=== PATIENT | male | born 1940 | race Caucasian/White ===

== ENCOUNTER 2017-12-27 11:32 | Inpatient (IN) | payer MEDICARE, OTHER, SELFPAY ==
[2017-12-27] VITALS (17 sets, daily range): BP systolic 132–182; BP diastolic 75–102; PULSE 44–59; RESP 14–19; TEMP 36.4–37; O2SAT 95–100; BMI 26.2; BMI 26.5
--- NOTE | 2017-12-27 11:34 | NURSING ---
1129 STROKE ALERT CALLED
--- NOTE | 2017-12-27 11:44 | CT_ITS ---
STUDY: CT BRAIN WITHOUT CONTRAST REASON FOR EXAM: Male, 77 years old. CVA. RADIATION DOSAGE (If Supplied By Facility): CTDIvol = ( 44.99 ) mGy, DLP = ( 779.29 ) mGycm TECHNIQUE: Transaxial CT imaging of the brain was performed without administration of intravenous contrast material. Individualized dose optimization techniques were used for this CT. COMPARISON: None. FINDINGS: Normal soft tissue structures. Normal calvarium. There is mild cerebral atrophy with widening of the extra-axial spaces and ventricular dilatation. Normal white matter tracts of the cerebral hemispheres. Normal basal ganglia and thalami. Normal brainstem. Normal cerebellum. There is no intracranial hemorrhage. There are no findings of an acute ischemic infarction. Atherosclerotic calcification of the cavernous portions of the internal carotid arteries bilaterally. Normal visualized paranasal sinuses. CT/Brain/Head without Contrast IMPRESSION: Chronic involutional changes of the brain. N.B. : The above information has been verbally conveyed by Pepe Lopez MD to Adam Hutchison, Referring Physician, on 12/27/2017 12:00:06 (ET). Electronically Signed: Pepe Lopez MD at 12:01 EST Tel [phone], Service support , N.B. : The above information has been verbally conveyed by Pepe Lopez MD to Adam Hutchison, Referring Physician, on 12/27/2017 12:00:06 (ET).
--- NOTE | 2017-12-27 11:45 | EKG12_ITS ---
Test Reason : STROKE Blood Pressure : / mmHG Vent. Rate : 046 BPM Atrial Rate : 046 BPM P-R Int : 218 ms QRS Dur : 104 ms QT Int : 482 ms P-R-T Axes : 064 -23 046 degrees QTc Int : 421 ms Sinus bradycardia with 1st degree A-V block Otherwise normal ECG Confirmed by HIRAL PRESTON, ISABELLA ([id number]), editorial manager MARCELA HICKMAN ([id number]) on 12/30/2017 2:47:50 PM Referred By: Confirmed By:ISABELLA BLACKMAN MD
--- NOTE | 2017-12-27 11:46 | CT_ITS ---
STUDY: CTA OF THE BRAIN REASON FOR EXAM: Male, 77 years old. Right-sided weakness. Diaphoresis. RADIATION DOSAGE (If Supplied By Facility): CTDIvol = ( 32.69 ) mGy, DLP = ( 808.51 ) mGycm TECHNIQUE: CT angiography was performed with a multi-detector CT scanner. Data acquisition was obtained from the skull base through the vertex following intravenous administration of 100 ml of Isovue 370. MIP images were reconstructed from the axial data set. Post-processing of the angiographic images was performed, with multiplanar reformation and 3D reconstruction. Individualized dose optimization techniques were used for this CT. COMPARISON: None. FINDINGS: Normal bilateral petrous carotid arteries. There is calcified plaque formation of the right cavernous carotid artery, without a cross-sectional luminal stenosis. There is calcified plaque formation of the left cavernous carotid artery, without a cross-sectional luminal stenosis. Normal right A1 segments of the anterior cerebral artery. Normal left A1 segments of the anterior cerebral artery. Normal intact anterior communicating artery (ACOM). Normal bilateral A2 segments of the anterior cerebral arteries. Normal right M1 and M2 segments of the middle cerebral arteries, with a normal M1 bifurcation. Normal left M1 and M2 segments of the middle cerebral arteries, with a normal M1 bifurcation. Normal right posterior communicating artery (PCOM). Normal left posterior communicating artery (PCOM). Normal bilateral vertebral arteries. Normal basilar artery with a normal basilar bifurcation. The visualized bilateral superior cerebellar (SCA) arteries are normal. Normal bilateral P1, P2 and visualized P3 segments of the posterior cerebral arteries. There is no demonstrated aneurysm of the [place]. There is no demonstrated abnormality of the visualized brain. CT/CTA Head W/WO Contrast IMPRESSION: Normal [place] without a demonstrated aneurysm or hemodynamically significant stenosis. Electronically Signed: Pepe Lopez MD at 12:33 EST Tel [phone], Service support ,
--- NOTE | 2017-12-27 11:46 | CT_ITS ---
STUDY: CTA NECK WITH CONTRAST REASON FOR EXAM: Male, 77 years old. Right-sided weakness. RADIATION DOSAGE (If Supplied By Facility): CTDIvol = ( 32.69 ) mGy, DLP = ( 808.51 ) mGycm TECHNIQUE: CT angiography with multi-detector data acquisition was performed from the aortic arch to the skull base following intravenous administration of 100 ml of Isovue 370 contrast. MIP images were reconstructed from the axial data set. Post-processing of the angiographic images was performed, with multiplanar reformation and 3D reconstruction. Individualized dose optimization techniques were used for this CT. COMPARISON: None. FINDINGS: AORTIC ARCH: Normal visualized aortic arch. Normal origins of the brachiocephalic, left common carotid, and left subclavian arteries. RIGHT CAROTID ARTERIES: Normal right common carotid artery (CCA). Normal right common carotid bulb. There is mild atherosclerotic plaque formation of the origin of the right internal carotid artery with less than 50% cross sectional diameter stenosis. Normal visualized cervical portion of the right internal carotid artery. Normal origin of the right external carotid artery (ECA). LEFT CAROTID ARTERIES: Normal left common carotid artery (CCA). Normal left common carotid bulb. Normal origin of the left internal carotid (ICA) artery without a hemodynamically significant stenosis. Normal visualized cervical portion of the left internal carotid artery. Normal origin of the left external carotid artery (ECA). VERTEBRAL ARTERIES: Normal bilateral vertebral arteries. CT/CTA Neck W/WO Contrast IMPRESSION: Minimal degree of atherosclerotic plaque at the origin of the right internal carotid artery. Electronically Signed: Pepe Lopez MD at 12:37 EST Tel [phone], Service support ,
--- NOTE | 2017-12-27 11:48 | ED.VISSUMM ---
- ER Visit Summary Date of Service: 12/27/17 Chief Complaint: [] The patient presents complaining of slurry speech right facial droop and paralysis of the right leg began suddenly around 1115 1120 History of Present Illness: The patient is a 77 M [] of valve surgery or some type of a ring was placed in his cardiac valve years ago, unspecified other heart disease he is on amiodarone, he apparently was well until 11 to 11:15 AM today when he suddenly began explains trouble with his speech right facial droop and could not move or elevate his right leg paramedics were called he was brought in. 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 he is receiving injections and that I but he is able to count fingers to visual acuity testing he has full range of motion of extraocular muscles no nystagmus his speech is heavy he struggles to find the words he has an obvious dysarthria, his lungs are clear the heart tones are bradycardic to about 50, his abdomen is soft nontender his upper lower extremities are generally unremarkable, he is able to hold both upper extremities up in the air for the normal count, he cannot hold the right leg up it falls immediately down to the bed, his NIH score is about 11 due to all of the above We immediately call the stroke team prior to arrival, stroke protocol executed neurology in the room he is taken a CAT scan with neurology, his EKG shows a bradycardic rhythm rate of about 50 sinus Test Results: [] Emergency Department Course and Treatment: [] The patient's screening labs are unremarkable he was taken to CT by Dr. Meadows CTA was added to his studies, per Dr. Meadows the studies are unremarkable, Dr. Meadows re-evaluate the patient did a repeat NIH that was practically 0 at this time the patient does not appear to be a candidate for TPA Dr. Meadows is arranging for his admission to the ICU Treatment Plan: [] Disposition: [] admit stable Impression: [] Stroke, right leg weakness slurry speech right facial droop symptoms improving This note was generated with [employer] software. It may contain incorrect words, spelling, and punctuation that were not noted in review of the chart prior to signing ED Disposition - Plan for ED Patient: Chief Complaint: Neuro S/Sx Referrals: Cheo Gamble MD [Primary Care Provider] -
--- NOTE | 2017-12-27 11:50 | RAD_ITS ---
STUDY: X-RAY CHEST REASON FOR EXAM: Male, 77 years old. Shortness of breath/dyspnea. TECHNIQUE: Single AP portable view of the chest. COMPARISON: None. FINDINGS: EKG electrode is seen. Mild elevation of the left hemidiaphragm with increased linear markings at the left lung base suggestive of left basilar atelectasis. There is no demonstrated pleural abnormality. Sternal cerclage wires are present from a prior sternotomy. Prior mitral and aortic valve replacement. Borderline cardiomegaly. Normal mediastinum and gavin. Normal visualized pulmonary arteries. There is atherosclerotic tortuosity of the aortic arch and descending thoracic aorta. Normal visualized thoracic spine. Normal visualized ribs, clavicles, and shoulders. There is no demonstrated abnormality of the visualized soft tissue structures of the upper abdomen. RAD/Chest 1 View IMPRESSION: Mild elevation of left hemidiaphragm with mild left basilar increased markings suggestive of atelectasis. Electronically Signed: Pepe Lopez MD at 12:28 EST Tel [phone], Service support ,
--- NOTE | 2017-12-27 11:53 | NURSING ---
NO LW OR POA
[2017-12-27 11:55] LABS: Absolute Lymphocyte Count 1.53 X10^3/ul (0.83-4.51); Absolute Neutrophil Count 3.1 X10^3/uL (2.0-7.7); Basophil# 0.02 X10^3/uL; Basophil% 0.4 % (0-1); Eosinophil# 0.12 X10^3/uL; Eosinophils% 2.2 % (0-5); Hematocrit 42.3 % (40-54); Hemoglobin 14.8 g/dl (13.0-16.5); Lymphocyte # 1.53 X10^3/ul (4.0); Lymphocyte % 28.5 % (19-41); Mean Corpuscular Hgb 32.1 pg (27.0-32.0); Mean Corpuscular Volume 91.8 fL (80-94); Mean Platelet Vol. 9.8 fl (6.2-12.0); Monocyte# 0.61 X10^3/uL; Monocyte% 11.4 % (0-10); Neutrophil # 3.07 X10^3/uL (2.7-7.7); Neutrophil % 57.3 % (47-70); POSITIVE COUNT NO; POSITIVE DIFFERENTIAL NO; POSITIVE MORPHOLOGY NO; Platelet Count 176 K/mm3 (150-450); RBC Distribution Width CV 13.3 % (11.6-14.6); RBC Distribution Width SD 44.3 fl (35.1-43.9); Red Blood Count 4.61 M/mm3 (4.6-6.2); White Blood Count 5.4 K/mm3 (4.4-11.0)
[2017-12-27 11:58] LABS: Partial Thromboplast Time 29.3 Seconds (24.1-36.2); Prothrombin Time (Protime)PT. 13.2 SECONDS (11.7-14.9)
--- NOTE | 2017-12-27 12:06 | ED.RN ---
1145. Dr. Meadows at bedside and has scored pt as zero. NO WORKFORCE INVESTMENT ACT CAREER MANAGER needed. Abdiel has requested ICU.
[2017-12-27 12:11] LABS: Anion Gap 6 (5-15); BUN 27 mg/dL (7-18); BUN/Creat Ratio 23.1 RATIO (10-20); Calcium,Total 8.6 mg/dL (8.5-10.1); Chloride 104 mmol/L (98-107); Creatinine, Serum 1.17 mg/dL (0.70-1.30); EST Glomerular Filtration Rate 64 mL/min (>60); Est Glom Filt Rate - Afr Amer 77 mL/min (>60); Estimated Creatinine Clearance 56.19 ml/min; Glucose 122 mg/dL (74-106); Sodium Level 142 mmol/L (136-145)
--- NOTE | 2017-12-27 12:39 | CON.PCM_ITS ---
Reason for Consult Date of Consultation: 12/27/17 Reason for Consultation: Stroke team History of Present Illness: The patient is a 77 year old handed white male who has a history of valve replacement and arrhythmia on amiodarone but not on any anticoagulation. There is no history of bleeding according to the patient and his next of kin daughter who is present. He apparently was acting abnormally this morning with some slurred speech and he indicates that he may have had some right-sided abnormal sensation as well. His ghmvief-ji-rss came to see him when he found that his language was abnormal on the phone and called the squad. Stroke team was called by the squad 12 minutes prior to his arrival in the emergency department because when they initially arrived he was normal however they noted slurred speech and right-sided weakness with an onset of 12 minutes prior to arrival. Upon evaluation in the emergency room the patient had improved but his speech had not normalized. CAT scan and CTA was immediately obtained both of which are normal, upon reevaluation in the emergency room he was improved and his NIH stroke scale score was 0. He and his daughter were able to tell me that he had what sounds like some venous congestion in his right retina however they were not able to tell me the exact diagnosis or his wet trimmer name. As far as they know there is no contraindication to anticoagulation, no history of bleeding, no history of tumors or recent surgery. Is no complaints now, no pain and is able to follow simple commands. Past Medical History Past Medical History (Chronic Problems): Chronic Problems Hypertension (Chronic) Hypothyroid (Chronic) Murmur (Chronic) BPH (benign prostatic hyperplasia) (Chronic) Allergies lisinopril Adverse Reaction (Verified 10/17/16 01:45) Nausea Home Medications: Ambulatory Orders Medication Instructions Recorded Amiodarone HCl [Cordarone] 100 mg PO DAILY 09/07/16 Amlodipine Besylate 2.5 mg PO DAILY 09/07/16 Finasteride 5 mg PO QHS 09/07/16 Levothyroxine [Synthroid] 50 mcg PO DAILY 09/07/16 Metoprolol(XL)Succ [Toprol Xl 25 mg PO DAILY 09/07/16 (Beta Sherrill)] Sertraline HCl 25 mg PO DAILY 09/07/16 Simvastatin 20 mg PO QHS 09/07/16 Aspirin E.C. [Ecotrin] 162 mg PO DAILY@0800 10/05/16 Nitroglycerin 0.4 mg SL PRN PRN 10/05/16 Aspirin/Acetaminophen/Caffeine 1 tab PO Q6H PRN PRN 10/12/16 [Excedrin Migraine Caplet] Pedi Mv No.79/Ferrous Fumarate 1 tab PO DAILY 10/12/16 [Flintstones with Iron Tab Chew] Oxybutynin [Ditropan] 5 mg PO BID 12/27/17 TraMADol [Ultram (G)] 50 mg PO Q4H PRN PRN 12/27/17 Smoking Status: Never smoker Tobacco Use: Non-smoker - *Family History Maternal History Items: No pertinent history Review of Systems Constitutional: Denies: Chills, Fever, Weight Change HEENT: Denies: Head Aches, Sinus Congestion, Sinus Drainage Cardiovascular: Denies: Chest Pain, Palpitations Respiratory: Denies: Cough, Shortness of breath at rest, Sputum production Gastrointestinal: Denies: Abdominal Pain, Nausea, Vomiting Genitourinary: Denies: Dysuria Musculoskeletal: Denies: Joint Pain, Joint Tenderness Skin: Denies: Rash, Wounds Neurological: Denies: Numbness, Tingling, Focal weakness Psychiatric: Denies: Anxiety, Depression, Homicidal Ideations, Suicidal Ideations Hematologic/ Lymphatic: Denies: Easy Bruising, Easy Bleeding - Physical Exam General: Alert, Oriented x3, Cooperative HEENT: Atraumatic, PERRLA, EOMI, Normocephalic Neck: Supple, No JVD, Negative Carotid Bruits Lungs: Clear to auscultation, Normal air movement Cardiovascular: Regular rate, No murmurs Abdomen: Bowel Sounds Present, Soft, Non Tender Extremities: No edema, Capillary Refill Less than 3 Seconds Skin: No rashes, No breakdown Musculoskeletal: No Tenderness to Palpation of Joints or Extremities Neurological: Cranial nerves II-XII grossly intact Psych/Mental Status: Normal Affect, Appropriate Vital Signs Pulse Resp BP Pulse Ox 49 L 18 171/84 H 99 12/27/17 11:53 12/27/17 11:53 12/27/17 11:53 12/27/17 11:53 Oxygen Delivery Method Room Air Weight: 87.7 kg Body Mass Index (BMI) 26.2 Laboratory Tests Past 24 Hrs 12/27/17 12/27/17 12/27/17 11:35 11:35 11:35 WBC 5.4 RBC 4.61 Hgb 14.8 Hct 42.3 MCV 91.8 MCH 32.1 H MCHC 35.0 RDW 13.3 RDW Differential 44.3 H Plt Count 176 MPV 9.8 Immature Gran % (Auto) 0.200 Neut % (Auto) 57.3 Lymph % (Auto) 28.5 [place] % (Auto) 11.4 H Eos % (Auto) 2.2 Baso % (Auto) 0.4 Absolute Neuts (auto) 3.1 Absolute Lymphs (auto) 1.53 Total Counted Not Reportable PT 13.2 INR 1.0 APTT 29.3 Sodium 142 Potassium 4.0 Chloride 104 Carbon Dioxide 32.0 Anion Gap 6 BUN 27 H Creatinine 1.17 Estim Creat Clear Calc 56.19 Est GFR (MDRD) Af Amer 77 Est GFR (MDRD) Non-Af 64 BUN/Creatinine Ratio 23.1 H Glucose 122 H Calcium 8.6 Troponin I < 0.02 CT and CTA reviewed concurrently with the performance of the test in the CT scanner, both of which are normal with no vessel abnormalities or acute stroke or bleeding. Assessment/Plan impression: TIA symptoms, I suspect this is cardioembolic given the stuttering occurrence of the symptoms. The patient is now normal. TPA is contraindicated now that his NIH stroke scale score 0. This was discussed with the patient and family who agree. I would recommend that he be admitted to the ICU for close monitoring, full dose anticoagulation should be initiated, MRI, echocardiogram and telemetry monitoring should be performed.
--- NOTE | 2017-12-27 13:02 | CHAPLAIN ---
Type of Pastoral Visit ___ Initial Visit ___ Follow-up Visit ___ On-call Visit ___ General Patient Visit ___ Spiritual Assessment ___ Family Conference ___ Bereavement _x__ Rapid Response ___ Code Blue ___ Other (describe below) Pastoral Care Referral From ___ Patient ___ Family ___ Nurse ___ Physician ___ Guest Services Attendant ___ Machine Operator Farmworker _x__ Other (describe below) Sacrament/Intervention _x__ Active listening ___ Anointing ___ Voodoo ___ Bereavement ___ Communion ___ Claudette exploration ___ ___ Life review _x__ Prayer ___ Reconciliation ___ Sacrament of Sick _x__ Supportive presence ___ Wedding ___ Other (describe below) Pastoral Comments sat with daughter of patient as medical team did evaluation; daughter accepted a prayer for support; gave presence and time until patient appeared to have good results
--- NOTE | 2017-12-27 13:24 | NURSING ---
dr heidy wood
--- NOTE | 2017-12-27 13:29 | NURSING ---
DR COURTNEY IN ER
--- NOTE | 2017-12-27 14:39 | MRI_ITS ---
MR Brain W/O Contrast INDICATION: rt facial droop and rt leg weakness earlier today-resolving now.Pt has mitral valve replacement COMPARISON: None TECHNIQUE: Multiplanar multisequence MRI examination of the brain without contrast. Radiation dose optimization technique applied. FINDINGS: There is no evidence of restricted diffusion to suggest acute infarction. Ventricular system is normal in size. Cortical sulci and extra-axial CSF spaces are mildly prominent, compatible with patient's age. Minimal confluent periventricular chronic ischemic microvascular white matter changes are noted. There is no evidence of parenchymal hemorrhage, mass effect, midline shift, or abnormal extra-axial collection. Paranasal sinuses are clear and flow-voids of the [place] vascularity appear within normal limits. MRI/Brain without Contrast IMPRESSION: Age-related cerebral volume loss and mild chronic ischemic microvascular white matter changes. No acute findings. at 1736 Reported and signed by: Mary Bell MD Electronically Signed: Mary Bell MD at 16:34 EST Tel , Service support ,
--- NOTE | 2017-12-27 14:39 | ECHOD_ITS ---
Reason For Study: TIA/CVA Procedure This was a 2D Doppler, Color Flow transthoracic echocardiogram. Exam performed portable in patient room. Left Ventricle Mild concentric left ventricular hypertrophy. The estimated ejection fraction is 65 %. Septal motion consistent with IVCD. No regional wall motion abnormalities noted. Right Ventricle Normal size and thickness. Normal systolic function. Atria The left atrium is moderately enlarged. Normal right atrium. Normal atrial septum. Mitral Valve Mild diffuse mitral valve thickening. There is no vegetation seen on the mitral valve. Peak transmitral valve gradient 5 mmHg. Mean transmitral valve gradient 2 mmHg. An annuloplasty ring is noted in the mitral position. Tricuspid Valve Normal tricuspid valve. Trivial tricuspid valve insufficiency. Right ventricular systolic pressure estimated to be 26 mmHg. Aortic Valve Trisinus/trileaflet aortic valve. Mild diffuse aortic valve thickening. Pulmonic Valve Normal pulmonic valve. Great Vessels Normal aortic root. Moderate atherosclerosis of the aortic arch. Normal inferior vena cava. Inferior vena cava collapse with sniff. Pericardium/Pleural No pericardial effusion. MMode/2D Measurements & Calculations LVIDd: 3.8 cm IVSd: 1.3 cm Ao root diam: 3.1 cm LVIDs: 2.2 cm LVPWd: 1.2 cm LA dimension: 5.0 cm RVDd: 3.2 cm FS: 43.7 % LAV(MOD-bp): 74.3 ml LA A4 area: 24.9 cm2 RA A4 area: 13.0 cm2 LAV(MOD-bp) Indexed: 36.1 ml/m2 LAV(MOD-sp2): 53.4 ml LAV(MOD-sp4): 82.3 ml Doppler Measurements & Calculations MV E max jorje: 95.1 cm/sec Lat Peak E' Jorje: 6.7 cm/sec Med Peak E' Jorje: 4.4 cm/sec MV A max jorje: 92.1 cm/sec E/E' lat: 14.2 E/E' med: 21.7 MV E/A: 1.0 MV V2 max: 108.3 cm/sec MV P1/2t max jorje: 89.2 cm/sec Ao V2 max: 109.6 cm/sec MV max P.7 mmHg MV P1/2t: 151.0 msec Ao max P.8 mmHg MV V2 mean: 57.0 cm/sec MV dec slope: 173.1 cm/sec2 MV mean P.6 mmHg MVA(P1/2t): 1.5 cm2 MV V2 VTI: 46.8 cm LV V1 max: 80.0 cm/sec PA V2 max: 103.8 cm/sec TR max jorje: 227.6 cm/sec LV V1 max P.6 mmHg TR max P.7 mmHg Interpretation Summary Mild concentric left ventricular hypertrophy. The estimated ejection fraction is 65 %. The left atrium is moderately enlarged. Mild diffuse mitral valve thickening. Right ventricular systolic pressure estimated to be 26 mmHg. Moderate atherosclerosis of the aortic arch. There is no comparison study available. No cardiac source of emboli noted. Ordering Physician: Robin Gomes Performed By: Sari Oquendo RDCS
[2017-12-27 15:25] LABS: Partial Thromboplast Time 29.7 Seconds (24.1-36.2)
--- NOTE | 2017-12-27 15:37 | NURSING ---
Addendum entered by Jessie Lundberg 12/27/17 15:38: DYSPHAGIA SCREEN WAS NOT COMPLETED. FOLLOWED ST RECOMMENDATIONS Original Note: ST CAME TO EVALUATE PATIENT, SO DYSPHAGIA SCREEN WAS COMPLETED.
--- NOTE | 2017-12-27 15:46 | NURSING ---
PATIENT DOESN'T WANT RN TO START HEPARIN DRIP UNTIL THE DOCTOR HAS SPOKEN TO HIS EYE DOCTOR TO MAKE SURE OKAY. PAGED DR COURTNEY DAUGHTER STATES HE HAS AN INJECTION CALLED AVASTIN, AND HAS A RETINA VEIN OCCULSION.
[2017-12-27] MEDS: Acetaminophen 325 MG Tablet 650 MG PO (16:04)
--- NOTE | 2017-12-27 16:52 | NURSING ---
Called Dr. Miriam Myers's office regarding patient's concern over heparin drip and eye condition. Dr. Myers to call us back.
[2017-12-27] MEDS: HEPARIN/D5w 25,000 UNITS 25,000 UNITS/250 ML IV.SOLN. 12 UNITS IV (17:06)
[2017-12-27] MEDS: Heparin Injection 5,000 UNITS/ML Syringe 6000 UNITS IV (17:06)
--- NOTE | 2017-12-27 18:07 | NURSING ---
Dr. Joiner returned call. Updated him on patient condition and concern regarding use of heparin with retina vein occlusion. Dr. Joiner agrees with use of heparin. Will notify patient.
--- NOTE | 2017-12-27 20:46 | NURSING ---
multiple attempts made to page admitting MD to clarify NIH order & frequency with no response.
--- NOTE | 2017-12-27 20:58 | PCM.HP.STD ---
Problem List (1) Right sided weakness Status: Acute (2) Slurred speech Status: Acute History of Present Illness Date of Admission: 12/27/17 Chief Complaint: Right-sided weakness, slurred speech The patient is a 77 year old M who was seen in the emergency room at [facility] with a chief complaint of right sided upper and lower extremity weakness which occurred suddenly approximately 11 AM today. Patient also had trouble with his speech-he stated that his speech was slurred and family members also noted a right facial droop. Patient was brought in by paramedics. On first evaluation by the emergency room physician, his NIH score was 11, stroke team was called and neurology was contacted. Patient was taken to CAT scan and neurology examined the patient. Patient's CAT scan of the brain was unremarkable as was his CT of his head and neck. EKG showed a normal sinus rhythm, after patient returned from CAT scan, his repeat NIH stroke score was 0 according to neurology notes. Neurology recommended that the patient be fully anticoagulated with heparin, patient was already on aspirin at home and neurology recommended that the aspirin be stopped. Patient will be admitted to PCU for TIA and possible stroke. Past Medical History Past Medical History (Chronic Problems): Chronic Problems Hypertension (Chronic) Hypothyroid (Chronic) Murmur (Chronic) BPH (benign prostatic hyperplasia) (Chronic) Allergies lisinopril Adverse Reaction (Verified 10/17/16 01:45) Nausea Home Medications: Ambulatory Orders Medication Instructions Recorded Amiodarone HCl [Cordarone] 100 mg PO DAILY 09/07/16 Finasteride 5 mg PO QHS 09/07/16 Levothyroxine [Synthroid] 50 mcg PO DAILY 09/07/16 Metoprolol(XL)Succ [Toprol Xl 25 mg PO DAILY 09/07/16 (Beta Sherrill)] Sertraline HCl 25 mg PO DAILY 09/07/16 Simvastatin 20 mg PO BID 09/07/16 Aspirin E.C. [Ecotrin] 162 mg PO DAILY@0800 10/05/16 Nitroglycerin 0.4 mg SL PRN PRN 10/05/16 Aspirin/Acetaminophen/Caffeine 1 tab PO Q6H PRN PRN 10/12/16 [Excedrin Migraine Caplet] Pedi Mv No.79/Ferrous Fumarate 1 tab PO BID 10/12/16 [Flintstones with Iron Tab Chew] Cholecalciferol (Vitamin D3) 2,000 unit PO DAILY 12/27/17 [Vitamin D3] Krill Oil 500 mg PO DAILY 12/27/17 Losartan Potassium [Losartan 100 mg PO DAILY 12/27/17 Potassium] Lutein 20 mg PO DAILY 12/27/17 Oxybutynin [Ditropan] 5 mg PO BID 12/27/17 Tamsulosin HCl [Flomax] 0.4 mg PO DAILY 12/27/17 TraMADol [Ultram (G)] 50 mg PO Q4H PRN PRN 12/27/17 Ubidecarenone [Co Q-10] 10 mg PO BID 12/27/17 Surgical History: - - Mitral valve repair, left carpal tunnel surgery Psychiatric History: No pertinent psych hx Lives: Alone Smoking Status: Never smoker Tobacco Use: Non-smoker Alcohol: None Drugs: None - *Family History Maternal History Items: No pertinent history Paternal History Items: No pertinent history Review of Systems Constitutional: Denies: Anorexia, Chills, Fever, Night Sweats, Malaise, Weakness, Weight Change, Fatigue Eyes: Denies: Blurred vision, Cataracts, Conjunctivae Inflammation, Double vision, Drainage, Eyelid Inflammation, Redness HEENT: Denies: Difficulty Hearing, Difficulty Swallowing, Dysphasia, Ear Pain, Eye Pain, Hard of Hearing, Head Aches, Hearing Changes, Nasal bleeding, Nasal Congestion, Post Nasal Drip Cardiovascular: Denies: Chest Pain, Claudication, Chest Pressure, Chest Tightness, Edema, Heaviness, Orthopnea, Palpitations, Paroxysmal Noc. Dyspnea, Syncope Respiratory: Denies: Cough, Hemoptysis, Pleuritic Pain, Shortness of Breath, Shortness of breath at rest, Shortness of breath upon exertion, Sputum production Gastrointestinal: Denies: Abdominal Pain, Constipation, Diarrhea, Hematemesis, Hematochezia, Nausea, Melena, Vomiting Genitourinary: Denies: Dysuria, Frequency, Hematuria, Hesitancy, Incontinence, Nocturia, Urgency Musculoskeletal: Denies: Back Pain, Foot Pain, Hand Pain, Joint Pain, Joint stiffness, Joint swelling, Joint Tenderness, Leg Pain Skin: Denies: Dryness, Pruritis, Rash Neurological: Reports: Balance problems, Blurred vision - Patient has 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 Denies: Double vision, Confusion, Difficulty swallowing, Numbness, Tingling Psychiatric: Denies: Anxiety, Depression, Homicidal Ideations, Suicidal Ideations Endocrine: Denies: Change in Body Habitus, Heat/ Cold Intolerance, Polydipsia, Polyuria Hematologic/ Lymphatic: Denies: Adenopathy, Anemia, Easy Bruising, Easy Bleeding, Petechiae, Purpura VTE Information - Inpt Only VTE Present on Admission: No VTE Mechan Device Prophylaxis: None VTE Pharm Prophylaxis ordered?: No Reason prophylaxis not ordered:: Medical Contraindication - Patient will be fully anticoagulated with IV heparin Patient Problems: Active and Suspected Problems Right sided weakness (Acute) Slurred speech (Acute) - Physical Exam General: Alert, Oriented x3, Cooperative, No apparent distress, Well developed, Well nourished HEENT: Atraumatic, PERRLA, EOMI, Normocephalic Oral: Moist Mucosa Neck: Supple, No JVD, Negative Carotid Bruits, No Nuchal Rigidity, Trachea Midline, Thyroid Normal Size and Texture Lungs: Clear to auscultation, Normal air movement, No rhonchi, No wheeze, No rales Cardiovascular: Regular rate, Regular Rhythm, Normal S1, Normal S2, No murmurs, No Ectopic Activity, PMI Normal, No rub noted, No Gallop Abdomen: Bowel Sounds Present, Soft, Non Tender, Non-Distended, No hernias noted Extremities: No clubbing, No cyanosis, No edema, Capillary Refill Less than 3 Seconds Skin: No rashes, No breakdown Musculoskeletal: No Tenderness to Palpation of Joints or Extremities Neurological: Cranial nerves II-XII grossly intact, Neuro grossly intact, Muscle tone normal, Sensory exam intact to light touch and pain Psych/Mental Status: Normal Affect, Appropriate, Alert and oriented to time, place, person, mood and affect Vital Signs Temp Pulse Resp BP Pulse Ox 98.6 F 52 L 18 140/97 H 98 12/27/17 20:00 12/27/17 20:00 12/27/17 20:00 12/27/17 20:00 12/27/17 20:00 Oxygen Delivery Method Room Air Weight: 83.915 kg Body Mass Index (BMI) 26.5 Intake and Output for Last 24 Hours 12/25/17 12/26/17 12/27/17 23:59 23:59 23:59 Intake Total 360 / 360 Output Total 700 / 1150 Balance -340 / -790 Laboratory Tests Past 24 Hrs 12/27/17 15:08 APTT 29.7 Assessment/Plan Active and Suspected Problems Right sided weakness (Acute) Slurred speech (Acute) #1 TIA versus acute stroke-patient will be admitted to PCU for stepdown status per request of neurology, frequent NIH and vital signs will be obtained, patient will be fully anticoagulated with IV heparin, echocardiogram will be obtained, patient will have an MRI of the brain performed, no aspirin will be used due to the fact the patient will be fully anticoagulated with heparin. Patient will remain on statin #2 Hypertension-patient will remain on his present medication #3 hypothyroidism-patient is to remain on Synthroid #4 hyperlipidemia #5 probable history of cardiac arrhythmias-patient denied history of atrial fibrillation but he is on amiodarone and he states he has been on this for years but he cannot give me a reason why he is taking this medication #6 right eye retinal vein occlusion-patient is being treated as an outpatient for this #7 BPH Code Visit Inpatient E&M: 29832 Init Hosp L3
[2017-12-27] MEDS: Finasteride 5 MG Tablet PO (21:09)
[2017-12-27] MEDS: Atorvastatin Calcium 10 MG Tablet PO (21:09)
[2017-12-27] MEDS: Oxybutynin 5 MG Tablet PO (21:09)
[2017-12-27 23:59] LABS: Partial Thromboplast Time > 250.0 Seconds (24.1-36.2)
[2017-12-28] VITALS (26 sets, daily range): BP systolic 133–164; BP diastolic 78–104; PULSE 43–56; RESP 11–18; TEMP 36.3–36.9; O2SAT 95–100; BMI 26.5
[2017-12-28 01:05] LABS: Partial Thromboplast Time 149.9 Seconds (24.1-36.2)
--- NOTE | 2017-12-28 01:35 | NURSING ---
daughter, Shanel Chavez [phone], would like to be called with any changes or any patient needs. She does live about an hour and fifteen minutes away.
[2017-12-28] MEDS: Acetaminophen 325 MG Tablet 650 MG PO ×2 (03:11→21:57)
--- NOTE | 2017-12-28 03:12 | NURSING ---
PT CALLED THIS RN INTO HIS ROOM AT THIS TIME, STATES THAT HE HAD ANOTHER EPISODE. HE PULLED HIS BOTTLE OF POP OFF OF HIS BEDSIDE TABLE AND WAS UNABLE TO PUT IT BACK ONTO THE TABLE. HE SAID IT WAS ALSO HARD FOR HIM TO SWALLOW AT THAT TIME. HE STATES HE ALSO TRIED TO RAISE HIS RIGHT LEG IN WHICH HE WAS UNABLE. HOWEVER, ALL SYMPTOMS RESOLVED BY THE TIME HE ALERTED STAFF. PT C/O H/A. TYLENOL GIVEN.
[2017-12-28 03:59] LABS: Absolute Lymphocyte Count 2.02 X10^3/ul (0.83-4.51); Absolute Neutrophil Count 4.4 X10^3/uL (2.0-7.7); Basophil# 0.02 X10^3/uL; Basophil% 0.3 % (0-1); Eosinophils% 1.4 % (0-5); Hematocrit 41.1 % (40-54); Hemoglobin 14.4 g/dl (13.0-16.5); Lymphocyte # 2.02 X10^3/ul (4.0); Lymphocyte % 27.9 % (19-41); Mean Corpuscular Hgb 31.9 pg (27.0-32.0); Mean Corpuscular Volume 90.9 fL (80-94); Monocyte# 0.66 X10^3/uL; Monocyte% 9.1 % (0-10); Neutrophil # 4.43 X10^3/uL (2.7-7.7); Neutrophil % 61.2 % (47-70); Platelet Count 176 K/mm3 (150-450); RBC Distribution Width CV 13.4 % (11.6-14.6); RBC Distribution Width SD 44.4 fl (35.1-43.9); Red Blood Count 4.52 M/mm3 (4.6-6.2); White Blood Count 7.2 K/mm3 (4.4-11.0)
[2017-12-28 04:02] LABS: POSITIVE COUNT NO; POSITIVE DIFFERENTIAL NO; POSITIVE MORPHOLOGY NO
[2017-12-28 04:16] LABS: Cholesterol 133 mg/dL (200); High Density Lipoprotein 34 mg/dL; Triglycerides 179 mg/dL; Very Low Density Lipoprotein 36 mg/dL (5-40)
--- NOTE | 2017-12-28 04:31 | NURSING ---
RN in to do rounds on patient at this time. Pt started by talking clear and speech became very garbled and slurred. Unable to move right side. Within 20 seconds, symptoms resolved. Speech improved and NIH resulted 0. No changes in VS. Will continue to monitor
[2017-12-28] MEDS: Levothyroxine 50 MCG Tablet PO (06:08)
[2017-12-28 08:59] LABS: Partial Thromboplast Time 66.6 Seconds (24.1-36.2)
--- NOTE | 2017-12-28 09:42 | NURSING ---
echo in progress
[2017-12-28] MEDS: 0.9% NaCl Peripheral Flush Adult/Peds IV ×2 (10:30→21:59)
[2017-12-28] MEDS: Amiodarone 200 MG Tablet 100 MG PO (10:32)
[2017-12-28] MEDS: Oxybutynin 5 MG Tablet PO ×2 (10:33→21:53)
[2017-12-28] MEDS: Sertraline 50 MG Tablet 25 MG PO (10:33)
--- NOTE | 2017-12-28 10:42 | PN.NEURO_ITS ---
Patient Problems: Active and Suspected Problems Right sided weakness (Acute) Slurred speech (Acute) Subjective: No new complaints although he has had recurrent brief spells, he has had a total of 4 or 5 since they began yesterday and he has not had these before. His only medication change was losartan. He says his rate usually is in the 60s at home but it has been in the 40s here. He has had a headache associated with these spells but no other symptoms. Objective: I again witnessed 1 of his events, thing about 5 minutes, consisting of dysarthria, right facial droop and right arm weakness. This slowly resolved over about 5 minutes. He was able to converse throughout, he had no a aphasia. - Physical Exam Vital Signs Temp Pulse Resp BP Pulse Ox 36.6 C 46 L 12 152/91 H 99 12/28/17 08:00 12/28/17 10:30 12/28/17 10:00 12/28/17 10:30 12/28/17 10:00 Oxygen Delivery Method Room Air Weight: 83.915 kg Body Mass Index (BMI) 26.5 Intake and Output for Last 24 Hours 12/26/17 12/27/17 12/28/17 23:59 23:59 23:59 Intake Total 561.3 / 561.3 266.2 / 266.2 Output Total 700 / 1150 200 / 200 Balance -138.7 / -588.7 66.2 / 66.2 Laboratory Tests Past 24 Hrs 12/27/17 12/27/17 12/28/17 15:08 23:12 00:35 WBC RBC Hgb Hct MCV MCH MCHC RDW RDW Differential Plt Count MPV Immature Gran % (Auto) Neut % (Auto) Lymph % (Auto) Billings % (Auto) Eos % (Auto) Baso % (Auto) Absolute Neuts (auto) Absolute Lymphs (auto) Total Counted APTT 29.7 > 250.0 H* 149.9 H* Triglycerides Cholesterol LDL Cholesterol VLDL Cholesterol HDL Cholesterol 12/28/17 12/28/17 12/28/17 03:48 03:48 03:48 WBC 7.2 RBC 4.52 L Hgb 14.4 Hct 41.1 MCV 90.9 MCH 31.9 MCHC 35.0 RDW 13.4 RDW Differential 44.4 H Plt Count 176 MPV 10.0 Immature Gran % (Auto) 0.100 Neut % (Auto) 61.2 Lymph % (Auto) 27.9 Billings % (Auto) 9.1 Eos % (Auto) 1.4 Baso % (Auto) 0.3 Absolute Neuts (auto) 4.4 Absolute Lymphs (auto) 2.02 Total Counted Not Reportable APTT 100.0 H* Triglycerides 179 Cholesterol 133 LDL Cholesterol 63 VLDL Cholesterol 36 HDL Cholesterol 34 L 12/28/17 08:10 WBC RBC Hgb Hct MCV MCH MCHC RDW RDW Differential Plt Count MPV Immature Gran % (Auto) Neut % (Auto) Lymph % (Auto) Billings % (Auto) Eos % (Auto) Baso % (Auto) Absolute Neuts (auto) Absolute Lymphs (auto) Total Counted APTT 66.6 H Triglycerides Cholesterol LDL Cholesterol VLDL Cholesterol HDL Cholesterol MRI reviewed, no acute. Echo results are pending. Assessment/Plan Active and Suspected Problems Right sided weakness (Acute) Slurred speech (Acute) Impression: Focal right-sided symptoms, workup is negative including MRI, CTA, echocardiogram is pending. His heart rate is somewhat low but does not appear to vary in conjunction with his symptoms. I will ask cardiology to see him. These could be complex partial seizures and I will obtain an EEG. There does not appear to be a cardioembolic phenomenon at this point based on negative MRI and his recurrent spells. I will therefore discontinue his IV heparin. I have asked for a wet read of his echocardiogram as well.
--- NOTE | 2017-12-28 11:02 | NURSING ---
THIS RN ASSUMING CARE AT THIS TIME. EEG IN ROOM.
[2017-12-28 11:13] LABS: Bacteria 0 SEEN /hpf (None Seen); Mucous, Urine 0 SEEN /hpf (<or=2+)
[2017-12-28 11:23] LABS: Color, Urine Yellow (Yellow); Glucose, Dipstick Normal (Normal); Ketone-Dipstick Negative (Negative); Leukocyte Esterase-Dipstick 100 /ul (Negative); Nitrite-Dipstick Negative (Negative); Occult Blood-Urine 10 /ul (Negative); Protein-Dipstick Negative (Negative); Specific Gravity, Urine 1.015 (1.002-1.030); Urine Bilirubin Dipstick Negative (Negative); Urine Clarity Sl. Cloudy (Clear); Urine Urobilinogen Normal (Normal)
[2017-12-28 11:37] LABS: Red Blood Cells-Urine 0-5 SEEN /hpf (0-5); Squamous Epithelial Cells - UA 0-5 SEEN /hpf (0-5); White Blood Cells 10-25 SEEN /hpf (0-5)
--- NOTE | 2017-12-28 11:45 | CASEMGMT ---
This RN CM to room to complete CM assessment and pt is getting hooked up for an EEG at this time. This RN CM will attempt later. SStaten RN CM
--- NOTE | 2017-12-28 14:35 | CASEMGMT ---
This RN CM to room to complete CM assessment but automotive technician instructor is at bedside at this time. Will attempt again later. SStmitul RN CM
--- NOTE | 2017-12-28 15:06 | CHAPLAIN ---
Type of Pastoral Visit ___ Initial Visit _x__ Follow-up Visit ___ On-call Visit ___ General Patient Visit ___ Spiritual Assessment ___ Family Conference ___ Bereavement ___ Rapid Response ___ Code Blue ___ Other (describe below) Pastoral Care Referral From _x__ Patient ___ Family ___ Nurse ___ Physician ___ Collection Systems Modeler ___ Swatch Folder ___ Other (describe below) Sacrament/Intervention _x__ Active listening ___ Anointing ___ Yazdanism ___ Bereavement ___ Communion ___ Claudette exploration ___ _x__ Life review _x__ Prayer ___ Reconciliation ___ Sacrament of Sick ___ Supportive presence ___ Wedding ___ Other (describe below) Pastoral Comments long talk about 'finding out what is wrong', 'dealing with 's at this hospital two years ago', '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
--- NOTE | 2017-12-28 15:20 | CON.PCM_ITS ---
Problem List (1) Hypertension Status: Chronic Qualifiers: Hypertension type: unspecified secondary hypertension Qualified Code(s): I15.9 - Secondary hypertension, unspecified; I15 - Secondary hypertension (2) Murmur Status: Chronic Reason for Consult Date of Consultation: 12/28/17 Reason for Consultation: Bradycardia, hypertension, History of Present Illness: The patient is a 77 year old M, patient of Dr. Kohli, with a history of hypertension, status post mitral valve repair surgery approximately 2 years ago , no concomitant bypass surgery per the patient, who is in normal state of health up until around 11 AM yesterday when he developed right-sided facial droop, slurred speech, left-sided weakness, and was brought to [facility] ER. A stroke team was called, and patient underwent aggressive cerebral evaluation including a CT scan, which was negative for acute bleed, head and neck CTA which showed no significant vertebral disease, minimal plaquing in his carotids. Also underwent MRI which was essentially negative except for chronic involutional changes. Consultation was for bradycardia, and upon my arrival to the room the patient had developed acute weakness while standing up to try to go to the bathroom, and the patient customer care manager and his 2 daughters are trying to assist him to get back into bed as his legs were so weak. In addition I witnessed he had recurrent right sided facial droop, slow mentation, slurred speech, and left upper and lower extremity weakness. As we talk for a few minutes the patient's speech began to normalize and his right facial droop began to resolve. I notify Dr. Meadows immediately during this event, and he is currently being evaluated for possible seizure-like activity. During this event, the patient was fairly hypertensive with a blood pressure of 160/100, and his heart rate was in the mid 40s. Telemetry evaluation showed no significant bradycardia to explain his symptoms. According to the patient, the symptoms began after patient had been placed on losartan and it had been titrated upwards recently. The patient underwent a 2D echo with Doppler which showed normal LV function, normal functioning mitral valve repair, no vegetations noted. Past Medical History Allergies/Adverse Reactions: Allergies lisinopril Adverse Reaction (Verified 10/17/16 01:45) Nausea Home Medications: Ambulatory Orders Medication Instructions Recorded Amiodarone HCl [Cordarone] 100 mg PO DAILY 09/07/16 Finasteride 5 mg PO QHS 09/07/16 Levothyroxine [Synthroid] 50 mcg PO DAILY 09/07/16 Metoprolol(XL)Succ [Toprol Xl 25 mg PO DAILY 09/07/16 (Beta Sherrill)] Sertraline HCl 25 mg PO DAILY 09/07/16 Simvastatin 20 mg PO BID 09/07/16 Aspirin E.C. [Ecotrin] 162 mg PO DAILY@0800 10/05/16 Nitroglycerin 0.4 mg SL PRN PRN 10/05/16 Aspirin/Acetaminophen/Caffeine 1 tab PO Q6H PRN PRN 10/12/16 [Excedrin Migraine Caplet] Pedi Mv No.79/Ferrous Fumarate 1 tab PO BID 10/12/16 [Flintstones with Iron Tab Chew] Cholecalciferol (Vitamin D3) 2,000 unit PO DAILY 12/27/17 [Vitamin D3] Krill Oil 500 mg PO DAILY 12/27/17 Losartan Potassium [Losartan 100 mg PO DAILY 12/27/17 Potassium] Lutein 20 mg PO DAILY 12/27/17 Oxybutynin [Ditropan] 5 mg PO BID 12/27/17 Tamsulosin HCl [Flomax] 0.4 mg PO DAILY 12/27/17 TraMADol [Ultram (G)] 50 mg PO Q4H PRN PRN 12/27/17 Ubidecarenone [Co Q-10] 10 mg PO BID 12/27/17 Past Medical History (Chronic Problems): Chronic Problems Hypertension (Chronic) Hypothyroid (Chronic) Murmur (Chronic) BPH (benign prostatic hyperplasia) (Chronic) Surgical History: - - Mitral valve repair, left carpal tunnel surgery Psychiatric History: No pertinent psych hx - *Family History Maternal History Items: No pertinent history Paternal History Items: No pertinent history Lives: Alone Smoking Status: Never smoker Tobacco Use: Non-smoker Alcohol: None Drugs: None Review of Systems - Review of Systems General: Denies: Fever, Night Sweats, Fatigue Cardiovascular: Denies: Chest Discomfort, Shortness of Breath, Orthopnea, PND, Peripheral Edema, Palpitations, Lightheadedness, Dizziness, Near Syncope, Syncope Respiratory: Denies: Cough, Sputum Production, Hemoptysis Gastrointestinal: Denies: Hematemesis, Hematochezia, Melena Genitourinary: Denies: Dysuria, Hematuria Skin: Denies: Rash Subjectve: Patient answers questions appropriately, slurred speech markedly improved, no acute distress. Objective: Vital Signs Temp Pulse Resp BP Pulse Ox 97.8 F 48 L 17 156/83 H 100 12/28/17 08:00 12/28/17 14:00 12/28/17 14:00 12/28/17 14:00 12/28/17 14:00 Oxygen Delivery Method Room Air Weight: 185 lb 0.014 oz Body Mass Index (BMI) 26.5 Intake and Output for Last 24 Hours 12/26/17 12/27/17 12/28/17 23:59 23:59 23:59 Intake Total 561.3 / 561.3 266.2 / 266.2 Output Total 700 / 1150 200 / 200 Balance -138.7 / -588.7 66.2 / 66.2 General: Awake, Alert, Oriented x 3 HEENT: PERRL, EOMI, Sclera Non Icteric Neck: Supple, Good ROM, No Lymph Node Enlargement Lungs: Clear to auscultation Cardiovascular: Regular Rhythm, Normal S1, Normal S2, No Murmurs, No Rubs, No Gallops Vascular: No Carotid Bruits, Normal Femoral Pulses, Normal Radial Pulses, Normal Dorsalis Pedal Pulse, Normal Posterior Tibial Pulses Abdomen: Bowel Sounds Present, Soft, Non Tender, No HSM, No Organomegaly Extremities: No Cyanosis, No Clubbing, No edema Neurological: No Focal Motor or Sensory Deficit 12/27/17 15:08: APTT 29.7 12/27/17 23:12: APTT > 250.0 H* 12/28/17 00:35: APTT 149.9 H* 12/28/17 03:48: Triglycerides 179, Cholesterol 133, LDL Cholesterol 63, VLDL Cholesterol 36, HDL Cholesterol 34 L 12/28/17 03:48: WBC 7.2, RBC 4.52 L, Hgb 14.4, Hct 41.1, MCV 90.9, MCH 31.9, MCHC 35.0, RDW 13.4, RDW Differential 44.4 H, Plt Count 176, MPV 10.0, Immature Gran % (Auto) 0.100, Neut % (Auto) 61.2, Lymph % (Auto) 27.9, Terrell % (Auto) 9.1 , Eos % (Auto) 1.4, Baso % (Auto) 0.3, Absolute Neuts (auto) 4.4, Total Counted Not Reportable 12/28/17 03:48: APTT 100.0 H* 12/28/17 08:10: APTT 66.6 H 12/28/17 11:04: Urine Color Yellow, Urine Clarity Sl. Cloudy, Urine pH 6.0, Ur Specific Rochelle 1.015, Urine Protein Negative, Urine Glucose (UA) Normal, Urine Ketones Negative, Urine Occult Blood 10 H, Urine Nitrite Negative, Urine Bilirubin Negative, Urine Urobilinogen Normal, Ur Leukocyte Esterase 100 H, Urine RBC 0-5 SEEN, Urine WBC 10-25 SEEN Rhythm: EKG: Sinus bradycardia with a rate of 46, first-degree AV block. ECHO: Normal LV function with an EF of 65%, no significant mitral regurgitation , normal functioning annuloplasty ring with peak and mean gradient of 6/2 mmHg which is normal for mitral valve repair. Normal RVSP. Stress Test: Cardiac Cath: PCI: CT Surgery: Holter monitor: EPS: PPM: CXR: Chest CT Scan: Assessment/Plan 1. Sinus bradycardia: The patient presents with sinus bradycardia and significant hypertension in the face of acute right-sided facial droop, slurred speech, slow mentation, and left upper and lower extremity weakness. Patient has been seen by Dr. Meadows, and he apparently has had several episodes similar to this since his admission. It appears the patient has significant hypertension during these episodes, and they may be related to seizure-like activity. At this point I do not believe the patient requires temporary pacing or permanent pacing at this time. I would however recommend discontinuation of his Toprol given his bradycardia. Will use the beta blocking component of amiodarone for heart rate control. In addition I would discontinue his losartan as there appears to be some relationship between the initiation of losartan and the patient's symptoms although the relationship is somewhat vague at this time. Given his hypertension I would recommend Imdur 30 mill grams p.o. daily for blood pressure control. Although his diastolic numbers quite high, I would not recommend diuretic therapy given his difficulty getting to and from the bathroom. In addition the patient may require cessation of his amiodarone if his heart rate does not improve with lack of beta-sherrill. I am uncertain as to why the patient is on amiodarone but my suspicion is that he had atrial fibrillation as a result of his mitral valve repair surgery. This may be contributing to his hypothyroidism as well. In place of his Toprol we will start Imdur 30 mg p.o. daily. I have notified Dr. Greer of the patient's events and we await the results of his recent EEG. 2. Mitral valve repair: The patient's echocardiogram shows intact annuloplasty ring, and no indication for SHASHI at this time. Patient's symptoms do not appear to be embolic and he has had no fevers, chills, or outward signs of endocarditis. 3. Thank you very much for the opportunity to participate in the cardiac care of your patient. Consultation time took place between 130 and 2:15 PM. All questions answered to the patient's family and Dr. Bee been notified of the patient's events. Code Visit Inpatient E&M: 41712 Init Hosp L3
--- NOTE | 2017-12-28 16:19 | PCM.PN.HOSP ---
Patient Problems: Active and Suspected Problems Right sided weakness (Acute) Slurred speech (Acute) Subjective: still with intermittent slurred speech. occasionally with right arm weakness. Denies diplopia, backwards falls. Vitals/I&O's: Vital Signs Temp Pulse Resp BP Pulse Ox 36.6 C 49 L 18 153/91 H 98 12/28/17 08:00 12/28/17 16:00 12/28/17 16:00 12/28/17 16:00 12/28/17 16:00 Oxygen Delivery Method Room Air Weight: 83.915 kg Body Mass Index (BMI) 26.5 Intake and Output for Last 24 Hours 12/26/17 12/27/17 12/28/17 23:59 23:59 23:59 Intake Total 561.3 / 561.3 626.2 / 626.2 Output Total 700 / 1150 200 / 200 Balance -138.7 / -588.7 426.2 / 426.2 General: Alert, Cooperative, No apparent distress, - - speech became more slurred and softer the longer he spoke. HEENT: Atraumatic, PERRLA, EOMI, Normocephalic Oral: Moist Mucosa, No Gingival or Mucosal Lesions/ Ulcerations Neck: No Nodes, Thyroid Normal Size and Texture Lungs: Clear to auscultation, Normal air movement, No rhonchi, No wheeze Cardiovascular: Regular rate, Regular Rhythm, Normal S1, Normal S2, No murmurs Extremities: No edema, No Calf Tenderness Skin: No rashes, No breakdown Neurological: Cranial nerves II-XII grossly intact, Motor Exam 5/5 strength throughout, Coordination normal Psych/Mental Status: Normal Affect, Appropriate Laboratory Results 12/27/17 23:12: APTT > 250.0 H* 12/28/17 00:35: APTT 149.9 H* 12/28/17 03:48: Triglycerides 179, Cholesterol 133, LDL Cholesterol 63, VLDL Cholesterol 36, HDL Cholesterol 34 L 12/28/17 03:48: WBC 7.2, RBC 4.52 L, Hgb 14.4, Hct 41.1, MCV 90.9, MCH 31.9, MCHC 35.0, RDW 13.4, RDW Differential 44.4 H, Plt Count 176, MPV 10.0, Immature Gran % (Auto) 0.100, Neut % (Auto) 61.2, Lymph % (Auto) 27.9, [place] % (Auto) 9.1, Eos % (Auto) 1.4, Baso % (Auto) 0.3, Absolute Neuts (auto) 4.4, Absolute Lymphs (auto) 2.02, Total Counted Not Reportable 12/28/17 03:48: APTT 100.0 H* 12/28/17 08:10: APTT 66.6 H 12/28/17 11:04: Urine Color Yellow, Urine Clarity Sl. Cloudy, Urine pH 6.0, Ur Specific [place] 1.015, Urine Protein Negative, Urine Glucose (UA) Normal, Urine Ketones Negative, Urine Occult Blood 10 H, Urine Nitrite Negative, Urine Bilirubin Negative, Urine Urobilinogen Normal, Ur Leukocyte Esterase 100 H, Urine RBC 0-5 SEEN, Urine WBC 10-25 SEEN, Ur Squamous Epith Cells 0-5 SEEN, Urine Bacteria 0 SEEN, Urine Mucus 0 SEEN Current Medications Acetaminophen (Tylenol) 650 mg PO Q4H PRN PRN PRN Reason: Headache/Temp>99F Last Admin: 12/28/17 03:11 Dose: 650 mg Acetaminophen (Tylenol) 650 mg RECTAL Q4H PRN PRN PRN Reason: Headache/Temp>99F Acetaminophen (Tylenol Liquid) 650 mg NG Q4H PRN PRN PRN Reason: Headache/Temp>99F Amiodarone HCl (Cordarone) 100 mg PO DAILY [facility] Last Admin: 12/28/17 10:32 Dose: 100 mg Artificial Tears (Tears Naturale, Artificial Tears) 1 drop EACH EYE Q1H PRN PRN PRN Reason: DRY EYES Atorvastatin Calcium (Lipitor) 10 mg PO QHS [facility] Last Admin: 12/27/17 21:09 Dose: 10 mg Finasteride (Proscar) 5 mg PO QHS [facility] Last Admin: 12/27/17 21:09 Dose: 5 mg Heparin Sodium (Porcine) () 0 units IV UD PRN PRN Reason: Protocol Isosorbide Mononitrate (Imdur) 30 mg PO DAILY [facility] Levothyroxine Sodium (Synthroid) 50 mcg PO DAILY@0600 [facility] Last Admin: 12/28/17 06:08 Dose: 50 mcg Nitroglycerin (Nitrostat) 0.4 mg SUBLINGUAL PRN PRN PRN Reason: chest pain Oxybutynin Chloride (Ditropan) 5 mg PO BID [facility] Last Admin: 12/28/17 10:33 Dose: 5 mg Sertraline HCl (Zoloft) 25 mg PO DAILY [facility] Last Admin: 12/28/17 10:33 Dose: 25 mg Sodium Chloride () 5 - 30 ml IV UD PRN PRN Reason: SALINE FLUSH Last Admin: 12/28/17 10:30 Dose: 10 ml Tramadol HCl (Ultram (G)) 50 mg PO Q4H PRN PRN PRN Reason: PAIN Assessment/Plan Active and Suspected Problems Right sided weakness (Acute) Slurred speech (Acute) 1. possible movement disorder daughters state that another physician told them that he was concerned about parkinon's MRI negative for CVA EEG pending for partial szr. If EEG negative, then I have recommended follow-up with a movement disorder specialist: [facility] [employer] [phone], Parkinson's and Movement Disorder [phone] await for PT reassessment. Pt and family would decline SNF if recommended, would prefer C 2. Bradycardia: on amiodarone 100/d Toprol XL held appreciate cardiology input 3. DVT proph: SQ heparin >35 minutes of which greater than 50% time was counseling the patient and his daughters about the work up, movement disorders. Code Visit Inpatient E&M: 28322 Subs Hosp L3
--- NOTE | 2017-12-28 16:30 | PN_ITS ---
Patient Problems: Active and Suspected Problems Right sided weakness (Acute) Slurred speech (Acute) Subjective: still with intermittent slurred speech. occasionally with right arm weakness. Denies diplopia, backwards falls. Vitals/I&O's: Vital Signs Temp Pulse Resp BP Pulse Ox 36.6 C 49 L 18 153/91 H 98 12/28/17 08:00 12/28/17 16:00 12/28/17 16:00 12/28/17 16:00 12/28/17 16:00 Oxygen Delivery Method Room Air Weight: 83.915 kg Body Mass Index (BMI) 26.5 Intake and Output for Last 24 Hours 12/26/17 12/27/17 12/28/17 23:59 23:59 23:59 Intake Total 561.3 / 561.3 626.2 / 626.2 Output Total 700 / 1150 200 / 200 Balance -138.7 / -588.7 426.2 / 426.2 General: Alert, Cooperative, No apparent distress, - - speech became more slurred and softer the longer he spoke. HEENT: Atraumatic, PERRLA, EOMI, Normocephalic Oral: Moist Mucosa, No Gingival or Mucosal Lesions/ Ulcerations Neck: No Nodes, Thyroid Normal Size and Texture Lungs: Clear to auscultation, Normal air movement, No rhonchi, No wheeze Cardiovascular: Regular rate, Regular Rhythm, Normal S1, Normal S2, No murmurs Extremities: No edema, No Calf Tenderness Skin: No rashes, No breakdown Neurological: Cranial nerves II-XII grossly intact, Motor Exam 5/5 strength throughout, Coordination normal Psych/Mental Status: Normal Affect, Appropriate Laboratory Results 12/27/17 23:12: APTT > 250.0 H* 12/28/17 00:35: APTT 149.9 H* 12/28/17 03:48: Triglycerides 179, Cholesterol 133, LDL Cholesterol 63, VLDL Cholesterol 36, HDL Cholesterol 34 L 12/28/17 03:48: WBC 7.2, RBC 4.52 L, Hgb 14.4, Hct 41.1, MCV 90.9, MCH 31.9, MCHC 35.0, RDW 13.4, RDW Differential 44.4 H, Plt Count 176, MPV 10.0, Immature Gran % (Auto) 0.100, Neut % (Auto) 61.2, Lymph % (Auto) 27.9, [place] % (Auto) 9.1 , Eos % (Auto) 1.4, Baso % (Auto) 0.3, Absolute Neuts (auto) 4.4, Absolute Lymphs (auto) 2.02, Total Counted Not Reportable 12/28/17 03:48: APTT 100.0 H* 12/28/17 08:10: APTT 66.6 H 12/28/17 11:04: Urine Color Yellow, Urine Clarity Sl. Cloudy, Urine pH 6.0, Ur Specific [place] 1.015, Urine Protein Negative, Urine Glucose (UA) Normal, Urine Ketones Negative, Urine Occult Blood 10 H, Urine Nitrite Negative, Urine Bilirubin Negative, Urine Urobilinogen Normal, Ur Leukocyte Esterase 100 H, Urine RBC 0-5 SEEN, Urine WBC 10-25 SEEN, Ur Squamous Epith Cells 0-5 SEEN, Urine Bacteria 0 SEEN, Urine Mucus 0 SEEN Current Medications Acetaminophen (Tylenol) 650 mg PO Q4H PRN PRN PRN Reason: Headache/Temp>99F Last Admin: 12/28/17 03:11 Dose: 650 mg Acetaminophen (Tylenol) 650 mg RECTAL Q4H PRN PRN PRN Reason: Headache/Temp>99F Acetaminophen (Tylenol Liquid) 650 mg NG Q4H PRN PRN PRN Reason: Headache/Temp>99F Amiodarone HCl (Cordarone) 100 mg PO DAILY [facility] Last Admin: 12/28/17 10:32 Dose: 100 mg Artificial Tears (Tears Naturale, Artificial Tears) 1 drop EACH EYE Q1H PRN PRN PRN Reason: DRY EYES Atorvastatin Calcium (Lipitor) 10 mg PO QHS [facility] Last Admin: 12/27/17 21:09 Dose: 10 mg Finasteride (Proscar) 5 mg PO QHS [facility] Last Admin: 12/27/17 21:09 Dose: 5 mg Heparin Sodium (Porcine) () 0 units IV UD PRN PRN Reason: Protocol Isosorbide Mononitrate (Imdur) 30 mg PO DAILY [facility] Levothyroxine Sodium (Synthroid) 50 mcg PO DAILY@0600 [facility] Last Admin: 12/28/17 06:08 Dose: 50 mcg Nitroglycerin (Nitrostat) 0.4 mg SUBLINGUAL PRN PRN PRN Reason: chest pain Oxybutynin Chloride (Ditropan) 5 mg PO BID [facility] Last Admin: 12/28/17 10:33 Dose: 5 mg Sertraline HCl (Zoloft) 25 mg PO DAILY [facility] Last Admin: 12/28/17 10:33 Dose: 25 mg Sodium Chloride () 5 - 30 ml IV UD PRN PRN Reason: SALINE FLUSH Last Admin: 12/28/17 10:30 Dose: 10 ml Tramadol HCl (Ultram (G)) 50 mg PO Q4H PRN PRN PRN Reason: PAIN Assessment/Plan Active and Suspected Problems Right sided weakness (Acute) Slurred speech (Acute) 1. possible movement disorder * daughters state that another physician told them that he was concerned about parkinon's * MRI negative for CVA * EEG pending for partial szr. * If EEG negative, then I have recommended follow-up with a movement disorder specialist: [facility] Neuromuscular [employer] [phone], Parkinson's and Movement Disorder [phone] * await for PT reassessment. Pt and family would decline SNF if recommended, would prefer [facility] 2. Bradycardia: * on amiodarone 100/d * Toprol XL held * appreciate cardiology input 3. DVT proph: SQ heparin >35 minutes of which greater than 50% time was counseling the patient and his daughters about the work up, movement disorders. Code Visit Inpatient E&M: 80594 [facility]
--- NOTE | 2017-12-28 16:46 | EEG ---
- Electroencephalogram DOS 12/28/17 this is an 18 channel EEG performed on this 77-year-old male with recurrent episodes of right-sided weakness which are stereotyped. 18 channel EEG is performed utilizing EKG reference leads, photic stimulation and hyperventilation using the International 10-20 electrode placement protocol. Background activity is 8-10 Hz in the posterior leads which attenuates with eye opening. Hyperventilation is performed for 3 minutes with good effort with no lateralizing or epileptiform changes and the post hyperventilatory phase was unremarkable. She remained awake throughout the recording. Photic stimulation does generate a normal symmetric driving response in the posterior leads. EKG is bradycardic with occasional PVCs noted. Impression: Normal awake electroencephalogram
[2017-12-28] MEDS: Divalproex (ER) 500 MG Tablet 1000 MG PO (17:54)
[2017-12-28] MEDS: Finasteride 5 MG Tablet PO (21:53)
[2017-12-28] MEDS: Atorvastatin Calcium 10 MG Tablet PO (21:53)
[2017-12-29] VITALS (18 sets, daily range): BP systolic 95–166; BP diastolic 65–97; PULSE 42–67; RESP 14–18; TEMP 36.3–36.8; O2SAT 94–98; BMI 26.5
[2017-12-29] MEDS: Levothyroxine 50 MCG Tablet PO (06:15)
--- NOTE | 2017-12-29 09:39 | PCM.PN.CARD ---
Subjectve: Patient doing well this morning, lucid and speaking fluently. Patient reports that he had another episode of slurred speech, left-sided weakness this morning. On telemetry the patient had normal sinus rhythm with rare ventricular couplets, and a series of wide-complex junctional rhythm around 04 50 this morning. No chest pain or angina. EEG while awake yesterday was negative. Objective: Vital Signs Temp Pulse Resp BP Pulse Ox 97.4 F L 52 L 18 146/95 H 97 12/29/17 08:00 12/29/17 08:00 12/29/17 08:00 12/29/17 08:00 12/29/17 08:00 Oxygen Delivery Method Room Air Weight: 185 lb 0.014 oz Body Mass Index (BMI) 26.5 Intake and Output for Last 24 Hours 12/27/17 12/28/17 12/29/17 23:59 23:59 23:59 Intake Total 561.3 / 561.3 1276.2 / 1276.2 100 / 100 Output Total 700 / 1150 200 / 200 Balance -138.7 / -588.7 1076.2 / 1076.2 100 / 100 General: Awake, Alert, Oriented x 3 HEENT: PERRL, EOMI, Sclera Non Icteric Neck: Supple, Good ROM, No Lymph Node Enlargement Lungs: Clear to auscultation Cardiovascular: Regular Rhythm, Normal S1, Normal S2, No Murmurs, No Rubs, No Gallops Vascular: No Carotid Bruits, Normal Femoral Pulses, Normal Radial Pulses, Normal Dorsalis Pedal Pulse, Normal Posterior Tibial Pulses Abdomen: Bowel Sounds Present, Soft, Non Tender, No HSM, No Organomegaly Extremities: No Cyanosis, No Clubbing, No edema Neurological: No Focal Motor or Sensory Deficit 12/28/17 11:04: Urine Color Yellow, Urine Clarity Sl. Cloudy, Urine pH 6.0, Ur Specific [place] 1.015, Urine Protein Negative, Urine Glucose (UA) Normal, Urine Ketones Negative, Urine Occult Blood 10 H, Urine Nitrite Negative, Urine Bilirubin Negative, Urine Urobilinogen Normal, Ur Leukocyte Esterase 100 H, Urine RBC 0-5 SEEN, Urine WBC 10-25 SEEN Rhythm: EKG: ECHO: Stress Test: Cardiac Cath: PCI: CT Surgery: Holter monitor: EPS: PPM: CXR: Chest CT Scan: Assessment/Plan 1. Sinus bradycardia: The patient presents with sinus bradycardia and significant hypertension in the face of acute right-sided facial droop, slurred speech, slow mentation, and left upper and lower extremity weakness. Patient has been seen by Dr. Meadows, and he apparently has had several episodes similar to this since his admission. It appears the patient has significant hypertension during these episodes, and they may be related to seizure-like activity. Patient recovered from yesterday's event but then had another event this morning around 7 AM per the patient. Telemetry at 04 50 this morning showed wide-complex junctional rhythm which self terminated. Otherwise his telemetry is normal sinus rhythm with rare PVCs. At this point I do not believe the patient requires temporary pacing or permanent pacing at this time. I would however recommend discontinuation of his Toprol given his bradycardia. Will use the beta blocking component of amiodarone for heart rate control. In addition I would discontinue his losartan as there appears to be some relationship between the initiation of losartan and the patient's symptoms although the relationship is somewhat vague at this time. Given his hypertension I would recommend Imdur 30 mill grams p.o. daily for blood pressure control. Although his diastolic numbers quite high, I would not recommend diuretic therapy given his difficulty getting to and from the bathroom. In addition the patient may require cessation of his amiodarone if his heart rate does not improve with lack of beta-sahara. I am uncertain as to why the patient is on amiodarone but my suspicion is that he had atrial fibrillation as a result of his mitral valve repair surgery. This may be contributing to his hypothyroidism as well. In place of his Toprol we will start Imdur 30 mg p.o. daily. We will need to get the records from Dr. Webb's office explaining the purpose for his medications particularly amiodarone. Would recommend holding his amiodarone at this time to determine if his symptoms improve. Patient's EEG is negative while he is awake. 2. Mitral valve repair: The patient's echocardiogram shows intact annuloplasty ring, and no indication for SHASHI at this time. Patient's symptoms do not appear to be embolic and he has had no fevers, chills, or outward signs of endocarditis. 3. Thank you very much for the opportunity to participate in the cardiac care of your patient. Code Visit Inpatient E&M: 00137 Subs Hosp L2
[2017-12-29] MEDS: Oxybutynin 5 MG Tablet PO ×2 (10:29→21:06)
[2017-12-29] MEDS: Sertraline 50 MG Tablet 25 MG PO (10:29)
[2017-12-29] MEDS: Divalproex (ER) 500 MG Tablet 1000 MG PO (10:29)
[2017-12-29] MEDS: Isosorbide Mononitrate 30 MG Tablet PO (10:29)
--- NOTE | 2017-12-29 11:55 | CASEMGMT ---
Addendum entered by Solange Feng 12/29/17 14:11: This RN CM back to room to complete CM assessment and pt/daughter are both sleeping without distress at this time and do not awaken to hard knock at door. Will attempt later. Lynette LANGLEY CM Original Note: This RN CM to room to complete CM assessment at this time. Pt A/O x4 at this time and consents to assessment at this time. After the first couple questions, pt has sudden onset right sided facial droop and right sided weakness. Pt is able to move right arm and leg slightly but cannot lift them. Cindy RN is at bedside at this time and she states that pt has been having similar episodes and they usually alleviate in less than a minute. Cindy RN is attempting to hang depakote drip at this time. Pt c/o nausea at this time and this RN CM gets a basin for pt at this time. Several minutes later and pt symptoms are still not resolving at this time. Pt's color is pale. This RN CM to nurses station to find Dr. Cid at this time and he is currently in another pt's room. This RN CM back to room and pt is unresponsive. Meaghan Chaney called at this time and this RN CM came out of room to let all other staff in at this time. Jeffy SW aware of Meaghan chaney and advised her that there is no family at bedside at this time, voices understanding. Will attempt to finish assessment at another time. Lynette LANGLEY CM
[2017-12-29 12:16] LABS: Bedside Glucose 122 mg/dL (70-110)
--- NOTE | 2017-12-29 12:20 | NURSING ---
went into room to give patient iv medication case management was in room. patient states he felt another episode come on. rt arm was getting numb started with rt side facial droop, patient bp lowered hr lowered patient felt nauseated spring encaser went out to get md for nurse then patient went unresponsive called for assistance . moved back to bed ivf started patient started to respond . now is talking still has rt sided facial droop
--- NOTE | 2017-12-29 12:34 | NURSING ---
daughter present patient is now talking normal facial droop resolving weakness resolving
--- NOTE | 2017-12-29 13:28 | CASEMGMT ---
SW briefly spoke with patient's daughter offering support as a rapid response was called on patient. She said she is concerned about if patient goes home and has one of these episodes. SW told her SW is following and if he would need to go to the [facility] we can assist. Felipa DICKEY MSW
--- NOTE | 2017-12-29 14:10 | PCM.PN.HOSP ---
Patient Problems: Active and Suspected Problems Right sided weakness (Acute) Slurred speech (Acute) Subjective: TIM RODRIGUEZ was called earlier today as patient went unresponsive. Patient had further episodes where he had the inability to move his right side but had an event which occurred where the patient was unresponsive for a couple minutes. Patient was transferred to his bed. Patient blood pressure did drop into the 60s systolic. After the event the patient came to right away and was able to move all extremities spontaneously. Patient was cleaning some abdominal pain and the need to have a bowel movement prior to this occurring. Vitals/I&O's: Vital Signs Temp Pulse Resp BP Pulse Ox 36.3 C L 48 L 16 107/78 96 12/29/17 12:29 12/29/17 12:29 12/29/17 12:29 12/29/17 12:29 12/29/17 12:29 Oxygen Delivery Method Room Air Weight: 83.915 kg Body Mass Index (BMI) 26.5 Intake and Output for Last 24 Hours 12/27/17 12/28/17 12/29/17 23:59 23:59 23:59 Intake Total 561.3 / 561.3 1276.2 / 1276.2 100 / 100 Output Total 700 / 1150 200 / 200 350 / 350 Balance -138.7 / -588.7 1076.2 / 1076.2 -250 / -250 General: Alert, Cooperative, No apparent distress, - - Came to immediately after his events and blood pressure was better. HEENT: Atraumatic, Normocephalic, - - no Scleral icterus Oral: Moist Mucosa, No Gingival or Mucosal Lesions/ Ulcerations Neck: No Nodes, Thyroid Normal Size and Texture Lungs: Clear to auscultation, Normal air movement, No rhonchi, No wheeze Cardiovascular: Regular rate, Regular Rhythm, Normal S1, Normal S2, No murmurs Abdomen: Bowel Sounds Present, Soft, Non Tender, Non-Distended, No Hepato-splenomegaly, Passing Flatus Extremities: No edema, No Calf Tenderness Skin: No rashes, No breakdown Musculoskeletal: No Tenderness to Palpation of Joints or Extremities, No Muscle Wasting Neurological: Motor Exam 5/5 strength throughout, Muscle tone normal, Coordination normal Psych/Mental Status: Normal Affect, Appropriate Laboratory Results 12/29/17 12:11: POC Glucose 122 H Current Medications Acetaminophen (Tylenol) 650 mg PO Q4H PRN PRN PRN Reason: Headache/Temp>99F Last Admin: 12/28/17 21:57 Dose: 650 mg Acetaminophen (Tylenol) 650 mg RECTAL Q4H PRN PRN PRN Reason: Headache/Temp>99F Acetaminophen (Tylenol Liquid) 650 mg NG Q4H PRN PRN PRN Reason: Headache/Temp>99F Artificial Tears (Tears Naturale, Artificial Tears) 1 drop EACH EYE Q1H PRN PRN PRN Reason: DRY EYES Last Admin: 12/28/17 21:58 Dose: 1 drop Atorvastatin Calcium (Lipitor) 10 mg PO QHS [facility] Last Admin: 12/28/17 21:53 Dose: 10 mg Divalproex Sodium (Depakote Er) 1,000 mg PO DAILY [facility] Last Admin: 12/29/17 10:29 Dose: 1,000 mg Finasteride (Proscar) 5 mg PO QHS [facility] Last Admin: 12/28/17 21:53 Dose: 5 mg Heparin Sodium (Porcine) () 0 units IV UD PRN PRN Reason: Protocol Isosorbide Mononitrate (Imdur) 30 mg PO DAILY [facility] Last Admin: 12/29/17 10:29 Dose: 30 mg Levothyroxine Sodium (Synthroid) 50 mcg PO DAILY@0600 [facility] Last Admin: 12/29/17 06:15 Dose: 50 mcg Nitroglycerin (Nitrostat) 0.4 mg SUBLINGUAL PRN PRN PRN Reason: chest pain Oxybutynin Chloride (Ditropan) 5 mg PO BID [facility] Last Admin: 12/29/17 10:29 Dose: 5 mg Sertraline HCl (Zoloft) 25 mg PO DAILY [facility] Last Admin: 12/29/17 10:29 Dose: 25 mg Sodium Chloride () 5 - 30 ml IV UD PRN PRN Reason: SALINE FLUSH Last Admin: 12/28/17 21:59 Dose: 10 ml Assessment/Plan Active and Suspected Problems Right sided weakness (Acute) Slurred speech (Acute) 1. Syncope Feel that this was a vasovagal as patient was experiencing a bowel movement prior to this event EEG was negative so I do not feel that this was a seizure. Patient also having very broad fluctuations in his blood pressure which certainly is a contributing factor to his syncopal episodes. Will check orthostatic vital signs check cortisol level in AM. Goes with Dr. 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 But given the fact that the patient came to right away and I am concerned that this may be more of a vasovagal process. 2. possible movement disorder Parkison's v MSA v PSP. Doubt MG. daughters state that another physician told them that he was concerned about parkinon's MRI negative for CVA I have recommended follow-up with a movement disorder specialist: [facility] Neuromuscular [place] [phone], Parkinson's and Movement Disorder [phone] await for PT reassessment. Pt and family would decline SNF if recommended, would prefer [facility] 3. 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 4. Bradycardia: amio stopped Toprol XL stopped EF 65% 5. DVT proph: SQ heparin Code Visit Inpatient E&M: 24699 Subs Hosp L3
--- NOTE | 2017-12-29 14:12 | NURSING ---
Dr. Meadows called back and was notified of patients episode at 1200 and how long it lasted. Dr. Meadows wanted patient to be transferred to ICU to be monitored and left cardiology know of episode at noon. Dr Cid was notified and stated that he is the atending and he feels like patient does not need to be transferred. Dr. Payton was notified.
--- NOTE | 2017-12-29 14:38 | PN_ITS ---
Patient Problems: Active and Suspected Problems Right sided weakness (Acute) Slurred speech (Acute) Subjective: TIM RODRIGUEZ was called earlier today as patient went unresponsive. Patient had further episodes where he had the inability to move his right side but had an event which occurred where the patient was unresponsive for a couple minutes. Patient was transferred to his bed. Patient blood pressure did drop into the 60s systolic. After the event the patient came to right away and was able to move all extremities spontaneously. Patient was cleaning some abdominal pain and the need to have a bowel movement prior to this occurring. Vitals/I&O's: Vital Signs Temp Pulse Resp BP Pulse Ox 36.3 C L 48 L 16 107/78 96 12/29/17 12:29 12/29/17 12:29 12/29/17 12:29 12/29/17 12:29 12/29/17 12:29 Oxygen Delivery Method Room Air Weight: 83.915 kg Body Mass Index (BMI) 26.5 Intake and Output for Last 24 Hours 12/27/17 12/28/17 12/29/17 23:59 23:59 23:59 Intake Total 561.3 / 561.3 1276.2 / 1276.2 100 / 100 Output Total 700 / 1150 200 / 200 350 / 350 Balance -138.7 / -588.7 1076.2 / 1076.2 -250 / -250 General: Alert, Cooperative, No apparent distress, - - Came to immediately after his events and blood pressure was better. HEENT: Atraumatic, Normocephalic, - - no Scleral icterus Oral: Moist Mucosa, No Gingival or Mucosal Lesions/ Ulcerations Neck: No Nodes, Thyroid Normal Size and Texture Lungs: Clear to auscultation, Normal air movement, No rhonchi, No wheeze Cardiovascular: Regular rate, Regular Rhythm, Normal S1, Normal S2, No murmurs Abdomen: Bowel Sounds Present, Soft, Non Tender, Non-Distended, No Hepato- splenomegaly, Passing Flatus Extremities: No edema, No Calf Tenderness Skin: No rashes, No breakdown Musculoskeletal: No Tenderness to Palpation of Joints or Extremities, No Muscle Wasting Neurological: Motor Exam 5/5 strength throughout, Muscle tone normal, Coordination normal Psych/Mental Status: Normal Affect, Appropriate Laboratory Results 12/29/17 12:11: POC Glucose 122 H Current Medications Acetaminophen (Tylenol) 650 mg PO Q4H PRN PRN PRN Reason: Headache/Temp>99F Last Admin: 12/28/17 21:57 Dose: 650 mg Acetaminophen (Tylenol) 650 mg RECTAL Q4H PRN PRN PRN Reason: Headache/Temp>99F Acetaminophen (Tylenol Liquid) 650 mg NG Q4H PRN PRN PRN Reason: Headache/Temp>99F Artificial Tears (Tears Naturale, Artificial Tears) 1 drop EACH EYE Q1H PRN PRN PRN Reason: DRY EYES Last Admin: 12/28/17 21:58 Dose: 1 drop Atorvastatin Calcium (Lipitor) 10 mg PO QHS [facility] Last Admin: 12/28/17 21:53 Dose: 10 mg Divalproex Sodium (Depakote Er) 1,000 mg PO DAILY [facility] Last Admin: 12/29/17 10:29 Dose: 1,000 mg Finasteride (Proscar) 5 mg PO QHS [facility] Last Admin: 12/28/17 21:53 Dose: 5 mg Heparin Sodium (Porcine) () 0 units IV UD PRN PRN Reason: Protocol Isosorbide Mononitrate (Imdur) 30 mg PO DAILY [facility] Last Admin: 12/29/17 10:29 Dose: 30 mg Levothyroxine Sodium (Synthroid) 50 mcg PO DAILY@0600 [facility] Last Admin: 12/29/17 06:15 Dose: 50 mcg Nitroglycerin (Nitrostat) 0.4 mg SUBLINGUAL PRN PRN PRN Reason: chest pain Oxybutynin Chloride (Ditropan) 5 mg PO BID [facility] Last Admin: 12/29/17 10:29 Dose: 5 mg Sertraline HCl (Zoloft) 25 mg PO DAILY [facility] Last Admin: 12/29/17 10:29 Dose: 25 mg Sodium Chloride () 5 - 30 ml IV UD PRN PRN Reason: SALINE FLUSH Last Admin: 12/28/17 21:59 Dose: 10 ml Assessment/Plan Active and Suspected Problems Right sided weakness (Acute) Slurred speech (Acute) 1. Syncope * Feel that this was a vasovagal as patient was experiencing a bowel movement prior to this event * EEG was negative so I do not feel that this was a seizure. * Patient also having very broad fluctuations in his blood pressure which certainly is a contributing factor to his syncopal episodes. * Will check orthostatic vital signs * check cortisol level in AM. 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 But given the fact that the patient came to right away and I am concerned that this may be more of a vasovagal process. 2. possible movement disorder * Parkison's v MSA v PSP. Doubt MG. * daughters state that another physician told them that he was concerned about parkinon's * MRI negative for CVA * I have recommended follow-up with a movement disorder specialist: [facility] Neu[employer] [phone], Parkinson's and Movement Disorder [phone] * await for PT reassessment. Pt and family would decline SNF if recommended, would prefer [facility] 3. 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 4. Bradycardia: * amio stopped * Toprol XL stopped * EF 65% 5. DVT proph: SQ heparin Code Visit Inpatient E&M: 76130 Subs Hosp L3
--- NOTE | 2017-12-29 14:53 | CHAPLAIN ---
Type of Pastoral Visit ___ Initial Visit ___ Follow-up Visit ___ On-call Visit ___ General Patient Visit ___ Spiritual Assessment ___ Family Conference ___ Bereavement ___ Rapid Response _x__ Code Blue ___ Other (describe below) Pastoral Care Referral From ___ Patient ___ Family ___ Nurse ___ Physician ___ Inseam Trimmer ___ Yard Caller ___ Other (describe below) Sacrament/Intervention ___ Active listening ___ Anointing ___ Nondenominational ___ Bereavement ___ Communion ___ Claudette exploration ___ ___ Life review ___ Prayer ___ Reconciliation ___ Sacrament of Sick ___ Supportive presence ___ Wedding ___ Other (describe below) Pastoral Comments patient was responsive; many people from medical team in room assisting patient
--- NOTE | 2017-12-29 15:11 | CASEMGMT ---
See RN CM Assessment link. Intro role of CM to patient. States he is independent prior to admission. Family is in room and is supportive. No DME being used prior to admission. -PT evaluation reviewed. Pt ambulated 40' CG w/o assistive device. recommendation is for further skilled therapy. Recommend re-evaluate prior to dc for need as pt was independent prior to admission. Family is supportive and able to assist with needs and transportation. Maria T MENDEZN RN ACM
[2017-12-29] MEDS: Acetaminophen 325 MG Tablet 650 MG PO (15:22)
[2017-12-29] MEDS: 0.9% Normal Saline 1,000 ML 150 ML IV (15:30)
--- NOTE | 2017-12-29 15:38 | MRI_ITS ---
STUDY: MRI CERVICAL SPINE WITHOUT CONTRAST REASON FOR EXAM: Male, 77 years old. Right arm numbness TECHNIQUE: Standardized fat and water weighted pulse sequences were obtained in the sagittal and axial planes. COMPARISON: None FINDINGS: Normal foramen magnum and brainstem-cervical cord junction. Normal craniovertebral junction. Normal anterior atlantoaxial articulation. Normal odontoid process. Normal cervical lordosis. Normal vertebral bodies and posterior osseous elements. C2-3: Normal endplates. Normal disc height, signal and morphology. Normal central canal and intervertebral neural foramina. C3-4: Grade 1 retrolisthesis. Narrowed disc space and endplate spurring. Mild osteophytic ridging narrowing the central canal and mildly impinging upon the ventral surface of the cord. There is severe bilateral neuroforaminal stenosis secondary to bony hypertrophy. C4-5: Grade 1 retrolisthesis Normal endplates. Normal disc height, signal and mild bulging disc osteophyte complex narrowing the central canal mildly impinging upon the ventral surface of the cord.. Severe bilateral neuroforaminal stenosis secondary to bony hypertrophy. C5-6: Minor endplate spurring.. Normal disc height, signal and morphology. Normal central canal. Severe bilateral neuroforaminal stenosis secondary to bony hypertrophy C6-7: Normal endplates. Normal disc height, signal and morphology. Normal central canal. Mild bilateral neural foraminal encroachment secondary to bony hypertrophy. C7-T1: Normal endplates. Normal disc height, signal and morphology. Normal central canal and intervertebral neural foramina. Normal cervical cord. Large lipomatous mass within the subcutaneous fat in the posterior neck to the right of midline at the level of C5-6 MRI/Spine Cervical (Routine) IMPRESSION: No evidence for acute fracture or subluxation Moderate spondylosis and multilevel spinal stenosis secondary primarily to bony hypertrophy Findings as above Electronically Signed: Musa Rogers MD at 23:10 EST , Service support ,
[2017-12-29] MEDS: Cosyntropin 0.25 MG Vial IV (15:51)
[2017-12-29 17:46] LABS: Erythrocyte Sedimentation Rate < 1 mm/hr (0-20)
[2017-12-29] MEDS: Atorvastatin Calcium 10 MG Tablet PO (21:05)
[2017-12-29] MEDS: Finasteride 5 MG Tablet PO (21:05)
[2017-12-30] VITALS (12 sets, daily range): BP systolic 105–155; BP diastolic 62–85; PULSE 44–80; RESP 16–20; TEMP 36.4–36.6; O2SAT 95–97; BMI 26.5
[2017-12-30] MEDS: Acetaminophen 325 MG Tablet 650 MG PO (03:33)
[2017-12-30 05:40] LABS: Absolute Lymphocyte Count 1.29 X10^3/ul (0.83-4.51); Absolute Neutrophil Count 5.2 X10^3/uL (2.0-7.7); Basophil# 0.01 X10^3/uL; Basophil% 0.1 % (0-1); Eosinophils% 1.4 % (0-5); Hematocrit 37.4 % (40-54); Lymphocyte # 1.29 X10^3/ul (4.0); Lymphocyte % 17.8 % (19-41); Mean Corp Hgb Conc 34.8 g/gl (32-36); Mean Corpuscular Volume 92.1 fL (80-94); Mean Platelet Vol. 9.9 fl (6.2-12.0); Monocyte# 0.61 X10^3/uL; Monocyte% 8.4 % (0-10); Neutrophil # 5.21 X10^3/uL (2.7-7.7); Neutrophil % 72.2 % (47-70); Platelet Count 169 K/mm3 (150-450); RBC Distribution Width CV 13.3 % (11.6-14.6); RBC Distribution Width SD 43.9 fl (35.1-43.9); Red Blood Count 4.06 M/mm3 (4.6-6.2); White Blood Count 7.2 K/mm3 (4.4-11.0)
[2017-12-30 05:47] LABS: POSITIVE COUNT NO; POSITIVE DIFFERENTIAL NO; POSITIVE MORPHOLOGY NO
[2017-12-30 05:53] LABS: Anion Gap 8 (5-15); BUN 19 mg/dL (7-18); BUN/Creat Ratio 17.1 RATIO (10-20); Calcium,Total 8.4 mg/dL (8.5-10.1); Chloride 107 mmol/L (98-107); Creatinine, Serum 1.11 mg/dL (0.70-1.30); EST Glomerular Filtration Rate 68 mL/min (>60); Est Glom Filt Rate - Afr Amer 82 mL/min (>60); Estimated Creatinine Clearance 55.72 ml/min; Glucose 100 mg/dL (74-106); Potassium 3.8 mmol/L (3.5-5.1); Sodium Level 144 mmol/L (136-145)
[2017-12-30] MEDS: Levothyroxine 50 MCG Tablet PO (06:19)
--- NOTE | 2017-12-30 06:24 | NURSING ---
Pt. experiencing one of his spells at this time. States his head started hurting more in the frontal area pain 3-4 out of 10. Experiencing no muscle control in R arm and R leg, R facial droop, but states he still has sensation in those limbs. Speech very slurred at this time but content appropriate. VS 97.5, HR 57, BP 109/63, 94% RA. Pt. states this BP is too low for him. At 0632 symptoms subsided. Head not hurting as bad, muscle control returned to R arm and R leg, no longer slurring words. Facial droop resolved.Will monitor.
[2017-12-30] MEDS: Oxybutynin 5 MG Tablet PO ×2 (08:39→22:14)
[2017-12-30] MEDS: Divalproex (ER) 500 MG Tablet 1000 MG PO (08:39)
[2017-12-30] MEDS: Sertraline 50 MG Tablet 25 MG PO (08:39)
--- NOTE | 2017-12-30 09:23 | PCM.PN.NEU ---
Patient Problems: Active and Suspected Problems Right sided weakness (Acute) Slurred speech (Acute) Subjective: reports one brief spell this am, 3 spells yesterday + one vasovagal event. headache improved - Physical Exam General: Alert, Oriented x3, Cooperative HEENT: Atraumatic, PERRLA, EOMI, Normocephalic Neck: Supple, No JVD, Negative Carotid Bruits Lungs: Clear to auscultation, Normal air movement Cardiovascular: Regular rate, No murmurs Abdomen: Bowel Sounds Present, Soft, Non Tender Extremities: No edema, Capillary Refill Less than 3 Seconds Skin: No rashes, No breakdown Musculoskeletal: No Tenderness to Palpation of Joints or Extremities Neurological: Cranial nerves II-XII grossly intact Psych/Mental Status: Normal Affect, Appropriate Vital Signs Temp Pulse Resp BP Pulse Ox 36.4 C L 67 18 111/62 97 12/30/17 08:25 12/30/17 08:25 12/30/17 08:25 12/30/17 08:25 12/30/17 08:25 Oxygen Delivery Method Room Air Weight: 83.915 kg Body Mass Index (BMI) 26.5 Intake and Output for Last 24 Hours 12/28/17 12/29/17 12/30/17 23:59 23:59 23:59 Intake Total 1276.2 / 1276.2 1779 / 1779 50 / 50 Output Total 200 / 200 350 / 350 0 / 0 Balance 1076.2 / 1076.2 1429 / 1429 50 / 50 Laboratory Tests Past 24 Hrs 12/29/17 12/29/17 12/29/17 13:02 16:23 16:23 WBC RBC Hgb Hct MCV MCH MCHC RDW RDW Differential Plt Count MPV Immature Gran % (Auto) Neut % (Auto) Lymph % (Auto) White % (Auto) Eos % (Auto) Baso % (Auto) Absolute Neuts (auto) Absolute Lymphs (auto) Total Counted ESR < 1 Sodium Potassium Chloride Carbon Dioxide Anion Gap BUN Creatinine Estim Creat Clear Calc Est GFR (MDRD) Af Amer Est GFR (MDRD) Non-Af BUN/Creatinine Ratio Glucose Calcium Cortisol Pending Pending 12/29/17 12/30/17 12/30/17 16:53 05:18 05:18 WBC 7.2 RBC 4.06 L Hgb 13.0 Hct 37.4 L MCV 92.1 MCH 32.0 MCHC 34.8 RDW 13.3 RDW Differential 43.9 Plt Count 169 MPV 9.9 Immature Gran % (Auto) 0.100 Neut % (Auto) 72.2 H Lymph % (Auto) 17.8 L White % (Auto) 8.4 Eos % (Auto) 1.4 Baso % (Auto) 0.1 Absolute Neuts (auto) 5.2 Absolute Lymphs (auto) 1.29 Total Counted Not Reportable ESR Sodium 144 Potassium 3.8 Chloride 107 Carbon Dioxide 29.0 Anion Gap 8 BUN 19 H Creatinine 1.11 Estim Creat Clear Calc 55.72 Est GFR (MDRD) Af Amer 82 Est GFR (MDRD) Non-Af 68 BUN/Creatinine Ratio 17.1 Glucose 100 Calcium 8.4 L Cortisol Pending POC Glucose 12/29/17 12:11 POC Glucose 122 H Current Medications Acetaminophen 650 mg 12/27/17 14:39 12/30/17 03:33 Tylenol PO 650 mg Q4H PRN PRN Administration Headache/Temp>99F Acetaminophen 650 mg 12/27/17 14:39 Tylenol RECTAL Q4H PRN PRN Headache/Temp>99F Acetaminophen 650 mg 12/27/17 14:39 Tylenol Liquid NG Q4H PRN PRN Headache/Temp>99F Artificial Tears 1 drop 12/28/17 05:50 12/29/17 21:05 Tears Naturale, Artificial Tears EACH EYE 1 drop Q1H PRN PRN Administration DRY EYES Atorvastatin Calcium 10 mg 12/27/17 22:00 12/29/17 21:05 Lipitor PO 10 mg QHS [facility] Administration Divalproex Sodium 1,000 mg 12/28/17 16:50 12/30/17 08:39 Depakote Er PO 1,000 mg DAILY [facility] Administration Finasteride 5 mg 12/27/17 22:00 12/29/17 21:05 Proscar PO 5 mg QHS [facility] Administration Heparin Sodium (Porcine) 0 units 12/27/17 14:55 IV UD PRN Protocol Levothyroxine Sodium 50 mcg 12/28/17 06:00 12/30/17 06:19 Synthroid PO 50 mcg DAILY@0600 [facility] Administration Nitroglycerin 0.4 mg 12/27/17 14:39 Nitrostat SUBLINGUAL PRN PRN chest pain Oxybutynin Chloride 5 mg 12/27/17 22:00 12/30/17 08:39 Ditropan PO 5 mg BID [facility] Administration Sertraline HCl 25 mg 12/28/17 10:00 12/30/17 08:39 Zoloft PO 25 mg DAILY [facility] Administration Sodium Chloride 5 - 30 ml 12/27/17 16:49 12/28/17 21:59 IV 10 ml UD PRN Administration SALINE FLUSH Assessment/Plan Active and Suspected Problems Right sided weakness (Acute) Slurred speech (Acute) Impression: Focal right-sided symptoms, workup is negative including MRI, CTA, echocardiogram and eeg. spell yesterday appears to be nonfocal vasovagal event. had a total of 3 spells yesterday, and a brief 5 minute episode this am. events appear to be focal motor seizures, improved on depakote, will add calvinra x1
--- NOTE | 2017-12-30 11:52 | PCM.PN.HOSP ---
Patient Problems: Active and Suspected Problems Right sided weakness (Acute) Slurred speech (Acute) Subjective: Pt had another event with right sided weakness. Rec'd keppra IV x1. Dizzy upon standing up. Vitals/I&O's: Vital Signs Temp Pulse Resp BP Pulse Ox 36.5 C L 48 L 16 118/70 97 12/30/17 11:46 12/30/17 11:46 12/30/17 11:46 12/30/17 11:46 12/30/17 11:46 Oxygen Delivery Method Room Air Weight: 83.915 kg Body Mass Index (BMI) 26.5 Orthostatic Vital Signs Start: 12/30/17 10:47 Freq: q24h Status: Active Protocol: Activity Type Activity Date Activity User E-Sign Co-Sign Detail Recorded Client Recorded Date Recorded By Document 12/30/17 10:47 AEL [id number] 12/30/17 10:54 AEL 12/30/17 10:47 Orthostatic Vitals Standing -Blood Pressure (90/60-120/80) 105/73 -Extremity Use Right Arm -Pulse Rate (60-100) 70 Sitting -Blood Pressure (90/60-120/80) 120/76 -Extremity Use Right Arm -Pulse Rate (60-100) 68 Lying -Blood Pressure (90/60-120/80) 126/69 H -Extremity Use Right Arm -Pulse Rate (60-100) 48 L Intake and Output for Last 24 Hours 12/28/17 12/29/17 12/30/17 23:59 23:59 23:59 Intake Total 1276.2 / 1276.2 1779 / 1779 290 / 290 Output Total 200 / 200 350 / 350 0 / 0 Balance 1076.2 / 1076.2 1429 / 1429 290 / 290 General: Alert, Cooperative, No apparent distress, - - much more alert today. HEENT: Atraumatic, PERRLA, EOMI, Normocephalic Neck: No Nodes, Thyroid Normal Size and Texture Lungs: Clear to auscultation, Normal air movement, No rhonchi, No wheeze Cardiovascular: Regular rate, Regular Rhythm, Normal S1, Normal S2, No murmurs Abdomen: Bowel Sounds Present, Soft, Non Tender, Non-Distended, No Hepato-splenomegaly, Passing Flatus Extremities: No clubbing, No cyanosis, No edema, No Calf Tenderness Skin: No rashes, No breakdown Musculoskeletal: No Tenderness to Palpation of Joints or Extremities, No Muscle Wasting Neurological: Neuro grossly intact, Muscle tone normal, Coordination normal Psych/Mental Status: Normal Affect, Appropriate Microbiology Past 72 Hours 12/28/17 11:04 Urine, Clean Catch Urine Culture - Final Mixed Gram Pos & Gram Neg Org Laboratory Results 12/29/17 12:11: POC Glucose 122 H 12/29/17 13:02: Cortisol 13.60 12/29/17 16:23: ESR < 1 12/29/17 16:23: Cortisol 17.30 12/29/17 16:53: Cortisol 23.80 H 12/30/17 05:18: WBC 7.2, RBC 4.06 L, Hgb 13.0, Hct 37.4 L, MCV 92.1, MCH 32.0, MCHC 34.8, RDW 13.3, RDW Differential 43.9, Plt Count 169, MPV 9.9, Immature Gran % (Auto) 0.100, Neut % (Auto) 72.2 H, Lymph % (Auto) 17.8 L, [place] % (Auto) 8.4, Eos % (Auto) 1.4, Baso % (Auto) 0.1, Absolute Neuts (auto) 5.2, Absolute Lymphs (auto) 1.29, Total Counted Not Reportable 12/30/17 05:18: Sodium 144, Potassium 3.8, Chloride 107, Carbon Dioxide 29.0, Anion Gap 8, BUN 19 H, Creatinine 1.11, Estim Creat Clear Calc 55.72, Est GFR (MDRD) Af Amer 82, Est GFR (MDRD) Non-Af 68, BUN/Creatinine Ratio 17.1, Glucose 100, Calcium 8.4 L Current Medications Acetaminophen (Tylenol) 650 mg PO Q4H PRN PRN PRN Reason: Headache/Temp>99F Last Admin: 12/30/17 03:33 Dose: 650 mg Acetaminophen (Tylenol) 650 mg RECTAL Q4H PRN PRN PRN Reason: Headache/Temp>99F Acetaminophen (Tylenol Liquid) 650 mg NG Q4H PRN PRN PRN Reason: Headache/Temp>99F Artificial Tears (Tears Naturale, Artificial Tears) 1 drop EACH EYE Q1H PRN PRN PRN Reason: DRY EYES Last Admin: 12/29/17 21:05 Dose: 1 drop Atorvastatin Calcium (Lipitor) 10 mg PO QHS [facility] Last Admin: 12/29/17 21:05 Dose: 10 mg Divalproex Sodium (Depakote Er) 1,000 mg PO DAILY [facility] Last Admin: 12/30/17 08:39 Dose: 1,000 mg Finasteride (Proscar) 5 mg PO QHS [facility] Last Admin: 12/29/17 21:05 Dose: 5 mg Heparin Sodium (Porcine) () 0 units IV UD PRN PRN Reason: Protocol Levothyroxine Sodium (Synthroid) 50 mcg PO DAILY@0600 [facility] Last Admin: 12/30/17 06:19 Dose: 50 mcg Nitroglycerin (Nitrostat) 0.4 mg SUBLINGUAL PRN PRN PRN Reason: chest pain Oxybutynin Chloride (Ditropan) 5 mg PO BID [facility] Last Admin: 12/30/17 08:39 Dose: 5 mg Sertraline HCl (Zoloft) 25 mg PO DAILY [facility] Last Admin: 12/30/17 08:39 Dose: 25 mg Sodium Chloride () 5 - 30 ml IV UD PRN PRN Reason: SALINE FLUSH Last Admin: 12/28/17 21:59 Dose: 10 ml Assessment/Plan Active and Suspected Problems Right sided weakness (Acute) Slurred speech (Acute) 1. Syncope Feel that this was a vasovagal as patient was experiencing a bowel movement prior to this event EEG was negative so I do not feel that this was a seizure. Patient also having very broad fluctuations in his blood pressure which certainly is a contributing factor to his syncopal episodes. Goes with Dr. 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 But given the fact that the patient came to right away and I am concerned that this may be more of a vasovagal process. 2. possible movement disorder Parkison's v MSA v PSP. Doubt MG. daughters state that another physician told them that he was concerned about parkinon's MRI negative for CVA I have recommended follow-up with a movement disorder specialist: [facility] Neuromuscular [employer] [phone], Parkinson's and Movement Disorder [phone] await for PT reassessment. Pt and family would decline SNF if recommended, would prefer [facility] 3. 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 received Keppra x1 on 12/30 continue to monitor to see if recurrent events and if any additional medication changes needed. 4. Bradycardia: amio stopped Toprol XL stopped EF 65% 5. DVT proph: SQ heparin 6. Spinal stenosis: noted cord contact on MRI unclear if causing paresthesias in upper extremities short pred taper follow up with spine surgery/neurosurgery as outpt 7. orthostatic hypotension: follow up ACTH stim test recheck in AM. Code Visit Inpatient E&M: 96248 Subs Hosp L3
--- NOTE | 2017-12-30 11:57 | PN_ITS ---
Patient Problems: Active and Suspected Problems Right sided weakness (Acute) Slurred speech (Acute) Subjective: Pt had another event with right sided weakness. Rec'd keppra IV x1. Dizzy upon standing up. Vitals/I&O's: Vital Signs Temp Pulse Resp BP Pulse Ox 36.5 C L 48 L 16 118/70 97 12/30/17 11:46 12/30/17 11:46 12/30/17 11:46 12/30/17 11:46 12/30/17 11:46 Oxygen Delivery Method Room Air Weight: 83.915 kg Body Mass Index (BMI) 26.5 Orthostatic Vital Signs Start: 12/30/17 10:47 Freq: q24h Status: Active Protocol: Activity Type Activity Date Activity User E-Sign Co-Sign Detail Recorded Client Recorded Date Recorded By Document 12/30/17 10:47 AEL [id number] 12/30/17 10:54 AEL 12/30/17 10:47 Orthostatic Vitals Standing -Blood Pressure (90/60-120/80) 105/73 -Extremity Use Right Arm -Pulse Rate (60-100) 70 Sitting -Blood Pressure (90/60-120/80) 120/76 -Extremity Use Right Arm -Pulse Rate (60-100) 68 Lying -Blood Pressure (90/60-120/80) 126/69 H -Extremity Use Right Arm -Pulse Rate (60-100) 48 L Intake and Output for Last 24 Hours 12/28/17 12/29/17 12/30/17 23:59 23:59 23:59 Intake Total 1276.2 / 1276.2 1779 / 1779 290 / 290 Output Total 200 / 200 350 / 350 0 / 0 Balance 1076.2 / 1076.2 1429 / 1429 290 / 290 General: Alert, Cooperative, No apparent distress, - - much more alert today. HEENT: Atraumatic, PERRLA, EOMI, Normocephalic Neck: No Nodes, Thyroid Normal Size and Texture Lungs: Clear to auscultation, Normal air movement, No rhonchi, No wheeze Cardiovascular: Regular rate, Regular Rhythm, Normal S1, Normal S2, No murmurs Abdomen: Bowel Sounds Present, Soft, Non Tender, Non-Distended, No Hepato- splenomegaly, Passing Flatus Extremities: No clubbing, No cyanosis, No edema, No Calf Tenderness Skin: No rashes, No breakdown Musculoskeletal: No Tenderness to Palpation of Joints or Extremities, No Muscle Wasting Neurological: Neuro grossly intact, Muscle tone normal, Coordination normal Psych/Mental Status: Normal Affect, Appropriate Microbiology Past 72 Hours 12/28/17 11:04 Urine, Clean Catch Urine Culture - Final Mixed Gram Pos & Gram Neg Org Laboratory Results 12/29/17 12:11: POC Glucose 122 H 12/29/17 13:02: Cortisol 13.60 12/29/17 16:23: ESR < 1 12/29/17 16:23: Cortisol 17.30 12/29/17 16:53: Cortisol 23.80 H 12/30/17 05:18: WBC 7.2, RBC 4.06 L, Hgb 13.0, Hct 37.4 L, MCV 92.1, MCH 32.0, MCHC 34.8, RDW 13.3, RDW Differential 43.9, Plt Count 169, MPV 9.9, Immature Gran % (Auto) 0.100, Neut % (Auto) 72.2 H, Lymph % (Auto) 17.8 L, [place] % (Auto) 8.4, Eos % (Auto) 1.4, Baso % (Auto) 0.1, Absolute Neuts (auto) 5.2, Absolute Lymphs (auto) 1.29, Total Counted Not Reportable 12/30/17 05:18: Sodium 144, Potassium 3.8, Chloride 107, Carbon Dioxide 29.0, Anion Gap 8, BUN 19 H, Creatinine 1.11, Estim Creat Clear Calc 55.72, Est GFR ( MDRD) Af Amer 82, Est GFR (MDRD) Non-Af 68, BUN/Creatinine Ratio 17.1, Glucose 100, Calcium 8.4 L Current Medications Acetaminophen (Tylenol) 650 mg PO Q4H PRN PRN PRN Reason: Headache/Temp>99F Last Admin: 12/30/17 03:33 Dose: 650 mg Acetaminophen (Tylenol) 650 mg RECTAL Q4H PRN PRN PRN Reason: Headache/Temp>99F Acetaminophen (Tylenol Liquid) 650 mg NG Q4H PRN PRN PRN Reason: Headache/Temp>99F Artificial Tears (Tears Naturale, Artificial Tears) 1 drop EACH EYE Q1H PRN PRN PRN Reason: DRY EYES Last Admin: 12/29/17 21:05 Dose: 1 drop Atorvastatin Calcium (Lipitor) 10 mg PO QHS [facility] Last Admin: 12/29/17 21:05 Dose: 10 mg Divalproex Sodium (Depakote Er) 1,000 mg PO DAILY [facility] Last Admin: 12/30/17 08:39 Dose: 1,000 mg Finasteride (Proscar) 5 mg PO QHS [facility] Last Admin: 12/29/17 21:05 Dose: 5 mg Heparin Sodium (Porcine) () 0 units IV UD PRN PRN Reason: Protocol Levothyroxine Sodium (Synthroid) 50 mcg PO DAILY@0600 [facility] Last Admin: 12/30/17 06:19 Dose: 50 mcg Nitroglycerin (Nitrostat) 0.4 mg SUBLINGUAL PRN PRN PRN Reason: chest pain Oxybutynin Chloride (Ditropan) 5 mg PO BID [facility] Last Admin: 12/30/17 08:39 Dose: 5 mg Sertraline HCl (Zoloft) 25 mg PO DAILY [facility] Last Admin: 12/30/17 08:39 Dose: 25 mg Sodium Chloride () 5 - 30 ml IV UD PRN PRN Reason: SALINE FLUSH Last Admin: 12/28/17 21:59 Dose: 10 ml Assessment/Plan Active and Suspected Problems Right sided weakness (Acute) Slurred speech (Acute) 1. Syncope * Feel that this was a vasovagal as patient was experiencing a bowel movement prior to this event * EEG was negative so I do not feel that this was a seizure. * Patient also having very broad fluctuations in his blood pressure which certainly is a contributing factor to his syncopal episodes. 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 But given the fact that the patient came to right away and I am concerned that this may be more of a vasovagal process. 2. possible movement disorder * Parkison's v MSA v PSP. Doubt MG. * daughters state that another physician told them that he was concerned about parkinon's * MRI negative for CVA * I have recommended follow-up with a movement disorder specialist: [facility] [phone], Parkinson's and Movement Disorder [phone] * await for PT reassessment. Pt and family would decline SNF if recommended, would prefer [facility] 3. 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 * received Keppra x1 on 12/30 * continue to monitor to see if recurrent events and if any additional medication changes needed. 4. Bradycardia: * amio stopped * Toprol XL stopped * EF 65% 5. DVT proph: SQ heparin 6. Spinal stenosis: * noted cord contact on MRI * unclear if causing paresthesias in upper extremities * short pred taper * follow up with spine surgery/neurosurgery as outpt 7. orthostatic hypotension: * follow up ACTH stim test * recheck in AM. Code Visit Inpatient E&M: 01995 Subs Hosp L3
--- NOTE | 2017-12-30 12:25 | PCM.PN.CARD ---
Subjectve: Patient had another event yesterday which was quite pronounced, found unresponsive, CODE BLUE called, did not regain consciousness for several minutes. Patient was found to be hypotensive during this time. This morning he is completely lucid, has had no further events overnight, and appears to have a prodrome of difficulty speaking, numbness in his perioral area, followed by weakness in his right side. His amiodarone, Toprol, and losartan were all held yesterday in light of his hypotension. In addition he complained of a headache and is being evaluated for possible temporal arteritis. Telemetry has been basically normal sinus rhythm/sinus bradycardia, rare PVCs and ventricular couplets. Objective: Vital Signs Temp Pulse Resp BP Pulse Ox 97.7 F L 48 L 16 118/70 97 12/30/17 11:46 12/30/17 11:46 12/30/17 11:46 12/30/17 11:46 12/30/17 11:46 Oxygen Delivery Method Room Air Weight: 185 lb 0.014 oz Body Mass Index (BMI) 26.5 Orthostatic Vital Signs Start: 12/30/17 10:47 Freq: q24h Status: Active Protocol: Activity Type Activity Date Activity User E-Sign Co-Sign Detail Recorded Client Recorded Date Recorded By Document 12/30/17 10:47 AEL [id number] 12/30/17 10:54 AEL 12/30/17 10:47 Orthostatic Vitals Standing -Blood Pressure (90/60-120/80) 105/73 -Extremity Use Right Arm -Pulse Rate (60-100) 70 Sitting -Blood Pressure (90/60-120/80) 120/76 -Extremity Use Right Arm -Pulse Rate (60-100) 68 Lying -Blood Pressure (90/60-120/80) 126/69 H -Extremity Use Right Arm -Pulse Rate (60-100) 48 L Intake and Output for Last 24 Hours 12/28/17 12/29/17 12/30/17 23:59 23:59 23:59 Intake Total 1276.2 / 1276.2 1779 / 1779 290 / 290 Output Total 200 / 200 350 / 350 0 / 0 Balance 1076.2 / 1076.2 1429 / 1429 290 / 290 General: Awake, Alert, Oriented x 3 HEENT: PERRL, EOMI, Sclera Non Icteric Neck: Supple, Good ROM, No Lymph Node Enlargement Lungs: Clear to auscultation Cardiovascular: Regular Rhythm, Normal S1, Normal S2, No Murmurs, No Rubs, No Gallops Vascular: No Carotid Bruits, Normal Femoral Pulses, Normal Radial Pulses, Normal Dorsalis Pedal Pulse, Normal Posterior Tibial Pulses Abdomen: Bowel Sounds Present, Soft, Non Tender, No HSM, No Organomegaly Extremities: No Cyanosis, No Clubbing, No edema Neurological: No Focal Motor or Sensory Deficit 12/30/17 05:18: WBC 7.2, RBC 4.06 L, Hgb 13.0, Hct 37.4 L, MCV 92.1, MCH 32.0, MCHC 34.8, RDW 13.3, RDW Differential 43.9, Plt Count 169, MPV 9.9, Immature Gran % (Auto) 0.100, Neut % (Auto) 72.2 H, Lymph % (Auto) 17.8 L, [place] % (Auto) 8.4, Eos % (Auto) 1.4, Baso % (Auto) 0.1, Absolute Neuts (auto) 5.2, Total Counted Not Reportable 12/30/17 05:18: Sodium 144, Potassium 3.8, Chloride 107, Carbon Dioxide 29.0, Anion Gap 8, BUN 19 H, Creatinine 1.11, Est GFR (MDRD) Af Amer 82, Est GFR (MDRD) Non-Af 68, BUN/Creatinine Ratio 17.1, Glucose 100, Calcium 8.4 L Rhythm: EKG: ECHO: Stress Test: Cardiac Cath: PCI: CT Surgery: Holter monitor: EPS: PPM: CXR: Chest CT Scan: Assessment/Plan 1. Sinus bradycardia: The patient presents with sinus bradycardia and significant hypertension in the face of acute right-sided facial droop, slurred speech, slow mentation, and left upper and lower extremity weakness. Patient has been seen by Dr. Meadows, and he apparently has had several episodes similar to this since his admission. Initially the patient appear to have significant hypertension during these episodes but yesterday's event the patient was found to have severe hypotension with systolic pressures in the 60s. Patient's telemetry during this entire time with sinus bradycardia. At this point I do not believe the patient requires temporary pacing or permanent pacing at this time. I would however recommend discontinuation of his Toprol given his bradycardia. In addition I discontinued his amiodarone on the outside chance this may be contributing to his periodic strokelike events. This will require several weeks to reach out of his system however. In addition I would discontinue his losartan as there appears to be some relationship between the initiation of losartan and the patient's symptoms although the relationship is somewhat vague at this time. Given his hypertension I would recommend Imdur 30 mill grams p.o. daily for blood pressure control. Although his diastolic numbers quite high, I would not recommend diuretic therapy given his difficulty getting to and from the bathroom. Patient remains orthostatic by today's evaluation. In place of his Toprol we will start Imdur 30 mg p.o. daily. We will need to get the records from Dr. Webb's office explaining the purpose for his medications particularly amiodarone. Would recommend holding his amiodarone at this time to determine if his symptoms improve. Patient's EEG is negative while he is awake. Patient may require continuous EEG monitoring to determine if he has seizure-like activity. Based upon his description of these events it appears he may have a focal seizure-like activity which may be contributing to his symptoms. 2. Mitral valve repair: The patient's echocardiogram shows intact annuloplasty ring, and no indication for SHASHI at this time. Patient's symptoms do not appear to be embolic and he has had no fevers, chills, or outward signs of endocarditis. 3. Thank you very much for the opportunity to participate in the cardiac care of your patient. We will see peripherally. Please call with any questions. Code Visit Inpatient E&M: 24473 Subs Hosp L2
--- NOTE | 2017-12-30 12:51 | CHAPLAIN ---
Type of Pastoral Visit ___ Initial Visit _x__ Follow-up Visit ___ On-call Visit ___ General Patient Visit ___ Spiritual Assessment ___ Family Conference ___ Bereavement ___ Rapid Response ___ Code Blue ___ Other (describe below) Pastoral Care Referral From _x__ Patient ___ Family ___ Nurse ___ Physician ___ Microfilming Document Preparer ___ Lobster Catcher ___ Other (describe below) Sacrament/Intervention _x__ Active listening ___ Anointing ___ Roman Catholic ___ Bereavement ___ Communion ___ Claudette exploration ___ ___ Life review ___ Prayer ___ Reconciliation ___ Sacrament of Sick ___ Supportive presence ___ Wedding ___ Other (describe below) Pastoral Comments
[2017-12-30] MEDS: Finasteride 5 MG Tablet PO (22:14)
[2017-12-30] MEDS: Atorvastatin Calcium 10 MG Tablet PO (22:14)
[2017-12-31 02:11] VITALS: BMI 26.5
[2017-12-31 03:00] VITALS: PULSE 61
[2017-12-31 04:00] VITALS: BP 148/76; PULSE 65; RESP 16; TEMP 36.8; O2SAT 97
[2017-12-31] MEDS: Levothyroxine 50 MCG Tablet PO (05:56)
[2017-12-31 05:57] VITALS: BP 135/91; BP 144/96; BP 145/89; PULSE 59; PULSE 66; PULSE 88
[2017-12-31 08:00] VITALS: PULSE 52
--- NOTE | 2017-12-31 09:25 | PCM.PN.HOSP ---
Patient Problems: Active and Suspected Problems Right sided weakness (Acute) Slurred speech (Acute) Subjective: Did feel dizzy upon standing this morning but was better than had been previously. No other events of right-sided weakness since yesterday. Vitals/I&O's: Vital Signs Temp Pulse Resp BP Pulse Ox 36.8 C 59 L 16 145/89 H 97 12/31/17 04:00 12/31/17 05:57 12/31/17 04:00 12/31/17 05:57 12/31/17 04:00 Oxygen Delivery Method Room Air Weight: 83.915 kg Body Mass Index (BMI) 26.5 Orthostatic Vital Signs Start: 12/30/17 10:47 Freq: q24h Status: Active Protocol: Activity Type Activity Date Activity User E-Sign Co-Sign Detail Recorded Client Recorded Date Recorded By Document 12/31/17 05:57 BMW [id number] 12/31/17 06:03 BMW 12/31/17 05:57 Orthostatic Vitals Standing -Blood Pressure (90/60-120/80) 144/96 H -Extremity Use Left Arm -Pulse Rate (60-100) 88 Sitting -Blood Pressure (90/60-120/80) 135/91 H -Extremity Use Left Arm -Pulse Rate (60-100) 66 Lying -Blood Pressure (90/60-120/80) 145/89 H -Extremity Use Left Arm -Pulse Rate (60-100) 59 L Intake and Output for Last 24 Hours 12/29/17 12/30/17 12/31/17 23:59 23:59 23:59 Intake Total 1779 / 1779 512 / 512 420 / 420 Output Total 350 / 350 0 / 0 Balance 1429 / 1429 512 / 512 420 / 420 General: Alert, Cooperative, No apparent distress HEENT: Atraumatic, Normocephalic Neurological: - - Extremities spontaneously. Voice does become softer the longer he speaks. Psych/Mental Status: Normal Affect, Appropriate Microbiology Past 72 Hours 12/28/17 11:04 Urine, Clean Catch Urine Culture - Final Mixed Gram Pos & Gram Neg Org Laboratory Results 12/29/17 13:02: Cortisol 13.60 12/29/17 16:23: Cortisol 17.30 12/29/17 16:53: Cortisol 23.80 H Current Medications Acetaminophen (Tylenol) 650 mg PO Q4H PRN PRN PRN Reason: Headache/Temp>99F Last Admin: 12/30/17 03:33 Dose: 650 mg Acetaminophen (Tylenol) 650 mg RECTAL Q4H PRN PRN PRN Reason: Headache/Temp>99F Acetaminophen (Tylenol Liquid) 650 mg NG Q4H PRN PRN PRN Reason: Headache/Temp>99F Artificial Tears (Tears Naturale, Artificial Tears) 1 drop EACH EYE Q1H PRN PRN PRN Reason: DRY EYES Last Admin: 12/29/17 21:05 Dose: 1 drop Atorvastatin Calcium (Lipitor) 10 mg PO QHS [facility] Last Admin: 12/30/17 22:14 Dose: 10 mg Divalproex Sodium (Depakote Er) 1,000 mg PO DAILY [facility] Last Admin: 12/30/17 08:39 Dose: 1,000 mg Finasteride (Proscar) 5 mg PO QHS [facility] Last Admin: 12/30/17 22:14 Dose: 5 mg Heparin Sodium (Porcine) () 0 units IV UD PRN PRN Reason: Protocol Levetiracetam (Keppra) 500 mg PO BID [facility] Levothyroxine Sodium (Synthroid) 50 mcg PO DAILY@0600 [facility] Last Admin: 12/31/17 05:56 Dose: 50 mcg Nitroglycerin (Nitrostat) 0.4 mg SUBLINGUAL PRN PRN PRN Reason: chest pain Oxybutynin Chloride (Ditropan) 5 mg PO BID [facility] Last Admin: 12/30/17 22:14 Dose: 5 mg Prednisone (Prednisone) 40 mg PO DAILY@0800 [facility] Last Admin: 12/31/17 08:57 Dose: 40 mg Sertraline HCl (Zoloft) 25 mg PO DAILY [facility] Last Admin: 12/30/17 08:39 Dose: 25 mg Sodium Chloride () 5 - 30 ml IV UD PRN PRN Reason: SALINE FLUSH Last Admin: 12/28/17 21:59 Dose: 10 ml Assessment/Plan Active and Suspected Problems Right sided weakness (Acute) Slurred speech (Acute) 1. Syncope Feel that this was a vasovagal as patient was experiencing a bowel movement prior to this event EEG was negative so I do not feel that this was a seizure. Patient also having very broad fluctuations in his blood pressure which certainly is a contributing factor to his syncopal episodes. Goes with Dr. 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 But given the fact that the patient came to right away and I am concerned that this may be more of a vasovagal process. 2. possible movement disorder Parkison's v MSA v PSP. Doubt MG. daughters state that another physician told them that he was concerned about parkinon's MRI negative for CVA I have recommended follow-up with a movement disorder specialist: [facility] [employer] [phone], Parkinson's and Movement Disorder [phone] await for PT reassessment. Pt and family would decline SNF if recommended, would prefer [facility] 3. Seizure Patient had several episodes during the course of this hospitalization. 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 received Keppra x1 on 12/30 continue to monitor to see if recurrent events and if any additional medication changes needed. Dr. Meadows recommending 1000 mg of Depakote ER daily and Keppra 500 mg twice daily. He will follow-up with neurology. 4. Bradycardia: amio stopped Toprol XL stopped EF 65% Remaining stable off of medications. 5. Spinal stenosis: noted cord contact on MRI unclear if causing paresthesias in upper extremities short pred taper follow up with spine surgery/neurosurgery as outpt 6. orthostatic hypotension: Ongoing but symptoms improved ACTH stim test was negative for adrenal insufficiency 7. Migraines Sporadic for the patient Discussed with the patient at length that these are likely migraines. Patient very concerned about venous outflow causing these headaches. I told him that people who get migraines can have a throbbing sensation but we know given his very normal ESR, that he does not have giant cell arteritis. And he has no signs or symptoms of superior vena cava syndrome. I recommended he continue with the intermittent use of Excedrin Migraine which seems to help his headaches when he does develop those.
--- NOTE | 2017-12-31 09:30 | PN_ITS ---
Patient Problems: Active and Suspected Problems Right sided weakness (Acute) Slurred speech (Acute) Subjective: Did feel dizzy upon standing this morning but was better than had been previously. No other events of right-sided weakness since yesterday. Vitals/I&O's: Vital Signs Temp Pulse Resp BP Pulse Ox 36.8 C 59 L 16 145/89 H 97 12/31/17 04:00 12/31/17 05:57 12/31/17 04:00 12/31/17 05:57 12/31/17 04:00 Oxygen Delivery Method Room Air Weight: 83.915 kg Body Mass Index (BMI) 26.5 Orthostatic Vital Signs Start: 12/30/17 10:47 Freq: q24h Status: Active Protocol: Activity Type Activity Date Activity User E-Sign Co-Sign Detail Recorded Client Recorded Date Recorded By Document 12/31/17 05:57 BMW [id number] 12/31/17 06:03 BMW 12/31/17 05:57 Orthostatic Vitals Standing -Blood Pressure (90/60-120/80) 144/96 H -Extremity Use Left Arm -Pulse Rate (60-100) 88 Sitting -Blood Pressure (90/60-120/80) 135/91 H -Extremity Use Left Arm -Pulse Rate (60-100) 66 Lying -Blood Pressure (90/60-120/80) 145/89 H -Extremity Use Left Arm -Pulse Rate (60-100) 59 L Intake and Output for Last 24 Hours 12/29/17 12/30/17 12/31/17 23:59 23:59 23:59 Intake Total 1779 / 1779 512 / 512 420 / 420 Output Total 350 / 350 0 / 0 Balance 1429 / 1429 512 / 512 420 / 420 General: Alert, Cooperative, No apparent distress HEENT: Atraumatic, Normocephalic Neurological: - - Extremities spontaneously. Voice does become softer the longer he speaks. Psych/Mental Status: Normal Affect, Appropriate Microbiology Past 72 Hours 12/28/17 11:04 Urine, Clean Catch Urine Culture - Final Mixed Gram Pos & Gram Neg Org Laboratory Results 12/29/17 13:02: Cortisol 13.60 12/29/17 16:23: Cortisol 17.30 12/29/17 16:53: Cortisol 23.80 H Current Medications Acetaminophen (Tylenol) 650 mg PO Q4H PRN PRN PRN Reason: Headache/Temp>99F Last Admin: 12/30/17 03:33 Dose: 650 mg Acetaminophen (Tylenol) 650 mg RECTAL Q4H PRN PRN PRN Reason: Headache/Temp>99F Acetaminophen (Tylenol Liquid) 650 mg NG Q4H PRN PRN PRN Reason: Headache/Temp>99F Artificial Tears (Tears Naturale, Artificial Tears) 1 drop EACH EYE Q1H PRN PRN PRN Reason: DRY EYES Last Admin: 12/29/17 21:05 Dose: 1 drop Atorvastatin Calcium (Lipitor) 10 mg PO QHS [facility] Last Admin: 12/30/17 22:14 Dose: 10 mg Divalproex Sodium (Depakote Er) 1,000 mg PO DAILY [facility] Last Admin: 12/30/17 08:39 Dose: 1,000 mg Finasteride (Proscar) 5 mg PO QHS [facility] Last Admin: 12/30/17 22:14 Dose: 5 mg Heparin Sodium (Porcine) () 0 units IV UD PRN PRN Reason: Protocol Levetiracetam (Keppra) 500 mg PO BID [facility] Levothyroxine Sodium (Synthroid) 50 mcg PO DAILY@0600 [facility] Last Admin: 12/31/17 05:56 Dose: 50 mcg Nitroglycerin (Nitrostat) 0.4 mg SUBLINGUAL PRN PRN PRN Reason: chest pain Oxybutynin Chloride (Ditropan) 5 mg PO BID [facility] Last Admin: 12/30/17 22:14 Dose: 5 mg Prednisone (Prednisone) 40 mg PO DAILY@0800 [facility] Last Admin: 12/31/17 08:57 Dose: 40 mg Sertraline HCl (Zoloft) 25 mg PO DAILY [facility] Last Admin: 12/30/17 08:39 Dose: 25 mg Sodium Chloride () 5 - 30 ml IV UD PRN PRN Reason: SALINE FLUSH Last Admin: 12/28/17 21:59 Dose: 10 ml Assessment/Plan Active and Suspected Problems Right sided weakness (Acute) Slurred speech (Acute) 1. Syncope * Feel that this was a vasovagal as patient was experiencing a bowel movement prior to this event * EEG was negative so I do not feel that this was a seizure. * Patient also having very broad fluctuations in his blood pressure which certainly is a contributing factor to his syncopal episodes. 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 But given the fact that the patient came to right away and I am concerned that this may be more of a vasovagal process. 2. possible movement disorder * Parkison's v MSA v PSP. Doubt MG. * daughters state that another physician told them that he was concerned about parkinon's * MRI negative for CVA * I have recommended follow-up with a movement disorder specialist: [facility] [employer] [phone], Parkinson's and Movement Disorder [phone] * await for PT reassessment. Pt and family would decline SNF if recommended, would prefer [facility] 3. Seizure * Patient had several episodes during the course of this hospitalization. 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 * received Keppra x1 on 12/30 * continue to monitor to see if recurrent events and if any additional medication changes needed. * Dr. Meadows recommending 1000 mg of Depakote ER daily and Keppra 500 mg twice daily. * He will follow-up with neurology. 4. Bradycardia: * amio stopped * Toprol XL stopped * EF 65% * Remaining stable off of medications. 5. Spinal stenosis: * noted cord contact on MRI * unclear if causing paresthesias in upper extremities * short pred taper * follow up with spine surgery/neurosurgery as outpt 6. orthostatic hypotension: * Ongoing but symptoms improved * ACTH stim test was negative for adrenal insufficiency 7. Migraines * Sporadic for the patient * Discussed with the patient at length that these are likely migraines. Patient very concerned about venous outflow causing these headaches. I told him that people who get migraines can have a throbbing sensation but we know given his very normal ESR, that he does not have giant cell arteritis. And he has no signs or symptoms of superior vena cava syndrome. I recommended he continue with the intermittent use of Excedrin Migraine which seems to help his headaches when he does develop those.
--- NOTE | 2017-12-31 09:33 | PCM.DC ---
- Discharge Diagnoses Current Active Problems: Current Active and Chronic Problems Right sided weakness (Acute) Slurred speech (Acute) You will use the following diet at home:: No restrictions Your food should be the consistency of: Regular Your liquids should be the consistency of: Regular/Thin Discharge Activity: Return to Normal Activity, - - get up slowly from laying or sitting. Call your doctor if you observe: - - syncope, recurrent seizures. Allergies/Adverse Reactions: Allergies lisinopril Adverse Reaction (Verified 10/17/16 01:45) Nausea Medications to take at Discharge Finasteride 5 mg PO QHS 09/07/16 Levothyroxine [Synthroid] 50 mcg PO DAILY 09/07/16 Sertraline HCl 25 mg PO DAILY 09/07/16 Simvastatin 20 mg PO BID 09/07/16 Aspirin E.C. [Ecotrin] 162 mg PO DAILY@0800 10/05/16 Nitroglycerin 0.4 mg SL PRN PRN 10/05/16 Aspirin/Acetaminophen/Caffeine [Excedrin Migraine Caplet] 1 tab PO Q6H PRN PRN 10/12/16 Pedi Mv No.79/Ferrous Fumarate [Flintstones with Iron Tab Chew] 1 tab PO BID 10/12/16 Cholecalciferol (Vitamin D3) [Vitamin D3] 2,000 unit PO DAILY 12/27/17 Krill Oil 500 mg PO DAILY 12/27/17 Lutein 20 mg PO DAILY 12/27/17 Oxybutynin [Ditropan] 5 mg PO BID 12/27/17 Ubidecarenone [Co Q-10] 10 mg PO BID 12/27/17 Divalproex (ER) [Depakote ER] 1,000 mg PO DAILY #30 tab 12/31/17 Levetiracetam [Keppra] 500 mg PO BID #60 tab 12/31/17 The following prescriptions were given: Divalproex (ER) [Depakote ER] 1,000 mg PO DAILY #30 tab Levetiracetam [Keppra] 500 mg PO BID #60 tab Primary Care Physician: Cheo Gamble MD [Primary Care Provider] - Within 2 Weeks Please Follow Up With: Mike Don MD When: 1-2 weeks Please Follow Up With: John Meadows MD - seizure follow up When: 1-2 months Please Follow Up With: Movement Disorder Specialist - [facility] [phone], Parkinson's and Movement Disorder [phone] When: 1-2 months Proposed Discharge Date: 12/31/17
--- NOTE | 2017-12-31 09:35 | PCM.DC.SUM ---
Discharge Date and Diagnosis - Problem List Patient Problems: Active and Suspected Problems Syncope (Acute) Seizure (Acute) Bradycardia (Acute) Spinal stenosis (Acute) Orthostatic hypotension (Acute) Migraine (Acute) Date of Admission: 12/27/17 Date of Discharge: 12/31/17 - Primary Discharge Diagnosis Active and Suspected Problems Right sided weakness (Acute) Slurred speech (Acute) - Secondary Discharge Diagnosis Chronic Problems Hypertension (Chronic) Hypothyroid (Chronic) Murmur (Chronic) BPH (benign prostatic hyperplasia) (Chronic) Hospital Course and Treatment Imaging Results: Clinical Impression(s) from Imaging Studies Brain CT 12/27/17 11:44 IMPRESSION: Chronic involutional changes of the brain. N.B. : The above information has been verbally conveyed by Pepe Lopez MD to Adam Hutchison, Referring Physician, on 12/27/2017 12:00:06 (ET). Electronically Signed: Pepe Lopez MD at 12:01 EST Tel [phone], Service support , N.B. : The above information has been verbally conveyed by Pepe Lopez MD to Adam Hutchison, Referring Physician, on 12/27/2017 12:00:06 (ET). Head CTA 12/27/17 11:46 IMPRESSION: Normal [place] without a demonstrated aneurysm or hemodynamically significant stenosis. Electronically Signed: Pepe Lopez MD at 12:33 EST Tel [phone], Service support , Neck CTA 12/27/17 11:46 IMPRESSION: Minimal degree of atherosclerotic plaque at the origin of the right internal carotid artery. Electronically Signed: Pepe Lopez MD at 12:37 EST Tel [phone], Service support , Chest X-Ray 12/27/17 11:50 IMPRESSION: Mild elevation of left hemidiaphragm with mild left basilar increased markings suggestive of atelectasis. Electronically Signed: Pepe Lopez MD at 12:28 EST Tel [phone], Service support , Brain MRI 12/27/17 14:39 IMPRESSION: Age-related cerebral volume loss and mild chronic ischemic microvascular white matter changes. No acute findings. at 1736 Reported and signed by: Mary Bell MD Electronically Signed: Mary Bell MD at 16:34 EST Tel , Service support , Cervical Spine MRI 12/29/17 15:38 IMPRESSION: No evidence for acute fracture or subluxation Moderate spondylosis and multilevel spinal stenosis secondary primarily to bony hypertrophy Findings as above Electronically Signed: Musa Rogers MD at 23:10 EST , Service support , John Payton Operations: None Procedures: 2-D Echocardiogram - EF 60%. Mild diffuse mitral valve thickening Summary of Care Provided: The patient is a 77 year old M presents with right-sided weakness and slurred speech. Patient underwent a workup that essentially ruled out any stroke but the patient did have an EEG that was negative but patient did have recurrent episodes. 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 Patient had a recurrent episode and then received 1 dose of IV Keppra. Patient has not any further episodes since the morning of the . So patient will be discharged with Depakote ER 1000 mg daily plus Keppra 500 mg twice daily. Patient follow-up with Dr. Meadows for this and further evaluation. Comp getting this patient did have bradycardia and was on amiodarone and Lexxel those were discontinued and heart rate has improved but still is in the 50s. Patient was seen in consultation by Dr. Payton. Patient will follow Dr. Webb as outpatient. Patient also had a syncopal episode was felt to be more vasovagal and patient had no further events with that. Patient also does have some orthostatic hypotension which has improved with gain back some of his medications. I explained to the patient and his family that patient does certainly have hypertension at times but concern is when his blood pressure gets really low that we really cannot treat his hypertension at this time because blood pressure is more stabilized. 1. Syncope Feel that this was a vasovagal as patient was experiencing a bowel movement prior to this event EEG was negative so I do not feel that this was a seizure. Patient also having very broad fluctuations in his blood pressure which certainly is a contributing factor to his syncopal episodes. Goes with Dr. 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 But given the fact that the patient came to right away and I am concerned that this may be more of a vasovagal process. 2. possible movement disorder Parkison's v MSA v PSP. Doubt MG. daughters state that another physician told them that he was concerned about parkinon's MRI negative for CVA I have recommended follow-up with a movement disorder specialist: [facility] [phone], Parkinson's and Movement Disorder [phone] await for PT reassessment. Pt and family would decline SNF if recommended, would prefer [facility] 3. Seizure Patient had several episodes during the course of this hospitalization. 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 received Keppra x1 on 12/30 continue to monitor to see if recurrent events and if any additional medication changes needed. Dr. Meadows recommending 1000 mg of Depakote ER daily and Keppra 500 mg twice daily. He will follow-up with neurology. 4. Bradycardia: amio stopped Toprol XL stopped EF 65% Remaining stable off of medications. 5. Spinal stenosis: noted cord contact on MRI unclear if causing paresthesias in upper extremities short pred taper follow up with spine surgery/neurosurgery as outpt 6. orthostatic hypotension: Ongoing but symptoms improved ACTH stim test was negative for adrenal insufficiency 7. Migraines Sporadic for the patient Discussed with the patient at length that these are likely migraines. Patient very concerned about venous outflow causing these headaches. I told him that people who get migraines can have a throbbing sensation but we know given his very normal ESR, that he does not have giant cell arteritis. And he has no signs or symptoms of superior vena cava syndrome. I recommended he continue with the intermittent use of Excedrin Migraine which seems to help his headaches when he does develop those.[] Discharge Diet: No Restrictions Discharge Activity: Return to Normal Activity, - - get up slowly from laying or sitting. Call your doctor if you observe: - - syncope, recurrent seizures. Home Medications: Medications to take at Discharge Finasteride 5 mg PO QHS 09/07/16 Levothyroxine [Synthroid] 50 mcg PO DAILY 09/07/16 Sertraline HCl 25 mg PO DAILY 09/07/16 Simvastatin 20 mg PO BID 09/07/16 Aspirin E.C. [Ecotrin] 162 mg PO DAILY@0800 10/05/16 Nitroglycerin 0.4 mg SL PRN PRN 10/05/16 Aspirin/Acetaminophen/Caffeine [Excedrin Migraine Caplet] 1 tab PO Q6H PRN PRN 10/12/16 Pedi Mv No.79/Ferrous Fumarate [Flintstones with Iron Tab Chew] 1 tab PO BID 10/12/16 Cholecalciferol (Vitamin D3) [Vitamin D3] 2,000 unit PO DAILY 12/27/17 Krill Oil 500 mg PO DAILY 12/27/17 Lutein 20 mg PO DAILY 12/27/17 Oxybutynin [Ditropan] 5 mg PO BID 12/27/17 Ubidecarenone [Co Q-10] 10 mg PO BID 12/27/17 Divalproex (ER) [Depakote ER] 1,000 mg PO DAILY #30 tab 12/31/17 Levetiracetam [Keppra] 500 mg PO BID #60 tab 12/31/17 Following Prescrptions Were Given to Patient: Divalproex (ER) [Depakote ER] 1,000 mg PO DAILY #30 tab Levetiracetam [Keppra] 500 mg PO BID #60 tab Primary Care Physician: Cheo Gamble MD [Primary Care Provider] - Within 2 Weeks Please Follow Up With: Mike Don MD When: 1-2 weeks Please Follow Up With: John Meadows MD - seizure follow up When: 1-2 months Please Follow Up With: Movement Disorder Specialist - [facility] [phone], Parkinson's and Movement Disorder [phone] When: 1-2 months Disposition: Home with Home Health Minutes spent on discharge:: 45 Patient Condition:: Fair Meaningful Use Info Meaningful Use Diagnoses (Choose all that apply): None applicable Code Visit Inpatient E&M: 13149 Disch Hosp
--- NOTE | 2017-12-31 09:41 | DS.PCM_ITS ---
Discharge Date and Diagnosis - Problem List Patient Problems: Active and Suspected Problems Syncope (Acute) Seizure (Acute) Bradycardia (Acute) Spinal stenosis (Acute) Orthostatic hypotension (Acute) Migraine (Acute) Date of Admission: 12/27/17 Date of Discharge: 12/31/17 - Primary Discharge Diagnosis Active and Suspected Problems Right sided weakness (Acute) Slurred speech (Acute) - Secondary Discharge Diagnosis Chronic Problems Hypertension (Chronic) Hypothyroid (Chronic) Murmur (Chronic) BPH (benign prostatic hyperplasia) (Chronic) Hospital Course and Treatment Imaging Results: Clinical Impression(s) from Imaging Studies Brain CT 12/27/17 11:44 IMPRESSION: Chronic involutional changes of the brain. N.B. : The above information has been verbally conveyed by Pepe Lopez MD to Adam Hutchison, Referring Physician, on 12/27/2017 12:00:06 (ET). Electronically Signed: Pepe Lopez MD at 12:01 EST Tel [phone], Service support , N.B. : The above information has been verbally conveyed by Pepe Lopez MD to Adam Hutchison, Referring Physician, on 12/27/2017 12:00:06 (ET). Head CTA 12/27/17 11:46 IMPRESSION: Normal [place] without a demonstrated aneurysm or hemodynamically significant stenosis. Electronically Signed: Pepe Lopez MD at 12:33 EST Tel [phone], Service support , Neck CTA 12/27/17 11:46 IMPRESSION: Minimal degree of atherosclerotic plaque at the origin of the right internal carotid artery. Electronically Signed: Pepe Lopez MD at 12:37 EST Tel [phone], Service support , Chest X-Ray 12/27/17 11:50 IMPRESSION: Mild elevation of left hemidiaphragm with mild left basilar increased markings suggestive of atelectasis. Electronically Signed: Pepe Lopez MD at 12:28 EST Tel [phone], Service support , Brain MRI 12/27/17 14:39 IMPRESSION: Age-related cerebral volume loss and mild chronic ischemic microvascular white matter changes. No acute findings. at 1736 Reported and signed by: Mary Bell MD Electronically Signed: Mary Bell MD at 16:34 EST Tel , Service support , Cervical Spine MRI 12/29/17 15:38 IMPRESSION: No evidence for acute fracture or subluxation Moderate spondylosis and multilevel spinal stenosis secondary primarily to bony hypertrophy Findings as above Electronically Signed: Musa Rogers MD at 23:10 EST , Service support , John Payton Operations: None Procedures: 2-D Echocardiogram - EF 60%. Mild diffuse mitral valve thickening Summary of Care Provided: The patient is a 77 year old M presents with right-sided weakness and slurred speech. Patient underwent a workup that essentially ruled out any stroke but the patient did have an EEG that was negative but patient did have recurrent episodes. 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 Patient had a recurrent episode and then received 1 dose of IV Keppra. Patient has not any further episodes since the morning of the . So patient will be discharged with Depakote ER 1000 mg daily plus Keppra 500 mg twice daily. Patient follow-up with Dr. Meadows for this and further evaluation. Comp getting this patient did have bradycardia and was on amiodarone and Lexxel those were discontinued and heart rate has improved but still is in the 50s. Patient was seen in consultation by Dr. Payton. Patient will follow Dr. Webb as outpatient. Patient also had a syncopal episode was felt to be more vasovagal and patient had no further events with that. Patient also does have some orthostatic hypotension which has improved with gain back some of his medications. I explained to the patient and his family that patient does certainly have hypertension at times but concern is when his blood pressure gets really low that we really cannot treat his hypertension at this time because blood pressure is more stabilized. 1. Syncope * Feel that this was a vasovagal as patient was experiencing a bowel movement prior to this event * EEG was negative so I do not feel that this was a seizure. * Patient also having very broad fluctuations in his blood pressure which certainly is a contributing factor to his syncopal episodes. 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 But given the fact that the patient came to right away and I am concerned that this may be more of a vasovagal process. 2. possible movement disorder * Parkison's v MSA v PSP. Doubt MG. * daughters state that another physician told them that he was concerned about parkinon's * MRI negative for CVA * I have recommended follow-up with a movement disorder specialist: [facility] [phone], Parkinson's and Movement Disorder [phone] * await for PT reassessment. Pt and family would decline SNF if recommended, would prefer [facility] 3. Seizure * Patient had several episodes during the course of this hospitalization. 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 * received Keppra x1 on 12/30 * continue to monitor to see if recurrent events and if any additional medication changes needed. * Dr. Meadows recommending 1000 mg of Depakote ER daily and Keppra 500 mg twice daily. * He will follow-up with neurology. 4. Bradycardia: * amio stopped * Toprol XL stopped * EF 65% * Remaining stable off of medications. 5. Spinal stenosis: * noted cord contact on MRI * unclear if causing paresthesias in upper extremities * short pred taper * follow up with spine surgery/neurosurgery as outpt 6. orthostatic hypotension: * Ongoing but symptoms improved * ACTH stim test was negative for adrenal insufficiency 7. Migraines * Sporadic for the patient * Discussed with the patient at length that these are likely migraines. Patient very concerned about venous outflow causing these headaches. I told him that people who get migraines can have a throbbing sensation but we know given his very normal ESR, that he does not have giant cell arteritis. And he has no signs or symptoms of superior vena cava syndrome. I recommended he continue with the intermittent use of Excedrin Migraine which seems to help his headaches when he does develop those.[] Discharge Diet: No Restrictions Discharge Activity: Return to Normal Activity, - - get up slowly from laying or sitting. Call your doctor if you observe: - - syncope, recurrent seizures. Home Medications: Medications to take at Discharge Finasteride 5 mg PO QHS 09/07/16 Levothyroxine [Synthroid] 50 mcg PO DAILY 09/07/16 Sertraline HCl 25 mg PO DAILY 09/07/16 Simvastatin 20 mg PO BID 09/07/16 Aspirin E.C. [Ecotrin] 162 mg PO DAILY@0800 10/05/16 Nitroglycerin 0.4 mg SL PRN PRN 10/05/16 Aspirin/Acetaminophen/Caffeine [Excedrin Migraine Caplet] 1 tab PO Q6H PRN PRN 10/12/16 Pedi Mv No.79/Ferrous Fumarate [Flintstones with Iron Tab Chew] 1 tab PO BID Cholecalciferol (Vitamin D3) [Vitamin D3] 2,000 unit PO DAILY 12/27/17 Krill Oil 500 mg PO DAILY 12/27/17 Lutein 20 mg PO DAILY 12/27/17 Oxybutynin [Ditropan] 5 mg PO BID 12/27/17 Ubidecarenone [Co Q-10] 10 mg PO BID 12/27/17 Divalproex (ER) [Depakote ER] 1,000 mg PO DAILY #30 tab 12/31/17 Levetiracetam [Keppra] 500 mg PO BID #60 tab 12/31/17 Following Prescrptions Were Given to Patient: Divalproex (ER) [Depakote ER] 1,000 mg PO DAILY #30 tab Levetiracetam [Keppra] 500 mg PO BID #60 tab Primary Care Physician: Cheo Gamble MD [Primary Care Provider] - Within 2 Weeks Please Follow Up With: Mike Don MD When: 1-2 weeks Please Follow Up With: John Meadows MD - seizure follow up When: 1-2 months Please Follow Up With: Movement Disorder Specialist - [facility] [phone], Parkinson's and Movement Disorder [phone] When: 1-2 months Disposition: Home with Home Health Minutes spent on discharge:: 45 Patient Condition:: Fair Meaningful Use Info Meaningful Use Diagnoses (Choose all that apply): None applicable Code Visit Inpatient E&M: 89757 Disch Hosp
[2017-12-31 10:00] VITALS: BP 157/83; PULSE 70; RESP 18; TEMP 37; O2SAT 98
[2017-12-31] MEDS: Oxybutynin 5 MG Tablet PO (10:37)
[2017-12-31] MEDS: Divalproex (ER) 500 MG Tablet 1000 MG PO (10:37)
[2017-12-31] MEDS: Sertraline 50 MG Tablet 25 MG PO (10:41)
[2017-12-31] MEDS: levETIRAcetam 500 MG Tablet PO (10:41)
[2017-12-31 13:19] VITALS: BP 145/98; PULSE 69; O2SAT 98
[2017-12-31 13:28] VITALS: BMI 26.5
== END 2017-12-31 13:40 | disposition home health service (06) | DRG 57 ==
LOC: ED 13:57 → PCU 14:20
PROVIDERS: Psychiatry & Neurology Neurology; Admitting Provider Internal Medicine; Emergency Provider Emergency Medicine; Family Provider Internal Medicine; PCP Internal Medicine
DX: G25.9 Extrapyramidal and movement disorder, unspecified (principal); R00.1 Bradycardia, unspecified; G40.89 Other seizures; E03.9 Hypothyroidism, unspecified; H34.8112 Central retinal vein occlusion, right eye, stable; M48.00 Spinal stenosis, site unspecified; G43.909 Migraine, unspecified, not intractable, without status migrainosus; I95.1 Orthostatic hypotension; N40.0 Benign prostatic hyperplasia without lower urinary tract symptoms; R01.1 Cardiac murmur, unspecified; Z79.82 Long term (current) use of aspirin
CPT/HCPCS: 36415; 70450; 70496; 70498; 70551; 71045; 72141; 80048; 80061; 81001; 82533; 82962; 84484; 85025; 85610; 85652; 85730; 87086; 87088; 93005; 93306; 97110; 97116; 97162; 97166; 97530; 99285; J7030; Q9967; A4216; J0834

== ENCOUNTER 2018-01-04 13:58 | Emergency (ER) | payer MEDICARE, OTHER, SELFPAY ==
[2018-01-04 13:59] VITALS: BP 135/97; PULSE 71; RESP 16; TEMP 36.4; O2SAT 98; BMI 27.1
--- NOTE | 2018-01-04 14:34 | EKG12_ITS ---
Test Reason : WEAKNESS Blood Pressure : / mmHG Vent. Rate : 060 BPM Atrial Rate : 060 BPM P-R Int : 184 ms QRS Dur : 104 ms QT Int : 432 ms P-R-T Axes : 057 -32 059 degrees QTc Int : 432 ms Normal sinus rhythm Left axis deviation Nonspecific T wave abnormality Abnormal ECG Confirmed by DWIGHT ACOSTA [id number]), makeup editor MARCELA HICKMAN ([id number]) on 01/09/2018 2:04:19 PM Referred By: KEM Confirmed By:DWIGHT ACOSTA
--- NOTE | 2018-01-04 14:34 | CT_ITS ---
STUDY: CT BRAIN WITHOUT CONTRAST REASON FOR EXAM: Male, 77 years old. Slurred speech. History of recent CVA and seizures. RADIATION DOSAGE (If Supplied By Facility): CTDIvol = ( 44.99 ) mGy, DLP = ( 796.11 ) mGycm TECHNIQUE: Transaxial CT imaging of the brain was performed without administration of intravenous contrast material. Individualized dose optimization techniques were used for this CT. COMPARISON: Comparison is made with prior study of December 27, 2017. FINDINGS: Normal soft tissue structures. Normal calvarium. There is mild cerebral atrophy with widening of the extra-axial spaces and ventricular dilatation. Normal white matter tracts of the cerebral hemispheres. Normal basal ganglia and thalami. Normal brainstem. Normal cerebellum. There is no intracranial hemorrhage. There are no findings of an acute ischemic infarction. Atherosclerotic calcification of the cavernous portions of the internal carotid arteries bilaterally. Normal visualized paranasal sinuses. CT/Brain/Head without Contrast IMPRESSION: Chronic involutional changes of the brain. Electronically Signed: Pepe Lopez MD at 15:35 EDT Tel [phone], Service support ,
[2018-01-04 14:58] VITALS: BP 152/100; PULSE 63; RESP 14; O2SAT 97
[2018-01-04 15:20] LABS: Absolute Lymphocyte Count 0.82 X10^3/ul (0.83-4.51); Absolute Neutrophil Count 7.9 X10^3/uL (2.0-7.7); Basophil# 0.01 X10^3/uL; Basophil% 0.1 % (0-1); Eosinophil# 0.02 X10^3/uL; Eosinophils% 0.2 % (0-5); Hematocrit 47.9 % (40-54); Hemoglobin 15.8 g/dl (13.0-16.5); Lymphocyte # 0.82 X10^3/ul (4.0); Lymphocyte % 8.7 % (19-41); Mean Corpuscular Hgb 31.5 pg (27.0-32.0); Mean Corpuscular Volume 95.4 fL (80-94); Mean Platelet Vol. 10.3 fl (6.2-12.0); Monocyte# 0.56 X10^3/uL; Neutrophil # 7.89 X10^3/uL (2.7-7.7); POSITIVE COUNT NO; POSITIVE DIFFERENTIAL NO; POSITIVE MORPHOLOGY NO; Platelet Count 176 K/mm3 (150-450); Red Blood Count 5.02 M/mm3 (4.6-6.2); White Blood Count 9.4 K/mm3 (4.4-11.0)
[2018-01-04 15:34] LABS: Anion Gap 6 (5-15); BUN 37 mg/dL (7-18); BUN/Creat Ratio 31.1 RATIO (10-20); Calcium,Total 9.2 mg/dL (8.5-10.1); Chloride 105 mmol/L (98-107); Creatinine, Serum 1.19 mg/dL (0.70-1.30); EST Glomerular Filtration Rate 63 mL/min (>60); Est Glom Filt Rate - Afr Amer 76 mL/min (>60); Estimated Creatinine Clearance 51.97 ml/min; Glucose 95 mg/dL (74-106); Potassium 3.6 mmol/L (3.5-5.1); Sodium Level 146 mmol/L (136-145)
--- NOTE | 2018-01-04 15:39 | ED.VISSUMM ---
- ER Visit Summary Date of Service: 01/04/18 Chief Complaint: Tired, weak, slurred speech History of Present Illness: The patient is a [address] Gamble, Dr. Webb, and Dr. Meadows. He was admitted to the hospital from December 27 - December 31 with intermittent episodes of the same complaints that he has today. He states that he was discharged on Depakote and Keppra. He had another episode this morning and they called the doctor's office. They were told to come the emergency department to make sure there is nothing serious going on. Review of systems: General: No fever, chills, cold sweats. Cardiovascular: No chest pain, palpitations. Respiratory: No cough, shortness of breath, dyspnea on exertion. Gastrointestinal: No abdominal pain, nausea, vomiting, diarrhea, melena, or hematochezia. Genitourinary: No dysuria, hematuria. Skin: No rash. Neuro: No headache, numbness. Physical Examination: Vitals: Stable. Afebrile. General: Well-nourished and well-developed. Head: Normocephalic atraumatic. Neck: Supple, no lymphadenopathy. No JVD. Nontender. Cardiovascular: Regular rate and rhythm. No murmurs. Respiratory: No respiratory distress. Clear to auscultation bilaterally. Abdominal: Soft, nontender, nondistended, normal bowel sounds. No guarding, rebound, or peritoneal signs. Back: Nontender. Extremities: Nontender, no edema. Skin: Normal color, no rash. Neurologic: Alert and oriented ?3. Cranial nerves II through XII are intact. Normal strength and sensation. Psych: Normal affect. Test Results: CT brain shows chronic changes. EKG is sinus at [address] changes. Is not significantly changed from earlier this month. CBC is marked for 7 neutrophils 84 and the facets of 9. Chem-7 is more for sodium 146, CO2 35, BUN of 37. LFTs marked for an ALT of 15, AST is 7, and total protein 6.1. Ammonia level is normal. Depakote level is 112. Emergency Department Course and Treatment: Patient is resting comfortably and is had not had any more symptoms while here. Patient had an extensive evaluation while an inpatient. He had an MRI, CTA, echocardiogram, and EEG that were unremarkable. He was placed on antiepileptics due to the possibility of a complex partial seizure. Treatment Plan: She was discussed with Dr. Schofield. He asked that we decrease his Depakote from 1000 to 500 mg nightly. He would also like his Keppra increased from 500 to 750 mg twice daily. Get a repeat Depakote level in 1 week. Return to the emergency department for any worsening symptoms. Disposition: To home in improved and stable condition. Impression: 1. Seizure, recurrent. 2. Depakote toxicity. This note was generated with [employer] software. It may contain incorrect words, spelling, and punctuation that were not noted in review of the chart prior to signing ED Disposition - Plan for ED Patient: Chief Complaint: Weakness Instructions: ED Seizure Recurrent Prescriptions: Divalproex Sodium [Depakote ER] 500 mg PO QHS #30 tablet Levetiracetam [Keppra] 750 mg PO BID #60 tablet Referrals: John Meadows MD [STAFF PHYSICIAN] - Keep Mer appointment Additional Instructions: Have your depakote level checked again in 1 week.
[2018-01-04 15:45] LABS: Valproic Acid (Depakene) Level 112 ug/mL (50-100)
[2018-01-04 16:05] VITALS: BP 145/92; PULSE 75; RESP 14; O2SAT 98
[2018-01-04 16:36] LABS: AST(SGOT) 7 U/L (15-37); Alanine Aminotransfer ALT/SGPT 15 U/L (16-61); Albumin, Serum 3.4 g/dL (3.2-5.0); Alkaline Phosphatase 69 U/L (45-117); Bilirubin, Direct 0.15 mg/dL (0.00-0.30); Globulin 2.7 g/dL (2.2-4.2); Protein, Total 6.1 g/dL (6.4-8.2)
[2018-01-04 17:00] VITALS: BP 141/78; PULSE 80; RESP 14; O2SAT 99
== END 2018-01-04 17:01 | disposition home or self-care (01) ==
PROVIDERS: Emergency Provider Emergency Medicine; Family Provider Internal Medicine; PCP Internal Medicine
DX: G40.909 Epilepsy, unspecified, not intractable, without status epilepticus (principal); R53.83 Other fatigue; R53.1 Weakness; R47.81 Slurred speech; T42.6X5A Adverse effect of other antiepileptic and sedative-hypnotic drugs, initial encounter; Y92.9 Unspecified place or not applicable; I10 Essential (primary) hypertension; E78.00 Pure hypercholesterolemia, unspecified; E03.9 Hypothyroidism, unspecified; N40.0 Benign prostatic hyperplasia without lower urinary tract symptoms; I48.91 Unspecified atrial fibrillation; F32.9 Major depressive disorder, single episode, unspecified; Z82.49 Family history of ischemic heart disease and other diseases of the circulatory system; Z79.82 Long term (current) use of aspirin; Z79.899 Other long term (current) drug therapy
CPT/HCPCS: 70450; 80048; 80076; 80164; 82140; 85025; 93005; 99284; A4216

== ENCOUNTER → 2018-01-11 14:39 | Outpatient (CLI) | payer MEDICARE, OTHER, SELFPAY ==
[2018-01-11 16:29] LABS: Valproic Acid (Depakene) Level 48 ug/mL (50-100)
== END ==
PROVIDERS: Family Provider Internal Medicine; PCP Internal Medicine; Visit Provider Emergency Medicine
DX: R56.9 Unspecified convulsions (principal)
CPT/HCPCS: 36415; 80164

== ENCOUNTER → 2018-05-12 14:07 | Outpatient (CLI) | payer MEDICARE, OTHER, SELFPAY ==
[2018-05-12 15:33] LABS: ALB/GLOB Ratio 1.3 RATIO (0.9-2.4); AST(SGOT) 14 U/L (15-37); Alanine Aminotransfer ALT/SGPT 14 U/L (16-61); Albumin, Serum 3.7 g/dL (3.2-5.0); Alkaline Phosphatase 62 U/L (45-117); Anion Gap 3 (5-15); BUN 30 mg/dL (7-18); BUN/Creat Ratio 27.5 RATIO (10-20); Calcium,Total 8.9 mg/dL (8.5-10.1); Chloride 107 mmol/L (98-107); Creatinine, Serum 1.09 mg/dL (0.70-1.30); EST Glomerular Filtration Rate 69 mL/min (>60); Est Glom Filt Rate - Afr Amer 84 mL/min (>60); Globulin 2.9 g/dL (2.2-4.2); Glucose 87 mg/dL (74-106); Phosphorus 2.7 mg/dL (2.5-4.9); Potassium 4.2 mmol/L (3.5-5.1); Protein, Total 6.6 g/dL (6.4-8.2); Sodium Level 143 mmol/L (136-145)
[2018-05-19 09:54] LABS: KEPPRA (LEVETIRACETAM) 27.3 ug/mL (10.0-40.0)
== END ==
PROVIDERS: Family Provider Internal Medicine; PCP Internal Medicine; Visit Provider Nurse Practitioner Acute Care
DX: R56.9 Unspecified convulsions (principal)
CPT/HCPCS: 36415; 80053; 80177; 83735; 84100

== ENCOUNTER 2019-03-08 03:50 | Emergency (ER) | payer MEDICARE, OTHER, SELFPAY ==
[2019-03-08 03:52] VITALS: BP 182/116; PULSE 73; RESP 16; TEMP 36.4; O2SAT 100; BMI 25.8
--- NOTE | 2019-03-08 04:09 | ED.DCSUM_ITS ---
- ER Visit Summary Date of Service: 03/08/19 Chief Complaint: Constipation History of Present Illness: The patient is a 78 M reports rectal pressure and the urge to the bowel movement that he is been unable. His last bowel movement was for 5 days ago. Patient states he normally takes MiraLAX and align to help with his bowel movements. Tonight he also took mag citrate and stool softeners. Physical Examination: Blood pressure is 182/116, otherwise vitals normal. Patient sitting upright in bed no acute distress. Heart is regular rate and rhythm. Lung sounds are clear. Abdomen is soft and nontender. Rectal examination reveals stool impaction at the rectum. This was cleared as b est as possible. Test Results: [] Emergency Department Course and Treatment: Patient received a soapsuds enema. He had large results. On repeat evaluation he feels significantly improved. He will continue his normal bowel regimen. Treatment Plan: [] Disposition: Discharge Impression: Constipation This note was generated with [employer] dictation software. It may contain incorrect words, spelling, and punctuation that were not noted in review of the chart prior to signing ED Disposition - Plan for ED Patient: Disposition: Home or Assisted Living Instructions: ED Impaction Fecal Treated Referrals: Cheo Gamble MD [Primary Care Provider] - As Needed
--- NOTE | 2019-03-08 04:58 | ED.RN ---
disimpaction by Dr. Hill prior to approx 1200 ml of soap suds enema. pt with large results.
== END 2019-03-08 05:02 | disposition home or self-care (01) ==
PROVIDERS: Emergency Provider Emergency Medicine; Family Provider Internal Medicine; PCP Internal Medicine
DX: K59.00 Constipation, unspecified (principal); I10 Essential (primary) hypertension; N40.0 Benign prostatic hyperplasia without lower urinary tract symptoms; G40.909 Epilepsy, unspecified, not intractable, without status epilepticus; Z79.82 Long term (current) use of aspirin; Z79.899 Other long term (current) drug therapy
CPT/HCPCS: 99284; A4216

== ENCOUNTER → 2019-07-23 10:58 | Outpatient (CLI) | payer MEDICARE, OTHER, SELFPAY ==
[2019-06-21 15:25] VITALS: BMI 25.7
== END ==
PROVIDERS: Family Provider Internal Medicine; PCP Internal Medicine; Referring Provider Internal Medicine Cardiovascular Disease; Visit Provider Internal Medicine Cardiovascular Disease
DX: R00.2 Palpitations (principal)
CPT/HCPCS: 93225; 93226

== ENCOUNTER 2021-02-05 12:30 | Emergency (ER) | payer MEDICARE, OTHER, SELFPAY ==
[2019-12-20 15:05] VITALS: BMI 26.5
[2021-02-05 12:31] VITALS: BP 160/97; PULSE 64; RESP 16; TEMP 36.6; O2SAT 98; BMI 25.1
--- NOTE | 2021-02-05 12:36 | RAD_ITS ---
STUDY: X-RAY - ABDOMEN/PELVIS REASON FOR EXAM: Male, 80 years old. Constipation TECHNIQUE: Single AP view of the abdomen / pelvis. COMPARISON: Comparison is made with prior study dated 10/17/2019. FINDINGS: Normal visualized lung bases. There is an unremarkable bowel gas pattern. Faint calcifications are seen in the lower pole calyx of the left kidney suggestive of left renal calculi. There are calcified phleboliths in the pelvis. There are diffuse degenerative changes of the visualized lumbar spine. RAD/Abdomen Single View IMPRESSION: Findings suggestive of a small renal calculi in the inferior pole of the left kidney. Electronically Signed: Pepe Lopez MD at 13:49 EDT , Service support ,
--- NOTE | 2021-02-05 12:36 | RAD_ITS ---
STUDY: X-RAY CHEST REASON FOR EXAM: Male, 80 years old. Weakness TECHNIQUE: Single AP portable view of the chest. COMPARISON: Comparison is made with prior study from 12/27/2017. FINDINGS: EKG electrodes are seen. The lungs are clear and expanded. There is no demonstrated pleural abnormality. Sternal cerclage wires are present from a prior sternotomy. Prior mitral valve replacement and clipping of the left atrial appendage. Normal mediastinum and gavin. Normal visualized pulmonary arteries. Normal visualized aortic arch and descending thoracic aorta. Normal visualized thoracic spine. Normal visualized ribs, clavicles, and shoulders. There is no demonstrated abnormality of the visualized soft tissue structures of the upper abdomen. RAD/Chest 1 View (Portable) IMPRESSION: The lungs are clear. Prior mitral valve replacement and clipping of the left atrial appendage. Electronically Signed: Pepe Lopez MD at 13:50 EDT , Service support ,
--- NOTE | 2021-02-05 12:36 | EKG12_ITS ---
Test Reason : Blood Pressure : / mmHG Vent. Rate : 060 BPM Atrial Rate : 060 BPM P-R Int : 192 ms QRS Dur : 116 ms QT Int : 426 ms P-R-T Axes : 062 -32 061 degrees QTc Int : 426 ms Normal sinus rhythm Left axis deviation Low voltage QRS Abnormal ECG Confirmed by TRACI PRESTON, YESENIA ([id number]), editor dictionary TIMOTEO GARCIA ([id number]) on 02/10/2021 9:08:51 AM Referred By: RUPESH Confirmed By:ANGELES AVILES MD
[2021-02-05 12:45] LABS: Absolute Lymphocyte Count 0.99 X10^3/uL (0.83-4.51); Absolute Neutrophil Count 4.1 X10^3/uL (2.0-7.7); Basophil# 0.02 X10^3/uL; Basophil% 0.3 % (0-1); Eosinophil# 0.07 X10^3/uL; Eosinophils% 1.2 % (0-5); Hematocrit 44.9 % (40-54); Hemoglobin 15.1 g/dL (13.0-16.5); Lymphocyte # 0.99 X10^3/ul (0.83-4.51); Lymphocyte % 17.1 % (19-41); Mean Corp Hgb Conc 33.6 g/dL (32-36); Mean Corpuscular Hgb 31.9 pg (27.0-32.0); Mean Corpuscular Volume 94.9 fL (80-94); Monocyte# 0.58 X10^3/uL; NRBC Flagged by Analyzer 0 % (0-5); Neutrophil # 4.13 X10^3/uL (2.7-7.7); Neutrophil % 71.2 % (47-70); Platelet Count 195 K/mm3 (150-450); RBC Distribution Width CV 12.5 % (11.6-14.6); RBC Distribution Width SD 44.4 fl (35.1-43.9); Red Blood Count 4.73 M/mm3 (4.6-6.2); White Blood Count 5.8 K/mm3 (4.4-11.0)
--- NOTE | 2021-02-05 12:45 | ED.VIS.GEN ---
History of Present Illness Chief Complaint: Weakness Narrative: Patient is an 80-year-old male who presents with generalized weakness. For about the past 3 days he complains of increased generalized weakness. He also reports decreased oral intake. He states he just does not have an appetite. He felt like he had a blockage on further history is complaining of constipation. He took multiple laxatives and did have a bowel movement this morning. No abdominal pain. No nausea or vomiting. No urinary frequency urgency or dysuria. No fevers. No chest pain difficulty breathing or cough. Past Medical History - Allergies and Home Meds Allergies/Adverse Reactions: Allergies lisinopril Adverse Reaction (Verified 02/05/21 12:35) Nausea Primary Care Physician: Cheo Gamble MD [Primary Care Provider] - Past Medical History: - - Diabetes, hypertension, hyperlipidemia, Parkinson's Surgical History: - - Mitral valve repair, left carpal tunnel surgery Smoking Status: Never smoker - Family History Maternal Family History: Family History (Last Reviewed 06/21/19 @ 15:38 by Kate Branham) Father CAD (coronary artery disease) Family History: Reports: No pertinent history Paternal Family History: Family History (Last Reviewed 06/21/19 @ 15:38 by Kate Branham) Father CAD (coronary artery disease) Family History: Reports: No pertinent history Review of Systems All systems negative except as indicated General: Denies: Fever Eyes: Denies: Visual changes - bilaterally ENT: Denies: Bilateral ear pain Cardiovascular: Denies: Chest pain Respiratory: Denies: Dyspnea, Cough Gastrointestinal: Reports: Constipation. Denies: Abdominal pain, Nausea, Vomiting, Diarrhea Musculoskeletal: Denies: Extremity Pain Skin: Denies: Rash Neurological: Reports: Weakness. Denies: Headache Hematologic: Denies: Easy bruising Allergy: Denies: Uticaria Physical Exam Vital Signs/Narrative: Vital Signs Temp Pulse Resp BP Pulse Ox 02/05/21 12:31 97.8 F 64 16 160/97 H 98 Inital Vital Signs reviewed: Yes General: Well nourished Head: Normocephalic Eyes: EOMI ENT: Moist mucous membranes Neck: Supple Cardiovascular: Regular rate, Regular rhythm Respiratory: No distress, CTA bilaterally Abdomen: Soft, Nontender Skin: Normal color Neurological: Alert, Oriented x3, - - No focal or lateralizing neurological deficits normal strength normal sensation he does have some tremor Psychological: Normal affect Diagnostic/Tx/Re-eval Impressions Chest X-Ray 02/05/21 12:36 IMPRESSION: The lungs are clear. Prior mitral valve replacement and clipping of the left atrial appendage. Electronically Signed: Pepe Lopez MD at 13:50 EDT , Service support , KUB X-Ray 02/05/21 12:36 IMPRESSION: Findings suggestive of a small renal calculi in the inferior pole of the left kidney. Electronically Signed: Pepe Lopez MD at 13:49 EDT , Service support , 02/05/21 12:36 CXR [Chest 1 View (Portable)] [RAD] Stat KUB [Abdomen Single View] [RAD] Stat Laboratory Results 02/05/21 02/05/21 02/05/21 12:37 12:37 13:40 WBC 5.8 RBC 4.73 Hgb 15.1 Hct 44.9 MCV 94.9 H MCH 31.9 MCHC 33.6 RDW Std Deviation 44.4 H RDW Coeff of Trey 12.5 Plt Count 195 MPV 10.0 Immature Gran % (Auto) 0.200 Neut % (Auto) 71.2 H Lymph % (Auto) 17.1 L [place] % (Auto) 10.0 Eos % (Auto) 1.2 Baso % (Auto) 0.3 Absolute Neuts (auto) 4.1 Absolute Lymphs (auto) 0.99 Nucleated RBC % 0 Sodium 139 Potassium 3.9 Chloride 104 Carbon Dioxide 33.0 H Anion Gap 2 L BUN 35 H Creatinine 1.14 Estim Creat Clear Calc 51.58 Est GFR (MDRD) Af Amer 79 Est GFR (MDRD) Non-Af 65 BUN/Creatinine Ratio 30.7 H Glucose 106 Calcium 9.6 Urine Color Straw Urine Clarity Sl. Cloudy Urine pH 8.0 Ur Specific [place] 1.015 Urine Protein Negative Urine Glucose (UA) Normal Urine Ketones Negative Urine Occult Blood 25 H Urine Nitrite Negative Urine Bilirubin Negative Urine Urobilinogen Normal Ur Leukocyte Esterase 500 H Urine RBC 0 SEEN Urine WBC 10-25 SEEN Ur Squamous Epith Cells 0 SEEN Urine Bacteria 0 SEEN Urine Mucus 0 SEEN - Medical Decision Making EKG shows normal sinus rhythm at a rate of 60 with left axis deviation. CBC and BMP are unremarkable. Urinalysis does show pyuria. Chest x-ray and abdominal x-rays showed no acute findings as above. Patient does feel better on reevaluation. We will treat with oral Keflex for UTI and a culture was sent. Patient discharged. ED Disposition - Plan for ED Patient: Disposition: Home or Assisted Living Diagnosis: UTI (urinary tract infection), Constipation Instructions: ED Constipation (Adult), ED Bladder Infection, Male (Adult) Prescriptions: Cephalexin [Keflex] 500 mg PO Q12 #14 capsule Prescription Printed Referrals: Cheo Gamble MD [Primary Care Provider] -
[2021-02-05 12:58] LABS: Anion Gap 2 (5-15); BUN 35 mg/dL (7-18); BUN/Creat Ratio 30.7 RATIO (10-20); Calcium,Total 9.6 mg/dL (8.5-10.1); Chloride 104 mmol/L (98-107); Creatinine, Serum 1.14 mg/dL (0.70-1.30); EST Glomerular Filtration Rate 65 mL/min (>60); Est Glom Filt Rate - Afr Amer 79 mL/min (>60); Estimated Creatinine Clearance 51.58 ml/min; Glucose 106 mg/dL (74-106); Potassium 3.9 mmol/L (3.5-5.1); Sodium Level 139 mmol/L (136-145)
[2021-02-05 13:46] LABS: Bacteria 0 SEEN /hpf (None Seen); Mucous, Urine 0 SEEN /hpf (<or=2+); Red Blood Cells-Urine 0 SEEN /hpf (0-5); Squamous Epithelial Cells - UA 0 SEEN /hpf (0-5)
[2021-02-05 13:51] LABS: Color, Urine Straw (Yellow); Glucose, Dipstick Normal (Normal); Ketone-Dipstick Negative (Negative); Leukocyte Esterase-Dipstick 500 /ul (Negative); Nitrite-Dipstick Negative (Negative); Occult Blood-Urine 25 /ul (Negative); Protein-Dipstick Negative (Negative); Specific Gravity, Urine 1.015 (1.002-1.030); Urine Bilirubin Dipstick Negative (Negative); Urine Clarity Sl. Cloudy (Clear); Urine Urobilinogen Normal (Normal)
[2021-02-05] MEDS: 0.9% Normal Saline 1,000 ML 999 ML IV (13:55)
[2021-02-05 14:01] LABS: White Blood Cells 10-25 SEEN /hpf (0-5)
[2021-02-05 14:37] VITALS: BP 149/71; PULSE 71; RESP 16; O2SAT 98
== END 2021-02-05 14:39 | disposition home or self-care (01) ==
PROVIDERS: Emergency Provider Emergency Medicine; PCP Internal Medicine
DX: N39.0 Urinary tract infection, site not specified (principal); K59.00 Constipation, unspecified; I10 Essential (primary) hypertension; E11.9 Type 2 diabetes mellitus without complications; E78.5 Hyperlipidemia, unspecified; G20 Parkinson's disease; Z79.82 Long term (current) use of aspirin; Z79.899 Other long term (current) drug therapy
CPT/HCPCS: 71045; 74018; 80048; 81001; 85025; 87086; 87088; 93005; 99285

== ENCOUNTER 2021-03-24 16:27 | Inpatient (IN) | payer MEDICARE, OTHER, SELFPAY ==
[2021-03-24 16:28] VITALS: BP 147/96; PULSE 69; RESP 16; TEMP 36.4; O2SAT 99; BMI 24.1
--- NOTE | 2021-03-24 16:44 | EKG12_ITS ---
Test Reason : WEAKNESS Blood Pressure : / mmHG Vent. Rate : 062 BPM Atrial Rate : 061 BPM P-R Int : 000 ms QRS Dur : 118 ms QT Int : 454 ms P-R-T Axes : 000 -37 076 degrees QTc Int : 460 ms Sinus Vs Ectopic Atrial Rhythm Left axis deviation Abnormal ECG Confirmed by ZAHRA PRESTON, DESEAN ([id number]), loan expeditor TIMOTEO GARCIA ([id number]) on 03/26/2021 12:37:49 PM Referred By: DELANO Confirmed By:DESEAN SWEENEY MD
--- NOTE | 2021-03-24 16:45 | EX.ED.DYSGE1 ---
HPI History of Present Illness Chief Complaint: Weakness Informant: patient Onset/Context/Timing Onset: Yesterday Context: Gradual Onset Timing: Continuous and Waxes and wanes Quality: Weak, exhausted, fatigue Location: Generalized Worsened by: Nothing Relieved by: Nothing Narrative Narrative: Patient presents with generalized weakness that began yesterday. Patient states it has been waxing and waning. Patient states that he feels weak and exhausted. Patient states nothing makes it better nothing makes it worse. Patient admits to some shortness of breath. Patient states that he feels like he is not getting enough oxygen. Patient states he has had upper respiratory congestion for the past year. Patient denies any headaches. Patient has a history of Parkinson's disease. [facility] Medical History Atherosclerotic heart disease of [place] coronary artery without angina pectoris BPH (benign prostatic hyperplasia) Bradycardia Essential hypertension History of left heart catheterization (LHC) (~10/01/16) History of mitral valve disorder Hypothyroidism Kidney stone Lung nodule Migraine Orthostatic hypotension Parkinsons disease Right sided weakness Seizure Slurred speech Spinal stenosis Syncope Home Medications finasteride 5 mg PO QHS 09/07/16 [History Last Taken 12/26/17] sertraline 25 mg PO DAILY 09/07/16 [History Last Taken 12/26/17] aspirin 162 mg PO DAILY@0800 10/05/16 [History Last Taken 12/26/17] cholecalciferol (vitamin D3) 2,000 unit PO DAILY 12/27/17 [History Last Taken 12/26/17] coenzyme Q10 10 mg PO BID 12/27/17 [History Last Taken 12/26/17] carbidopa 25 mg-levodopa 100 mg tablet 1 tab PO TID 06/20/19 [History Last Taken Unknown] lansoprazole 30 mg capsule,delayed release 30 mg PO DAILY 06/20/19 [History Last Taken Unknown] losartan 25 mg tablet 25 mg PO DAILY 06/20/19 [History Last Taken Unknown] simvastatin 20 mg tablet 20 mg PO QHS tab 06/20/19 [History Last Taken Unknown] Bifidobacterium infantis 4 mg capsule 4 mg PO DAILY 06/21/19 [History Last Taken Unknown] amlodipine 2.5 mg tablet 2.5 mg PO DAILY 06/21/19 [History Last Taken Unknown] levothyroxine 50 mcg tablet 50 mcg PO DAILY tab 06/21/19 [History Last Taken Unknown] mecobalamin (vitamin B12) 5,000 mcg disintegrating tablet 5,000 mcg PO DAILY tab 06/21/19 [History Last Taken Unknown] omega-3 fatty acids 1,000 mg capsule 1,000 mg PO DAILY 06/21/19 [History Last Taken Unknown] amoxicillin 500 mg tablet 500 mg PO .COMPLEX #12 tab 11/10/20 [Rx Last Taken Unknown] cephalexin 500 mg PO Q12 #14 capsule 02/05/21 [Rx Last Taken Unknown] metoprolol succinate 25 mg tablet,extended release 24 hr 25 mg PO DAILY #30 tab 02/09/21 [Rx Last Taken Unknown] Allergy/AdvReac Type Severity Reaction Status Date / Time lisinopril AdvReac Nausea Verified 03/24/21 16:30 Family History Father CAD (coronary artery disease) Surgical History History of hernia repair History of mitral valve repair (~11/18/16) Social History Smoking Status: Never smoker alcohol intake: never substance use type: does not use caffeine: No ROS ROS ED Constitutional Constitutional ED: Denies chills or fever(s) Eyes Eyes: Denies blurry vision or change in vision ENT ENT ED: Reports rhinorrhea; Denies sore throat Cardiovascular Cardiovascular: Denies chest pain or palpitations Respiratory/Chest Respiratory/Chest: Reports dyspnea; Denies cough Gastrointestinal Gastrointestinal: Denies nausea or vomiting Genitourinary Genitourinary ED: Denies dysuria or hematuria Musculoskeletal Musculoskeletal: Reports neck pain; Denies back pain Integumentary Reports rash; Denies abscess Neurologic Neurologic: Reports weakness; Denies headache(s) Allergic/Immunologic Allergic/Immunologic ED: Denies mouth swelling or urticaria EXAM Physical Exam Const Vital Signs: 03/24/21 16:28 03/24/21 16:31 Temperature 97.5 F L Temperature Source Oral Pulse Rate 69 Respiratory Rate 16 Respiratory Effort Normal Non-Labored Respiratory Pattern Normal Blood Pressure 147/96 H Blood Pressure Mean 113 Pulse Ox 99 Oxygen Delivery Method Room Air Positive well nourished and well developed General Appearance ED: well developed HEENT Reports moist mucous membranes normocephalic and atraumatic Neck supple and no JVD Resp normal respiratory effort and clear to auscultation bilaterally Cardio regular rate, regular rhythm and no murmurs Rate: regular rate Rhythm: regular rhythm GI normal to inspection, nondistended, normoactive bowel sounds and non-distended Auscultation: normoactive bowel sounds Palpation: soft and tender suprapubic (Mild suprapubic tenderness); Negative for guarding or rebound tenderness present Extremity normal to inspection General Extremety ED: Negative for edema or tenderness General Extremity: Negative for edema Neuro oriented x3, CN's II-XII intact bilaterally and no sensory deficits noted Sensorium / Orientation: alert Motor Exam: strength 5/5 throughout Psych mental status grossly normal Skin Skin Narrative: There is a patchy erythematous macular rash over the upper chest and bilateral upper extremities. There are no vesicles or pustules noted. There are no petechia noted. There is no involvement of mucous membranes. Rashes: no rashes and rashes noted MDM MDM MDM Narrative Medical decision making narrative: EKG was obtained. On my interpretation, it showed a normal sinus rhythm with a rate of 62. IN interval, QRS interval, and QTc intervals were all normal. There is left axis deviation at -37. There are no acute ST or T wave changes. CBC and comprehensive metabolic profile were obtained and were essentially within normal limits. Troponin was normal. Lactate was normal. Urinalysis shows leukocyte esterase of 500 with 10-25 white blood cells but 0 bacteria. Urine culture was ordered. Portable 1 view chest x-ray was obtained. On my interpretation, lung elliott are clear. There is normal cardiac silhouette. Bony thorax is normal. There is no acute process noted. Radiologist also interpreted the x-ray and agrees. Patient was given IV fluids. Patient was given a dose of Rocephin. Case was discussed with the hospitalist. She will admit the patient for observation. Patient understood and was agreeable with the plan. All questions were answered. Lab Data Attestation: I reviewed the patient's lab results. Labs: Laboratory Results - last 24 hr 03/24/21 03/24/21 03/24/21 16:35 16:35 16:57 WBC 5.8 RBC 4.68 Hgb 14.7 Hct 44.0 MCV 94.0 MCH 31.4 MCHC 33.4 RDW Std Deviation 43.9 RDW Coeff of Trey 12.9 Plt Count 208 MPV 10.3 Immature Gran % (Auto) 0.200 Neut % (Auto) 72.6 H Lymph % (Auto) 17.5 L [place] % (Auto) 8.2 Eos % (Auto) 1.2 Baso % (Auto) 0.3 Absolute Neuts (auto) 4.2 Absolute Lymphs (auto) 1.01 Nucleated RBC % 0 Sodium 141 Potassium 4.6 Chloride 105 Carbon Dioxide 31.0 Anion Gap 5 BUN 28 H Creatinine 1.20 Estim Creat Clear Calc 49.00 Est GFR (MDRD) Af Amer 75 Est GFR (MDRD) Non-Af 62 BUN/Creatinine Ratio 23.3 H Glucose 102 Lactic Acid 1.1 Calcium 9.6 Total Bilirubin 0.60 AST 34 ALT 8 L Alkaline Phosphatase 69 Troponin I < 0.015 Total Protein 6.8 Albumin 4.1 Globulin 2.7 Albumin/Globulin Ratio 1.5 Urine Color Urine Clarity Urine pH Ur Specific [place] Urine Protein Urine Glucose (UA) Urine Ketones Urine Occult Blood Urine Nitrite Urine Bilirubin Urine Urobilinogen Ur Leukocyte Esterase Urine RBC Urine WBC Ur Squamous Epith Cells Calcium Oxalate Crystal Amorphous Sediment Urine Bacteria Urine Mucus 03/24/21 17:25 WBC RBC Hgb Hct MCV MCH MCHC RDW Std Deviation RDW Coeff of Trey Plt Count MPV Immature Gran % (Auto) Neut % (Auto) Lymph % (Auto) [place] % (Auto) Eos % (Auto) Baso % (Auto) Absolute Neuts (auto) Absolute Lymphs (auto) Nucleated RBC % Sodium Potassium Chloride Carbon Dioxide Anion Gap BUN Creatinine Estim Creat Clear Calc Est GFR (MDRD) Af Amer Est GFR (MDRD) Non-Af BUN/Creatinine Ratio Glucose Lactic Acid Calcium Total Bilirubin AST ALT Alkaline Phosphatase Troponin I Total Protein Albumin Globulin Albumin/Globulin Ratio Urine Color Yellow Urine Clarity Sl. Cloudy Urine pH 6.0 Ur Specific [place] 1.025 Urine Protein 15 H Urine Glucose (UA) Normal Urine Ketones 5 H Urine Occult Blood 25 H Urine Nitrite Negative Urine Bilirubin Negative Urine Urobilinogen Normal Ur Leukocyte Esterase 500 H Urine RBC 0-5 SEEN Urine WBC 10-25 SEEN Ur Squamous Epith Cells 0-5 SEEN Calcium Oxalate Crystal RARE Amorphous Sediment 1+ URATE Urine Bacteria 0 SEEN Urine Mucus 0 SEEN Radiography Chest X-Ray - ED: 1 View, Read by ED Physician, Read by Radiologist and No Acute Disease Diagnostic Testing: Radiology Impression Chest X-Ray 03/24/21 17:00 IMPRESSION: No acute cardiopulmonary pathology. Status post median sternotomy and CABG Electronically Signed: Musa Rogers MD at 17:22 EDT , Service support , EKG Initial EKG: Attestation: I personally reviewed and interpreted this EKG as follows: Interpretation: Sinus Rhythm (62) and No Acute Injury Pattern Comments: Left axis deviation Prior EKG tracings: available for review Prior: Unchanged (02/05/2021) Treatment and Re-Evaluation Vital Sign Attestation:: Vital signs are reviewed prior to admission. They are stable. Discharge Plan Triage Chief Complaint: Weakness ED Provider: Clinton Harris Dx/Rx/DC Orders Clinical Impression: Urinary tract infection, General weakness Prescriptions: No Action omega-3 fatty acids [Fish Oil Concentrate] 1,000 mg capsule 1,000 mg PO DAILY RF: 0 mecobalamin (vitamin B12) 5,000 mcg disintegrating tablet 5,000 mcg tablet,disintegrating 5,000 mcg PO DAILY RF: 0 Align 4 mg capsule 4 mg PO DAILY RF: 0 amlodipine 2.5 mg tablet 2.5 mg PO DAILY RF: 0 carbidopa-levodopa [Sinemet] 25-100 mg tablet 1 tab PO TID RF: 0 losartan 25 mg tablet 25 mg PO DAILY RF: 0 lansoprazole [Prevacid] 30 mg capsule,delayed release(DR/EC) 30 mg PO DAILY RF: 0 sertraline 25 MG tablet 25 mg PO DAILY RF: 0 finasteride 5 MG tablet 5 mg PO QHS RF: 0 simvastatin 20 mg tablet 20 mg PO QHS RF: 0 levothyroxine 50 mcg tablet 50 mcg PO DAILY RF: 0 aspirin 81 MG tablet 162 mg PO DAILY@0800 RF: 0 coenzyme Q10 10 MG capsule 10 mg PO BID RF: 0 cholecalciferol (vitamin D3) 2,000 UNIT capsule 2,000 unit PO DAILY RF: 0 cephalexin 500 MG capsule 500 mg PO Q12 Qty: 14 RF: 0 amoxicillin 500 mg tablet 500 mg PO .COMPLEX Qty: 12 RF: 3 metoprolol succinate 25 mg tablet extended release 24 hr 25 mg PO DAILY Qty: 30 RF: 12 Primary Care Provider: Cheo Gamble Referrals: Cheo Gamble MD [Primary Care Provider] - Disposition Disposition: Acute Care Hospital [facility]
--- NOTE | 2021-03-24 17:00 | RAD_ITS ---
STUDY: X-RAY CHEST REASON FOR EXAM: Male, 80 years old. Shortness of breath TECHNIQUE: AP portable COMPARISON: 02/05/2021 FINDINGS: The lungs are clear and expanded. There is no demonstrated pleural abnormality. Postop change status post median sternotomy and CABG. Normal size heart. Normal mediastinum and gavin. Normal visualized pulmonary arteries. Normal visualized aortic arch and descending thoracic aorta. Dorsal spine demonstrates degenerative change Normal visualized ribs, clavicles, and shoulders. There is no demonstrated abnormality of the visualized soft tissue structures of the upper abdomen. No significant change since prior study RAD/Chest 1 View (Portable) IMPRESSION: No acute cardiopulmonary pathology. Status post median sternotomy and CABG Electronically Signed: Musa Rogers MD at 17:22 EDT , Service support ,
[2021-03-24 17:11] LABS: Absolute Lymphocyte Count 1.01 X10^3/uL (0.83-4.51); Absolute Neutrophil Count 4.2 X10^3/uL (2.0-7.7); Basophil# 0.02 X10^3/uL; Basophil% 0.3 % (0-1); Eosinophil# 0.07 X10^3/uL; Eosinophils% 1.2 % (0-5); Hemoglobin 14.7 g/dL (13.0-16.5); Lymphocyte # 1.01 X10^3/ul (0.83-4.51); Lymphocyte % 17.5 % (19-41); Mean Corp Hgb Conc 33.4 g/dL (32-36); Mean Corpuscular Hgb 31.4 pg (27.0-32.0); Mean Platelet Vol. 10.3 fl (6.2-12.0); Monocyte# 0.47 X10^3/uL; Monocyte% 8.2 % (0-10); NRBC Flagged by Analyzer 0 % (0-5); Neutrophil # 4.18 X10^3/uL (2.7-7.7); Neutrophil % 72.6 % (47-70); Platelet Count 208 K/mm3 (150-450); RBC Distribution Width CV 12.9 % (11.6-14.6); RBC Distribution Width SD 43.9 fl (35.1-43.9); Red Blood Count 4.68 M/mm3 (4.6-6.2); White Blood Count 5.8 K/mm3 (4.4-11.0)
[2021-03-24 17:28] LABS: ALB/GLOB Ratio 1.5 RATIO (0.9-2.4); AST(SGOT) 34 U/L (15-37); Alanine Aminotransfer ALT/SGPT 8 U/L (16-61); Albumin, Serum 4.1 g/dL (3.2-5.0); Alkaline Phosphatase 69 U/L (45-117); Anion Gap 5 (5-15); BUN 28 mg/dL (7-18); BUN/Creat Ratio 23.3 RATIO (10-20); Calcium,Total 9.6 mg/dL (8.5-10.1); Chloride 105 mmol/L (98-107); EST Glomerular Filtration Rate 62 mL/min (>60); Est Glom Filt Rate - Afr Amer 75 mL/min (>60); Globulin 2.7 g/dL (2.2-4.2); Glucose 102 mg/dL (74-106); Potassium 4.6 mmol/L (3.5-5.1); Protein, Total 6.8 g/dL (6.4-8.2); Sodium Level 141 mmol/L (136-145)
[2021-03-24 17:34] LABS: Bacteria 0 SEEN /hpf (None Seen); Mucous, Urine 0 SEEN /hpf (<or=2+)
[2021-03-24 17:37] LABS: Lactic Acid 1.1 mmol/L (0.4-1.9)
[2021-03-24 17:40] LABS: Color, Urine Yellow (Yellow); Glucose, Dipstick Normal (Normal); Ketone-Dipstick 5 mg/dl (Negative); Leukocyte Esterase-Dipstick 500 /ul (Negative); Nitrite-Dipstick Negative (Negative); Occult Blood-Urine 25 /ul (Negative); Protein-Dipstick 15 mg/dl (Negative); Specific Gravity, Urine 1.025 (1.002-1.030); Urine Bilirubin Dipstick Negative (Negative); Urine Clarity Sl. Cloudy (Clear); Urine Urobilinogen Normal (Normal)
[2021-03-24 17:54] LABS: Amorphous Sediment 1+ URATE; Calcium Oxalate Crystals Ur RARE /hpf (<or=2+); Red Blood Cells-Urine 0-5 SEEN /hpf (0-5); Squamous Epithelial Cells - UA 0-5 SEEN /hpf (0-5); White Blood Cells 10-25 SEEN /hpf (0-5)
--- NOTE | 2021-03-24 18:43 | PCM.HP.STD ---
HPI - General General Date of Admission: 03/24/21 Date of Service: 03/24/21 Chief Complaint: Fatigue, malaise. HPI Narrative The patient is an 80 y/o M w/ PMHx: Valvular heart disease s/p MVR, CAD, HTN, HLD, Hypothyroidism, Anxiety and Depression, BPH, GERD, Parkinson's disease who presents to the [facility] ED on 03/24/21 with history of increased fatigue and malaise over the last 24 hours with no specific recent fever, chills, nausea, emesis, abdominal pain, diarrhea or dysuria but given significant debility and fatigue with already underlying significant fall risk, living alone patient presented to the ED for evaluation. He does report that he has not been vaccinated for Covid but is significantly interested in obtaining the [email or web address] vaccine. Discussed with his daughter and strongly encouraged her to set this up following his discharge. Given generalized debility and weakness patient is amenable if necessary to TCU versus skilled if felt appropriate for therapies following evaluation. Work-up in the ED included T 97.5, heart rate 69, BP 147/96, respiratory rate 16, 99% on room air, CBC with WBC 5.8, hemoglobin 14.7, platelet 208 without marked shift, CMP with BUN/creatinine 28/1.20, lactic acid 1.1, unremarkable hepatic profile, troponin less than 0.015, urinalysis with specific gravity 1.025, urine protein 15, urine ketone 5, urine occult blood 25, negative nitrite, 500 leukocyte esterase, urine WBCs 10-25, no urine bacteria, chest x-ray with no acute cardiopulmonary findings with evidence status post median sternotomy, rapid Covid antigen pending. In the ED patient was administered normal saline as well as Rocephin therapy. [facility] Medical History (Updated 03/24/21 @ 18:[address] Nelda Bird MD) Atherosclerotic heart disease of jamul coronary artery without angina pectoris BPH (benign prostatic hyperplasia) Bradycardia Essential hypertension History of left heart catheterization (LHC) (~10/01/16) History of mitral valve disorder Hypothyroidism Kidney stone Lung nodule Migraine Orthostatic hypotension Parkinsons disease Right sided weakness Seizure Slurred speech Spinal stenosis Syncope Home Medications finasteride 5 mg PO QHS 09/07/16 [History Last Taken 12/26/17] sertraline 25 mg PO DAILY 09/07/16 [History Last Taken 12/26/17] aspirin 162 mg PO DAILY@0800 10/05/16 [History Last Taken 12/26/17] cholecalciferol (vitamin D3) 2,000 unit PO DAILY 12/27/17 [History Last Taken 12/26/17] coenzyme Q10 10 mg PO BID 12/27/17 [History Last Taken 12/26/17] carbidopa 25 mg-levodopa 100 mg tablet 1 tab PO TID 06/20/19 [History Last Taken Unknown] lansoprazole 30 mg capsule,delayed release 30 mg PO DAILY 06/20/19 [History Last Taken Unknown] losartan 25 mg tablet 25 mg PO DAILY 06/20/19 [History Last Taken Unknown] simvastatin 20 mg tablet 20 mg PO QHS tab 06/20/19 [History Last Taken Unknown] Bifidobacterium infantis 4 mg capsule 4 mg PO DAILY 06/21/19 [History Last Taken Unknown] amlodipine 2.5 mg tablet 2.5 mg PO DAILY 06/21/19 [History Last Taken Unknown] levothyroxine 50 mcg tablet 50 mcg PO DAILY tab 06/21/19 [History Last Taken Unknown] mecobalamin (vitamin B12) 5,000 mcg disintegrating tablet 5,000 mcg PO DAILY tab 06/21/19 [History Last Taken Unknown] omega-3 fatty acids 1,000 mg capsule 1,000 mg PO DAILY 06/21/19 [History Last Taken Unknown] amoxicillin 500 mg tablet 500 mg PO .COMPLEX #12 tab 11/10/20 [Rx Last Taken Unknown] cephalexin 500 mg PO Q12 #14 capsule 02/05/21 [Rx Last Taken Unknown] metoprolol succinate 25 mg tablet,extended release 24 hr 25 mg PO DAILY #30 tab 02/09/21 [Rx Last Taken Unknown] Allergy/AdvReac Type Severity Reaction Status Date / Time lisinopril AdvReac Nausea Verified 03/24/21 16:30 Family History Father CAD (coronary artery disease) other (Denies any marked Maternal family history including HD, DM, CA.) Surgical History (Updated 03/24/21 @ 18:[address] Nelda Bird MD) History of hernia repair History of mandibular surgery History of mitral valve repair (~11/18/16) Social History (Updated 03/24/21 @ 18:[address] Nelda Bird MD) household members: none Smoking Status: Never smoker alcohol intake: never substance use type: does not use caffeine: No ROS ROS Narrative Admission Review of Systems: CONSTITUTIONAL: No weight loss, fever, chills, + weakness or fatigue. HEENT: Eyes: No visual loss, blurred vision, double vision or yellow sclerae. Ears, Nose, Throat: No hearing loss, sneezing, congestion, runny nose or sore throat. SKIN: No rash or itching, lesions, wounds. CARDIOVASCULAR: No chest pain, chest pressure or chest discomfort, palpitations, edema, orthopnea, syncopal events. RESPIRATORY: No shortness of breath, cough or sputum, wheezing, hemoptysis. GASTROINTESTINAL: No anorexia, nausea, vomiting or diarrhea, abdominal pain, melena, BRBPR. GENITOURINARY: No dysuria, frequency, urgency or retention. NEUROLOGICAL: + Chronic tremor, debility, falls, syncope associated w/ his parkinson's disease. No headache, dizziness, paralysis, ataxia, numbness or tingling in the extremities, focal weakness, change in bowel or bladder control, seizure. MUSCULOSKELETAL:+ muscle, back pain, joint pain or stiffness. HEMATOLOGIC: No anemia, bleeding or bruising. LYMPHATICS: No enlarged nodes. No history of splenectomy. PSYCHIATRIC:+ history of depression or anxiety. ENDOCRINOLOGIC: No reports of sweating, cold or heat intolerance. No polyuria or polydipsia. ALLERGIES: No history of asthma, hives, eczema or rhinitis. Vital Signs Vital Signs Vital Signs: 03/24/21 16:28 03/24/21 16:31 Temperature 97.5 F L Temperature Source Oral Pulse Rate 69 Respiratory Rate 16 Respiratory Effort Normal Non-Labored Respiratory Pattern Normal Blood Pressure 147/96 H Blood Pressure Mean 113 Pulse Ox 99 Oxygen Delivery Method Room Air Weight Weight: 168 lb 6.931 oz Body Mass Index (BMI) 24.1 Physical Exam Narrative Physical Examination: General: awake, alert, oriented x 3 and cooperative, seated upright in the ED bed in no apparent distress, fatigued appearing, very evident primarily right hand pill-rolling tremor. Skin: normal color, normal turgor, no icterus, no cyanosis except occasional very staged ecchymoses to extremities. HEENT: AT/NC, EOMI, PERRLA, mildly dry MM, no carotid bruits or JVD noted. Lungs: CTA bilaterally, moderate effort, mild decrease BL bases, no rales, ronchi or wheezing. Heart: Regular rate and rhythm; no gallop, rub audible. Abdomen: soft, NTTP, ND, normal BS, no HSM. Extremities: no cyanosis, clubbing, or edema. Neurological: patient awake, alert, oriented as noted, cognitive function appears baseline intact; pupils equally reactive to light and accommodation, cranial nerves II-XII grossly normal, moving all 4 extremities, no focal deficits, strength moderately to severely global decrease secondary to acute presentation/complaints and underlying comorbidities. Psychiatric: affect appears fatigued, moderately flat, no acute evidence of depressive or anxiety feelings but noted underlying history. Lab / Micro Data Result Diagrams: 03/24/21 16:35 03/24/21 16:35 Labs: Laboratory Results - last 24 hr 03/24/21 03/24/21 03/24/21 16:35 16:35 16:57 WBC 5.8 RBC 4.68 Hgb 14.7 Hct 44.0 MCV 94.0 MCH 31.4 MCHC 33.4 RDW Std Deviation 43.9 RDW Coeff of Trey 12.9 Plt Count 208 MPV 10.3 Immature Gran % (Auto) 0.200 Neut % (Auto) 72.6 H Lymph % (Auto) 17.5 L [place] % (Auto) 8.2 Eos % (Auto) 1.2 Baso % (Auto) 0.3 Absolute Neuts (auto) 4.2 Absolute Lymphs (auto) 1.01 Nucleated RBC % 0 Sodium 141 Potassium 4.6 Chloride 105 Carbon Dioxide 31.0 Anion Gap 5 BUN 28 H Creatinine 1.20 Estim Creat Clear Calc 49.00 Est GFR (MDRD) Af Amer 75 Est GFR (MDRD) Non-Af 62 BUN/Creatinine Ratio 23.3 H Glucose 102 Lactic Acid 1.1 Calcium 9.6 Total Bilirubin 0.60 AST 34 ALT 8 L Alkaline Phosphatase 69 Troponin I < 0.015 Total Protein 6.8 Albumin 4.1 Globulin 2.7 Albumin/Globulin Ratio 1.5 Urine Color Urine Clarity Urine pH Ur Specific Willard Urine Protein Urine Glucose (UA) Urine Ketones Urine Occult Blood Urine Nitrite Urine Bilirubin Urine Urobilinogen Ur Leukocyte Esterase Urine RBC Urine WBC Ur Squamous Epith Cells Calcium Oxalate Crystal Amorphous Sediment Urine Bacteria Urine Mucus 03/24/21 17:25 WBC RBC Hgb Hct MCV MCH MCHC RDW Std Deviation RDW Coeff of Trey Plt Count MPV Immature Gran % (Auto) Neut % (Auto) Lymph % (Auto) [place] % (Auto) Eos % (Auto) Baso % (Auto) Absolute Neuts (auto) Absolute Lymphs (auto) Nucleated RBC % Sodium Potassium Chloride Carbon Dioxide Anion Gap BUN Creatinine Estim Creat Clear Calc Est GFR (MDRD) Af Amer Est GFR (MDRD) Non-Af BUN/Creatinine Ratio Glucose Lactic Acid Calcium Total Bilirubin AST ALT Alkaline Phosphatase Troponin I Total Protein Albumin Globulin Albumin/Globulin Ratio Urine Color Yellow Urine Clarity Sl. Cloudy Urine pH 6.0 Ur Specific Willard 1.025 Urine Protein 15 H Urine Glucose (UA) Normal Urine Ketones 5 H Urine Occult Blood 25 H Urine Nitrite Negative Urine Bilirubin Negative Urine Urobilinogen Normal Ur Leukocyte Esterase 500 H Urine RBC 0-5 SEEN Urine WBC 10-25 SEEN Ur Squamous Epith Cells 0-5 SEEN Calcium Oxalate Crystal RARE Amorphous Sediment 1+ URATE Urine Bacteria 0 SEEN Urine Mucus 0 SEEN Micro: Microbiology 03/24/21 17:57 SARS-CoV-2 Antigen (Rapid) - Final Nasal Secretion Radiology Impression Chest X-Ray 03/24/21 17:00 IMPRESSION: No acute cardiopulmonary pathology. Status post median sternotomy and CABG Electronically Signed: Musa Rogers MD at 17:22 EDT , Service support , Assessment & Plan Assessment/Plan (1) FTT (failure to thrive) in adult: (2) Urinary tract infection: QUALIFIERS: Urinary tract infection type: acute cystitis Hematuria presence: without hematuria Qualified Code(s): N30.00 - Acute cystitis without hematuria PLAN: The patient is an 80 y/o M w/ PMHx: Valvular heart disease s/p MVR, CAD, HTN, HLD, Hypothyroidism, Anxiety and Depression, BPH, GERD, Parkinson's disease who presents to the [facility] ED on 03/24/21 with history of increased fatigue and malaise over the last 24 hours with no specific recent fever, chills, nausea, emesis, abdominal pain, diarrhea or dysuria but given significant debility and fatigue with already underlying significant fall risk, living alone patient presented to the ED for evaluation. 1. Adult FTT with Possible Acute Urinary Tract Infection: Will admit to [facility] upon ED evaluation mildly remarkable, pending UCx, monitor I/Os, continue IV Rocephin w/ transition as able pending sensitivities and speciation or de-escalation if negative given no urine bacteria noted. PT/OT/CM consultations for discharge planning. 2. CAD, non-obstructive w/ mild non-ischemic cardiomyopathy: Noted 10/01/2016 cardiac catheterization with left main coronary artery normal, LAD 40 to 50% stenosis reported in the proximal portion, LCxdemonstrating trivial diffuse disease, RCA was large and dominant and considered angiographically normal. We will continue patient home aspirin, statin, metoprolol, losartan regimen. 3. Valvular Heart Disease: Hx of mitral valve prolapse status post a [facility] open heart surgery on 11/18/16 with mitral valve repair with a triangular P2 resection and closure of P2-3 cleft with a #35 [place] band annuloplasty and a left atrial appendage exclusion with a #45 Atricure clip. 10/2017 ECHO w/ left ventricle was thought to be normal with an LVEF of 59% with mild Royce diminished RV systolic function, mild left atrial enlargement, a mitral valve annuloplasty ring in place, with trivial MR, mild TR, mild aortic valve thickening and calcification. 4. Parkinson's disease with associated postural hypotension and syncope felt secondary to associated vasovagal effects: Patient still living alone, notable pill-rolling tremor upon evaluation, do suspect high fall risk baseline even with this disease but given postural hypotension and syncope secondary to vasovagal effect significantly elevated, PT, OT, case management consultations for discharge planning possibly to TCU versus skilled if needed, maintain on fall precautions, BP parameters. 5. Chronic Bradycardia: Known history, continued on BB low dose regimen with hold parameters to be cautious. 6. Hypertension: Continue home regimen including amlodipine, losartan, metoprolol with hold parameters, PRN hydralazine. 7. Hyperlipidemia: We will continue patient on statin therapy. 8. Hypothyroidism: Continue home synthroid regimen. 9. Anxiety and depression: We will continue patient home sertraline low-dose regimen. 10. GERD: We will continue patient home PPI. 11. BPH: We will continue patient home finasteride regimen, will monitor for any urinary retention. 12. DVT prophylaxis: SCDs, Lovenox. 13. CODE status: Patient HCPOA is patient's daughter who is present and living will is currently in place. Discussed CODE status at length including difference between FULL code, DNR-CCA and DNR-CC status. Following discussions about the differences in these status, requested Full Code status. Advanced Care Planning Face to Face Time: 16 minutes. Visit Charges OBSV E&M: 02216 Initial observation care L3 Procedures Hospitalists Procedures: 27004 Advncd Care Plan 30 Min
[2021-03-24] MEDS: Ceftriaxone 1 GM/50 ML BAG IV (18:56)
[2021-03-24 18:59] VITALS: BP 166/78; PULSE 81; RESP 16; TEMP 36.6; O2SAT 97
[2021-03-24 19:19] VITALS: BMI 24.1
[2021-03-24 19:28] VITALS: BP 157/82; PULSE 52; RESP 16; TEMP 36.5; O2SAT 99
[2021-03-24] MEDS: 0.9% Normal Saline 1,000 ML 100 ML IV (19:42)
[2021-03-24] MEDS: Finasteride 5 MG Tablet PO (21:44)
[2021-03-24] MEDS: Carbidopa/Levodopa 25/100 Tablet PO (21:45)
[2021-03-24] MEDS: Atorvastatin Calcium 10 MG Tablet PO (21:45)
[2021-03-25] VITALS (7 sets, daily range): BP systolic 138–179; BP diastolic 77–95; PULSE 46–64; RESP 16; TEMP 36.4–37.1; O2SAT 95–100
[2021-03-25] MEDS: 0.9% Normal Saline 1,000 ML 100 ML IV ×2 (05:49→16:22)
[2021-03-25] MEDS: Levothyroxine 50 MCG Tablet PO (05:49)
[2021-03-25] MEDS: Carbidopa/Levodopa 25/100 Tablet PO ×3 (06:58→16:23)
[2021-03-25 07:25] LABS: Absolute Neutrophil Count 4.3 X10^3/uL (2.0-7.7); Basophil# 0.02 X10^3/uL; Basophil% 0.3 % (0-1); Eosinophil# 0.15 X10^3/uL; Eosinophils% 2.2 % (0-5); Hematocrit 43.8 % (40-54); Hemoglobin 14.7 g/dL (13.0-16.5); Mean Corp Hgb Conc 33.6 g/dL (32-36); Mean Corpuscular Hgb 31.4 pg (27.0-32.0); Mean Corpuscular Volume 93.6 fL (80-94); Mean Platelet Vol. 10.1 fl (6.2-12.0); Monocyte# 0.68 X10^3/uL; Monocyte% 9.8 % (0-10); NRBC Flagged by Analyzer 0 % (0-5); Neutrophil # 4.25 X10^3/uL (2.7-7.7); Neutrophil % 61.6 % (47-70); Platelet Count 204 K/mm3 (150-450); RBC Distribution Width CV 12.6 % (11.6-14.6); RBC Distribution Width SD 43.7 fl (35.1-43.9); Red Blood Count 4.68 M/mm3 (4.6-6.2); White Blood Count 6.9 K/mm3 (4.4-11.0)
--- NOTE | 2021-03-25 07:54 | PN.HOSP_ITS ---
Subjective Subjective Patient is an 80-year-old gentleman with multiple comorbidities admitted with progressive generalized weakness. Patient was found to have acute cystitis on admission admitted to regular nursing floor for further management Objective Data Objective Data Vital Signs: Vital Signs Temp Pulse Resp BP Pulse Ox 97.5 F L 46 L 16 150/77 H 98 03/25/21 07:30 03/25/21 07:30 03/25/21 07:30 03/25/21 07:30 03/25/21 07:30 Oxygen Delivery Method Room Air Weight: 76.385 kg Body Mass Index (BMI) 24.1 Intake & Output: Intake and Output for Last 24 Hours 03/23/21 03/24/21 03/25/21 23:59 23:59 23:59 Intake Total 550 / 550 1000 / 1000 Balance 550 / 550 1000 / 1000 Lab / Micro Data Result Diagrams: 03/25/21 06:05 03/25/21 06:05 Micro: Microbiology 03/24/21 17:57 Nasal Secretion SARS-CoV-2 Antigen (Rapid) - Final Radiography Diagnostic Testing: Radiology Impression Chest X-Ray 03/24/21 17:00 IMPRESSION: No acute cardiopulmonary pathology. Status post median sternotomy and CABG Electronically Signed: Musa Rogers MD at 17:22 EDT , Service support , Physical Exam Narrative GENERAL: cooperative HEENT: Atraumatic; EYES; Anicteric, Normal Conjunctiva NECK; supple, normal thyroid, RESPIRATORY: Diminished to auscultation CARDIOVASCULAR: Regular S1 S2, GI: soft, normoactive bowel sounds, : No Renal angle tenderness; EXTREMITIES: No edema, no clubbing, MUSCULOSKELETAL: no muscle waisting NEURO: Awake; no lateralizing signs. SKIN: No Rash PSYCH; Flat affect Assessment & Plan Assessment/Plan (1) FTT (failure to thrive) in adult: (2) Urinary tract infection: QUALIFIERS: Hematuria presence: without hematuria Urinary tract infection type: acute cystitis Qualified Code(s): N30.00 - Acute cystitis wit hout hematuria PLAN: Patient is an 80-year-old gentleman with multiple comorbidities admitted with progressive generalized weakness. Patient was found to have acute cystitis on admission admitted to regular nursing floor for further management 1. Acute cystitis ?Patient started on Rocephin urine culture sent 2. Physical deconditioning - Requested for PT OT eval and marriage and family social worker to assist with discharge planning 3. Valvular heart disease ?With history of mitral valve repair 4. Parkinson's disease ?Did continue with home meds 5. Bradycardia ?Patient is on metoprolol this was held 6. Hypertension - Blood pressure controlled, home medications except for metoprolol continued with dose adjustment as needed 7. Hypothyroidism - Patient is on levothyroxine home dose continued 8. BPH ?Patient is on finasteride 9. GERD ?On PPI 10. DVT prophylaxis ?Lovenox Visit Charges Inpatient E&M: 76867 Subs Hosp L2
[2021-03-25 08:08] LABS: ALB/GLOB Ratio 1.7 RATIO (0.9-2.4); AST(SGOT) 14 U/L (15-37); Alanine Aminotransfer ALT/SGPT 12 U/L (16-61); Alkaline Phosphatase 68 U/L (45-117); Anion Gap 4 (5-15); BUN 19 mg/dL (7-18); BUN/Creat Ratio 19.3 RATIO (10-20); Chloride 107 mmol/L (98-107); Creatinine, Serum 0.99 mg/dL (0.70-1.30); EST Glomerular Filtration Rate 77 mL/min (>60); Est Glom Filt Rate - Afr Amer 93 mL/min (>60); Globulin 2.4 g/dL (2.2-4.2); Glucose 85 mg/dL (74-106); Potassium 3.7 mmol/L (3.5-5.1); Protein, Total 6.4 g/dL (6.4-8.2); Sodium Level 142 mmol/L (136-145)
[2021-03-25] MEDS: Ceftriaxone 1 GM/50 mL Premix Q24 IV (10:15)
[2021-03-25] MEDS: Aspirin E.C. 81 MG Tablet 162 MG PO (10:15)
[2021-03-25] MEDS: Losartan Potassium 25 MG Tablet PO (10:16)
[2021-03-25] MEDS: Metoprolol(XL)Succ 25 MG Tablet PO (10:16)
[2021-03-25] MEDS: Pantoprazole Sodium 40 MG Tablet PO (10:17)
[2021-03-25] MEDS: amLODIPine 2.5 MG Tablet PO (10:17)
[2021-03-25] MEDS: Enoxaparin 40 MG/0.4 ML Syringe SC (10:18)
[2021-03-25] MEDS: Sertraline 50 MG Tablet 25 MG PO (10:18)
--- NOTE | 2021-03-25 13:10 | CASEMGMT ---
RN CM Face to Face with patient for initial transition planning/care coordination assessment. RN CM introduced self and role at [facility]. Patient sitting in chair, alert and oriented, daughter at bedside. Patient willing to participate in assessment and is able to answer all questions appropriately. Care providers, pharmacy, and demographics verified. Patient wishes to discharge home and would like HHC at discharge. Patient was provided a list of HHC and DME providers including quality and resource use data and consistent with the patient?s preferred geographic region, medical needs, and insurance network. Patient to review and provide preferences. Patient states he has no further needs or concerns at this time. CM to follow for discharge planning needs that may arise. PCP: Tye Specialists: Marcelino cardioloigist; Debbie Kingston, neurologist Preferred Pharmacy: [facility] Insurance: [facility] Prescription Benefit: yes Living Will/HPOA: none, would like to complete, [place] Abebe aware. LNOK: daughters Living Arrangements: Patient lives alone in a single story home with 2 steps and railing to enter the home. Patient states he is independent at home with self care. Has someone clean his home. Transportation: daughters DME/HHC: Patient states he has shower chair, walk in tub, grab bars at home. Per therapy patient would benefit from walker. After reviewing list patient would like [employer] for DME. Disposition Plan: Patient to discharge home with HHC, family support, and follow-up plans in place. Solange EAST, RN, CM
--- NOTE | 2021-03-25 13:57 | CASEMGMT ---
Addendum entered by Solange Abebe 03/25/21 15:44: SW in to speak with pt. SW provided pt with HCPOA documents. Pt states his daughter will be in tomorrow between 11:00am-12:00pm and would like to wait to complete documents until she is at [facility]. SW to follow up with pt tomorrow as time allows. Original Note: Social Work Note SW provided pt and pt's daughter Lorie with [facility] information. Pt had stated that he would like to complete HCPOA. SW to assist pt with HCPOA as time allows. Solange Abebe SPECIAL EVENTS DIRECTOR, BUSINESS DIRECTOR
[2021-03-25] MEDS: Finasteride 5 MG Tablet PO (22:15)
[2021-03-25] MEDS: levETIRAcetam 500 MG Tablet PO (22:15)
[2021-03-25] MEDS: Atorvastatin Calcium 10 MG Tablet PO (22:15)
[2021-03-25] MEDS: hydrALAZINE 20 MG/ML Vial 10 MG IV (22:34)
[2021-03-26] VITALS (9 sets, daily range): BP systolic 136–187; BP diastolic 82–102; PULSE 55–74; RESP 16–18; TEMP 36.2–36.4; O2SAT 95–100
[2021-03-26] MEDS: Labetalol (Prefilled) 20 MG/4 ML 10 MG IV (00:59)
[2021-03-26] MEDS: 0.9% Normal Saline 1,000 ML 100 ML IV (02:34)
[2021-03-26 05:37] LABS: Absolute Lymphocyte Count 1.45 X10^3/uL (0.83-4.51); Absolute Neutrophil Count 3.7 X10^3/uL (2.0-7.7); Basophil# 0.02 X10^3/uL; Basophil% 0.3 % (0-1); Eosinophil# 0.19 X10^3/uL; Eosinophils% 3.2 % (0-5); Hematocrit 41.3 % (40-54); Lymphocyte # 1.45 X10^3/ul (0.83-4.51); Mean Corp Hgb Conc 33.9 g/dL (32-36); Mean Corpuscular Hgb 31.7 pg (27.0-32.0); Mean Corpuscular Volume 93.4 fL (80-94); Monocyte% 11.6 % (0-10); NRBC Flagged by Analyzer 0 % (0-5); Neutrophil # 3.66 X10^3/uL (2.7-7.7); Neutrophil % 60.7 % (47-70); Platelet Count 177 K/mm3 (150-450); RBC Distribution Width CV 12.4 % (11.6-14.6); RBC Distribution Width SD 43.2 fl (35.1-43.9); Red Blood Count 4.42 M/mm3 (4.6-6.2)
[2021-03-26] MEDS: Carbidopa/Levodopa 25/100 Tablet PO (05:38)
[2021-03-26] MEDS: Levothyroxine 50 MCG Tablet PO (05:38)
[2021-03-26 05:51] LABS: Anion Gap 5 (5-15); BUN 14 mg/dL (7-18); BUN/Creat Ratio 15.7 RATIO (10-20); Calcium,Total 8.8 mg/dL (8.5-10.1); Chloride 109 mmol/L (98-107); Creatinine, Serum 0.89 mg/dL (0.70-1.30); EST Glomerular Filtration Rate 86 mL/min (>60); Est Glom Filt Rate - Afr Amer 105 mL/min (>60); Estimated Creatinine Clearance 66.07 ml/min; Glucose 96 mg/dL (74-106); Magnesium 1.8 mg/dL (1.6-2.6); Potassium 3.2 mmol/L (3.5-5.1); Sodium Level 143 mmol/L (136-145)
--- NOTE | 2021-03-26 07:27 | PN.HOSP_ITS ---
Subjective Subjective Patient seen stable for discharge Objective Data Objective Data Vital Signs: Vital Signs Temp Pulse Resp BP Pulse Ox 97.1 F L 71 16 136/82 H 100 03/26/21 02:29 03/26/21 02:29 03/26/21 02:29 03/26/21 02:29 03/26/21 02:29 Oxygen Delivery Method Room Air Weight: 76.385 kg Body Mass Index (BMI) 24.1 Intake & Output: Intake and Output for Last 24 Hours 03/24/21 03/25/21 03/26/21 23:59 23:59 23:59 Intake Total 550 / 550 2650.00 / 2650.00 1000 / 1000 Output Total 225 / 425 700 / 700 Balance 550 / 550 2425.00 / 2225.00 300 / 300 Lab / Micro Data Result Diagrams: 03/26/21 05:28 03/26/21 05:28 Labs: Laboratory Results - last 24 hr 03/25/21 03/26/21 03/26/21 06:05 05:28 05:28 WBC 6.0 RBC 4.42 L Hgb 14.0 Hct 41.3 MCV 93.4 MCH 31.7 MCHC 33.9 RDW Std Deviation 43.2 RDW Coeff of Trey 12.4 Plt Count 177 MPV 10.0 Immature Gran % (Auto) 0.200 Neut % (Auto) 60.7 Lymph % (Auto) 24.0 [place] % (Auto) 11.6 H Eos % (Auto) 3.2 Baso % (Auto) 0.3 Absolute Neuts (auto) 3.7 Absolute Lymphs (auto) 1.45 Nucleated RBC % 0 Sodium 142 143 Potassium 3.7 3.2 L Chloride 107 109 H Carbon Dioxide 31.0 29.0 Anion Gap 4 L 5 BUN 19 H 14 Creatinine 0.99 0.89 Estim Creat Clear Calc 59.40 66.07 Est GFR (MDRD) Af Amer 93 105 Est GFR (MDRD) Non-Af 77 86 BUN/Creatinine Ratio 19.3 15.7 Glucose 85 96 Calcium 9.0 8.8 Magnesium 1.8 Total Bilirubin 0.60 AST 14 L ALT 12 L Alkaline Phosphatase 68 Total Protein 6.4 Albumin 4.0 Globulin 2.4 Albumin/Globulin Ratio 1.7 Micro: Microbiology 03/24/21 17:57 Nasal Secretion SARS-CoV-2 Antigen (Rapid) - Final Physical Exam Narrative GENERAL: cooperative HEENT: Atraumatic; EYES; Anicteric, Normal Conjunctiva NECK; supple, normal thyroid, RESPIRATORY: Diminished to auscultation CARDIOVASCULAR: Regular S1 S2, GI: soft, normoactive bowel sounds, : No Renal angle tenderness; EXTREMITIES: No edema, no clubbing, MUSCULOSKELETAL: no muscle waisting NEURO: Awake; no lateralizing signs. SKIN: No Rash PSYCH; Flat affect Assessment & Plan Assessment/Plan (1) FTT (failure to thrive) in adult: (2) Urinary tract infection: QUALIFIERS: Hematuria presence: without hematuria Urinary tract infection type: acute cystitis Qualified Code(s): N30.00 - Acute cystitis without hematuria PLAN: Patient is an 80-year-old gentleman with multiple comorbidities admitted with progressive generalized weakness. Patient was found to have acute cystitis on admission admitted to regular nursing floor for further management 1. Acute cystitis ?Patient started on Rocephin urine culture sent 2. Physical deconditioning - Requested for PT OT eval and web content & social media manager to assist with discharge planning 3. Valvular heart disease ?With history of mitral valve repair 4. Parkinson's disease ?Did continue with home meds 5. Bradycardia ?Patient is on metoprolol this was held 6. Hypertension - Blood pressure controlled, home medications except for metoprolol continued with dose adjustment as needed 7. Hypothyroidism - Patient is on levothyroxine home dose continued 8. BPH ?Patient is on finasteride 9. GERD ?On PPI 10. DVT prophylaxis ?Lovenox
[2021-03-26] MEDS: Acetaminophen 325 MG Tablet 650 MG PO (07:59)
[2021-03-26] MEDS: Aspirin E.C. 81 MG Tablet 162 MG PO (08:00)
--- NOTE | 2021-03-26 08:56 | DS.PCM_ITS ---
Providers Date of Admission: 03/25/21 Primary Care Physician: Dr. Cheo Gamble MD Reason For Visit: WEAKNESS SECONDARY TO SUSPECTED UTI Diagnosis Discharge Diagnosis (1) FTT (failure to thrive) in adult: Status: Acute Code(s): R62.7 - Adult failure to thrive (2) Urinary tract infection: Status: Acute Code(s): N39.0 - Urinary tract infection, site not specified Qualifiers: Urinary tract infection type: acute cystitis Hematuria presence: without hematuria Qualified Code(s): N30.00 - Acute cystitis without hematuria Medications at Discharge Home Medications finasteride 5 mg PO QHS 09/07/16 sertraline 25 mg PO DAILY 09/07/16 aspirin 81 mg PO BID 10/05/16 cholecalciferol (vitamin D3) 2,000 unit PO DAILY 12/27/17 coenzyme Q10 20 mg PO DAILY 12/27/17 carbidopa 25 mg-levodopa 100 mg tablet 1 tab PO TID 06/20/19 lansoprazole 30 mg capsule,delayed release 30 mg PO DAILY 06/20/19 losartan 25 mg tablet 25 mg PO DAILY 06/20/19 simvastatin 20 mg tablet 20 mg PO QHS tab 06/20/19 Bifidobacterium infantis 4 mg capsule 4 mg PO DAILY 06/21/19 amlodipine 2.5 mg tablet 2.5 mg PO DAILY 06/21/19 levothyroxine 50 mcg tablet 50 mcg PO DAILY tab 06/21/19 metoprolol succinate 25 mg tablet,extended release 24 hr 25 mg PO DAILY #30 tab 02/09/21 mecobalamin (vitamin B12) 5,000 mcg PO DAILY 03/24/21 levetiracetam 500 mg PO BID 03/25/21 Hospital Course Summary of Care Provided Minutes Spent on Discharge: 35 Hospital Course: Patient is an 80-year-old gentleman with multiple comorbidities admitted with progressive generalized weakness. Patient was found to have acute cystitis on admission admitted to regular nursing floor for further management 1. Acute cystitis ?Patient started on Rocephin urine culture sent -Urine cultures came back negative patient was discharged home with home health 2. Physical deconditioning - Requested for PT OT eval and director of social media marketing to assist with discharge planning 3. Valvular heart disease ?With history of mitral valve repair 4. Parkinson's disease ?Did continue with home meds 5. Bradycardia ?Patient is on metoprolol this was held 6. Hypertension - Blood pressure controlled, home medications except for metoprolol continued with dose adjustment as needed 7. Hypothyroidism - Patient is on levothyroxine home dose continued 8. BPH ?Patient is on finasteride 9. GERD ?On PPI 10. DVT prophylaxis ?Lovenox Physical Exam Narrative GENERAL: cooperative HEENT: Atraumatic; EYES; Anicteric, Normal Conjunctiva NECK; supple, normal thyroid, RESPIRATORY: Diminished to auscultation CARDIOVASCULAR: Regular S1 S2, GI: soft, normoactive bowel sounds, : No Renal angle tenderness; EXTREMITIES: No edema, no clubbing, MUSCULOSKELETAL: no muscle waisting NEURO: Awake; no lateralizing signs. SKIN: No Rash PSYCH; Flat affect ABG / Lab / Microbiology Data Result Diagrams: 03/26/21 05:28 03/26/21 05:28 Laboratory: Laboratory Results - last 24 hr 03/26/21 03/26/21 05:28 05:28 WBC 6.0 RBC 4.42 L Hgb 14.0 Hct 41.3 MCV 93.4 MCH 31.7 MCHC 33.9 RDW Std Deviation 43.2 RDW Coeff of Trey 12.4 Plt Count 177 MPV 10.0 Immature Gran % (Auto) 0.200 Neut % (Auto) 60.7 Lymph % (Auto) 24.0 [place] % (Auto) 11.6 H Eos % (Auto) 3.2 Baso % (Auto) 0.3 Absolute Neuts (auto) 3.7 Absolute Lymphs (auto) 1.45 Nucleated RBC % 0 Sodium 143 Potassium 3.2 L Chloride 109 H Carbon Dioxide 29.0 Anion Gap 5 BUN 14 Creatinine 0.89 Estim Creat Clear Calc 66.07 Est GFR (MDRD) Af Amer 105 Est GFR (MDRD) Non-Af 86 BUN/Creatinine Ratio 15.7 Glucose 96 Calcium 8.8 Magnesium 1.8 Microbiology: Microbiology 03/24/21 17:25 Urine Culture - Preliminary Urine, Clean Catch Culture exhibits no growth. Microbiology 03/24/21 17:25 Urine, Clean Catch Urine Culture - Preliminary Culture exhibits no growth. 03/24/21 17:57 Nasal Secretion SARS-CoV-2 Antigen (Rapid) - Final D/C Instructions Discharge Diet: No restrictions Discharge Activity: Return to Normal Activity Call your doctor if you observe: Fever of 101 or Higher, Shortness of breath, Fainting spells and Chest pain Meaningful Use Info Meaningful Use Diagnoses (Choose all that apply): None applicable Discharge Plan Admission Admit Date/Time: 03/25/21 09:15 Primary Reason for Your Visit: Acute cystitis Attending Provider: Vinny Flores Primary Care Provider: Cheo Gamble Discharge Orders/Prescriptions Prescriptions: Continued Align 4 mg capsule 4 mg PO DAILY RF: 0 amlodipine 2.5 mg tablet 2.5 mg PO DAILY RF: 0 carbidopa-levodopa [Sinemet] 25-100 mg tablet 1 tab PO TID RF: 0 losartan 25 mg tablet 25 mg PO DAILY RF: 0 lansoprazole [Prevacid] 30 mg capsule,delayed release(DR/EC) 30 mg PO DAILY RF: 0 sertraline 25 MG tablet 25 mg PO DAILY RF: 0 finasteride 5 MG tablet 5 mg PO QHS RF: 0 simvastatin 20 mg tablet 20 mg PO QHS RF: 0 levothyroxine 50 mcg tablet 50 mcg PO DAILY RF: 0 aspirin 81 MG tablet 81 mg PO BID RF: 0 coenzyme Q10 10 MG capsule 20 mg PO DAILY RF: 0 cholecalciferol (vitamin D3) 2,000 UNIT capsule 2,000 unit PO DAILY RF: 0 mecobalamin (vitamin B12) 5,000 mcg Tablet,Disintegrating 5,000 mcg PO DAILY RF: 0 levetiracetam 500 mg Tablet 500 mg PO BID RF: 0 metoprolol succinate 25 mg tablet extended release 24 hr 25 mg PO DAILY Qty: 30 RF: 12 Referrals / Follow Up: Cheo Gamble MD [Primary Care Provider] - In 1 Week Disposition Disposition (needs filled in before D/C Order can be placed): Home Health Service Visit Charges Inpatient E&M: [id number] Disch Hosp
--- NOTE | 2021-03-26 09:01 | PCM.DC ---
Discharge Instructions Diet Discharge Diet: No restrictions Activity Discharge Activity: Return to Normal Activity Dressing / Incision Call your doctor if you observe: Fever of 101 or Higher, Shortness of breath, Fainting spells and Chest pain Follow Up Care Test Results: Test results from this visit will be discussed in further detail at your follow-up appointment, if applicable. Discharge Plan Admission Admit Date/Time: 03/25/21 09:15 Primary Reason for Your Visit: Acute cystitis Attending Provider: Vinny Flores Primary Care Provider: Cheo Gamble Discharge Orders/Prescriptions Prescriptions: Continued Align 4 mg capsule 4 mg PO DAILY RF: 0 amlodipine 2.5 mg tablet 2.5 mg PO DAILY RF: 0 carbidopa-levodopa [Sinemet] 25-100 mg tablet 1 tab PO TID RF: 0 losartan 25 mg tablet 25 mg PO DAILY RF: 0 lansoprazole [Prevacid] 30 mg capsule,delayed release(DR/EC) 30 mg PO DAILY RF: 0 sertraline 25 MG tablet 25 mg PO DAILY RF: 0 finasteride 5 MG tablet 5 mg PO QHS RF: 0 simvastatin 20 mg tablet 20 mg PO QHS RF: 0 levothyroxine 50 mcg tablet 50 mcg PO DAILY RF: 0 aspirin 81 MG tablet 81 mg PO BID RF: 0 coenzyme Q10 10 MG capsule 20 mg PO DAILY RF: 0 cholecalciferol (vitamin D3) 2,000 UNIT capsule 2,000 unit PO DAILY RF: 0 mecobalamin (vitamin B12) 5,000 mcg Tablet,Disintegrating 5,000 mcg PO DAILY RF: 0 levetiracetam 500 mg Tablet 500 mg PO BID RF: 0 metoprolol succinate 25 mg tablet extended release 24 hr 25 mg PO DAILY Qty: 30 RF: 12 Referrals / Follow Up: Cheo Gamble MD [Primary Care Provider] - In 1 Week Disposition Disposition (needs filled in before D/C Order can be placed): Home Health Service
--- NOTE | 2021-03-26 09:12 | CASEMGMT ---
Addendum entered by Solange Pearson 03/26/21 10:07: KORIN RUBIO received call back from [facility] and they are able to accept the patient. KORIN RUBIO updated the patient regarding HHC setup with [facility] Original Note: KORIN RUBIO in to follow up with patient's preferences for HHC. First choice [facility], second [facility]. KORIN RUBIO sent referral to [facility] and awaiting acceptance. KORIN RUBIO also received script for FWW. Patient prefers [facility] for DME. KORIN RUBIO sent referral to [facility] and arranged for delivery of FWW to patient's room prior to discharge. CM will continue to follow this patient and plan for a safe discharge.
[2021-03-26] MEDS: Ceftriaxone 1 GM/50 mL Premix Q24 IV (09:23)
[2021-03-26] MEDS: Sertraline 50 MG Tablet 25 MG PO (09:24)
[2021-03-26] MEDS: Losartan Potassium 25 MG Tablet PO (09:24)
[2021-03-26] MEDS: Pantoprazole Sodium 40 MG Tablet PO (09:24)
[2021-03-26] MEDS: Enoxaparin 40 MG/0.4 ML Syringe SC (09:24)
[2021-03-26] MEDS: Senna/Docusate Sodium 1 Tablet 2 TABLET PO (09:24)
[2021-03-26] MEDS: Metoprolol(XL)Succ 25 MG Tablet PO (09:24)
[2021-03-26] MEDS: Potassium Chloride Oral Tablet 20 MEQ PO (09:24)
[2021-03-26] MEDS: amLODIPine 2.5 MG Tablet PO (09:24)
--- NOTE | 2021-03-27 14:13 | CASEMGMT ---
Addendum entered by Niesha Woo 03/27/21 14:33: Pt dtr returned call and states she just left pt home and pt stated he was doing pretty good. She states his follow up appt with Dr. Gamble is April 02. The [facility] nurse was out this morning. She denies any questions regarding dc instructions or medications stating they were pretty clear. Original Note: RN CM Discharge Follow Up Phone Call: GALOE:10 Strata:3 Call Date: 03.27.21 Discharge Date: 03.26.21 Time of Call:1413 Duration:<1 min Admitting Dx: weakness secondary to suspected UTI RN CM attempted to complete follow up phone call after recent hospitalization. No answer to phone. Left generic voicemail with call back information.
== END 2021-03-26 11:45 | disposition home health service (06) | DRG 948 ==
LOC: ED 18:24 → MS3 19:13
PROVIDERS: Physician Assistant; Admitting Provider Family Medicine; Emergency Provider Emergency Medicine; PCP Internal Medicine; Visit Provider Internal Medicine
DX: R53.1 Weakness (principal); N30.00 Acute cystitis without hematuria; I42.8 Other cardiomyopathies; R62.7 Adult failure to thrive; I95.1 Orthostatic hypotension; R00.1 Bradycardia, unspecified; E03.9 Hypothyroidism, unspecified; E78.5 Hyperlipidemia, unspecified; F32.9 Major depressive disorder, single episode, unspecified; F41.9 Anxiety disorder, unspecified; G20 Parkinson's disease; I10 Essential (primary) hypertension; I25.10 Atherosclerotic heart disease of native coronary artery without angina pectoris; K21.9 Gastro-esophageal reflux disease without esophagitis; G40.909 Epilepsy, unspecified, not intractable, without status epilepticus; G43.909 Migraine, unspecified, not intractable, without status migrainosus; N40.0 Benign prostatic hyperplasia without lower urinary tract symptoms; M48.00 Spinal stenosis, site unspecified; Z95.2 Presence of prosthetic heart valve; Z87.442 Personal history of urinary calculi; Z79.82 Long term (current) use of aspirin; Z79.899 Other long term (current) drug therapy; Z91.81 History of falling
CPT/HCPCS: 36415; 71045; 80048; 80053; 81001; 83605; 83735; 84484; 85025; 87040; 87086; 87426; 93005; 97110; 97162; 97166; 99285; J7030; J7040; A4216

== ENCOUNTER 2021-04-06 21:04 | Emergency (ER) | payer MEDICARE, OTHER, SELFPAY ==
[2021-04-06 21:05] VITALS: BP 163/84; PULSE 79; RESP 18; TEMP 36.6; O2SAT 98; BMI 24.0
[2021-04-06 21:15] VITALS: BMI 24.0
--- NOTE | 2021-04-06 21:26 | EKG12_ITS ---
Test Reason : WEAKNESS Blood Pressure : / mmHG Vent. Rate : 061 BPM Atrial Rate : 061 BPM P-R Int : 000 ms QRS Dur : 104 ms QT Int : 432 ms P-R-T Axes : 000 -38 065 degrees QTc Int : 434 ms Normal sinus rhythm with occasional Premature ventricular complexes Left axis deviation Abnormal ECG Confirmed by HIRAL PRESTON, ISABELLA ([id number]), book or script editor TIMOTEO GARCIA ([id number]) on 04/09/2021 9:57:33 AM Referred By: ИРИНА Confirmed By:ISABELLA BLACKMAN MD
[2021-04-06 21:42] LABS: Absolute Lymphocyte Count 1.34 X10^3/uL (0.83-4.51); Absolute Neutrophil Count 3.2 X10^3/uL (2.0-7.7); Basophil# 0.02 X10^3/uL; Basophil% 0.4 % (0-1); Eosinophil# 0.13 X10^3/uL; Eosinophils% 2.5 % (0-5); Hematocrit 43.3 % (40-54); Hemoglobin 14.6 g/dL (13.0-16.5); International Normalized Ratio 1.1; Lymphocyte # 1.34 X10^3/ul (0.83-4.51); Lymphocyte % 25.4 % (19-41); Mean Corp Hgb Conc 33.7 g/dL (32-36); Mean Corpuscular Hgb 31.9 pg (27.0-32.0); Mean Corpuscular Volume 94.7 fL (80-94); Mean Platelet Vol. 10.3 fl (6.2-12.0); Monocyte# 0.58 X10^3/uL; NRBC Flagged by Analyzer 0 % (0-5); Neutrophil % 60.5 % (47-70); Partial Thromboplast Time 31.7 Seconds (24.1-36.2); Platelet Count 214 K/mm3 (150-450); Prothrombin Time (Protime)PT. 13.7 SECONDS (11.7-14.9); RBC Distribution Width CV 12.7 % (11.6-14.6); RBC Distribution Width SD 43.9 fl (35.1-43.9); Red Blood Count 4.57 M/mm3 (4.6-6.2); White Blood Count 5.3 K/mm3 (4.4-11.0)
[2021-04-06 21:47] LABS: Anion Gap 7 (5-15); BUN 36 mg/dL (7-18); Calcium,Total 9.8 mg/dL (8.5-10.1); Chloride 103 mmol/L (98-107); Creatinine, Serum 1.16 mg/dL (0.70-1.30); EST Glomerular Filtration Rate 64 mL/min (>60); Est Glom Filt Rate - Afr Amer 77 mL/min (>60); Estimated Creatinine Clearance 50.69 ml/min; Glucose 116 mg/dL (74-106); Potassium 3.8 mmol/L (3.5-5.1); Sodium Level 141 mmol/L (136-145)
--- NOTE | 2021-04-06 22:08 | RAD_ITS ---
EXAM: XR CHEST, 1 VIEW : 1938 CLINICAL INDICATION: Stroke TECHNIQUE: Frontal view of the chest. This report was created using [employer] report generation technology. COMPARISON: 03/24/21 FINDINGS: LUNGS AND PLEURAL SPACES: Unremarkable. No consolidation or edema. No pneumothorax. No effusion. HEART: Unremarkable. Cardiac silhouette not enlarged. MEDIASTINUM: Surgical changes of the mediastinum. BONES/JOINTS: Unremarkable. SOFT TISSUES: Unremarkable. RAD/Chest 1 View (Portable) IMPRESSION: No acute findings in the chest. at 2250 Reported and signed by: Christiano Loving MD Electronically Signed: Christiano Loving MD at 22:49 EDT Tel , Service support ,
--- NOTE | 2021-04-06 22:18 | CT_ITS ---
INDICATION: abdominal pain EXAMINATION: CT Abdomen And Pelvis W/O Contrast Injection TECHNIQUE: Helically acquired images were obtained of the abdomen and pelvis without the use of IV contrast. A radiation dose optimization technique was used for this scan. Oral contrast: None. COMPARISON: None FINDINGS: Evaluation of the solid organs and vascular structures is limited without intravenous contrast. Visualized lung bases: Chronic interstitial fibrotic changes. Liver: Unremarkable Gallbladder: Few small intraluminal stones seen. Spleen: Multiple splenic granulomas. Pancreas: Unremarkable Adrenal Glands: Unremarkable Kidneys: Multiple nonobstructing renal calculi on the left, largest measuring 9 mm and in the inferior pole. No hydronephrosis. Vasculature: Moderate aortoiliac atherosclerotic disease. GI Tract: Large amount retained stool in the colon. Lymphadenopathy: None Peritoneum: No ascites. Bladder: Unremarkable Reproductive organs: The prostate is moderately enlarged. Bones/Soft tissues: There are diffuse degenerative changes of the spine. CT/Abdomen/Pelvis without Cont IMPRESSION: Multiple nonobstructing renal calculi on the left, largest measuring 9 mm and in the inferior pole. No hydronephrosis. Cholelithiasis. Large amount of retained stool in the colon. Moderate prostatomegaly. Correlate with PSA levels. Electronically Signed: Sudeep Tijerina MD at 23:10 EDT Tel , Service support ,
[2021-04-06 22:56] LABS: Bacteria 0 SEEN /hpf (None Seen); Mucous, Urine 0 SEEN /hpf (<or=2+)
[2021-04-06 22:57] LABS: Color, Urine Yellow (Yellow); Glucose, Dipstick Normal (Normal); Ketone-Dipstick 5 mg/dl (Negative); Leukocyte Esterase-Dipstick 500 /ul (Negative); Nitrite-Dipstick Negative (Negative); Occult Blood-Urine Negative /ul (Negative); Protein-Dipstick 15 mg/dl (Negative); Urine Bilirubin Dipstick Negative (Negative); Urine Clarity Sl. Cloudy (Clear); Urine Urobilinogen Normal (Normal); Urine pH 6.5 (5.0 - 8.0)
[2021-04-06 23:03] LABS: Amorphous Sediment 1+ URATE; Hyaline Cast 0-5 SEEN /lpf (0-5); Red Blood Cells-Urine 0-5 SEEN /hpf (0-5); Squamous Epithelial Cells - UA 0-5 SEEN /hpf (0-5); White Blood Cells 25-50 SEEN /hpf (0-5)
[2021-04-06 23:34] VITALS: BP 161/30; PULSE 78; RESP 22; O2SAT 96
[2021-04-06] MEDS: Ceftriaxone 1 GM/50 ML BAG IV (23:36)
--- NOTE | 2021-04-07 00:03 | EX.ED.DYSGE1 ---
HPI History of Present Illness Chief Complaint: Neuro S/Sx Narrative Narrative: Patient presenting secondary to generalized illness and constipation. Patient has a underlying history of Parkinson's disease, hypertension, past history of seizure, recent history of urinary tract infection and failure to thrive. Patient apparently intermittently deals with constipation. His last bowel movement was about 4 5 days ago. He does report that he has some mild abdominal distention and mild abdominal pain. He does not feel that he is impacted currently. Patient's family states that today he really has been acting himself. Is been nauseous and not eating and generally weak. He denies that there is any laterality to this weakness. No numbness. No speech difficulty. No fevers. Patient states that when he eats he almost feels as if food is going down and then just sitting in his stomach or getting stuck. He is not vomiting. Review of systems otherwise negative. [facility] Medical History Atherosclerotic heart disease of [place] coronary artery without angina pectoris BPH (benign prostatic hyperplasia) Bradycardia Essential hypertension History of left heart catheterization (LHC) (~10/01/16) History of mitral valve disorder Hypothyroid Hypothyroidism Kidney stone Lung nodule Migraine Orthostatic hypotension Parkinsons disease Right sided weakness Seizure Slurred speech Spinal stenosis Syncope Home Medications finasteride 5 mg PO QHS 09/07/16 [History Last Taken 03/23/21] sertraline [Zoloft] 25 mg PO DAILY 09/07/16 [History Last Taken 03/24/21] aspirin 81 mg PO BID 10/05/16 [History Last Taken 03/24/21] cholecalciferol (vitamin D3) 2,000 unit PO DAILY 12/27/17 [History Last Taken 03/24/21] coenzyme Q10 20 mg PO DAILY 12/27/17 [History Last Taken 03/24/21] carbidopa 25 mg-levodopa 100 mg tablet 1 tab PO TID 06/20/19 [History Last Taken 03/24/21] lansoprazole 30 mg capsule,delayed release 30 mg PO DAILY 06/20/19 [History Last Taken 03/24/21] losartan 25 mg tablet 25 mg PO DAILY 06/20/19 [History Last Taken 03/24/21] simvastatin 20 mg tablet 20 mg PO QHS tab 06/20/19 [History Last Taken 03/23/21] Bifidobacterium infantis 4 mg capsule 4 mg PO DAILY 06/21/19 [History Last Taken 03/24/21] amlodipine 2.5 mg tablet 2.5 mg PO DAILY 06/21/19 [History Last Taken 03/24/21] levothyroxine 50 mcg tablet 50 mcg PO DAILY tab 06/21/19 [History Last Taken 03/24/21] metoprolol succinate 25 mg tablet,extended release 24 hr 25 mg PO DAILY #30 tab 02/09/21 [Rx Last Taken 03/24/21] mecobalamin (vitamin B12) 5,000 mcg PO DAILY 03/24/21 [History Last Taken 03/24/21] levetiracetam [Keppra] 500 mg PO BID 03/25/21 [History Last Taken Unknown] bisacodyl [Dulcolax (bisacodyl)] 10 mg MO DAILY PRN 04/06/21 [History Last Taken Unknown] polyethylene glycol 3350 [Miralax] 17 g PO DAILY 04/06/21 [History Last Taken Unknown] cephalexin 500 mg PO Q12 #14 capsule 04/07/21 [Rx Last Taken Unknown] Allergy/AdvReac Type Severity Reaction Status Date / Time lisinopril AdvReac Nausea Verified 04/06/21 21:10 Family History Father CAD (coronary artery disease) Surgical History History of hernia repair History of mandibular surgery History of mitral valve repair (~11/18/16) Social History household members: none Smoking Status: Never smoker alcohol intake: never substance use type: does not use caffeine: No ROS ROS ED Constitutional Constitutional ED: Reports other Details: Positive for generalized weakness ; Denies chills or fever(s) ENT ENT ED: Denies rhinorrhea Cardiovascular Cardiovascular: Denies chest pain Respiratory/Chest Respiratory/Chest: Denies cough or dyspnea Gastrointestinal Gastrointestinal: Reports abdominal pain, constipation and nausea; Denies diarrhea or vomiting Genitourinary Genitourinary ED: Denies dysuria or hematuria Musculoskeletal Musculoskeletal: Denies back pain Integumentary Denies rash Neurologic Neurologic: Denies paresthesias or weakness Psychiatric Psychiatric: Denies depression Endocrine Endocrinology: Denies fatigue Allergic/Immunologic Allergic/Immunologic ED: Denies urticaria EXAM Physical Exam Const Vital Signs: 04/06/21 21:05 04/06/21 21:40 04/06/21 23:34 Temperature 97.9 F Temperature Source Oral Pulse Rate 79 78 Respiratory Rate 18 22 H Blood Pressure 163/84 H 161/30 H Blood Pressure Mean 110 73 Pulse Ox 98 96 Oxygen Delivery Method Room Air Room Air Room Air 04/07/21 00:39 Temperature 98.4 F Temperature Source Pulse Rate 80 Respiratory Rate 16 Blood Pressure 158/87 H Blood Pressure Mean Pulse Ox 98 Oxygen Delivery Method Positive well nourished and well developed Constitutional Narrative: Elderly male no acute distress sitting upright in the bed General Appearance ED: well developed and NAD HEENT Reports moist mucous membranes Negative for trauma or tenderness Eyes EOMs intact bilaterally Neck no lymphadenopathy, supple and no JVD Chest Wall inspection of chest normal Resp normal respiratory effort and clear to auscultation bilaterally Cardio regular rate, regular rhythm, no murmurs and peripheral pulses 2+ throughout GI GI Narrative: Abdomen is mildly distended not to phonetic. No evidence of palpable abdominal masses. Patient complains of mild abdominal pain on palpation with no localization. No guarding or rebound. No peritonitis noted. Back/Spine normal to inspection Extremity normal to inspection General Extremety ED: Negative for tenderness Neuro oriented x3 and no sensory deficits noted Neuro Narrative: Underlying tremor consistent with patient's history of Parkinson's Sensorium / Orientation: alert Motor Exam: strength 5/5 throughout Psych mental status grossly normal Skin no rashes or lesions noted MDM MDM MDM Narrative Medical decision making narrative: Patient presented secondary to generalized illness. EKG was found to be unremarkable. CBC shows no leukocytosis no signs of anemia. Chemistry shows normal renal function no significant electrolyte derangement no evidence of acidosis or anion gap. Urinalysis is indicative of a potential urinary tract infection. Patient's urine was cultured, he was given a dose of Rocephin in the emergency department. Chest x-ray by my personal review as well as radiology demonstrates a chronic appearing chest, no acute pathology. CT abdomen and pelvis per radiology demonstrates a large amount of stool. I had a tawnya discussion with the patient's daughter as well as the patient about admission versus discharge. Patient actually has a lots of help at home including home rehab and home health, so we feel at this point that it is appropriate to discharge the patient with antibiotics. Patient does deal with significant constipation, he is supposed to start on a bowel regimen I will send him home with magnesium citrate tonight to boiler room helper in passing of his large amount of stool. Patient will follow-up with primary care. He understands signs and symptoms which to return. Patient was discharged in stable condition. Lab Data Labs: Laboratory Results - last 24 hr 04/06/21 04/06/21 04/06/21 21:10 21:10 21:10 WBC 5.3 RBC 4.57 L Hgb 14.6 Hct 43.3 MCV 94.7 H MCH 31.9 MCHC 33.7 RDW Std Deviation 43.9 RDW Coeff of Trey 12.7 Plt Count 214 MPV 10.3 Immature Gran % (Auto) 0.200 Neut % (Auto) 60.5 Lymph % (Auto) 25.4 [place] % (Auto) 11.0 H Eos % (Auto) 2.5 Baso % (Auto) 0.4 Absolute Neuts (auto) 3.2 Absolute Lymphs (auto) 1.34 Nucleated RBC % 0 PT 13.7 INR 1.1 APTT 31.7 Sodium 141 Potassium 3.8 Chloride 103 Carbon Dioxide 31.0 Anion Gap 7 BUN 36 H Creatinine 1.16 Estim Creat Clear Calc 50.69 Est GFR (MDRD) Af Amer 77 Est GFR (MDRD) Non-Af 64 BUN/Creatinine Ratio 31.0 H Glucose 116 H Calcium 9.8 Urine Color Urine Clarity Urine pH Ur Specific [place] Urine Protein Urine Glucose (UA) Urine Ketones Urine Occult Blood Urine Nitrite Urine Bilirubin Urine Urobilinogen Ur Leukocyte Esterase Urine RBC Urine WBC Ur Squamous Epith Cells Amorphous Sediment Urine Bacteria Hyaline Casts Urine Mucus 04/06/21 22:45 WBC RBC Hgb Hct MCV MCH MCHC RDW Std Deviation RDW Coeff of Trey Plt Count MPV Immature Gran % (Auto) Neut % (Auto) Lymph % (Auto) [place] % (Auto) Eos % (Auto) Baso % (Auto) Absolute Neuts (auto) Absolute Lymphs (auto) Nucleated RBC % PT INR APTT Sodium Potassium Chloride Carbon Dioxide Anion Gap BUN Creatinine Estim Creat Clear Calc Est GFR (MDRD) Af Amer Est GFR (MDRD) Non-Af BUN/Creatinine Ratio Glucose Calcium Urine Color Yellow Urine Clarity Sl. Cloudy Urine pH 6.5 Ur Specific [place] 1.020 Urine Protein 15 H Urine Glucose (UA) Normal Urine Ketones 5 H Urine Occult Blood Negative Urine Nitrite Negative Urine Bilirubin Negative Urine Urobilinogen Normal Ur Leukocyte Esterase 500 H Urine RBC 0-5 SEEN Urine WBC 25-50 SEEN Ur Squamous Epith Cells 0-5 SEEN Amorphous Sediment 1+ URATE Urine Bacteria 0 SEEN Hyaline Casts 0-5 SEEN Urine Mucus 0 SEEN Radiography Chest X-Ray - ED: Read by ED Physician and Chronic Changes Diagnostic Testing: Radiology Impression Chest X-Ray 04/06/21 22:08 IMPRESSION: No acute findings in the chest. at 2250 Reported and signed by: Christiano Loving MD Electronically Signed: Christiano Loving MD at 22:49 EDT Tel , Service support , Abdomen/Pelvis CT 04/06/21 22:18 IMPRESSION: Multiple nonobstructing renal calculi on the left, largest measuring 9 mm and in the inferior pole. No hydronephrosis. Cholelithiasis. Large amount of retained stool in the colon. Moderate prostatomegaly. Correlate with PSA levels. Electronically Signed: Sudeep Tijerina MD at 23:10 EDT Tel , Service support , EKG Initial EKG: Attestation: I personally reviewed and interpreted this EKG as follows: (Underlying artifact secondary to the patient's tremor, but what appears to be a sinus rhythm with a rate of 61, narrow complexes normal ST segments occasional PVCs noted.) Discharge Plan Triage Chief Complaint: Neuro S/Sx ED Provider: Pedro Pablo Sanchez Dx/Rx/DC Orders Clinical Impression: Constipation, Acute UTI Instructions: ED Constipation (Adult), ED Bladder Infection, Male (Adult) Prescriptions: New cephalexin 500 mg capsule 500 mg PO Q12 Qty: 14 RF: 0 No Action Align 4 mg capsule 4 mg PO DAILY RF: 0 amlodipine 2.5 mg tablet 2.5 mg PO DAILY RF: 0 carbidopa-levodopa [Sinemet] 25-100 mg tablet 1 tab PO TID RF: 0 losartan 25 mg tablet 25 mg PO DAILY RF: 0 lansoprazole [Prevacid] 30 mg capsule,delayed release(DR/EC) 30 mg PO DAILY RF: 0 sertraline [Zoloft] 25 MG tablet 25 mg PO DAILY RF: 0 finasteride 5 MG tablet 5 mg PO QHS RF: 0 simvastatin 20 mg tablet 20 mg PO QHS RF: 0 levothyroxine 50 mcg tablet 50 mcg PO DAILY RF: 0 aspirin 81 MG tablet 81 mg PO BID RF: 0 coenzyme Q10 10 MG capsule 20 mg PO DAILY RF: 0 cholecalciferol (vitamin D3) 2,000 UNIT capsule 2,000 unit PO DAILY RF: 0 mecobalamin (vitamin B12) 5,000 mcg Tablet,Disintegrating 5,000 mcg PO DAILY RF: 0 levetiracetam [Keppra] 500 mg Tablet 500 mg PO BID RF: 0 bisacodyl [Dulcolax (bisacodyl)] 10 mg Suppository 10 mg MO DAILY PRN (Reason: Constipation) RF: 0 polyethylene glycol 3350 [Miralax] 17 gram Powder In Packet 17 g PO DAILY RF: 0 metoprolol succinate 25 mg tablet extended release 24 hr 25 mg PO DAILY Qty: 30 RF: 12 Primary Care Provider: Cheo Gamble Referrals: Cheo Gamble MD [Primary Care Provider] - 3-5 Days Disposition Disposition: Home, self care Discharge Date/Time: 04/07/21 00:40
[2021-04-07] MEDS: Magnesium Citrate 300 ML PO (00:37)
[2021-04-07 00:39] VITALS: BP 158/87; PULSE 80; RESP 16; TEMP 36.9; O2SAT 98
[2021-04-07] MEDS: hydrOXYzine PAM 25 MG Capsule PO (01:43)
== END 2021-04-07 00:40 | disposition home or self-care (01) ==
PROVIDERS: Emergency Provider Emergency Medicine; PCP Internal Medicine
DX: K59.00 Constipation, unspecified (principal); N39.0 Urinary tract infection, site not specified; I25.10 Atherosclerotic heart disease of native coronary artery without angina pectoris; E03.9 Hypothyroidism, unspecified; I10 Essential (primary) hypertension; Z79.82 Long term (current) use of aspirin; Z79.899 Other long term (current) drug therapy
CPT/HCPCS: 71045; 74176; 80048; 81001; 85025; 85610; 85730; 87086; 93005; 96365; 99285; J7050; A4216

== ENCOUNTER 2021-04-07 16:36 | Observation (INO) | payer MEDICARE, OTHER, SELFPAY ==
[2021-04-06 21:15] VITALS: BMI 24.0
[2021-04-07 16:39] VITALS: BP 119/100; PULSE 70; RESP 18; TEMP 36.8; O2SAT 97; BMI 25.8
--- NOTE | 2021-04-07 17:33 | EDS_ITS ---
HPI History of Present Illness Chief Complaint: Weakness Narrative Narrative: 80-year-old male with history of Parkinson's disease presenting for the second time in the last 24 hours for evaluation of his generalized weakness. His daughter states that he is unable to get up out of bed. Patient does have home health care and home physical therapy but has been refusing this. He was seen last night and diagnosed with a UTI. Last night he decided he wanted to be at home given that he has home care as well as a daughter who lives 5 minutes and will help him. Today he states he thinks he needs to stay because he is too generally weak. Patient also complains of constipation and abdominal pain. Patient states he has had some bowel movements in his depends diaper but that its hard to pass stool. He was given magnesium citrate last night with minimal success. [facility] Medical History (Updated 04/07/21 @ 22:13 by Helena Matthew) Anxiety Atherosclerotic heart disease of [place] coronary artery without angina pectoris BPH (benign prostatic hyperplasia) Bradycardia Depression Essential hypertension History of left heart catheterization (LHC) (~10/01/16) History of mitral valve disorder Hypothyroid Hypothyroidism Irregular heart beat Kidney stone Lung nodule Migraine Orthostatic hypotension Parkinsons disease Right sided weakness Seizure Slurred speech Spinal stenosis Syncope Wears hearing aid in both ears Home Medications finasteride 5 mg PO QHS 09/07/16 [History Last Taken 04/06/21] sertraline [Zoloft] 50 mg PO DAILY 09/07/16 [History Last Taken 03/24/21] aspirin 81 mg PO BID 10/05/16 [History Last Taken 04/06/21] cholecalciferol (vitamin D3) 2,000 unit PO DAILY 12/27/17 [History Last Taken 03/24/21] coenzyme Q10 20 mg PO DAILY 12/27/17 [History Last Taken 03/24/21] carbidopa 25 mg-levodopa 100 mg tablet 1.5 tab PO TID 06/20/19 [History Last Taken 04/06/21] lansoprazole 30 mg capsule,delayed release 30 mg PO DAILY 06/20/19 [History Last Taken 03/24/21] losartan 25 mg tablet 25 mg PO DAILY 06/20/19 [History Last Taken 03/24/21] simvastatin 20 mg tablet 20 mg PO QHS tab 06/20/19 [History Last Taken 03/23/21] Bifidobacterium infantis 4 mg capsule 4 mg PO DAILY 06/21/19 [History Last Taken 03/24/21] amlodipine 2.5 mg tablet 2.5 mg PO DAILY 06/21/19 [History Last Taken 03/24/21] levothyroxine 50 mcg tablet 50 mcg PO DAILY tab 06/21/19 [History Last Taken 03/24/21] metoprolol succinate 25 mg tablet,extended release 24 hr 25 mg PO DAILY #30 tab 02/09/21 [Rx Last Taken 04/06/21] mecobalamin (vitamin B12) 5,000 mcg PO DAILY 03/24/21 [History Last Taken 03/24/21] levetiracetam [Keppra] 500 mg PO BID 03/25/21 [History Last Taken Unknown] polyethylene glycol 3350 [Miralax] 17 g PO DAILY 04/06/21 [History Last Taken Unknown] bisacodyl [Dulcolax (bisacodyl)] 5 - 10 mg PO QHS PRN 04/07/21 [History Last Taken Unknown] cephalexin 500 mg PO Q12 #14 capsule 04/07/21 [Rx Last Taken Unknown] Allergy/AdvReac Type Severity Reaction Status Date / Time lisinopril AdvReac Nausea Verified 04/06/21 21:10 Family History Father CAD (coronary artery disease) Surgical History History of hernia repair History of mandibular surgery History of mitral valve repair (~11/18/16) Social History household members: none Smoking Status: Never smoker alcohol intake: never substance use type: does not use caffeine: No ROS ROS ED Constitutional Constitutional ED: Reports other Details: Generalized weakness ; Denies chills, fever(s) or sweats Eyes Eyes: Denies blurry vision or change in vision ENT ENT ED: Denies ear pain, rhinorrhea or sore throat Cardiovascular Cardiovascular: Denies chest pain, palpitations or racing heartbeat Respiratory/Chest Respiratory/Chest: Denies cough, dyspnea or sputum Gastrointestinal Gastrointestinal: Reports abdominal pain and constipation; Denies diarrhea or vomiting Genitourinary Genitourinary ED: Denies dysuria, hematuria or urinary frequency Musculoskeletal Musculoskeletal: Denies arthralgias, myalgias or neck pain Integumentary Denies abscess, Abrasions or rash Neurologic Neurologic: Denies headache(s), paresthesias or weakness Psychiatric Psychiatric: Denies anxiety, depression, suicidal ideation or suicidal thoughts Endocrine Endocrinology: Denies polydipsia or polyuria EXAM Physical Exam Const Vital Signs: 04/07/21 16:39 04/07/21 17:16 04/07/21 18:01 Temperature 98.3 F Temperature Source Temporal Pulse Rate 70 73 Respiratory Rate 18 19 H Respiratory Effort Normal Non-Labored Respiratory Pattern Normal Blood Pressure 119/100 H 105/78 Blood Pressure Mean 106 87 Pulse Ox 97 98 Oxygen Delivery Method Room Air Room Air 04/07/21 19:14 Temperature Temperature Source Pulse Rate 77 Respiratory Rate 18 Respiratory Effort Respiratory Pattern Blood Pressure 132/85 H Blood Pressure Mean 100 Pulse Ox 96 Oxygen Delivery Method Room Air Positive well nourished General Appearance ED: NAD HEENT Reports moist mucous membranes Negative for trauma Eyes PERRL and EOMs intact bilaterally Resp normal respiratory effort and clear to auscultation bilaterally Cardio regular rate and regular rhythm GI GI Narrative: Generalized tenderness to palpation increased in the bilateral lower quadrants. Abdomen is nonperitoneal. Back/Spine Negative for no CVA tenderness Extremity normal to inspection General Extremety ED: Negative for edema General Extremity: Negative for edema Neuro oriented x3 Sensorium / Orientation: alert Psych mental status grossly normal Skin no rashes or lesions noted and no wounds MDM MDM MDM Narrative Medical decision making narrative: 80-year-old male presenting with abdominal pain, constipation, generalized weakness. Patient was seen overnight and was treated for UTI. Today his daughter states that he is unable to get up and ambulate on his own. He does have home health care, and home PT, and 2 daughters that can help him however he does live alone. Patient's lab work shows a leukocytosis of 13.9 which is new since last night. Other than slight dehydration the rest of his lab work is normal. Urinalysis shows 100 leukocyte esterase but no nitrites or bacteria. Patient has a urine culture pending from last evening. He is currently on antibiotics for the UTI. Patient had CT of the abdomen pelvis which shows a large fecal impaction. On reevaluation the patient was having bowel movements but they were small hard balls. He was given a soapsuds enema and had a very large bowel movement. He felt improved from an abdominal pain and constipation standpoint but still felt too weak to go home. Patient was discussed with hospitalist he is admitted in stable condition. Impression: 1. Abdominal pain 2. Fecal impaction 3. Constipation 4. Generalized weakness Lab Data Attestation: I reviewed the patient's lab results. Labs: Laboratory Results - last 24 hr 04/07/21 04/07/21 04/07/21 18:06 18:06 19:40 WBC 13.9 H RBC 4.55 L Hgb 14.3 Hct 42.3 MCV 93.0 MCH 31.4 MCHC 33.8 RDW Std Deviation 43.9 RDW Coeff of Trey 12.9 Plt Count 205 MPV 9.8 Immature Gran % (Auto) 0.400 Neut % (Auto) 90.2 H Lymph % (Auto) 3.7 L [place] % (Auto) 5.5 Eos % (Auto) 0.1 Baso % (Auto) 0.1 Absolute Neuts (auto) 12.6 H Absolute Lymphs (auto) 0.52 L Nucleated RBC % 0 Differential Comment SEE COMMENT Platelet Estimate ADEQUATE RBC Morphology N CHROM Anisocytosis RARE Macrocytosis RARE Sodium 139 Potassium 4.0 Chloride 104 Carbon Dioxide 31.0 Anion Gap 4 L BUN 32 H Creatinine 1.05 Estim Creat Clear Calc 56.01 Est GFR (MDRD) Af Amer 87 Est GFR (MDRD) Non-Af 72 BUN/Creatinine Ratio 30.5 H Glucose 114 H Calcium 9.4 Total Bilirubin 0.70 AST 18 ALT 16 Alkaline Phosphatase 61 Total Protein 6.7 Albumin 4.1 Globulin 2.6 Albumin/Globulin Ratio 1.6 Lipase 32 L Urine Color Yellow Urine Clarity Clear Urine pH 6.0 Ur Specific [place] 1.015 Urine Protein Negative Urine Glucose (UA) Normal Urine Ketones 50 H Urine Occult Blood Negative Urine Nitrite Negative Urine Bilirubin Negative Urine Urobilinogen Normal Ur Leukocyte Esterase 100 H Urine RBC 0 SEEN Urine WBC 0-5 SEEN Ur Squamous Epith Cells 0 SEEN Urine Bacteria 0 SEEN Urine Mucus 0 SEEN Radiography Diagnostic Testing: Radiology Impression Abdomen/Pelvis CT 04/07/21 18:45 IMPRESSION: Severe fecal impaction with marked rectal dilatation. This patient is at an increased risk of perforation. Recommend disimpaction. Multiple nonobstructing renal calculi on the left, largest measuring 9 mm and in the inferior pole. No hydronephrosis. Cholelithiasis. Moderate prostatomegaly. Correlate with PSA levels. Electronically Signed: Sudeep Tijerina MD at 19:45 EDT Tel , Service support , ADDENDUM: 04/07/212005 IMPRESSION: Severe fecal impaction with marked rectal dilatation. This patient is at an increased risk of perforation. Recommend disimpaction. Multiple nonobstructing renal calculi on the left, largest measuring 9 mm and in the inferior pole. No hydronephrosis. Cholelithiasis. Moderate prostatomegaly. Correlate with PSA levels. N.B. : The above Results were Read Back by Sudeep Tijerina MD to Dr. Yossi Lan MD, and understanding confirmed on 04/07/2021 20:00:00 (ET). Electronically Signed: Sudeep Tijerina MD at 19:45 EDT Tel , Service support , Discharge Plan Disposition Disposition: Acute Care Hospital [facility] Discharge Date/Time: 04/07/21 21:02
[2021-04-07 18:01] VITALS: BP 105/78; PULSE 73; RESP 19; O2SAT 98
[2021-04-07 18:14] LABS: Absolute Lymphocyte Count 0.52 X10^3/uL (0.83-4.51); Absolute Neutrophil Count 12.6 X10^3/uL (2.0-7.7); Basophil# 0.02 X10^3/uL; Basophil% 0.1 % (0-1); Eosinophil# 0.01 X10^3/uL; Eosinophils% 0.1 % (0-5); Hematocrit 42.3 % (40-54); Hemoglobin 14.3 g/dL (13.0-16.5); Lymphocyte # 0.52 X10^3/ul (0.83-4.51); Lymphocyte % 3.7 % (19-41); Mean Corp Hgb Conc 33.8 g/dL (32-36); Mean Corpuscular Hgb 31.4 pg (27.0-32.0); Mean Platelet Vol. 9.8 fl (6.2-12.0); Monocyte# 0.77 X10^3/uL; Monocyte% 5.5 % (0-10); NRBC Flagged by Analyzer 0 % (0-5); Neutrophil # 12.56 X10^3/uL (2.7-7.7); Neutrophil % 90.2 % (47-70); POSITIVE DIFFERENTIAL YES; Platelet Count 205 K/mm3 (150-450); RBC Distribution Width CV 12.9 % (11.6-14.6); RBC Distribution Width SD 43.9 fl (35.1-43.9); Red Blood Count 4.55 M/mm3 (4.6-6.2); White Blood Count 13.9 K/mm3 (4.4-11.0)
[2021-04-07 18:16] LABS: Differential Indicated SCAN CRITERIA MET
[2021-04-07 18:33] LABS: ALB/GLOB Ratio 1.6 RATIO (0.9-2.4); AST(SGOT) 18 U/L (15-37); Alanine Aminotransfer ALT/SGPT 16 U/L (16-61); Albumin, Serum 4.1 g/dL (3.2-5.0); Alkaline Phosphatase 61 U/L (45-117); Anion Gap 4 (5-15); BUN 32 mg/dL (7-18); BUN/Creat Ratio 30.5 RATIO (10-20); Calcium,Total 9.4 mg/dL (8.5-10.1); Chloride 104 mmol/L (98-107); Creatinine, Serum 1.05 mg/dL (0.70-1.30); EST Glomerular Filtration Rate 72 mL/min (>60); Est Glom Filt Rate - Afr Amer 87 mL/min (>60); Estimated Creatinine Clearance 56.01 ml/min; Globulin 2.6 g/dL (2.2-4.2); Glucose 114 mg/dL (74-106); Lipase 32 U/L (73-393); Protein, Total 6.7 g/dL (6.4-8.2); Sodium Level 139 mmol/L (136-145)
--- NOTE | 2021-04-07 18:45 | CT_ITS ---
We are attempting to reach an attending provider to discuss findings. An addendum with communication details will be sent when the communication is complete. INDICATION: abdominal pain EXAMINATION: CT Abdomen And Pelvis W/ Contrast Injection TECHNIQUE: Helically acquired images were obtained of the abdomen and pelvis after IV contrast. A radiation dose optimization technique was used for this scan. IV Contrast dosage and agent: IV 100mL [id number]-300 Oral contrast: None. COMPARISON: 04/06/2021. FINDINGS: Visualized lung bases: Chronic interstitial fibrotic changes. Liver: Unremarkable Gallbladder: Few small intraluminal stones seen. Spleen: Multiple splenic granulomas. Pancreas: Unremarkable Adrenal Glands: Unremarkable Kidneys: Multiple nonobstructing renal calculi on the left, largest measuring 9 mm and in the inferior pole. No hydronephrosis. Vasculature: Moderate aortoiliac atherosclerotic disease. GI Tract: Large amount retained stool in the colon. Interval worsening of dilatation of the rectum now measuring 8.8 cm in diameter and impacted with stool. Lymphadenopathy: None Peritoneum: No ascites. Bladder: Unremarkable Reproductive organs: The prostate is moderately enlarged. Bones/Soft tissues: There are diffuse degenerative changes of the spine. CT/Abdomen/Pelvis W IV Cont ONLY IMPRESSION: Severe fecal impaction with marked rectal dilatation. This patient is at an increased risk of perforation. Recommend disimpaction. Multiple nonobstructing renal calculi on the left, largest measuring 9 mm and in the inferior pole. No hydronephrosis. Cholelithiasis. Moderate prostatomegaly. Correlate with PSA levels. Electronically Signed: Sudeep Tijerina MD at 19:45 EDT Tel , Service support ,
[2021-04-07 18:54] LABS: Anisocytosis RARE; Macrocytosis RARE; Platelet Estimate ADEQUATE (ADEQ); Red Cell Morphology N CHROM NORMAL (NORM C&C)
[2021-04-07 19:14] VITALS: BP 132/85; PULSE 77; RESP 18; O2SAT 96
[2021-04-07 19:51] LABS: Bacteria 0 SEEN /hpf (None Seen); Mucous, Urine 0 SEEN /hpf (<or=2+); Red Blood Cells-Urine 0 SEEN /hpf (0-5); Squamous Epithelial Cells - UA 0 SEEN /hpf (0-5)
[2021-04-07 19:55] LABS: Color, Urine Yellow (Yellow); Glucose, Dipstick Normal (Normal); Ketone-Dipstick 50 mg/dl (Negative); Leukocyte Esterase-Dipstick 100 /ul (Negative); Nitrite-Dipstick Negative (Negative); Occult Blood-Urine Negative /ul (Negative); Protein-Dipstick Negative (Negative); Specific Gravity, Urine 1.015 (1.002-1.030); Urine Bilirubin Dipstick Negative (Negative); Urine Clarity Clear (Clear); Urine Urobilinogen Normal (Normal)
[2021-04-07 20:04] LABS: White Blood Cells 0-5 SEEN /hpf (0-5)
--- NOTE | 2021-04-07 20:44 | PCM.HP.STD ---
[facility] - General General Date of Admission: 04/07/21 [facility] Narrative Olivia RODRIGUEZ, is a 80 M with a significant history of Parkinson's disease who presents to emergency department with 6-week history of progressively worsening weakness. Patient has been too weak so he has been refusing his home therapy via home health. Patient lives at home by himself. Further patient's report that when he gets up to quickly he gets lightheadedness. On presentation patient complained of constipation and abdominal pain. He was at the emergency department a day before presentation and was diagnosed with UTI and was prescribed antibiotics.. Also he was given magnesium citrate for constipation. He was offered admission at that time but he declined. Of note patient was admitted to the hospital on 03/25/2021 for acute cystitis and deconditioning. He was discharged on 03/26/2021. [facility] Medical History Atherosclerotic heart disease of [place] coronary artery without angina pectoris BPH (benign prostatic hyperplasia) Bradycardia Essential hypertension History of left heart catheterization (LHC) (~10/01/16) History of mitral valve disorder Hypothyroid Hypothyroidism Kidney stone Lung nodule Migraine Orthostatic hypotension Parkinsons disease Right sided weakness Seizure Slurred speech Spinal stenosis Syncope Home Medications finasteride 5 mg PO QHS 09/07/16 [History Last Taken 03/23/21] sertraline [Zoloft] 25 mg PO DAILY 09/07/16 [History Last Taken 03/24/21] aspirin 81 mg PO BID 10/05/16 [History Last Taken 03/24/21] cholecalciferol (vitamin D3) 2,000 unit PO DAILY 12/27/17 [History Last Taken 03/24/21] coenzyme Q10 20 mg PO DAILY 12/27/17 [History Last Taken 03/24/21] carbidopa 25 mg-levodopa 100 mg tablet 1 tab PO TID 06/20/19 [History Last Taken 03/24/21] lansoprazole 30 mg capsule,delayed release 30 mg PO DAILY 06/20/19 [History Last Taken 03/24/21] losartan 25 mg tablet 25 mg PO DAILY 06/20/19 [History Last Taken 03/24/21] simvastatin 20 mg tablet 20 mg PO QHS tab 06/20/19 [History Last Taken 03/23/21] Bifidobacterium infantis 4 mg capsule 4 mg PO DAILY 06/21/19 [History Last Taken 03/24/21] amlodipine 2.5 mg tablet 2.5 mg PO DAILY 06/21/19 [History Last Taken 03/24/21] levothyroxine 50 mcg tablet 50 mcg PO DAILY tab 06/21/19 [History Last Taken 03/24/21] metoprolol succinate 25 mg tablet,extended release 24 hr 25 mg PO DAILY #30 tab 02/09/21 [Rx Last Taken 03/24/21] mecobalamin (vitamin B12) 5,000 mcg PO DAILY 03/24/21 [History Last Taken 03/24/21] levetiracetam [Keppra] 500 mg PO BID 03/25/21 [History Last Taken Unknown] bisacodyl [Dulcolax (bisacodyl)] 10 mg OR DAILY PRN 04/06/21 [History Last Taken Unknown] polyethylene glycol 3350 [Miralax] 17 g PO DAILY 04/06/21 [History Last Taken Unknown] cephalexin 500 mg PO Q12 #14 capsule 04/07/21 [Rx Last Taken Unknown] Allergy/AdvReac Type Severity Reaction Status Date / Time lisinopril AdvReac Nausea Verified 04/06/21 21:10 Family History Father CAD (coronary artery disease) Surgical History History of hernia repair History of mandibular surgery History of mitral valve repair (~11/18/16) Social History household members: none Smoking Status: Never smoker alcohol intake: never substance use type: does not use caffeine: No ROS ROS Narrative 12 point review of system is negative except as stated in HPI. Vital Signs Vital Signs Vital Signs: 04/07/21 16:39 04/07/21 17:16 04/07/21 18:01 Temperature 98.3 F Temperature Source Temporal Pulse Rate 70 73 Respiratory Rate 18 19 H Respiratory Effort Normal Non-Labored Respiratory Pattern Normal Blood Pressure 119/100 H 105/78 Blood Pressure Mean 106 87 Pulse Ox 97 98 Oxygen Delivery Method Room Air Room Air 04/07/21 19:14 Temperature Temperature Source Pulse Rate 77 Respiratory Rate 18 Respiratory Effort Respiratory Pattern Blood Pressure 132/85 H Blood Pressure Mean 100 Pulse Ox 96 Oxygen Delivery Method Room Air Weight Weight: 81.647 kg Body Mass Index (BMI) 25.8 Physical Exam Narrative Alert and oriented x3 Nontraumatic; normocephalic Lung clear to auscultate Heart sounds S1-S2. No murmur, gallop or rubs. Abdomen bowel sounds present soft, nontender nondistended Extremity without edema cyanosis or clubbing. Neurology: Tremors of left hands. Results Lab / Micro Data Result Diagrams: 04/07/21 18:06 04/07/21 18:06 Labs: Laboratory Results - last 24 hr 04/07/21 04/07/21 04/07/21 18:06 18:06 19:40 WBC 13.9 H RBC 4.55 L Hgb 14.3 Hct 42.3 MCV 93.0 MCH 31.4 MCHC 33.8 RDW Std Deviation 43.9 RDW Coeff of [place]rey 12.9 Plt Count 205 MPV 9.8 Immature Gran % (Auto) 0.400 Neut % (Auto) 90.2 H Lymph % (Auto) 3.7 L [place] % (Auto) 5.5 Eos % (Auto) 0.1 Baso % (Auto) 0.1 Absolute Neuts (auto) 12.6 H Absolute Lymphs (auto) 0.52 L Nucleated RBC % 0 Differential Comment SEE COMMENT Platelet Estimate ADEQUATE RBC Morphology N CHROM Anisocytosis RARE Macrocytosis RARE Sodium 139 Potassium 4.0 Chloride 104 Carbon Dioxide 31.0 Anion Gap 4 L BUN 32 H Creatinine 1.05 Estim Creat Clear Calc 56.01 Est GFR (MDRD) Af Amer 87 Est GFR (MDRD) Non-Af 72 BUN/Creatinine Ratio 30.5 H Glucose 114 H Calcium 9.4 Total Bilirubin 0.70 AST 18 ALT 16 Alkaline Phosphatase 61 Total Protein 6.7 Albumin 4.1 Globulin 2.6 Albumin/Globulin Ratio 1.6 Lipase 32 L Urine Color Yellow Urine Clarity Clear Urine pH 6.0 Ur Specific [place] 1.015 Urine Protein Negative Urine Glucose (UA) Normal Urine Ketones 50 H Urine Occult Blood Negative Urine Nitrite Negative Urine Bilirubin Negative Urine Urobilinogen Normal Ur Leukocyte Esterase 100 H Urine RBC 0 SEEN Urine WBC 0-5 SEEN Ur Squamous Epith Cells 0 SEEN Urine Bacteria 0 SEEN Urine Mucus 0 SEEN Radiology Impression Abdomen/Pelvis CT 04/07/21 18:45 IMPRESSION: Severe fecal impaction with marked rectal dilatation. This patient is at an increased risk of perforation. Recommend disimpaction. Multiple nonobstructing renal calculi on the left, largest measuring 9 mm and in the inferior pole. No hydronephrosis. Cholelithiasis. Moderate prostatomegaly. Correlate with PSA levels. Electronically Signed: Sudeep Tijerina MD at 19:45 EDT Tel , Service support , ADDENDUM: 04/07/212005 IMPRESSION: Severe fecal impaction with marked rectal dilatation. This patient is at an increased risk of perforation. Recommend disimpaction. Multiple nonobstructing renal calculi on the left, largest measuring 9 mm and in the inferior pole. No hydronephrosis. Cholelithiasis. Moderate prostatomegaly. Correlate with PSA levels. N.B. : The above Results were Read Back by Sudeep Tijerina MD to Dr. Yossi Lan MD, and understanding confirmed on 04/07/2021 20:00:00 (ET). Electronically Signed: Sudeep Tijerina MD at 19:45 EDT Tel , Service support , Assessment & Plan Assessment/Plan (1) Debility: (2) Constipation: QUALIFIERS: Constipation type: unspecified constipation type Qualified Code(s): K59.00 - Constipation, unspecified (3) Acute UTI: PLAN: Debility Likely secondary to Parkinson's disease. PT and OT to work with patient Case management consult. Constipation Abdomen and pelvis CT with severe fecal impaction with mild rectal dilatation. Actual abdomen and pelvis CT was independently interpreted and I agree radiologist interpretation. Likewise abdomen and pelvis CT day before presentation showed increased fecal matter. Likely secondary to immobility. Was given an enema at the emergency department with productive response. Senokot as as needed ordered. MiraLAX daily ordered. Acute UTI Emergency department labs reviewed showed a leukocytosis with white count of 13.9. Urinalysis reviewed showed leukocyte Estrace of 100. 0-5 urine white blood cells. Negative urine nitrite. Review of urinalysis a day before presentation (04/06/2021 showed urine WBC of 25-50. Trend CBC. Keflex continued. Dehydration Patient with mildly elevated BUN. Creatinine is normal. Will start on gentle IV hydration of 50 mL/h. Will trend BMP. DVT prophylaxis: Subcutaneous Lovenox ordered. Charges/Coding Visit Charges OBSV E&M: [id number] Initial observation care L3
[2021-04-07 20:59] VITALS: BP 124/84; PULSE 70; RESP 13; RESP 16; TEMP 36.5; O2SAT 99
[2021-04-07 21:30] VITALS: BP 141/78; PULSE 68; RESP 18; TEMP 36.5; O2SAT 95
[2021-04-07 21:36] VITALS: PULSE 69
[2021-04-07 21:42] VITALS: BMI 22.9
[2021-04-07] MEDS: 0.9% Saline Lock 10 ML Syringe IV (22:22)
[2021-04-07] MEDS: 0.9% Normal Saline 1,000 ML 50 ML IV (22:22)
[2021-04-07] MEDS: Carbidopa/Levodopa 25/100 Tablet PO (23:13)
[2021-04-07] MEDS: Cephalexin 500 MG Capsule PO (23:13)
[2021-04-07] MEDS: levETIRAcetam 500 MG Tablet PO (23:14)
[2021-04-07] MEDS: Atorvastatin Calcium 10 MG Tablet PO (23:14)
[2021-04-08] VITALS (8 sets, daily range): BP systolic 122–131; BP diastolic 66–78; PULSE 59–79; RESP 18; TEMP 36.4–36.9; O2SAT 94–100; BMI 22.9
[2021-04-08 02:28] LABS: Magnesium 2.5 mg/dL (1.6-2.6)
[2021-04-08] MEDS: Carbidopa/Levodopa 25/100 Tablet PO ×2 (06:08→09:58)
[2021-04-08] MEDS: Levothyroxine 50 MCG Tablet PO (06:08)
[2021-04-08 06:24] LABS: Absolute Lymphocyte Count 1.28 X10^3/uL (0.83-4.51); Absolute Neutrophil Count 6.2 X10^3/uL (2.0-7.7); Basophil# 0.02 X10^3/uL; Basophil% 0.2 % (0-1); Eosinophils% 1.2 % (0-5); Hematocrit 38.5 % (40-54); Hemoglobin 13.1 g/dL (13.0-16.5); Lymphocyte # 1.28 X10^3/ul (0.83-4.51); Mean Corpuscular Hgb 31.6 pg (27.0-32.0); Mean Corpuscular Volume 92.8 fL (80-94); Mean Platelet Vol. 10.1 fl (6.2-12.0); Monocyte# 0.91 X10^3/uL; Monocyte% 10.7 % (0-10); NRBC Flagged by Analyzer 0 % (0-5); Neutrophil # 6.21 X10^3/uL (2.7-7.7); Neutrophil % 72.8 % (47-70); Platelet Count 198 K/mm3 (150-450); RBC Distribution Width CV 12.8 % (11.6-14.6); RBC Distribution Width SD 43.3 fl (35.1-43.9); Red Blood Count 4.15 M/mm3 (4.6-6.2); White Blood Count 8.5 K/mm3 (4.4-11.0)
[2021-04-08 06:45] LABS: Anion Gap 4 (5-15); BUN 25 mg/dL (7-18); BUN/Creat Ratio 29.3 RATIO (10-20); Calcium,Total 8.8 mg/dL (8.5-10.1); Chloride 107 mmol/L (98-107); Creatinine, Serum 0.85 mg/dL (0.70-1.30); EST Glomerular Filtration Rate 91 mL/min (>60); Est Glom Filt Rate - Afr Amer 110 mL/min (>60); Estimated Creatinine Clearance 68.71 ml/min; Glucose 97 mg/dL (74-106); Potassium 3.7 mmol/L (3.5-5.1); Sodium Level 141 mmol/L (136-145)
[2021-04-08] MEDS: Metoprolol(XL)Succ 25 MG Tablet PO (09:05)
[2021-04-08] MEDS: amLODIPine 2.5 MG Tablet PO (09:05)
[2021-04-08] MEDS: Enoxaparin 40 MG/0.4 ML Syringe SC (09:05)
[2021-04-08] MEDS: Aspirin E.C. 81 MG Tablet PO (09:05)
[2021-04-08] MEDS: Cephalexin 500 MG Capsule PO (09:05)
[2021-04-08] MEDS: Losartan Potassium 25 MG Tablet PO (09:05)
[2021-04-08] MEDS: levETIRAcetam 500 MG Tablet PO (09:05)
[2021-04-08] MEDS: Polyethylene Glycol 3350 17 GM PACKET PO (09:05)
[2021-04-08] MEDS: Pantoprazole Sodium 40 MG Tablet PO (09:06)
[2021-04-08] MEDS: Sertraline 50 MG Tablet PO (09:06)
[2021-04-08] MEDS: Cholecalciferol (VIT D3) 25 MCG TABLET (1,000 UNITS) 50 MCG PO (09:06)
[2021-04-08] MEDS: Acetaminophen 325 MG Tablet 650 MG PO (10:56)
--- NOTE | 2021-04-08 11:31 | PCM.PN.HOSP ---
Documented by User: Grey PATEL 04/08/21 11:41 Subjective Subjective Patient is an 80-year-old male comfortably resting in the chair eating breakfast, alert and oriented x3. Patient reports significant weakness, which feels the same from admission. Denies chest pain, shortness of breath, palpitations, fever, chills, N/V/D. Objective Data Objective Data Vital Signs: Vital Signs Temp Pulse Resp BP Pulse Ox 98.4 F 72 18 127/78 H 100 04/08/21 09:05 04/08/21 09:05 04/08/21 09:05 04/08/21 09:05 04/08/21 09:05 Oxygen Delivery Method Room Air Weight: 159 lb 13.362 oz Body Mass Index (BMI) 22.9 Intake & Output: Intake and Output for Last 24 Hours 04/06/21 04/07/21 04/08/21 23:59 23:59 23:59 Intake Total 500 / 500 Output Total 350 / 350 350 / 350 Balance 150 / 150 -350 / -350 Lab / Micro Data Result Diagrams: 04/08/21 05:40 04/08/21 05:40 Labs: Laboratory Results - last 24 hr 04/07/21 04/07/21 04/07/21 18:06 18:06 18:06 WBC 13.9 H RBC 4.55 L Hgb 14.3 Hct 42.3 MCV 93.0 MCH 31.4 MCHC 33.8 RDW Std Deviation 43.9 RDW Coeff of Trey 12.9 Plt Count 205 MPV 9.8 Immature Gran % (Auto) 0.400 Neut % (Auto) 90.2 H Lymph % (Auto) 3.7 L [place] % (Auto) 5.5 Eos % (Auto) 0.1 Baso % (Auto) 0.1 Absolute Neuts (auto) 12.6 H Absolute Lymphs (auto) 0.52 L Nucleated RBC % 0 Differential Comment SEE COMMENT Platelet Estimate ADEQUATE RBC Morphology N CHROM Anisocytosis RARE Macrocytosis RARE Sodium 139 Potassium 4.0 Chloride 104 Carbon Dioxide 31.0 Anion Gap 4 L BUN 32 H Creatinine 1.05 Estim Creat Clear Calc 56.01 Est GFR (MDRD) Af Amer 87 Est GFR (MDRD) Non-Af 72 BUN/Creatinine Ratio 30.5 H Glucose 114 H Calcium 9.4 Magnesium 2.5 Total Bilirubin 0.70 AST 18 ALT 16 Alkaline Phosphatase 61 Total Protein 6.7 Albumin 4.1 Globulin 2.6 Albumin/Globulin Ratio 1.6 Lipase 32 L Urine Color Urine Clarity Urine pH Ur Specific [place] Urine Protein Urine Glucose (UA) Urine Ketones Urine Occult Blood Urine Nitrite Urine Bilirubin Urine Urobilinogen Ur Leukocyte Esterase Urine RBC Urine WBC Ur Squamous Epith Cells Urine Bacteria Urine Mucus 04/07/21 04/08/21 04/08/21 19:40 05:40 05:40 WBC 8.5 RBC 4.15 L Hgb 13.1 Hct 38.5 L MCV 92.8 MCH 31.6 MCHC 34.0 RDW Std Deviation 43.3 RDW Coeff of Trey 12.8 Plt Count 198 MPV 10.1 Immature Gran % (Auto) 0.100 Neut % (Auto) 72.8 H Lymph % (Auto) 15.0 L [place] % (Auto) 10.7 H Eos % (Auto) 1.2 Baso % (Auto) 0.2 Absolute Neuts (auto) 6.2 Absolute Lymphs (auto) 1.28 Nucleated RBC % 0 Differential Comment Platelet Estimate RBC Morphology Anisocytosis Macrocytosis Sodium 141 Potassium 3.7 Chloride 107 Carbon Dioxide 30.0 Anion Gap 4 L BUN 25 H Creatinine 0.85 Estim Creat Clear Calc 68.71 Est GFR (MDRD) Af Amer 110 Est GFR (MDRD) Non-Af 91 BUN/Creatinine Ratio 29.3 H Glucose 97 Calcium 8.8 Magnesium Total Bilirubin AST ALT Alkaline Phosphatase Total Protein Albumin Globulin Albumin/Globulin Ratio Lipase Urine Color Yellow Urine Clarity Clear Urine pH 6.0 Ur Specific [place] 1.015 Urine Protein Negative Urine Glucose (UA) Normal Urine Ketones 50 H Urine Occult Blood Negative Urine Nitrite Negative Urine Bilirubin Negative Urine Urobilinogen Normal Ur Leukocyte Esterase 100 H Urine RBC 0 SEEN Urine WBC 0-5 SEEN Ur Squamous Epith Cells 0 SEEN Urine Bacteria 0 SEEN Urine Mucus 0 SEEN Radiography Diagnostic Testing: Radiology Impression Abdomen/Pelvis CT 04/07/21 18:45 IMPRESSION: Severe fecal impaction with marked rectal dilatation. This patient is at an increased risk of perforation. Recommend disimpaction. Multiple nonobstructing renal calculi on the left, largest measuring 9 mm and in the inferior pole. No hydronephrosis. Cholelithiasis. Moderate prostatomegaly. Correlate with PSA levels. Electronically Signed: Sudeep Tijerina MD at 19:45 EDT Tel , Service support , ADDENDUM: 04/07/212005 IMPRESSION: Severe fecal impaction with marked rectal dilatation. This patient is at an increased risk of perforation. Recommend disimpaction. Multiple nonobstructing renal calculi on the left, largest measuring 9 mm and in the inferior pole. No hydronephrosis. Cholelithiasis. Moderate prostatomegaly. Correlate with PSA levels. N.B. : The above Results were Read Back by Sudeep Tijerina MD to Dr. Yossi Lan MD, and understanding confirmed on 04/07/2021 20:00:00 (ET). Electronically Signed: Sudeep Tijerina MD at 19:45 EDT Tel , Service support , Physical Exam Const alert, oriented x3 and no apparent distress HEENT head/scalp atraumatic and moist oral mucous membranes Head and Scalp: normocephalic Eyes PERRL, EOMs intact bilaterally and conjunctivae normal Neck no lymphadenopathy, supple and no JVD Resp normal respiratory effort, no retractions and no use of accessory muscles Cardio regular rate, regular rhythm, no murmurs and no JVD GI normal to inspection, nondistended, normoactive bowel sounds and soft to palpation Extremity normal to inspection, full ROM and no clubbing, cyanosis or edema Skin no rashes or lesions noted, no wounds and skin turgor normal Neuro CN's II-XII intact bilaterally Psych affect normal Assessment & Plan Assessment/Plan (1) Debility: (2) Constipation: QUALIFIERS: Constipation type: unspecified constipation type Qualified Code(s): K59.00 - Constipation, unspecified (3) Acute UTI: PLAN: See subjective for patient presentation. Discharge planning; patient is open to SNF placement, however would like his daughters, Shanel and Nanda, to be included in his disposition planning. 1) debility Patient reports a 6-week history of progressively worsening weakness at home. Patient lives in a house by himself, however reports that daughter is close. Patient reports eating 1-2 small meals daily at home. Plan; PT/OT/CM consults ordered and pending. 2) acute cystitis WBC is currently 8.5, 13.9 at admission. Vital signs stable and patient is afebrile. Urine culture pending. Blood cultures from prior admission on 03/24/2021 demonstrate no growth. Plan; continue Keflex. 3) constipation CT of the abdomen/pelvis demonstrated severe fecal impaction with mild rectal dilatation. Patient received a enema in the ED. Plan; MiraLAX daily, Senokot as needed. 4) dehydration Continue gentle hydration, trend BMP. DVT prophylaxis -Lovenox Patient seen by Grey Trevizo PA-C, under the supervision of Dr. Flores. Documented by User: Dr. Vinny Flores MD 04/08/21 13:29 Objective Data Lab / Micro Data Result Diagrams: 04/08/21 05:40 04/08/21 05:40 Assessment & Plan Addt'l Comments This patient was seen in conjunction with Grey Trevizo PA-C. I have independently interviewed and examined the patient and reviewed pertinent historical, laboratory, and other data. Please refer to Grey Trevizo PA-C's note for details of this patient's presentation, findings, and recommendations. I have reviewed Grey Trevizo PA-C's note and concur with documented findings. In brief, patient is a [age] -year-oldM/F admitted with XXXXXXX Physical Examination: GENERAL: cooperative HEENT: Atraumatic; EYES; Anicteric, Normal Conjunctiva NECK; supple, normal thyroid, RESPIRATORY: Diminished to auscultation CARDIOVASCULAR: Regular S1 S2, GI: soft, normoactive bowel sounds, : No Renal angle tenderness; EXTREMITIES: No edema, no clubbing, MUSCULOSKELETAL: no muscle waisting NEURO: Awake; no lateralizing signs. SKIN: No Rash PSYCH; Flat affect Assessment: 1. Acute cystitis 2. Physical deconditioning 3. Parkinson's disease 4. 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 Hypothyroidism 7. BPH 8. GERD 9. DVT prophylaxis Recommendations: 1. I have discussed the results of my overview and impressions with the patient 2. Options for management were reviewed Charges/Coding Visit Charges OBSV E&M: 26364 Initial observation care L2
--- NOTE | 2021-04-08 13:57 | CASEMGMT ---
Addendum entered by Solange Feng 04/08/21 14:08: This RN CM still unable to reach Shanel and pt is ok with this RN CM calling daughter, Nanda. Call to Nanda and she is agreeable to pt going home with HHC at discharge and states she will be up later today but to call her if pt is put up for discharge sooner as her sister, Shanel, is out of town, Dilma LANGLEY updated and voices understanding. Pt updated on all, voices understanding. Brooke PATEL updated, voices understanding and states pt will discharge today. Message left with Zayda at [facility] to notify that pt to discharge today and pt is in observation status. Call back to Nanda to notify of pt discharge, voices understanding. Lynette LANGLEY CM Original Note: Therapy is recommending HHC, which pt already has set up. This RN CM to room and pt states he would prefer to go home with HHC rather than go to SNF and states he feels daughters would be agreeable to him going home as well. Pt would like this RN CM to call his daughter, Shanel, to update on therapy notes and get her recommendation. This RN CM attempted to call Shanel without success and did not leave message as there was no identifier on voicemail. RAMIRO to follow. Lynette LANGLEY CM
--- NOTE | 2021-04-08 14:18 | DS.PCM_ITS ---
Documented by User: Grey PATEL 04/08/21 14:23 Providers Date of Admission: 04/07/21 Primary Care Physician: Dr. Cheo Gamble MD Reason For Visit: CHEST PAIN Diagnosis Discharge Diagnosis (1) Debility: Status: Acute Code(s): R53.81 - Other malaise (2) Constipation: Status: Acute Code(s): K59.00 - Constipation, unspecified Qualifiers: Constipation type: unspecified constipation type Qualified Code(s): K59.00 - Constipation, unspecified (3) Acute UTI: Status: Acute Code(s): N39.0 - Urinary tract infection, site not specified Medications at Discharge Home Medications finasteride 5 mg PO QHS 09/07/16 sertraline [Zoloft] 50 mg PO DAILY 09/07/16 aspirin 81 mg PO BID 10/05/16 cholecalciferol (vitamin D3) 2,000 unit PO DAILY 12/27/17 coenzyme Q10 20 mg PO DAILY 12/27/17 carbidopa 25 mg-levodopa 100 mg tablet 1.5 tab PO TID 06/20/19 lansoprazole 30 mg capsule,delayed release 30 mg PO DAILY 06/20/19 losartan 25 mg tablet 25 mg PO DAILY 06/20/19 simvastatin 20 mg tablet 20 mg PO QHS tab 06/20/19 Bifidobacterium infantis 4 mg capsule 4 mg PO DAILY 06/21/19 amlodipine 2.5 mg tablet 2.5 mg PO DAILY 06/21/19 levothyroxine 50 mcg tablet 50 mcg PO DAILY tab 06/21/19 metoprolol succinate 25 mg tablet,extended release 24 hr 25 mg PO DAILY #30 tab 02/09/21 mecobalamin (vitamin B12) 5,000 mcg PO DAILY 03/24/21 levetiracetam [Keppra] 500 mg PO BID 03/25/21 polyethylene glycol 3350 [Miralax] 17 g PO DAILY 04/06/21 bisacodyl [Dulcolax (bisacodyl)] 5 - 10 mg PO QHS PRN 04/07/21 cephalexin 500 mg PO Q12 #14 capsule 04/08/21 Hospital Course Summary of Care Provided Minutes Spent on Discharge: 35 Hospital Course: See subjective. 1) debility PT/OT evaluation recommends outpatient therapy with home health care, which patient already has. Patient and patient's daughter are agreeable to therapy with home health care. Patient reports a 6-week history of progressively worsening weakness at home. Patient lives in a house by himself, however reports that daughter is close. Patient reports eating 1-2 small meals daily at home. Plan; discharge for therapy w/ [facility]. 2) acute cystitis WBC is currently 8.5, 13.9 at admission. Vital signs stable and patient is afebrile. Urine culture pending. Blood cultures from prior admission on 03/24/2021 demonstrate no growth. Plan; continue Keflex as prescribed on intial course. 3) constipation CT of the abdomen/pelvis demonstrated severe fecal impaction with mild rectal dilatation. Patient received a enema in the ED. Plan; continue MiraLAX. 4) dehydration IV fluids received, patient is hemodynamically stable. Patient seen by Grey Trevizo PA-C, under the supervision of Dr. Flores. Physical Exam Narrative Patient is a 80-year-old male comfortably resting in bed, alert and oriented x3. Patient reports weakness, which has been ongoing for the past 6 weeks. Denies chest pain, shortness of breath, palpitations, hemoptysis, sputum production, fever, chills, N/V/D. Const alert, oriented x3 and no apparent distress HEENT normocephalic, head/scalp atraumatic and hearing grossly normal bilaterally Eyes PERRL, EOMs intact bilaterally and conjunctivae normal Neck no lymphadenopathy, supple and no JVD Resp normal respiratory effort, no retractions and no use of accessory muscles Cardio regular rate, regular rhythm, no murmurs and no JVD GI normal to inspection, nondistended, normoactive bowel sounds and soft to palpation Extremity normal to inspection, full ROM and no clubbing, cyanosis or edema Skin no rashes or lesions noted and no wounds Neuro CN's II-XII intact bilaterally Psych affect normal Weight / BMI Weight Weight: 159 lb 13.362 oz Body Mass Index (BMI) 22.9 ABG / Lab / Microbiology Data Result Diagrams: 04/08/21 05:40 04/08/21 05:40 Laboratory: Laboratory Results - last 24 hr 04/07/21 04/07/21 04/07/21 18:06 18:06 18:06 WBC 13.9 H RBC 4.55 L Hgb 14.3 Hct 42.3 MCV 93.0 MCH 31.4 MCHC 33.8 RDW Std Deviation 43.9 RDW Coeff of [place]rey 12.9 Plt Count 205 MPV 9.8 Immature Gran % (Auto) 0.400 Neut % (Auto) 90.2 H Lymph % (Auto) 3.7 L [place] % (Auto) 5.5 Eos % (Auto) 0.1 Baso % (Auto) 0.1 Absolute Neuts (auto) 12.6 H Absolute Lymphs (auto) 0.52 L Nucleated RBC % 0 Differential Comment SEE COMMENT Platelet Estimate ADEQUATE RBC Morphology N CHROM Anisocytosis RARE Macrocytosis RARE Sodium 139 Potassium 4.0 Chloride 104 Carbon Dioxide 31.0 Anion Gap 4 L BUN 32 H Creatinine 1.05 Estim Creat Clear Calc 56.01 Est GFR (MDRD) Af Amer 87 Est GFR (MDRD) Non-Af 72 BUN/Creatinine Ratio 30.5 H Glucose 114 H Calcium 9.4 Magnesium 2.5 Total Bilirubin 0.70 AST 18 ALT 16 Alkaline Phosphatase 61 Total Protein 6.7 Albumin 4.1 Globulin 2.6 Albumin/Globulin Ratio 1.6 Lipase 32 L Urine Color Urine Clarity Urine pH Ur Specific [place] Urine Protein Urine Glucose (UA) Urine Ketones Urine Occult Blood Urine Nitrite Urine Bilirubin Urine Urobilinogen Ur Leukocyte Esterase Urine RBC Urine WBC Ur Squamous Epith Cells Urine Bacteria Urine Mucus 04/07/21 04/08/21 04/08/21 19:40 05:40 05:40 WBC 8.5 RBC 4.15 L Hgb 13.1 Hct 38.5 L MCV 92.8 MCH 31.6 MCHC 34.0 RDW Std Deviation 43.3 RDW Coeff of Trey 12.8 Plt Count 198 MPV 10.1 Immature Gran % (Auto) 0.100 Neut % (Auto) 72.8 H Lymph % (Auto) 15.0 L [place] % (Auto) 10.7 H Eos % (Auto) 1.2 Baso % (Auto) 0.2 Absolute Neuts (auto) 6.2 Absolute Lymphs (auto) 1.28 Nucleated RBC % 0 Differential Comment Platelet Estimate RBC Morphology Anisocytosis Macrocytosis Sodium 141 Potassium 3.7 Chloride 107 Carbon Dioxide 30.0 Anion Gap 4 L BUN 25 H Creatinine 0.85 Estim Creat Clear Calc 68.71 Est GFR (MDRD) Af Amer 110 Est GFR (MDRD) Non-Af 91 BUN/Creatinine Ratio 29.3 H Glucose 97 Calcium 8.8 Magnesium Total Bilirubin AST ALT Alkaline Phosphatase Total Protein Albumin Globulin Albumin/Globulin Ratio Lipase Urine Color Yellow Urine Clarity Clear Urine pH 6.0 Ur Specific [place] 1.015 Urine Protein Negative Urine Glucose (UA) Normal Urine Ketones 50 H Urine Occult Blood Negative Urine Nitrite Negative Urine Bilirubin Negative Urine Urobilinogen Normal Ur Leukocyte Esterase 100 H Urine RBC 0 SEEN Urine WBC 0-5 SEEN Ur Squamous Epith Cells 0 SEEN Urine Bacteria 0 SEEN Urine Mucus 0 SEEN Radiography Diagnostic Testing: Radiology Impression Abdomen/Pelvis CT 04/07/21 18:45 IMPRESSION: Severe fecal impaction with marked rectal dilatation. This patient is at an increased risk of perforation. Recommend disimpaction. Multiple nonobstructing renal calculi on the left, largest measuring 9 mm and in the inferior pole. No hydronephrosis. Cholelithiasis. Moderate prostatomegaly. Correlate with PSA levels. Electronically Signed: Sudeep Tijerina MD at 19:45 EDT Tel , Service support , ADDENDUM: 04/07/212005 IMPRESSION: Severe fecal impaction with marked rectal dilatation. This patient is at an increased risk of perforation. Recommend disimpaction. Multiple nonobstructing renal calculi on the left, largest measuring 9 mm and in the inferior pole. No hydronephrosis. Cholelithiasis. Moderate prostatomegaly. Correlate with PSA levels. N.B. : The above Results were Read Back by Sudeep Tijerina MD to Dr. Yossi Lan MD, and understanding confirmed on 04/07/2021 20:00:00 (ET). Electronically Signed: Sudeep Tijerina MD at 19:45 EDT Tel , Service support , Meaningful Use Info Meaningful Use Diagnoses (Choose all that apply): None applicable Discharge Plan Admission Admit Date/Time: 04/07/21 20:44 Primary Reason for Your Visit: Weakness Attending Provider: Vinny Flores Primary Care Provider: Cheo Gamble Instructions Additional Instructions / Restrictions: Patient Problems: Altered Health Status related to Hospitalization Patient Goals: *Optimal Level of Health *Keep Appointments *Medication Compliance *Remain Safe Discharge Orders/Prescriptions Prescriptions: Continued Align 4 mg capsule 4 mg PO DAILY RF: 0 amlodipine 2.5 mg tablet 2.5 mg PO DAILY RF: 0 carbidopa-levodopa [Sinemet] 25-100 mg tablet 1.5 tab PO TID RF: 0 losartan 25 mg tablet 25 mg PO DAILY RF: 0 lansoprazole [Prevacid] 30 mg capsule,delayed release(DR/EC) 30 mg PO DAILY RF: 0 sertraline [Zoloft] 25 MG tablet 50 mg PO DAILY RF: 0 finasteride 5 MG tablet 5 mg PO QHS RF: 0 simvastatin 20 mg tablet 20 mg PO QHS RF: 0 levothyroxine 50 mcg tablet 50 mcg PO DAILY RF: 0 aspirin 81 MG tablet 81 mg PO BID RF: 0 coenzyme Q10 10 MG capsule 20 mg PO DAILY RF: 0 cholecalciferol (vitamin D3) 2,000 UNIT capsule 2,000 unit PO DAILY RF: 0 mecobalamin (vitamin B12) 5,000 mcg Tablet,Disintegrating 5,000 mcg PO DAILY RF: 0 levetiracetam [Keppra] 500 mg Tablet 500 mg PO BID RF: 0 polyethylene glycol 3350 [Miralax] 17 gram Powder In Packet 17 g PO DAILY RF: 0 bisacodyl [Dulcolax (bisacodyl)] 5 mg Tablet,Delayed Release (Dr/Ec) 5 - 10 mg PO QHS PRN (Reason: Constipation) RF: 0 cephalexin 500 mg capsule 500 mg PO Q12 Qty: 14 RF: 0 metoprolol succinate 25 mg tablet extended release 24 hr 25 mg PO DAILY Qty: 30 RF: 12 Referrals / Follow Up: Cheo Gamble MD [Primary Care Provider] - Within 2 Weeks (Please call to schedule follow up appointment) Disposition Disposition (needs filled in before D/C Order can be placed): Home Health Service Documented by User: Dr. Vinny Flores MD 04/08/21 16:02 Providers Date of Admission: 04/07/21 Reason For Visit: CHEST PAIN Medications at Discharge Home Medications finasteride 5 mg PO QHS 09/07/16 sertraline [Zoloft] 50 mg PO DAILY 09/07/16 aspirin 81 mg PO BID 10/05/16 cholecalciferol (vitamin D3) 2,000 unit PO DAILY 12/27/17 coenzyme Q10 20 mg PO DAILY 12/27/17 carbidopa 25 mg-levodopa 100 mg tablet 1.5 tab PO TID 06/20/19 lansoprazole 30 mg capsule,delayed release 30 mg PO DAILY 06/20/19 losartan 25 mg tablet 25 mg PO DAILY 06/20/19 simvastatin 20 mg tablet 20 mg PO QHS tab 06/20/19 Bifidobacterium infantis 4 mg capsule 4 mg PO DAILY 06/21/19 amlodipine 2.5 mg tablet 2.5 mg PO DAILY 06/21/19 levothyroxine 50 mcg tablet 50 mcg PO DAILY tab 06/21/19 metoprolol succinate 25 mg tablet,extended release 24 hr 25 mg PO DAILY #30 tab 02/09/21 mecobalamin (vitamin B12) 5,000 mcg PO DAILY 03/24/21 levetiracetam [Keppra] 500 mg PO BID 03/25/21 polyethylene glycol 3350 [Miralax] 17 g PO DAILY 04/06/21 bisacodyl [Dulcolax (bisacodyl)] 5 - 10 mg PO QHS PRN 04/07/21 cephalexin 500 mg PO Q12 #14 capsule 04/08/21 Hospital Course Operations None Summary of Care Provided Minutes Spent on Discharge: 35 Hospital Course: This patient was seen in conjunction with Grey Trevizo PA-C. I have independently interviewed and examined the patient and reviewed pertinent historical, laboratory, and other data. Please refer to Grey Trevizo PA-C's note for details of this patient's presentation, findings, and recommendations. I have reviewed Grey Trevizo PA-C's note and concur with documented findings. In brief, patient is a 80 M admitted with general weakness Physical Examination: GENERAL: cooperative HEENT: Atraumatic; EYES; Anicteric, Normal Conjunctiva NECK; supple, normal thyroid, RESPIRATORY: Diminished to auscultation CARDIOVASCULAR: Regular S1 S2, GI: soft, normoactive bowel sounds, : No Renal angle tenderness; EXTREMITIES: No edema, no clubbing, MUSCULOSKELETAL: no muscle waisting NEURO: Awake; no lateralizing signs. SKIN: No Rash PSYCH; Flat affect Assessment: 1. Acute cystitis 2. Physical deconditioning 3. Parkinson's disease 4. 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 Hypothyroidism 7. BPH 8. GERD 9. DVT prophylaxis Recommendations: 1. I have discussed the results of my overview and impressions with the patient 2. Options for management were reviewed ABG / Lab / Microbiology Data Result Diagrams: 04/08/21 05:40 04/08/21 05:40 Discharge Plan Admission Admit Date/Time: 04/07/21 20:44 Primary Reason for Your Visit: Weakness Attending Provider: Vinny Flores Primary Care Provider: Cheo Gamble Instructions Additional Instructions / Restrictions: Patient Problems: Altered Health Status related to Hospitalization Patient Goals: *Optimal Level of Health *Keep Appointments *Medication Compliance *Remain Safe Discharge Orders/Prescriptions Prescriptions: Continued Align 4 mg capsule 4 mg PO DAILY RF: 0 amlodipine 2.5 mg tablet 2.5 mg PO DAILY RF: 0 carbidopa-levodopa [Sinemet] 25-100 mg tablet 1.5 tab PO TID RF: 0 losartan 25 mg tablet 25 mg PO DAILY RF: 0 lansoprazole [Prevacid] 30 mg capsule,delayed release(DR/EC) 30 mg PO DAILY RF: 0 sertraline [Zoloft] 25 MG tablet 50 mg PO DAILY RF: 0 finasteride 5 MG tablet 5 mg PO QHS RF: 0 simvastatin 20 mg tablet 20 mg PO QHS RF: 0 levothyroxine 50 mcg tablet 50 mcg PO DAILY RF: 0 aspirin 81 MG tablet 81 mg PO BID RF: 0 coenzyme Q10 10 MG capsule 20 mg PO DAILY RF: 0 cholecalciferol (vitamin D3) 2,000 UNIT capsule 2,000 unit PO DAILY RF: 0 mecobalamin (vitamin B12) 5,000 mcg Tablet,Disintegrating 5,000 mcg PO DAILY RF: 0 levetiracetam [Keppra] 500 mg Tablet 500 mg PO BID RF: 0 polyethylene glycol 3350 [Miralax] 17 gram Powder In Packet 17 g PO DAILY RF: 0 bisacodyl [Dulcolax (bisacodyl)] 5 mg Tablet,Delayed Release (Dr/Ec) 5 - 10 mg PO QHS PRN (Reason: Constipation) RF: 0 cephalexin 500 mg capsule 500 mg PO Q12 Qty: 14 RF: 0 metoprolol succinate 25 mg tablet extended release 24 hr 25 mg PO DAILY Qty: 30 RF: 12 Referrals / Follow Up: Cheo Gamble MD [Primary Care Provider] - Within 2 Weeks (Please call to schedule follow up appointment) Disposition Disposition (needs filled in before D/C Order can be placed): Home Health Service Charges/Coding Visit Charges OBSV E&M: 23140 Observation care discharge Hospital Course Operations None
--- NOTE | 2021-04-08 15:00 | NT.THERAPY_ITS ---
Medical Nutrition Therapy - History Nutrition Services has been consulted to:: Manage nutrient details of diet order Current diet/nutrition support order:: Regular-general diet. Ensure enlive 120 mL PO 4x/day. - Anthropometric Measurements Height:: 5 ft 10 in Weight:: 72.5 kg Body Mass Index (BMI):: 22.9 - Relevant Labs Relevant Labs:: WBC 13.9 K/mm3 (4.4-11.0) H 04/07/21 18:06 RBC 4.15 M/mm3 (4.6-6.2) L 04/08/21 05:40 Hct 38.5 % (40-54) L 04/08/21 05:40 Neut % (Auto) 72.8 % (47-70) H 04/08/21 05:40 Lymph % (Auto) 15.0 % (19-41) L 04/08/21 05:40 [place] % (Auto) 10.7 % (0-10) H 04/08/21 05:40 Absolute Neuts (auto) 12.6 X10^3/uL (2.0-7.7) H 04/07/21 18:06 Absolute Lymphs (auto) 0.52 X10^3/uL (0.83-4.51) L 04/07/21 18:06 Anion Gap 4 (5-15) L 04/08/21 05:40 BUN 25 mg/dL (7-18) H 04/08/21 05:40 BUN/Creatinine Ratio 29.3 RATIO (10-20) H 04/08/21 05:40 Glucose 114 mg/dL (74-106) H 04/07/21 18:06 Lipase 32 U/L (73-393) L 04/07/21 18:06 - Assessment Food and Nutrient Intake: Seen in conjunction w/ Ana Hernandez, general internist. Pt reports that he feels full quickly after eating. State that he feels hungry but can only eat small amounts because his stomach feels uncomfortable and full. States that he feels nauseous if he eats too much. Pt also states that he feels weak because he isn't getting enough calories. Pt reports that he is going to see a top dyeing machine loader soon for his stomach discomfort. Pt's reports that he start noticing weight loss 4 weeks ago. Physical finding of moderate muscle and fat loss in the clavicle region. Pt's UBW is 180# and CBW is 159.8# representing 20.2#/11% weight loss in 1 month. Significant for malnutrition. - Nutrition Diagnosis: Clinical Problem Acute Disease or Injury Related Malnutrition Clinical Problem - Etiology: acute, severe malnutrition r/t inadequate energy intake d/t GI discomfort Clinical Problem - Signs/Symptoms: as evidenced by unintentional wt loss of 20.2#/11% weight loss in 1 month, moderate muscle wasting/fat loss upon physical exam, estimated PO intake meeting <50% of nutritional needs x 1 month Status: Active Problem - Protein Calorie Malnutrition Evidence of Malnutrition Exists: Yes Severe Protein Calorie Malnutrition:: Acute Illness/Injury - Nutrition Intervention Nutrition Prescription: 1,700-1,800kcal/day (RMR x 1.3). Protein 70-80g/day (1.0g/kg). Fluid 1,800-1,900mL/day (25mL/kg) - Food / Nutrient Delivery Interventions Summary of nutrition intervention:: Provide oral nutrition supplement Nutrition support ordered as / adjusted to:: Continue regular-general diet. Continue ensure enlive 120mL PO 4x/day at [facility]. Add chocolate magic cup BID and lunch and dinner. Add chocolate ensure pudding at breakfast. - MNT Monitoring Active Nutrition Patient: Yes Nutrition Status: Requires Follow Up 3-5 Days
--- NOTE | 2021-04-08 15:20 | PHA.DC.MR ---
Pharmacy Service has performed discharge medication reconciliation for this patient. The patient's discharge medication list was reviewed for discrepancies and discrepancies were resolved. Home Medications finasteride 5 mg PO QHS 09/07/16 sertraline [Zoloft] 50 mg PO DAILY 09/07/16 aspirin 81 mg PO BID 10/05/16 cholecalciferol (vitamin D3) 2,000 unit PO DAILY 12/27/17 coenzyme Q10 20 mg PO DAILY 12/27/17 carbidopa 25 mg-levodopa 100 mg tablet 1.5 tab PO TID 06/20/19 lansoprazole 30 mg capsule,delayed release 30 mg PO DAILY 06/20/19 losartan 25 mg tablet 25 mg PO DAILY 06/20/19 simvastatin 20 mg tablet 20 mg PO QHS tab 06/20/19 Bifidobacterium infantis 4 mg capsule 4 mg PO DAILY 06/21/19 amlodipine 2.5 mg tablet 2.5 mg PO DAILY 06/21/19 levothyroxine 50 mcg tablet 50 mcg PO DAILY tab 06/21/19 metoprolol succinate 25 mg tablet,extended release 24 hr 25 mg PO DAILY #30 tab 02/09/21 mecobalamin (vitamin B12) 5,000 mcg PO DAILY 03/24/21 levetiracetam [Keppra] 500 mg PO BID 03/25/21 polyethylene glycol 3350 [Miralax] 17 g PO DAILY 04/06/21 bisacodyl [Dulcolax (bisacodyl)] 5 - 10 mg PO QHS PRN 04/07/21 cephalexin 500 mg PO Q12 #14 capsule 04/08/21
== END 2021-04-08 14:18 | disposition home health service (06) ==
LOC: ED 20:02 → PCU 21:31
PROVIDERS: Admitting Provider Hospitalist; Emergency Provider Student in an Organized Health Care Education/Training Program; PCP Internal Medicine; Visit Provider Internal Medicine
DX: N30.00 Acute cystitis without hematuria (principal); E86.0 Dehydration; G20 Parkinson's disease; F41.9 Anxiety disorder, unspecified; I25.10 Atherosclerotic heart disease of native coronary artery without angina pectoris; N40.0 Benign prostatic hyperplasia without lower urinary tract symptoms; F32.9 Major depressive disorder, single episode, unspecified; R94.4 Abnormal results of kidney function studies; K21.9 Gastro-esophageal reflux disease without esophagitis; K56.41 Fecal impaction; E03.9 Hypothyroidism, unspecified; I10 Essential (primary) hypertension; R56.9 Unspecified convulsions; Z79.899 Other long term (current) drug therapy; Z79.82 Long term (current) use of aspirin; R07.9 Chest pain, unspecified
CPT/HCPCS: 36415; 71045; 74176; 74177; 80048; 80053; 81001; 83690; 83735; 85025; 85610; 85730; 87086; 93005; 96360; 96365; 96372; 97162; 97165; 97802; 99218; 99285; J7030; J7050; Q9967; A4216; G0378

== ENCOUNTER 2021-04-13 14:52 | Emergency (ER) | payer MEDICARE, OTHER, SELFPAY ==
[2021-04-08 15:03] VITALS: BMI 22.9
[2021-04-13 14:57] VITALS: BP 143/81; PULSE 62; RESP 17; TEMP 36.4; O2SAT 97; BMI 24.3
--- NOTE | 2021-04-13 15:15 | EKG12_ITS ---
Test Reason : SYNCOPE Blood Pressure : / mmHG Vent. Rate : 063 BPM Atrial Rate : 063 BPM P-R Int : 172 ms QRS Dur : 112 ms QT Int : 422 ms P-R-T Axes : 071 -27 054 degrees QTc Int : 431 ms Normal sinus rhythm Low voltage QRS Nonspecific T wave abnormality Abnormal ECG Confirmed by ZAHRA PRESTON, DESEAN ([id number]), slot editor TIMOTEO GARCIA ([id number]) on 04/15/2021 9:20:43 AM Referred By: Confirmed By:DESEAN SWEENEY MD
--- NOTE | 2021-04-13 15:20 | RAD_ITS ---
STUDY: X-RAY CHEST REASON FOR EXAM: Male, 80 years old. syncope TECHNIQUE: 1 view COMPARISON: 04/06/2001 FINDINGS: The heart is not enlarged there is tortuosity of the thoracic aorta. Left atrial closure there are multiple metallic stitches along the sternum from previous surgery. Both lung elliott are clear no pleural effusion or pneumothorax identified. The visualized bony structures are unremarkable. Calcifications of mitral valve is noted. RAD/Chest 1 View (Portable) IMPRESSION: No active intrathoracic disease Electronically Signed: Lnida Gunn, at 15:50 EDT Tel , Service support ,
[2021-04-13] MEDS: 0.9% Normal Saline 1,000 ML 150 ML IV (15:23)
[2021-04-13] MEDS: 0.9% Normal Saline 1,000 ML 1000 ML IV (15:23)
[2021-04-13 15:24] LABS: Absolute Lymphocyte Count 0.88 X10^3/uL (0.83-4.51); Absolute Neutrophil Count 5.2 X10^3/uL (2.0-7.7); Basophil# 0.03 X10^3/uL; Basophil% 0.4 % (0-1); Eosinophil# 0.11 X10^3/uL; Eosinophils% 1.6 % (0-5); Hematocrit 40.4 % (40-54); Hemoglobin 13.7 g/dL (13.0-16.5); Lymphocyte # 0.88 X10^3/ul (0.83-4.51); Lymphocyte % 12.8 % (19-41); Mean Corp Hgb Conc 33.9 g/dL (32-36); Mean Corpuscular Hgb 31.9 pg (27.0-32.0); Mean Platelet Vol. 10.2 fl (6.2-12.0); Monocyte# 0.59 X10^3/uL; Monocyte% 8.6 % (0-10); NRBC Flagged by Analyzer 0 % (0-5); Neutrophil % 75.9 % (47-70); Platelet Count 221 K/mm3 (150-450); RBC Distribution Width CV 12.9 % (11.6-14.6); RBC Distribution Width SD 44.2 fl (35.1-43.9); White Blood Count 6.9 K/mm3 (4.4-11.0)
--- NOTE | 2021-04-13 15:37 | EX.ED.DYSGE1 ---
HPI History of Present Illness Chief Complaint: Syncope Informant: patient and family Narrative Narrative: 80-year-old male presents via EMS following a syncopal episode at the doctor's office. Tells me he went to see gastroenterology because he has had difficulty eating much more than a few bites of food at a time. He states that the doctor was asking him multiple questions and began to get confused. He stated he then started to feel lightheaded he felt clammy and eventually he states he passed out. He states he told him to lay him down. The doctor states that she had difficulty finding a pulse for a second. Family tells me they did a couple chest compressions and he was back awake. He denies any chest pain or palpitations prior to the event. He has had prior syncope in the past as well as orthostatic hypotension. He has had a prior stent to the LAD. [facility] Medical History Anxiety Atherosclerotic heart disease of [place] coronary artery without angina pectoris BPH (benign prostatic hyperplasia) Bradycardia Depression Essential hypertension History of left heart catheterization (LHC) (~10/01/16) History of mitral valve disorder Hypothyroid Hypothyroidism Irregular heart beat Kidney stone Lung nodule Migraine Orthostatic hypotension Parkinsons disease Right sided weakness Seizure Slurred speech Spinal stenosis Syncope Wears hearing aid in both ears Home Medications finasteride 5 mg PO QHS 09/07/16 [History Last Taken 04/06/21] sertraline [Zoloft] 50 mg PO DAILY 09/07/16 [History Last Taken 03/24/21] aspirin 81 mg PO BID 10/05/16 [History Last Taken 04/06/21] cholecalciferol (vitamin D3) 2,000 unit PO DAILY 12/27/17 [History Last Taken 03/24/21] coenzyme Q10 20 mg PO DAILY 12/27/17 [History Last Taken 03/24/21] carbidopa 25 mg-levodopa 100 mg tablet 1.5 tab PO TID 06/20/19 [History Last Taken 04/06/21] lansoprazole 30 mg capsule,delayed release 30 mg PO DAILY 06/20/19 [History Last Taken 03/24/21] losartan 25 mg tablet 25 mg PO DAILY 06/20/19 [History Last Taken 03/24/21] simvastatin 20 mg tablet 20 mg PO QHS tab 06/20/19 [History Last Taken 03/23/21] Bifidobacterium infantis 4 mg capsule 4 mg PO DAILY 06/21/19 [History Last Taken 03/24/21] amlodipine 2.5 mg tablet 2.5 mg PO DAILY 06/21/19 [History Last Taken 03/24/21] levothyroxine 50 mcg tablet 75 mcg PO DAILY tab 06/21/19 [History Last Taken 03/24/21] metoprolol succinate 25 mg tablet,extended release 24 hr 25 mg PO DAILY #30 tab 02/09/21 [Rx Last Taken 04/06/21] mecobalamin (vitamin B12) 5,000 mcg PO DAILY 03/24/21 [History Last Taken 03/24/21] levetiracetam [Keppra] 500 mg PO BID 03/25/21 [History Last Taken Unknown] polyethylene glycol 3350 [Miralax] 17 g PO DAILY 04/06/21 [History Last Taken Unknown] bisacodyl [Dulcolax (bisacodyl)] 5 - 10 mg PO QHS PRN 04/07/21 [History Last Taken Unknown] cephalexin 500 mg PO Q12 #14 capsule 04/08/21 [Rx Last Taken Unknown] Allergy/AdvReac Type Severity Reaction Status Date / Time lisinopril AdvReac Nausea Verified 04/13/21 15:01 Family History Father CAD (coronary artery disease) Surgical History History of hernia repair History of mandibular surgery History of mitral valve repair (~11/18/16) Social History household members: none Smoking Status: Never smoker alcohol intake: never substance use type: does not use caffeine: No ROS ROS ED Constitutional Constitutional ED: Denies chills or weight loss Eyes Eyes: Denies change in vision or diplopia ENT ENT ED: Denies ear pain, rhinorrhea or sore throat Cardiovascular Cardiovascular: Reports other Details: Syncope ; Denies chest pain, orthopnea, palpitations or racing heartbeat Respiratory/Chest Respiratory/Chest: Reports other; Denies cough, dyspnea or orthopnea Gastrointestinal Gastrointestinal: Denies abdominal pain, diarrhea, nausea or vomiting Genitourinary Genitourinary ED: Denies dysuria, hematuria or urinary frequency Musculoskeletal Musculoskeletal: Denies arthralgias or myalgias Integumentary Denies abscess or rash Neurologic Neurologic: Denies headache(s) or weakness Psychiatric Psychiatric: Denies anxiety, depression, suicidal ideation or suicidal thoughts Endocrine Endocrinology: Denies polydipsia, polyphagia or polyuria Allergic/Immunologic Allergic/Immunologic ED: Denies mouth swelling, tongue swelling or urticaria EXAM Physical Exam Const Vital Signs: 04/13/21 14:57 Temperature 97.6 F L Temperature Source Temporal Pulse Rate 62 Respiratory Rate 17 Respiratory Effort Normal Non-Labored Respiratory Pattern Normal Blood Pressure 143/81 H Blood Pressure Mean 101 Pulse Ox 97 Oxygen Delivery Method Room Air Positive well nourished and well developed General Appearance ED: well developed HEENT Reports normocephalic, head/scalp atraumatic and moist mucous membranes Eyes PERRL and EOMs intact bilaterally Neck no lymphadenopathy, supple and no JVD Chest Wall inspection of chest normal Resp normal respiratory effort and clear to auscultation bilaterally Cardio regular rate, regular rhythm and no murmurs GI normal to inspection, nondistended, normoactive bowel sounds and non-tender Palpation: soft Back/Spine no CVA tenderness and normal ROM Extremity normal to inspection General Extremety ED: Negative for edema General Extremity: Negative for edema Neuro oriented x3 and CN's II-XII intact bilaterally Sensorium / Orientation: alert Motor Exam: strength 5/5 throughout Psych mental status grossly normal Mood & Affect: Negative for depressed or tearful Skin no rashes or lesions noted and no wounds MDM MDM MDM Narrative Medical decision making narrative: Patient has had no events on the monitor. Basic blood work is negative. Creatinine 1.1 BUN of 29. Glucose 114 troponin negative. My interpretation of his chest x-ray is no acute process. At this point patient will be discharged home. Instructions to follow-up with primary care or cardiology. At the time of disposition family now informs me that he took a fall this morning in the shower striking his right low flank on the seat the shower. I reexamined him he has some swelling and ecchymosis developing. Painful range of motion. He is however able to get up and to ambulate. We are going to attain a CT of this area to evaluate for rib and kidney injury. If this is negative I believe he can be discharged home with some pain medication. Lab Data Attestation: I reviewed the patient's lab results. Labs: Laboratory Results - last 24 hr 04/13/21 04/13/21 15:15 15:15 WBC 6.9 RBC 4.30 L Hgb 13.7 Hct 40.4 MCV 94.0 MCH 31.9 MCHC 33.9 RDW Std Deviation 44.2 H RDW Coeff of Trey 12.9 Plt Count 221 MPV 10.2 Immature Gran % (Auto) 0.700 Neut % (Auto) 75.9 H Lymph % (Auto) 12.8 L [place] % (Auto) 8.6 Eos % (Auto) 1.6 Baso % (Auto) 0.4 Absolute Neuts (auto) 5.2 Absolute Lymphs (auto) 0.88 Nucleated RBC % 0 Sodium 141 Potassium 3.7 Chloride 102 Carbon Dioxide 34.0 H Anion Gap 5 BUN 29 H Creatinine 1.11 Estim Creat Clear Calc 52.98 Est GFR (MDRD) Af Amer 82 Est GFR (MDRD) Non-Af 67 BUN/Creatinine Ratio 26.1 H Glucose 114 H Calcium 9.4 Total Bilirubin 0.80 AST 11 L ALT < 6 L Alkaline Phosphatase 62 Troponin I < 0.015 Total Protein 6.4 Albumin 3.8 Globulin 2.6 Albumin/Globulin Ratio 1.5 Radiography Diagnostic Testing: Radiology Impression Chest X-Ray 04/13/21 15:20 IMPRESSION: No active intrathoracic disease Electronically Signed: Linda Gunn, at 15:50 EDT Tel , Service support , EKG Initial EKG: Attestation: I personally reviewed and interpreted this EKG as follows: Comments: EKG demonstrates a normal sinus rhythm at a rate of 63. No concerning features of ACS or ectopy noted. Discharge Plan Triage Chief Complaint: Syncope ED Provider: Star Echavarria Dx/Rx/DC Orders Clinical Impression: Syncope Instructions: ED Fainting, Uncertain Cause Prescriptions: No Action Align 4 mg capsule 4 mg PO DAILY RF: 0 amlodipine 2.5 mg tablet 2.5 mg PO DAILY RF: 0 carbidopa-levodopa [Sinemet] 25-100 mg tablet 1.5 tab PO TID RF: 0 losartan 25 mg tablet 25 mg PO DAILY RF: 0 lansoprazole [Prevacid] 30 mg capsule,delayed release(DR/EC) 30 mg PO DAILY RF: 0 sertraline [Zoloft] 25 MG tablet 50 mg PO DAILY RF: 0 finasteride 5 MG tablet 5 mg PO QHS RF: 0 simvastatin 20 mg tablet 20 mg PO QHS RF: 0 levothyroxine 50 mcg tablet 75 mcg PO DAILY RF: 0 aspirin 81 MG tablet 81 mg PO BID RF: 0 coenzyme Q10 10 MG capsule 20 mg PO DAILY RF: 0 cholecalciferol (vitamin D3) 2,000 UNIT capsule 2,000 unit PO DAILY RF: 0 mecobalamin (vitamin B12) 5,000 mcg Tablet,Disintegrating 5,000 mcg PO DAILY RF: 0 levetiracetam [Keppra] 500 mg Tablet 500 mg PO BID RF: 0 polyethylene glycol 3350 [Miralax] 17 gram Powder In Packet 17 g PO DAILY RF: 0 bisacodyl [Dulcolax (bisacodyl)] 5 mg Tablet,Delayed Release (Dr/Ec) 5 - 10 mg PO QHS PRN (Reason: Constipation) RF: 0 cephalexin 500 mg capsule 500 mg PO Q12 Qty: 14 RF: 0 metoprolol succinate 25 mg tablet extended release 24 hr 25 mg PO DAILY Qty: 30 RF: 12 Primary Care Provider: Cheo Gamble Referrals: Cheo Gamble MD [Primary Care Provider] - 3-5 Days Disposition Disposition: Home, self care
[2021-04-13 15:45] LABS: ALB/GLOB Ratio 1.5 RATIO (0.9-2.4); AST(SGOT) 11 U/L (15-37); Alanine Aminotransfer ALT/SGPT < 6 U/L (16-61); Albumin, Serum 3.8 g/dL (3.2-5.0); Alkaline Phosphatase 62 U/L (45-117); Anion Gap 5 (5-15); BUN 29 mg/dL (7-18); BUN/Creat Ratio 26.1 RATIO (10-20); Calcium,Total 9.4 mg/dL (8.5-10.1); Chloride 102 mmol/L (98-107); Creatinine, Serum 1.11 mg/dL (0.70-1.30); EST Glomerular Filtration Rate 67 mL/min (>60); Est Glom Filt Rate - Afr Amer 82 mL/min (>60); Estimated Creatinine Clearance 52.98 ml/min; Globulin 2.6 g/dL (2.2-4.2); Glucose 114 mg/dL (74-106); Potassium 3.7 mmol/L (3.5-5.1); Protein, Total 6.4 g/dL (6.4-8.2); Sodium Level 141 mmol/L (136-145)
[2021-04-13 15:52] VITALS: BP 136/86; PULSE 65; RESP 16; O2SAT 99
--- NOTE | 2021-04-13 16:40 | CT_ITS ---
STUDY: CT ABDOMEN AND PELVIS WITH CONTRAST REASON FOR EXAM: Male, 80 years old. Right flank trauma RADIATION DOSAGE (If Supplied By Facility): CTDIvol = ( 14.21 ) mGy, DLP = ( 647.48 ) mGycm TECHNIQUE: Transaxial images were obtained from the dome of the diaphragm to the symphysis pubis without oral contrast. IV 100mL Isovue-370 was administered. Sagittal and coronal images were reconstructed. Individualized dose optimization techniques were used for this CT. COMPARISON: 04/07/2021. FINDINGS: The visualized lung bases are unremarkable. The visualized portions of the heart are within normal limits. Probable 4 mm right hepatic cyst in the liver. Normal gallbladder and extrahepatic biliary system. Normal spleen. Normal pancreas. Normal bilateral adrenal glands. Normal right kidney. Relatively stable up to 9 mm stones in the left kidney. Normal visualized stomach. Normal small intestine. Fecal retention distended and the rectum. The appendix is visualized and appears normal. Calcified abdominal aorta. Normal inferior vena cava. Normal retroperitoneum. Normal urinary bladder. Mild fatty density at the inguinal canals. The prostate is 4.7 x 6.1 cm. Normal abdominal wall. Normal osseous structures. CT/Abdomen/Pelvis W IV Cont ONLY IMPRESSION: Stable left renal calculi. Probable hepatic cyst. Mild fatty density and inguinal canals. Fecal retention distending the rectum. Electronically Signed: Dong Medina DO at 18:29 EDT Tel [phone], Service support ,
[2021-04-13 16:52] VITALS: BP 146/73; PULSE 56; RESP 18; O2SAT 99
[2021-04-13 17:52] VITALS: BP 139/85; PULSE 69; RESP 18; O2SAT 99
[2021-04-13 18:52] VITALS: PULSE 101; RESP 17; O2SAT 95
== END 2021-04-13 18:56 | disposition home or self-care (01) ==
PROVIDERS: Emergency Provider Emergency Medicine; PCP Internal Medicine
DX: R55 Syncope and collapse (principal); E03.9 Hypothyroidism, unspecified; F32.9 Major depressive disorder, single episode, unspecified; I10 Essential (primary) hypertension; I25.10 Atherosclerotic heart disease of native coronary artery without angina pectoris; Z79.82 Long term (current) use of aspirin; Z79.899 Other long term (current) drug therapy
CPT/HCPCS: 71045; 74177; 80053; 84484; 85025; 93005; 96360; 96361; 99285; J7030; Q9967; A4216

== ENCOUNTER 2021-04-15 18:42 | Observation (INO) | payer MEDICARE, OTHER, SELFPAY ==
[2021-04-15 18:43] VITALS: BP 134/92; PULSE 70; RESP 18; TEMP 36.4; O2SAT 98; BMI 22.1
--- NOTE | 2021-04-15 19:15 | EKG12_ITS ---
Test Reason : WEAKNESS Blood Pressure : / mmHG Vent. Rate : 064 BPM Atrial Rate : 064 BPM P-R Int : 170 ms QRS Dur : 104 ms QT Int : 418 ms P-R-T Axes : 037 -36 057 degrees QTc Int : 431 ms Normal sinus rhythm Left axis deviation Abnormal ECG Confirmed by HIRAL PRESTON, ISABELLA ([id number]), publications editor TIMOTEO GARCIA ([id number]) on 04/17/2021 12:56:41 PM Referred By: MARGUERITE Confirmed By:ISABELLA BLACKMAN MD
--- NOTE | 2021-04-15 19:15 | RAD_ITS ---
STUDY: X-RAY CHEST REASON FOR EXAM: Male, 80 years old. weakness TECHNIQUE: Single AP portable view of the chest. COMPARISON: 04/13/2021. FINDINGS: The lungs are clear and expanded. There is no demonstrated pleural abnormality. Normal size heart. Sternotomy wires are present. Left atrial appendage clip. Normal mediastinum and gavin. Normal visualized pulmonary arteries. Normal visualized aortic arch and descending thoracic aorta. Normal visualized thoracic spine. Normal visualized ribs, clavicles, and shoulders. There is no demonstrated abnormality of the visualized soft tissue structures of the upper abdomen. RAD/Chest 1 View (Portable) IMPRESSION: No acute findings. Electronically Signed: Esther Ronquillo MD at 20:29 EDT Tel , Service support ,
[2021-04-15 19:23] LABS: Absolute Lymphocyte Count 0.91 X10^3/uL (0.83-4.51); Basophil# 0.04 X10^3/uL; Basophil% 0.6 % (0-1); Eosinophil# 0.28 X10^3/uL; Eosinophils% 4.1 % (0-5); Hematocrit 44.1 % (40-54); Hemoglobin 14.6 g/dL (13.0-16.5); Lymphocyte # 0.91 X10^3/ul (0.83-4.51); Lymphocyte % 13.2 % (19-41); Mean Corp Hgb Conc 33.1 g/dL (32-36); Mean Corpuscular Hgb 31.6 pg (27.0-32.0); Mean Corpuscular Volume 95.5 fL (80-94); Mean Platelet Vol. 9.9 fl (6.2-12.0); Monocyte# 0.64 X10^3/uL; Monocyte% 9.3 % (0-10); NRBC Flagged by Analyzer 0 % (0-5); Neutrophil # 4.97 X10^3/uL (2.7-7.7); Neutrophil % 72.4 % (47-70); Platelet Count 239 K/mm3 (150-450); RBC Distribution Width SD 45.3 fl (35.1-43.9); Red Blood Count 4.62 M/mm3 (4.6-6.2); White Blood Count 6.9 K/mm3 (4.4-11.0)
[2021-04-15 19:37] LABS: Anion Gap 3 (5-15); BUN 24 mg/dL (7-18); BUN/Creat Ratio 21.8 RATIO (10-20); Calcium,Total 9.7 mg/dL (8.5-10.1); Chloride 103 mmol/L (98-107); EST Glomerular Filtration Rate 68 mL/min (>60); Est Glom Filt Rate - Afr Amer 82 mL/min (>60); Estimated Creatinine Clearance 51.26 ml/min; Glucose 118 mg/dL (74-106); Potassium 4.2 mmol/L (3.5-5.1); Sodium Level 140 mmol/L (136-145); Troponin-I HS 4.4 pg/mL (3.0-78.5)
--- NOTE | 2021-04-15 19:50 | RAD_ITS ---
STUDY: X-RAY - ABDOMEN/PELVIS REASON FOR EXAM: Male, 80 years old. Pain TECHNIQUE: Supine and erect views of the abdomen. COMPARISON: CT abdomen 04/13/2021. FINDINGS: Lung bases are clear. There is a non-obstructive bowel gas pattern. Moderate stool burden. There is no organomegaly. No abnormal calcifications. Soft tissues and bony structures are unremarkable. RAD/Abd Inc Decub and/or Erect IMPRESSION: Moderate stool burden. Nonobstructive abdomen. Electronically Signed: Esther Ronquillo MD at 20:38 EDT Tel , Service support ,
[2021-04-15 21:08] LABS: Mucous, Urine 0 SEEN /hpf (<or=2+)
--- NOTE | 2021-04-15 21:17 | ED.RN ---
daughter Lorie Hernandez is leaving and wants an update with room number. [phone]
[2021-04-15 21:54] LABS: Color, Urine Yellow (Yellow); Glucose, Dipstick Normal (Normal); Ketone-Dipstick Negative (Negative); Leukocyte Esterase-Dipstick 500 /ul (Negative); Nitrite-Dipstick Negative (Negative); Occult Blood-Urine 150 /ul (Negative); Protein-Dipstick 15 mg/dl (Negative); Specific Gravity, Urine 1.015 (1.002-1.030); Urine Bilirubin Dipstick Negative (Negative); Urine Clarity Cloudy (Clear); Urine Urobilinogen Normal (Normal)
[2021-04-15 22:02] LABS: Amorphous Sediment 1+; Bacteria 4+ /hpf (None Seen); Calcium Oxalate Crystals Ur 1+ /hpf (<or=2+); Hyaline Cast 0-5 SEEN /lpf (0-5); Red Blood Cells-Urine 0-5 SEEN /hpf (0-5); Squamous Epithelial Cells - UA 0-5 SEEN /hpf (0-5); White Blood Cells 25-50 SEEN /hpf (0-5)
[2021-04-15 22:12] VITALS: BP 153/89; PULSE 52; RESP 15; O2SAT 98
--- NOTE | 2021-04-15 22:39 | EDS_ITS ---
HPI History of Present Illness Chief Complaint: Weakness Informant: patient Narrative Narrative: Patient is an 80-year-old male with history of frequent falls, constipation and generalized weakness as well as Parkinson's disease presenting for increased weakness and request for placement. Patient was seen couple days ago for fall. SATs been home he has been very weak still. Family states they do not feel that they can take care of him anymore and want him to be admitted for rehab. Patient also notes he has not had a bowel movement in 7 days. He denies he says abdominal pain. Denies any blood in his stool. States he is still passing gas. I did take 2 Dulcolax prior to coming in today. He denies any nausea or vomiting. Family also notes has not been taking his medications regularly. He does have a home health aide already. [facility] Medical History Anxiety Atherosclerotic heart disease of [place] coronary artery without angina pectoris BPH (benign prostatic hyperplasia) Bradycardia Depression Essential hypertension History of left heart catheterization (LHC) (~10/01/16) History of mitral valve disorder Hypothyroid Hypothyroidism Irregular heart beat Kidney stone Lung nodule Migraine Orthostatic hypotension Parkinsons disease Right sided weakness Seizure Slurred speech Spinal stenosis Syncope Wears hearing aid in both ears Home Medications finasteride 5 mg PO QHS 09/07/16 [History Last Taken 04/06/21] sertraline [Zoloft] 50 mg PO DAILY 09/07/16 [History Last Taken 03/24/21] aspirin 81 mg PO BID 10/05/16 [History Last Taken 04/06/21] cholecalciferol (vitamin D3) 2,000 unit PO DAILY 12/27/17 [History Last Taken 03/24/21] coenzyme Q10 20 mg PO DAILY 12/27/17 [History Last Taken 03/24/21] carbidopa 25 mg-levodopa 100 mg tablet 1.5 tab PO TID 06/20/19 [History Last Taken 04/06/21] lansoprazole 30 mg capsule,delayed release 30 mg PO DAILY 06/20/19 [History Last Taken 03/24/21] losartan 25 mg tablet 25 mg PO DAILY 06/20/19 [History Last Taken 03/24/21] simvastatin 20 mg tablet 20 mg PO QHS tab 06/20/19 [History Last Taken 03/23/21] Bifidobacterium infantis 4 mg capsule 4 mg PO DAILY 06/21/19 [History Last Taken 03/24/21] amlodipine 2.5 mg tablet 2.5 mg PO DAILY 06/21/19 [History Last Taken 03/24/21] levothyroxine 50 mcg tablet 75 mcg PO DAILY tab 06/21/19 [History Last Taken 03/24/21] metoprolol succinate 25 mg tablet,extended release 24 hr 25 mg PO DAILY #30 tab 02/09/21 [Rx Last Taken 04/06/21] mecobalamin (vitamin B12) 5,000 mcg PO DAILY 03/24/21 [History Last Taken 03/24/21] levetiracetam [Keppra] 1,000 mg PO BID 03/25/21 [History Last Taken Unknown] bisacodyl [Dulcolax (bisacodyl)] 5 - 10 mg PO QHS PRN 04/07/21 [History Last T aken Unknown] hydrocodone-acetaminophen 1 tab PO Q6H PRN PRN 3 Days #10 tablet 04/13/21 [Rx Last Taken Unknown] Allergy/AdvReac Type Severity Reaction Status Date / Time lisinopril AdvReac Nausea Verified 04/15/21 18:45 Family History Father CAD (coronary artery disease) Surgical History History of hernia repair History of mandibular surgery History of mitral valve repair (~11/18/16) Social History household members: none Smoking Status: Never smoker alcohol intake: never substance use type: does not use caffeine: No ROS ROS ED Constitutional Constitutional ED: Denies chills, fever(s) or malaise Eyes Eyes: Denies blurry vision or loss of vision ENT ENT ED: Denies rhinorrhea or sore throat Cardiovascular Cardiovascular: Denies chest pain or dizziness Respiratory/Chest Respiratory/Chest: Denies cough or dyspnea Gastrointestinal Gastrointestinal: Reports constipation; Denies abdominal pain, diarrhea, nausea or vomiting Genitourinary Genitourinary ED: Denies dysuria or hematuria Musculoskeletal Musculoskeletal: Denies arthralgias or myalgias Integumentary Denies rash or wounds Neurologic Neurologic: Denies focal weakness or headache(s) Psychiatric Psychiatric: Denies anxiety or behavioral changes EXAM Physical Exam Const Vital Signs: 04/15/21 18:43 04/15/21 20:00 04/15/21 22:12 Temperature 97.5 F L Temperature Source Temporal Pulse Rate 70 52 L Respiratory Rate 18 15 Respiratory Effort Normal Respiratory Pattern Normal Blood Pressure 134/92 H 153/89 H Blood Pressure Mean 106 110 Pulse Ox 98 98 Oxygen Delivery Method Room Air Room Air Positive well nourished, well developed and no apparent distress General Appearance ED: well developed HEENT Reports normocephalic atraumatic Nose: no nasal discharge General Ear: hearing grossly impaired External Ear: external ears normal Eyes PERRL and EOMs intact bilaterally Neck full ROM, supple, no meningeal signs and no JVD Chest Wall inspection of chest normal Resp normal respiratory effort and normal air movement Cardio regular rate and regular rhythm GI normal to inspection, nondistended, normoactive bowel sounds and no masses Extremity normal to inspection and full ROM Neuro oriented x3 and no focal motor deficits Neuro Narrative: Resting tremor. No focal neurologic deficits. Sensorium / Orientation: alert Motor Exam: general weakness Psych mental status grossly normal and thought process normal Skin no rashes or lesions noted and no wounds MDM MDM MDM Narrative Medical decision making narrative: Patient is evaluated for debility. He has had frequent falls but no new falls and family is concerned that he is no longer safe at home. He like placement for long term/rehab. Work-up is largely negative in the ER. He notes he has not a bowel movement and has been noted constipation. He had multiple CTs of his abdomen pelvis this month alone so I did just order abdominal series to patient does not have any bowel gas pattern concerning for obstruction. This was just consistent with constipation. Patient is given a dose of lactulose in the emergency room. Urinalysis is concerning for possible UTI however he is not having any urinary symptoms. Culture sent. Will refrain from treating at this time. Lab Data Attestation: I reviewed the patient's lab results. Labs: Laboratory Results - last 24 hr 04/15/21 04/15/21 04/15/21 19:08 19:08 21:02 WBC 6.9 RBC 4.62 Hgb 14.6 Hct 44.1 MCV 95.5 H MCH 31.6 MCHC 33.1 RDW Std Deviation 45.3 H RDW Coeff of Trey 13.0 Plt Count 239 MPV 9.9 Immature Gran % (Auto) 0.400 Neut % (Auto) 72.4 H Lymph % (Auto) 13.2 L [place] % (Auto) 9.3 Eos % (Auto) 4.1 Baso % (Auto) 0.6 Absolute Neuts (auto) 5.0 Absolute Lymphs (auto) 0.91 Nucleated RBC % 0 Sodium 140 Potassium 4.2 Chloride 103 Carbon Dioxide 34.0 H Anion Gap 3 L BUN 24 H Creatinine 1.10 Estim Creat Clear Calc 51.26 Est GFR (MDRD) Af Amer 82 Est GFR (MDRD) Non-Af 68 BUN/Creatinine Ratio 21.8 H Glucose 118 H Calcium 9.7 Troponin I High Sens 4.4 Urine Color Yellow Urine Clarity Cloudy Urine pH 7.0 Ur Specific [place] 1.015 Urine Protein 15 H Urine Glucose (UA) Normal Urine Ketones Negative Urine Occult Blood 150 H Urine Nitrite Negative Urine Bilirubin Negative Urine Urobilinogen Normal Ur Leukocyte Esterase 500 H Urine RBC 0-5 SEEN Urine WBC 25-50 SEEN Ur Squamous Epith Cells 0-5 SEEN Calcium Oxalate Crystal 1+ Amorphous Sediment 1+ Urine Bacteria 4+ Hyaline Casts 0-5 SEEN Urine Mucus 0 SEEN Radiography Chest X-Ray - ED: 1 View, Read by ED Physician, Read by Radiologist and No Acute Disease Diagnostic Testing: Radiology Impression Chest X-Ray 04/15/21 19:15 IMPRESSION: No acute findings. Electronically Signed: Esther Ronquillo MD at 20:29 EDT Tel , Service support , Abdomen X-Ray 04/15/21 19:50 IMPRESSION: Moderate stool burden. Nonobstructive abdomen. Electronically Signed: Esther Ronquillo MD at 20:38 EDT Tel , Service support , Rhythm Strip Rhythm Strip: Sinus Rhythm Rate: 64 Ectopy: None EKG Initial EKG: Attestation: I personally reviewed and interpreted this EKG as follows: Interpretation: Sinus Rhythm Comments: Normal sinus rhythm rate of 64 Left axis deviation Normal intervals Normal ST segments Discharge Plan Dx/Rx/DC Orders Clinical Impression: Debility, General weakness Disposition Disposition: Acute Care Hospital [facility] Discharge Date/Time: 04/15/21 23:21
--- NOTE | 2021-04-15 23:17 | HP.PCM.HOS_ITS ---
HPI - General General Date of Admission: 04/15/21 Date of Service: 04/15/21 Chief Complaint: falls. weakness HPI Narrative Olivia RODRIGUEZ, is a 80 M who presents with weakness and falls. Patient was seen on the first fall he sustained at that time. Patient just feels weak overall and his daughter is unable to take care of him. Patient was sent to the emergency room and had abdominal x-ray that showed moderate stool burden. CAT scan from the showed fecal retention distending the rectum. The hospitalist service was contacted because the patient and his family do not feel that he can be managed safely at home and requesting evaluation for possible fci facility placement. [facility] Medical History Anxiety Atherosclerotic heart disease of [place] coronary artery without angina pectoris BPH (benign prostatic hyperplasia) Bradycardia Depression Essential hypertension History of left heart catheterization (LHC) (~10/01/16) History of mitral valve disorder Hypothyroid Hypothyroidism Irregular heart beat Kidney stone Lung nodule Migraine Orthostatic hypotension Parkinsons disease Right sided weakness Seizure Slurred speech Spinal stenosis Syncope Wears hearing aid in both ears Home Medications finasteride 5 mg PO QHS 09/07/16 [History Last Taken 04/06/21] sertraline [Zoloft] 50 mg PO DAILY 09/07/16 [History Last Taken 03/24/21] aspirin 81 mg PO BID 10/05/16 [History Last Taken 04/06/21] cholecalciferol (vitamin D3) 2,000 unit PO DAILY 12/27/17 [History Last Taken 03/24/21] coenzyme Q10 20 mg PO DAILY 12/27/17 [History Last Taken 03/24/21] carbidopa 25 mg-levodopa 100 mg tablet 1.5 tab PO TID 06/20/19 [History Last Taken 04/06/21] lansoprazole 30 mg capsule,delayed release 30 mg PO DAILY 06/20/19 [History Last Taken 03/24/21] losartan 25 mg tablet 25 mg PO DAILY 06/20/19 [History Last Taken 03/24/21] simvastatin 20 mg tablet 20 mg PO QHS tab 06/20/19 [History Last Taken 03/23/21] Bifidobacterium infantis 4 mg capsule 4 mg PO DAILY 06/21/19 [History Last Taken 03/24/21] amlodipine 2.5 mg tablet 2.5 mg PO DAILY 06/21/19 [History Last Taken 03/24/21] levothyroxine 50 mcg tablet 75 mcg PO DAILY tab 06/21/19 [History Last Taken 03/24/21] metoprolol succinate 25 mg tablet,extended release 24 hr 25 mg PO DAILY #30 tab 02/09/21 [Rx Last Taken 04/06/21] mecobalamin (vitamin B12) 5,000 mcg PO DAILY 03/24/21 [History Last Taken 03/24/21] levetiracetam [Keppra] 1,000 mg PO BID 03/25/21 [History Last Taken Unknown] bisacodyl [Dulcolax (bisacodyl)] 5 - 10 mg PO QHS PRN 04/07/21 [History Last Taken Unknown] hydrocodone-acetaminophen 1 tab PO Q6H PRN PRN 3 Days #10 tablet 04/13/21 [Rx Last Taken Unknown] Allergy/AdvReac Type Severity Reaction Status Date / Time lisinopril AdvReac Nausea Verified 04/15/21 18:45 Family History Father CAD (coronary artery disease) Surgical History History of hernia repair History of mandibular surgery History of mitral valve repair (~11/18/16) Social History household members: none Smoking Status: Never smoker alcohol intake: never substance use type: does not use caffeine: No ROS ROS Narrative Tremors due to Parkinson. Abdominal pain slight. Constipated patient has not had a bowel movement in 1 week. No fever or chills. All review of systems were negative except as mentioned above in the history of present illness and the other review of systems. Vital Signs Vital Signs Vital Signs: 04/15/21 18:43 04/15/21 20:00 04/15/21 22:12 Temperature 36.4 C L Temperature Source Temporal Pulse Rate 70 52 L Respiratory Rate 18 15 Respiratory Effort Normal Respiratory Pattern Normal Blood Pressure 134/92 H 153/89 H Blood Pressure Mean 106 110 Pulse Ox 98 98 Oxygen Delivery Method Room Air Room Air Weight Weight: 70 kg Body Mass Index (BMI) 22.1 Physical Exam Const alert and oriented x3 Constitutional Narrative: Resting tremor more noticeable on the right General Appearance: cooperative Resp normal respiratory effort and clear to auscultation bilaterally Cardio regular rate, regular rhythm, S1 normal heart sound and S2 normal heart sound GI soft to palpation and non-tender GI Narrative: Slight distention. Extremity normal to inspection Peripheral Pulses: Yes pulses 2+ throughout Neuro Sensorium / Orientation: awake and alert Results Lab / Micro Data Attestation: I reviewed the patient's lab results. Result Diagrams: 04/15/21 19:08 04/15/21 19:08 Labs: Laboratory Results - last 24 hr 04/15/21 04/15/21 04/15/21 19:08 19:08 21:02 WBC 6.9 RBC 4.62 Hgb 14.6 Hct 44.1 MCV 95.5 H MCH 31.6 MCHC 33.1 RDW Std Deviation 45.3 H RDW Coeff of Trey 13.0 Plt Count 239 MPV 9.9 Immature Gran % (Auto) 0.400 Neut % (Auto) 72.4 H Lymph % (Auto) 13.2 L [place] % (Auto) 9.3 Eos % (Auto) 4.1 Baso % (Auto) 0.6 Absolute Neuts (auto) 5.0 Absolute Lymphs (auto) 0.91 Nucleated RBC % 0 Sodium 140 Potassium 4.2 Chloride 103 Carbon Dioxide 34.0 H Anion Gap 3 L BUN 24 H Creatinine 1.10 Estim Creat Clear Calc 51.26 Est GFR (MDRD) Af Amer 82 Est GFR (MDRD) Non-Af 68 BUN/Creatinine Ratio 21.8 H Glucose 118 H Calcium 9.7 Troponin I High Sens 4.4 Urine Color Yellow Urine Clarity Cloudy Urine pH 7.0 Ur Specific [place] 1.015 Urine Protein 15 H Urine Glucose (UA) Normal Urine Ketones Negative Urine Occult Blood 150 H Urine Nitrite Negative Urine Bilirubin Negative Urine Urobilinogen Normal Ur Leukocyte Esterase 500 H Urine RBC 0-5 SEEN Urine WBC 25-50 SEEN Ur Squamous Epith Cells 0-5 SEEN Calcium Oxalate Crystal 1+ Amorphous Sediment 1+ Urine Bacteria 4+ Hyaline Casts 0-5 SEEN Urine Mucus 0 SEEN Radiology Impression Chest X-Ray 04/15/21 19:15 IMPRESSION: No acute findings. Electronically Signed: Esther Ronquillo MD at 20:29 EDT Tel , Service support , Abdomen X-Ray 04/15/21 19:50 IMPRESSION: Moderate stool burden. Nonobstructive abdomen. Electronically Signed: Esther Ronquillo MD at 20:38 EDT Tel , Service support , Assessment & Plan Assessment/Plan (1) FTT (failure to thrive) in adult: (2) Constipation: QUALIFIERS: Constipation type: unspecified constipation type Qualified Code(s): K59.00 - Constipation, unspecified PLAN: 1. Failure to thrive/debility/falls * Overall this is primarily due to the patient's age but more primarily due to his Parkinson's disease * PT OT evaluate and treat then case management to facilitate potential placement to a fci facility. 2. Constipation * Will give magnesium citrate x1. If that does not work then will try an enema which worked for the patient last time. * Likely compounded by the patient's underlying Parkinson's disease. 3. Parkinson's disease * Complicates overall care and recovery * Continue with Sinemet 4. VTE prophylaxis: Low risk given observation status at this time. 5. Advanced care planning: Discussed with the patient. Patient wishes to be DNR Comfort Care arrest but is okay with intubation if necessary. Charges/Coding Visit Charges OBSV E&M: 95868 Initial observation care L2
[2021-04-15 23:19] VITALS: BP 155/74; PULSE 58; RESP 16; TEMP 36.6; O2SAT 99
[2021-04-15] MEDS: Lactulose 20 GM/30 ML UDC PO (23:20)
[2021-04-15 23:34] VITALS: PULSE 68
[2021-04-15 23:39] VITALS: BMI 22.9
[2021-04-15 23:51] VITALS: BP 179/93; PULSE 63; RESP 18; TEMP 36.7; O2SAT 96
[2021-04-16] VITALS (8 sets, daily range): BP systolic 116–130; BP diastolic 77–86; PULSE 56–76; RESP 16; TEMP 36.2–36.6; O2SAT 97–99; BMI 22.9
[2021-04-16] MEDS: Magnesium Citrate 300 ML 150 ML PO (00:42)
[2021-04-16] MEDS: Carbidopa/Levodopa 25/100 Tablet PO ×3 (00:44→14:20)
[2021-04-16] MEDS: Atorvastatin Calcium 10 MG Tablet PO (00:44)
[2021-04-16] MEDS: Finasteride 5 MG Tablet PO (00:44)
[2021-04-16] MEDS: 0.9% Saline Lock 10 ML Syringe IV (02:26)
[2021-04-16] MEDS: Ondansetron 4 MG/2 ML Vial IV (02:26)
[2021-04-16] MEDS: Levothyroxine 75 MCG Tablet PO (06:11)
[2021-04-16] MEDS: Sertraline 50 MG Tablet PO (08:25)
[2021-04-16] MEDS: Aspirin E.C. 81 MG Tablet PO (08:25)
[2021-04-16] MEDS: Pantoprazole Sodium 40 MG Tablet PO (08:26)
[2021-04-16] MEDS: levETIRAcetam 1,000 MG Tablet 1000 MG PO (08:26)
[2021-04-16] MEDS: Metoprolol(XL)Succ 25 MG Tablet PO (09:23)
[2021-04-16] MEDS: Losartan Potassium 25 MG Tablet PO (09:23)
--- NOTE | 2021-04-16 09:39 | CASEMGMT ---
SW met with patient. Introduced self and role at [facility]. SW discussed d/c plan with patient. He said he will need to go to a correction for a little bit while he gets better. SW provided patient with a list of SNF providers including quality and resource use data and consistent with the patient?s preferred geographic region, medical needs, and insurance network. Patient said he is leaving it up to his daughters. He gave SW permission to call both of them. SW called both daughters and they both picked [facility] and [facility]. Nanda preferred [facility] and Shanel preferred [facility]. However, Shanel said Nanda lives closer so if she prefers [facility] that is fine. SW told both of them as well as patient that because he has not had his COVID vaccines he will have to quarantine for 14 days. SW explained that means he will have to stay in his room for 14 days. He will still get therapy, but no visitors at this time unless he is having a difficult time coping. All 3 expressed understanding. SW will work on referrals and keep them updated. Plan: SNF pending accepting facility. Felipa DICKEY
--- NOTE | 2021-04-16 11:15 | PN.HOSP_ITS ---
Documented by User: Grey PATEL 04/16/21 11:23 Subjective Subjective Patient is an 80-year-old male comfortably resting in bed, alert and oriented x3. Patient only reports lower back pain secondary to a fall he suffered in the shower prior to admission. Denies chest pain, shortness of breath, palpitat ions, hemoptysis, sputum production, fever, chills, N/V/D. Objective Data Objective Data Vital Signs: Vital Signs Temp Pulse Resp BP Pulse Ox 97.9 F 70 16 116/80 98 04/16/21 08:25 04/16/21 09:23 04/16/21 08:25 04/16/21 08:25 04/16/21 08:25 Oxygen Delivery Method Room Air Weight: 160 lb 0.889 oz Body Mass Index (BMI) 22.9 Lab / Micro Data Result Diagrams: 04/15/21 19:08 04/15/21 19:08 Labs: Laboratory Results - last 24 hr 04/15/21 04/15/21 04/15/21 19:08 19:08 21:02 WBC 6.9 RBC 4.62 Hgb 14.6 Hct 44.1 MCV 95.5 H MCH 31.6 MCHC 33.1 RDW Std Deviation 45.3 H RDW Coeff of [place]rey 13.0 Plt Count 239 MPV 9.9 Immature Gran % (Auto) 0.400 Neut % (Auto) 72.4 H Lymph % (Auto) 13.2 L [place] % (Auto) 9.3 Eos % (Auto) 4.1 Baso % (Auto) 0.6 Absolute Neuts (auto) 5.0 Absolute Lymphs (auto) 0.91 Nucleated RBC % 0 Sodium 140 Potassium 4.2 Chloride 103 Carbon Dioxide 34.0 H Anion Gap 3 L BUN 24 H Creatinine 1.10 Estim Creat Clear Calc 51.26 Est GFR (MDRD) Af Amer 82 Est GFR (MDRD) Non-Af 68 BUN/Creatinine Ratio 21.8 H Glucose 118 H Calcium 9.7 Troponin I High Sens 4.4 Urine Color Yellow Urine Clarity Cloudy Urine pH 7.0 Ur Specific [place] 1.015 Urine Protein 15 H Urine Glucose (UA) Normal Urine Ketones Negative Urine Occult Blood 150 H Urine Nitrite Negative Urine Bilirubin Negative Urine Urobilinogen Normal Ur Leukocyte Esterase 500 H Urine RBC 0-5 SEEN Urine WBC 25-50 SEEN Ur Squamous Epith Cells 0-5 SEEN Calcium Oxalate Crystal 1+ Amorphous Sediment 1+ Urine Bacteria 4+ Hyaline Casts 0-5 SEEN Urine Mucus 0 SEEN Radiography Diagnostic Testing: Radiology Impression Chest X-Ray 04/15/21 19:15 IMPRESSION: No acute findings. Electronically Signed: Esther Ronquillo MD at 20:29 EDT Tel , Service support , Abdomen X-Ray 04/15/21 19:50 IMPRESSION: Moderate stool burden. Nonobstructive abdomen. Electronically Signed: Esther Ronquillo MD at 20:38 EDT Tel , Service support , Rhythm Strip Rhythm Strip: Sinus Rhythm Rate: 64 Ectopy: None Physical Exam Const alert, oriented x3 and no apparent distress HEENT head/scalp atraumatic and moist oral mucous membranes Head and Scalp: normocephalic Eyes EOMs intact bilaterally and conjunctivae normal Neck no lymphadenopathy, supple and no JVD Resp normal respiratory effort, no retractions, no use of accessory muscles and clear to auscultation bilaterally Cardio regular rate, regular rhythm, no murmurs and no JVD GI normal to inspection, nondistended, normoactive bowel sounds and soft to pal pation Extremity normal to inspection and no clubbing, cyanosis or edema Skin no rashes or lesions noted, no wounds and skin turgor normal Neuro CN's II-XII intact bilaterally Psych affect normal Assessment & Plan Assessment/Plan (1) FTT (failure to thrive) in adult: (2) Constipation: QUALIFIERS: Constipation type: unspecified constipation type Qualified Code(s): K59.00 - Constipation, unspecified (3) Debility: (4) Contusion of flank: (5) Parkinsons disease: PLAN: Day 2; see subjective for patient presentation. 1) debility/fall Patient recently admitted for the same, at which time it was decided that home health care would be appropriate for patient. Patient reports that he suffered a mechanical fall due to slipping on a showerhead. patient and patient's daughters would now like placement at SNF. Plan; PT/OT/CM ordered and following; awaiting acceptance at [facility]. 2) constipation Resolved, patient reports large bowel movement this morning after receiving magnesium citrate. 3) Parkinson's disease Continue Sinemet. DVT prophylaxis -not indicated/low risk Patient seen by Grey Trevizo PA-C, under the supervision of Dr. Ferrera Documented by User: Dr. Jill Ferrera MD 04/16/21 14:33 Objective Data Lab / Micro Data Result Diagrams: 04/15/21 19:08 04/15/21 19:08 Charges/Coding Addendum Addendum: This patient was seen in conjunction with AMANDA Watkins. I have independently interviewed and examined the patient and reviewed pertinent historical, laboratory, and other data. Please refer to AMANDA Watkins's note for his patient's presentation, findings, and recommendations. I have reviewed and his note and concur with his documentation Patient was seen and examined. Complains of pain in the right flank region. This is a area of where he fell down. Bruising noted Physical Exam: Gen: Comfortable, not pale, not jaundiced CVS:HS I +II, regular, no murmurs RESP: Diminished at lung bases, large bruise over the right flank region GI: BS present and normal, soft, nontender, no palpable organs EXT:No edema ASSESSMENT: 1. Acute musculoskeletal pain secondary to fall 2. Debility 3. Constipation 4. Parkinson's disease Plan: We will add lidocaine patch We will add a bowel regimen Continue with PT and OT eval Discharge planning Visit Charges Inpatient E&M: 20340 Subs Hosp L2
--- NOTE | 2021-04-16 12:08 | CASEMGMT ---
PT saw patient. SW faxed referrals to [facility] and [facility]. Await responses. Felipa Abarca [employer] DES[employer] [facility]
--- NOTE | 2021-04-16 13:36 | CASEMGMT ---
SW received a return call from [facility] and pending his negative COVID test and OT eval they may be able to take patient. [facility] will fax this information as soon as it is available. [facility] is still waiting on [facility]. Felipa DICKEY
--- NOTE | 2021-04-16 13:41 | EX.NTREPO ---
Medical Nutrition Therapy - History Nutrition Services has been consulted to:: Manage nutrient details of diet order Current diet/nutrition support order:: Regular-general diet. Regular food consistency. Regular/thin liquid consistency. Ensure enlive 120mL PO 4x/day at [facility]. - Anthropometric Measurements Height:: 5 ft 10 in Weight:: 72.6 kg Body Mass Index (BMI):: 22.9 - Relevant Labs Relevant Labs:: MCV 95.5 fL (80-94) H 04/15/21 19:08 RDW Std Deviation 45.3 fl (35.1-43.9) H 04/15/21 19:08 Neut % (Auto) 72.4 % (47-70) H 04/15/21 19:08 Lymph % (Auto) 13.2 % (19-41) L 04/15/21 19:08 Carbon Dioxide 34.0 mmol/L (21.0-32.0) H 04/15/21 19:08 Anion Gap 3 (5-15) L 04/15/21 19:08 BUN 24 mg/dL (7-18) H 04/15/21 19:08 BUN/Creatinine Ratio 21.8 RATIO (10-20) H 04/15/21 19:08 Glucose 118 mg/dL (74-106) H 04/15/21 19:08 - Assessment Food and Nutrient Intake: Seen in conjuction w/ RJolly Hernandez, internal communications manager. Pt reports that he ate 100% of his breakfast. Pt states that he feels full quickly after eating because the food sits in his stomach. Pt reports that he has been having problems digesting food and experiences constipation. Reports that he has lost weight from having a decreased appetite due to early satiety. Pt reports that he started losing weight ~4.5 months ago. Pt's UBW is 180# and CBW is 160# representing 20#/11% weight loss in ~4.5 months-significant for malnutrition. Moderate muscle and fat wasting of clavicle region upon physical exam. - Nutrition Diagnosis: Clinical Problem Chronic Disease or Condition Related Malnutrition Clinical Problem - Etiology: severe malnutrition r/t inadequate energy intake d/t GI discomfort Clinical Problem - Signs/Symptoms: as evidenced by unintentional wt loss of 20#/11% weight loss in 4.5 months, moderate muscle wasting/fat loss upon physical exam, estimated PO intake meeting </= 75% of nutritional needs x 4.5 months. Status: Active Problem - Protein Calorie Malnutrition Evidence of Malnutrition Exists: Yes Severe Protein Calorie Malnutrition:: Chronic - Nutrition Intervention Nutrition Prescription: 1,700-1,800kcal/day (RMR x 1.3). Protein 70-80g/day (1.0g/kg). Fluid 1,800-1,900mL/day (25mL/kg) - Food / Nutrient Delivery Interventions Summary of nutrition intervention:: Provide oral nutrition supplement Nutrition support ordered as / adjusted to:: Continue regular-general diet. Continue ensure enlive 120mL PO 4x/day at [facility]. Add chocolate magic cup BID to lunch and dinner. - MNT Monitoring Active Nutrition Patient: Yes Nutrition Status: Requires Follow Up 3-5 Days
[2021-04-16] MEDS: Lidocaine 5% Patch 2 PATCH TOPICAL (14:52)
--- NOTE | 2021-04-16 15:23 | TREXTCAR_ITS ---
Documented by User: Grey PATEL 04/16/21 15:30 Diet 04/15/21 23:33 Diet: Regular - General Food consistency:: Regular Liquid Consistency:: Regular/Thin Diet Comments: chocolate magic cup w/ lunch and dinner Problem/Diagnosis (1) FTT (failure to thrive) in adult: Status: Acute (2) Constipation: Status: Acute (3) Debility: Status: Acute (4) Contusion of flank: Status: Acute (5) Parkinsons disease: Status: Acute Allergies/Procedures Done in Hospital Allergies lisinopril Adverse Reaction (Verified 04/15/21 18:45) Nausea Type of Care/Length of Stay Estimated LOS: Convalescent Care Less Than 30 days Type of Care Needed: Skilled Rehab Potential: Good Prognosis: Good Additional Orders/Day of Discharge Day of Discharge: 04/16/21 Dietary and Speech Recommendations Dietitian Recommendations/Changes: Continue regular-general diet. Continue ensure enlive 120mL PO 4x/day at [facility]. Add chocolate magic cup BID to lunch and dinner. Discharge Plan Admission Admit Date/Time: 04/15/21 23:14 Primary Reason for Your Visit: Fall Attending Provider: Jill Ferrera Primary Care Provider: Cheo Gamble Discharge Orders/Prescriptions Prescriptions: New lidocaine [Lidoderm] 5 % adhesive patch,medicated 1 patch topical DAILY Qty: 15 RF: 0 Continued Align 4 mg capsule 4 mg PO DAILY RF: 0 amlodipine 2.5 mg tablet 2.5 mg PO DAILY RF: 0 carbidopa-levodopa [Sinemet] 25-100 mg tablet 1.5 tab PO TID RF: 0 losartan 25 mg tablet 25 mg PO DAILY RF: 0 lansoprazole [Prevacid] 30 mg capsule,delayed release(DR/EC) 30 mg PO DAILY RF: 0 sertraline [Zoloft] 25 MG tablet 50 mg PO DAILY RF: 0 finasteride 5 MG tablet 5 mg PO QHS RF: 0 simvastatin 20 mg tablet 20 mg PO QHS RF: 0 levothyroxine 50 mcg tablet 75 mcg PO DAILY RF: 0 aspirin 81 MG tablet 81 mg PO BID RF: 0 coenzyme Q10 10 MG capsule 20 mg PO DAILY RF: 0 cholecalciferol (vitamin D3) 2,000 UNIT capsule 2,000 unit PO DAILY RF: 0 mecobalamin (vitamin B12) 5,000 mcg Tablet,Disintegrating 5,000 mcg PO DAILY RF: 0 levetiracetam [Keppra] 500 mg Tablet 1,000 mg PO BID RF: 0 bisacodyl [Dulcolax (bisacodyl)] 5 mg Tablet,Delayed Release (Dr/Ec) 5 - 10 mg PO QHS PRN (Reason: Constipation) RF: 0 hydrocodone-acetaminophen 1 TABLET tablet 1 tab PO Q6H PRN PRN (Reason: Pain) 3 Days Qty: 10 RF: 0 metoprolol succinate 25 mg tablet extended release 24 hr 25 mg PO DAILY Qty: 30 RF: 12 Referrals / Follow Up: Cheo Gamble MD [Primary Care Provider] - Within 2 Weeks Disposition Disposition (needs filled in before D/C Order can be placed): [facility] Documented by User: Dr. Jill Ferrera MD 04/16/21 15:48 Diet Regular diet Routine Orders/Code Status Routine Lab Work: CBC (within 3 days) and BMP (within 3 days) Code Status: DNRCC-A Therapies Weight Bearing: Weight bearing as tolerated Physical Therapy: Eval and Treat Occupational Therapy: Eval and Treat Allergies/Procedures Done in Hospital Allergies lisinopril Adverse Reaction (Verified 04/15/21 18:45) Nausea Procedures: None Type of Care/Length of Stay Estimated LOS: Convalescent Care Less Than 30 days Type of Care Needed: Skilled Rehab Potential: Good Prognosis: Good Additional Orders/Day of Discharge Day of Discharge: 04/16/21 Discharge Plan Admission Admit Date/Time: 04/15/21 23:14 Primary Reason for Your Visit: Fall Attending Provider: Jill Ferrera Primary Care Provider: Cheo Gamble Discharge Orders/Prescriptions Prescriptions: New lidocaine [Lidoderm] 5 % adhesive patch,medicated 1 patch topical DAILY Qty: 15 RF: 0 Continued Align 4 mg capsule 4 mg PO DAILY RF: 0 amlodipine 2.5 mg tablet 2.5 mg PO DAILY RF: 0 carbidopa-levodopa [Sinemet] 25-100 mg tablet 1.5 tab PO TID RF: 0 losartan 25 mg tablet 25 mg PO DAILY RF: 0 lansoprazole [Prevacid] 30 mg capsule,delayed release(DR/EC) 30 mg PO DAILY RF: 0 sertraline [Zoloft] 25 MG tablet 50 mg PO DAILY RF: 0 finasteride 5 MG tablet 5 mg PO QHS RF: 0 simvastatin 20 mg tablet 20 mg PO QHS RF: 0 levothyroxine 50 mcg tablet 75 mcg PO DAILY RF: 0 aspirin 81 MG tablet 81 mg PO BID RF: 0 coenzyme Q10 10 MG capsule 20 mg PO DAILY RF: 0 cholecalciferol (vitamin D3) 2,000 UNIT capsule 2,000 unit PO DAILY RF: 0 mecobalamin (vitamin B12) 5,000 mcg Tablet,Disintegrating 5,000 mcg PO DAILY RF: 0 levetiracetam [Keppra] 500 mg Tablet 1,000 mg PO BID RF: 0 bisacodyl [Dulcolax (bisacodyl)] 5 mg Tablet,Delayed Release (Dr/Ec) 5 - 10 mg PO QHS PRN (Reason: Constipation) RF: 0 hydrocodone-acetaminophen 1 TABLET tablet 1 tab PO Q6H PRN PRN (Reason: Pain) 3 Days Qty: 10 RF: 0 metoprolol succinate 25 mg tablet extended release 24 hr 25 mg PO DAILY Qty: 30 RF: 12 Referrals / Follow Up: Cheo Gamble MD [Primary Care Provider] - Within 2 Weeks Disposition Disposition (needs filled in before D/C Order can be placed): [facility]
--- NOTE | 2021-04-16 15:29 | CASEMGMT ---
[facility] faxed negative COVID and OT evaluation to both [facility] and [facility] Both facilities have accepted patient. Patient's local daughter preferred [facility] and his other daughter would go with whatever she wants (per earlier discussion). [facility]. [facility] notified patient SW spoke with his daughters and their preferences were [facility] and [facility]. [facility] let him know he will be going to [facility]. [facility] let him know that he will be going today. [place] told him SW will let his daughters know. [facility] called patient's daughter Nanda and let her know patient will be going to [facility] and he will be going today. She said she will call her sister and let her know. [facility] is aware patient will be coming today. Await orders. Plan: d/c to [facility] under skilled level of care on a PASRR as he is observation status. [facility] will transport. Felipa DICKEY
--- NOTE | 2021-04-16 15:30 | PCM.DC.SUM ---
Documented by User: Grey PATEL 04/16/21 15:35 Providers Date of Admission: 04/15/21 Primary Care Physician: Dr. Cheo Gamble MD Reason For Visit: DEBILITY Diagnosis Discharge Diagnosis (1) FTT (failure to thrive) in adult: Status: Acute Code(s): R62.7 - Adult failure to thrive (2) Constipation: Status: Acute Code(s): K59.00 - Constipation, unspecified Qualifiers: Constipation type: unspecified constipation type Qualified Code(s): K59.00 - Constipation, unspecified (3) Debility: Status: Acute Code(s): R53.81 - Other malaise (4) Contusion of flank: Status: Acute Code(s): S30.1XXA - Contusion of abdominal wall, initial encounter (5) Parkinsons disease: Status: Acute Code(s): G20 - Parkinson's disease Medications at Discharge Home Medications finasteride 5 mg PO QHS 09/07/16 sertraline [Zoloft] 50 mg PO DAILY 09/07/16 aspirin 81 mg PO BID 10/05/16 cholecalciferol (vitamin D3) 2,000 unit PO DAILY 12/27/17 coenzyme Q10 20 mg PO DAILY 12/27/17 carbidopa 25 mg-levodopa 100 mg tablet 1.5 tab PO TID 06/20/19 lansoprazole 30 mg capsule,delayed release 30 mg PO DAILY 06/20/19 losartan 25 mg tablet 25 mg PO DAILY 06/20/19 simvastatin 20 mg tablet 20 mg PO QHS tab 06/20/19 Bifidobacterium infantis 4 mg capsule 4 mg PO DAILY 06/21/19 amlodipine 2.5 mg tablet 2.5 mg PO DAILY 06/21/19 levothyroxine 50 mcg tablet 75 mcg PO DAILY tab 06/21/19 metoprolol succinate 25 mg tablet,extended release 24 hr 25 mg PO DAILY #30 tab 02/09/21 mecobalamin (vitamin B12) 5,000 mcg PO DAILY 03/24/21 levetiracetam [Keppra] 1,000 mg PO BID 03/25/21 bisacodyl [Dulcolax (bisacodyl)] 5 - 10 mg PO QHS PRN 04/07/21 hydrocodone-acetaminophen 1 tab PO Q6H PRN PRN 3 Days #10 tablet 04/13/21 lidocaine [Lidoderm] 1 patch TOPICAL DAILY #15 ea 04/16/21 Hospital Course Summary of Care Provided Minutes Spent on Discharge: 35 Hospital Course: 1) debility/fall Patient recently admitted for the same, at which time it was decided that home health care would be appropriate for patient. Patient reports that he suffered a mechanical fall due to slipping on a showerhead. patient and patient's daughters would now like placement at SNF. Plan; discharge to [facility] for sn[facility] care, Lidoderm patches ordered on discharge. 2) constipation Resolved, patient reports large bowel movement this morning after receiving magnesium citrate. 3) Parkinson's disease Continue Sinemet. Patient seen by Grey Trevizo PA-C, under the supervision of Dr. Ferrera. Physical Exam Narrative Patient is an 80-year-old male comfortably resting in bed, alert and orient x3. Endorses back pain secondary to fall he suffered yesterday. Denies chest pain, shortness of breath, palpitations, fever, chills, N/V/D. Const alert, oriented x3 and no apparent distress HEENT normocephalic, head/scalp atraumatic and hearing grossly normal bilaterally Eyes EOMs intact bilaterally and conjunctivae normal Neck no lymphadenopathy, supple and no JVD Resp normal respiratory effort, no retractions, no use of accessory muscles and clear to auscultation bilaterally Cardio regular rate, regular rhythm, no murmurs and no JVD GI normal to inspection, nondistended, normoactive bowel sounds and soft to palpation Extremity normal to inspection, full ROM and no clubbing, cyanosis or edema Skin Skin Narrative: Bruising noted to the right lower back. Neuro CN's II-XII intact bilaterally Psych affect normal Weight / BMI Weight Weight: 160 lb 0.889 oz Body Mass Index (BMI) 22.9 ABG / Lab / Microbiology Data Result Diagrams: 04/15/21 19:08 04/15/21 19:08 Laboratory: Laboratory Results - last 24 hr 04/15/21 04/15/21 04/15/21 19:08 19:08 21:02 WBC 6.9 RBC 4.62 Hgb 14.6 Hct 44.1 MCV 95.5 H MCH 31.6 MCHC 33.1 RDW Std Deviation 45.3 H RDW Coeff of Trey 13.0 Plt Count 239 MPV 9.9 Immature Gran % (Auto) 0.400 Neut % (Auto) 72.4 H Lymph % (Auto) 13.2 L [place] % (Auto) 9.3 Eos % (Auto) 4.1 Baso % (Auto) 0.6 Absolute Neuts (auto) 5.0 Absolute Lymphs (auto) 0.91 Nucleated RBC % 0 Sodium 140 Potassium 4.2 Chloride 103 Carbon Dioxide 34.0 H Anion Gap 3 L BUN 24 H Creatinine 1.10 Estim Creat Clear Calc 51.26 Est GFR (MDRD) Af Amer 82 Est GFR (MDRD) Non-Af 68 BUN/Creatinine Ratio 21.8 H Glucose 118 H Calcium 9.7 Troponin I High Sens 4.4 Urine Color Yellow Urine Clarity Cloudy Urine pH 7.0 Ur Specific [place] 1.015 Urine Protein 15 H Urine Glucose (UA) Normal Urine Ketones Negative Urine Occult Blood 150 H Urine Nitrite Negative Urine Bilirubin Negative Urine Urobilinogen Normal Ur Leukocyte Esterase 500 H Urine RBC 0-5 SEEN Urine WBC 25-50 SEEN Ur Squamous Epith Cells 0-5 SEEN Calcium Oxalate Crystal 1+ Amorphous Sediment 1+ Urine Bacteria 4+ Hyaline Casts 0-5 SEEN Urine Mucus 0 SEEN Microbiology: Microbiology 04/16/21 13:30 SARS-CoV-2 Antigen (Rapid) - Final Mucosa - Nose Microbiology 04/16/21 13:30 Mucosa - Nose SARS-CoV-2 Antigen (Rapid) - Final Radiography Diagnostic Testing: Radiology Impression Chest X-Ray 04/15/21 19:15 IMPRESSION: No acute findings. Electronically Signed: Esther Ronquillo MD at 20:29 EDT Tel , Service support , Abdomen X-Ray 04/15/21 19:50 IMPRESSION: Moderate stool burden. Nonobstructive abdomen. Electronically Signed: Esther Ronquillo MD at 20:38 EDT Tel , Service support , Meaningful Use Info Meaningful Use Diagnoses (Choose all that apply): None applicable Discharge Plan Admission Admit Date/Time: 04/15/21 23:14 Primary Reason for Your Visit: Fall Attending Provider: Jill Ferrera Primary Care Provider: Cheo Gamble Discharge Orders/Prescriptions Prescriptions: New lidocaine [Lidoderm] 5 % adhesive patch,medicated 1 patch topical DAILY Qty: 15 RF: 0 Continued Align 4 mg capsule 4 mg PO DAILY RF: 0 amlodipine 2.5 mg tablet 2.5 mg PO DAILY RF: 0 carbidopa-levodopa [Sinemet] 25-100 mg tablet 1.5 tab PO TID RF: 0 losartan 25 mg tablet 25 mg PO DAILY RF: 0 lansoprazole [Prevacid] 30 mg capsule,delayed release(DR/EC) 30 mg PO DAILY RF: 0 sertraline [Zoloft] 25 MG tablet 50 mg PO DAILY RF: 0 finasteride 5 MG tablet 5 mg PO QHS RF: 0 simvastatin 20 mg tablet 20 mg PO QHS RF: 0 levothyroxine 50 mcg tablet 75 mcg PO DAILY RF: 0 aspirin 81 MG tablet 81 mg PO BID RF: 0 coenzyme Q10 10 MG capsule 20 mg PO DAILY RF: 0 cholecalciferol (vitamin D3) 2,000 UNIT capsule 2,000 unit PO DAILY RF: 0 mecobalamin (vitamin B12) 5,000 mcg Tablet,Disintegrating 5,000 mcg PO DAILY RF: 0 levetiracetam [Keppra] 500 mg Tablet 1,000 mg PO BID RF: 0 bisacodyl [Dulcolax (bisacodyl)] 5 mg Tablet,Delayed Release (Dr/Ec) 5 - 10 mg PO QHS PRN (Reason: Constipation) RF: 0 hydrocodone-acetaminophen 1 TABLET tablet 1 tab PO Q6H PRN PRN (Reason: Pain) 3 Days Qty: 10 RF: 0 metoprolol succinate 25 mg tablet extended release 24 hr 25 mg PO DAILY Qty: 30 RF: 12 Referrals / Follow Up: Cheo Gamble MD [Primary Care Provider] - Within 2 Weeks Disposition Disposition (needs filled in before D/C Order can be placed[facility] Documented by User: Dr. Jill Ferrera MD 04/16/21 15:52 Providers Date of Admission: 04/15/21 Reason For Visit: DEBILITY Medications at Discharge Home Medications finasteride 5 mg PO QHS 09/07/16 sertraline [Zoloft] 50 mg PO DAILY 09/07/16 aspirin 81 mg PO BID 10/05/16 cholecalciferol (vitamin D3) 2,000 unit PO DAILY 12/27/17 coenzyme Q10 20 mg PO DAILY 12/27/17 carbidopa 25 mg-levodopa 100 mg tablet 1.5 tab PO TID 06/20/19 lansoprazole 30 mg capsule,delayed release 30 mg PO DAILY 06/20/19 losartan 25 mg tablet 25 mg PO DAILY 06/20/19 simvastatin 20 mg tablet 20 mg PO QHS tab 06/20/19 Bifidobacterium infantis 4 mg capsule 4 mg PO DAILY 06/21/19 amlodipine 2.5 mg tablet 2.5 mg PO DAILY 06/21/19 levothyroxine 50 mcg tablet 75 mcg PO DAILY tab 06/21/19 metoprolol succinate 25 mg tablet,extended release 24 hr 25 mg PO DAILY #30 tab 02/09/21 mecobalamin (vitamin B12) 5,000 mcg PO DAILY 03/24/21 levetiracetam [Keppra] 1,000 mg PO BID 03/25/21 bisacodyl [Dulcolax (bisacodyl)] 5 - 10 mg PO QHS PRN 04/07/21 hydrocodone-acetaminophen 1 tab PO Q6H PRN PRN 3 Days #10 tablet 04/13/21 lidocaine [Lidoderm] 1 patch TOPICAL DAILY #15 ea 04/16/21 ABG / Lab / Microbiology Data Result Diagrams: 04/15/21 19:08 04/15/21 19:08 Discharge Plan Admission Admit Date/Time: 04/15/21 23:14 Primary Reason for Your Visit: Fall Attending Provider: Jill Ferrera Primary Care Provider: Cheo Gamble Discharge Orders/Prescriptions Prescriptions: New lidocaine [Lidoderm] 5 % adhesive patch,medicated 1 patch topical DAILY Qty: 15 RF: 0 Continued Align 4 mg capsule 4 mg PO DAILY RF: 0 amlodipine 2.5 mg tablet 2.5 mg PO DAILY RF: 0 carbidopa-levodopa [Sinemet] 25-100 mg tablet 1.5 tab PO TID RF: 0 losartan 25 mg tablet 25 mg PO DAILY RF: 0 lansoprazole [Prevacid] 30 mg capsule,delayed release(DR/EC) 30 mg PO DAILY RF: 0 sertraline [Zoloft] 25 MG tablet 50 mg PO DAILY RF: 0 finasteride 5 MG tablet 5 mg PO QHS RF: 0 simvastatin 20 mg tablet 20 mg PO QHS RF: 0 levothyroxine 50 mcg tablet 75 mcg PO DAILY RF: 0 aspirin 81 MG tablet 81 mg PO BID RF: 0 coenzyme Q10 10 MG capsule 20 mg PO DAILY RF: 0 cholecalciferol (vitamin D3) 2,000 UNIT capsule 2,000 unit PO DAILY RF: 0 mecobalamin (vitamin B12) 5,000 mcg Tablet,Disintegrating 5,000 mcg PO DAILY RF: 0 levetiracetam [Keppra] 500 mg Tablet 1,000 mg PO BID RF: 0 bisacodyl [Dulcolax (bisacodyl)] 5 mg Tablet,Delayed Release (Dr/Ec) 5 - 10 mg PO QHS PRN (Reason: Constipation) RF: 0 hydrocodone-acetaminophen 1 TABLET tablet 1 tab PO Q6H PRN PRN (Reason: Pain) 3 Days Qty: 10 RF: 0 metoprolol succinate 25 mg tablet extended release 24 hr 25 mg PO DAILY Qty: 30 RF: 12 Referrals / Follow Up: Cheo Gamble MD [Primary Care Provider] - Within 2 Weeks Disposition Disposition (needs filled in before D/C Order can be placed): [facility] Charges/Coding Addendum Addendum: This patient was seen in conjunction with AMANDA Watkins. I have independently interviewed and examined the patient and reviewed pertinent historical, laboratory, and other data. Please refer to AMANDA Watkins's note for his patient's presentation, findings, and recommendations. I have reviewed and his note and concur with his documentation 80-year-old male with multiple comorbidities including Parkinson's disease who comes in with generalized weakness and falls. Patient was recently seen in the emergency room for constipation. His family is unable to care for him. Patient was seen with a right flank bruise. X-ray was negative for acute fractures. Patient was managed symptomatic with pain control. He was seen by PT and OT and skilled for discharge to snf facility. Physical Exam: Gen: Comfortable, not pale, not jaundiced CVS:HS I +II, regular, no murmurs RESP: Diminished at lung bases, black?blue bruising in the right flank GI: BS present and normal, soft, nontender, no palpable organs EXT:No edema Visit Charges OBSV E&M: 51754 Observation care discharge
--- NOTE | 2021-04-16 15:46 | PHA.DC.MR ---
Pharmacy Service has performed discharge medication reconciliation for this patient upon transfer to [facility]. Home Medications finasteride 5 mg PO QHS 09/07/16 sertraline [Zoloft] 50 mg PO DAILY 09/07/16 aspirin 81 mg PO BID 10/05/16 cholecalciferol (vitamin D3) 2,000 unit PO DAILY 12/27/17 coenzyme Q10 20 mg PO DAILY 12/27/17 carbidopa 25 mg-levodopa 100 mg tablet 1.5 tab PO TID 06/20/19 lansoprazole 30 mg capsule,delayed release 30 mg PO DAILY 06/20/19 losartan 25 mg tablet 25 mg PO DAILY 06/20/19 simvastatin 20 mg tablet 20 mg PO QHS tab 06/20/19 Bifidobacterium infantis 4 mg capsule 4 mg PO DAILY 06/21/19 amlodipine 2.5 mg tablet 2.5 mg PO DAILY 06/21/19 levothyroxine 50 mcg tablet 75 mcg PO DAILY tab 06/21/19 metoprolol succinate 25 mg tablet,extended release 24 hr 25 mg PO DAILY #30 tab 02/09/21 mecobalamin (vitamin B12) 5,000 mcg PO DAILY 03/24/21 levetiracetam [Keppra] 1,000 mg PO BID 03/25/21 bisacodyl [Dulcolax (bisacodyl)] 5 - 10 mg PO QHS PRN 04/07/21 hydrocodone-acetaminophen 1 tab PO Q6H PRN PRN 3 Days #10 tablet 04/13/21 lidocaine [Lidoderm] 1 patch TOPICAL DAILY #15 ea 04/16/21 The patient's discharge medication list was reviewed for discrepancies and discrepancies were resolved.
--- NOTE | 2021-04-16 16:49 | NURSING ---
report called to KORIN Lamb at [facility] for discharge.
== END 2021-04-16 15:37 | disposition skilled nursing facility (03) ==
LOC: ED 23:02 → PCU 23:17
PROVIDERS: Emergency Provider Emergency Medicine; PCP Internal Medicine; Visit Provider Internal Medicine
DX: R62.7 Adult failure to thrive (principal); Z68.23 Body mass index [BMI] 23.0-23.9, adult; K59.00 Constipation, unspecified; G20 Parkinson's disease; S30.1XXA Contusion of abdominal wall, initial encounter; W19.XXXA Unspecified fall, initial encounter; Y93.9 Activity, unspecified; Y92.9 Unspecified place or not applicable; Y99.9 Unspecified external cause status; F41.9 Anxiety disorder, unspecified; N40.0 Benign prostatic hyperplasia without lower urinary tract symptoms; I25.10 Atherosclerotic heart disease of native coronary artery without angina pectoris; I10 Essential (primary) hypertension; F32.9 Major depressive disorder, single episode, unspecified; E03.9 Hypothyroidism, unspecified; Z79.899 Other long term (current) drug therapy; Z79.82 Long term (current) use of aspirin; G43.909 Migraine, unspecified, not intractable, without status migrainosus; R91.1 Solitary pulmonary nodule; I95.1 Orthostatic hypotension; R56.9 Unspecified convulsions; Z66 Do not resuscitate
CPT/HCPCS: 71045; 74019; 80048; 81001; 84484; 85025; 87086; 87426; 93005; 96374; 97162; 97166; 97802; 99218; 99284; A4216; G0378; J2405

== ENCOUNTER 2022-02-13 19:08 | Emergency (ER) | payer MEDICARE, OTHER, SELFPAY ==
[2022-02-13 19:08] VITALS: BP 150/82; PULSE 58; RESP 16; TEMP 36.8; O2SAT 100; O2SAT 99; BMI 25.8
[2022-02-13 19:19] VITALS: O2SAT 99
--- NOTE | 2022-02-13 19:35 | EKG12_ITS ---
Test Reason : SOB Blood Pressure : / mmHG Vent. Rate : 054 BPM Atrial Rate : 054 BPM P-R Int : 182 ms QRS Dur : 120 ms QT Int : 468 ms P-R-T Axes : 044 -27 055 degrees QTc Int : 443 ms Sinus bradycardia Otherwise normal ECG Confirmed by ZAHRA PRESTON, DESEAN ([id number]), mapping editor TIMOTEO GARCIA ([id number]) on 02/16/2022 9:22:45 AM Referred By: Confirmed By:DESEAN SWEENEY MD
--- NOTE | 2022-02-13 19:37 | ED.VIS.DYS ---
HPI History of Present Illness Chief Complaint: Shortness of Breath Informant: patient and family Onset/Context/Timing Onset: Hours (1) Context: sudden, onset and activity on onset (When woke up from nap) Quality: Positive for - (Just could not get my breath) Current Severity: Gone Maximum Severity: Moderate Worsened by: Nothing Relieved by: Nothing (Nothing in particular. Denies any treatment prior to coming here.) Associated Symptoms Negative for cough Chest Pain: Positive for None Narrative Narrative: Patient states he woke up from a nap short of breath with no other symptoms. He states subsequently, we argued about whether to come to the ER or not and after this and getting in the car and coming here, he states he felt fine and has ever since. He denies any palpitations, lightheadedness or near syncope, chest discomfort, recent illness or cough, or recent leg swelling although he states his legs do swell from time to time, today's a good day. He does not have any history of CHF that he knows of, he did have a mitral valve repair/replacement remotely. He denies any history of COPD or asthma. He states now he feels pretty good. When asked if he has had a history of anxiety attacks before, he states that he has and he has hydroxyzine to take as needed for that. [facility] Medical History Anxiety Atherosclerotic heart disease of [place] coronary artery without angina pectoris BPH (benign prostatic hyperplasia) Bradycardia Depression Essential hypertension History of left heart catheterization (LHC) (~10/01/16) History of mitral valve disorder Hypothyroid Hypothyroidism Irregular heart beat Kidney stone Lung nodule Migraine Orthostatic hypotension Parkinsons disease Right sided weakness Seizure Slurred speech Spinal stenosis Syncope Wears hearing aid in both ears Home Medications finasteride 5 mg PO QHS 09/07/16 [History Last Taken 04/06/21] sertraline [Zoloft] 50 mg PO DAILY 09/07/16 [History Last Taken 03/24/21] aspirin 81 mg PO BID 10/05/16 [History Last Taken 04/06/21] cholecalciferol (vitamin D3) 2,000 unit PO DAILY 12/27/17 [History Last Taken 03/24/21] coenzyme Q10 20 mg PO DAILY 12/27/17 [History Last Taken 03/24/21] carbidopa 25 mg-levodopa 100 mg tablet 1.5 tab PO TID 06/20/19 [History Last Taken 04/06/21] lansoprazole 30 mg capsule,delayed release 30 mg PO DAILY 06/20/19 [History Last Taken 03/24/21] losartan 25 mg tablet 25 mg PO DAILY 06/20/19 [History Last Taken 03/24/21] simvastatin 20 mg tablet 20 mg PO QHS tab 06/20/19 [History Last Taken 03/23/21] Bifidobacterium infantis 4 mg capsule 4 mg PO DAILY 06/21/19 [History Last Taken 03/24/21] amlodipine 2.5 mg tablet 2.5 mg PO DAILY 06/21/19 [History Last Taken 03/24/21] levothyroxine 50 mcg tablet 75 mcg PO DAILY tab 06/21/19 [History Last Taken 03/24/21] metoprolol succinate 25 mg tablet,extended release 24 hr 25 mg PO DAILY #30 tab 02/09/21 [Rx Last Taken 04/06/21] mecobalamin (vitamin B12) 5,000 mcg PO DAILY 03/24/21 [History Last Taken 03/24/21] levetiracetam [Keppra] 1,000 mg PO BID 03/25/21 [History Last Taken Unknown] bisacodyl [Dulcolax (bisacodyl)] 5 - 10 mg PO QHS PRN 04/07/21 [History Last Taken Unknown] lidocaine [Lidoderm] 1 patch TOPICAL DAILY #15 ea 04/16/21 [Rx Last Taken Unknown] Allergy/AdvReac Type Severity Reaction Status Date / Time lisinopril AdvReac Nausea Verified 02/13/22 19:10 Family History Father CAD (coronary artery disease) Surgical History History of hernia repair History of mandibular surgery History of mitral valve repair (~11/18/16) Social History household members: none Smoking Status: Never smoker alcohol intake: never substance use type: does not use caffeine: No ROS ROS ED Constitutional Constitutional ED: Denies chills or fever(s) Eyes Eyes: Denies change in vision or diplopia ENT ENT ED: Denies rhinorrhea or sore throat Cardiovascular Cardiovascular: Denies chest pain or palpitations Respiratory/Chest Respiratory/Chest: Reports as per HPI and dyspnea; Denies cough Gastrointestinal Gastrointestinal: Denies abdominal pain, diarrhea, nausea or vomiting Genitourinary Genitourinary ED: Denies dysuria or hematuria Musculoskeletal Musculoskeletal: Denies back pain or neck pain Integumentary Denies abscess or rash Neurologic Neurologic: Denies headache(s), paresthesias or weakness Psychiatric Psychiatric: Denies anxiety or suicidal thoughts EXAM Physical Exam Const Vital Signs: 02/13/22 19:08 02/13/22 19:19 Temperature 98.2 F Temperature Source Temporal Pulse Rate 58 L Respiratory Rate 16 Respiratory Effort Non-Labored Respiratory Depth Normal Respiratory Pattern Normal Blood Pressure 150/82 H Blood Pressure Mean 104 Pulse Ox 99 Oxygen Delivery Method Room Air Room Air Positive well nourished and well developed General Appearance ED: well developed and NAD HEENT Reports moist mucous membranes normocephalic and atraumatic Eyes PERRL and EOMs intact bilaterally Neck full ROM and supple Resp normal respiratory effort and clear to auscultation bilaterally Cardio regular rate, regular rhythm and no murmurs Cardio Narrative: Borderline bradycardic GI non-tender and non-distended Auscultation: normoactive bowel sounds Palpation: soft Back/Spine no CVA tenderness General Back: other FROM Extremity normal to inspection General Extremety ED: Negative for edema, pulses abnormal or tenderness General Extremity: Negative for edema or pulses abnormal Neuro oriented x3, CN's II-XII intact bilaterally and no sensory deficits noted Sensorium / Orientation: awake and alert Motor Exam: strength 5/5 throughout Skin no rashes or lesions noted and no wounds MDM MDM MDM Narrative Medical decision making narrative: Work-up is normal including troponin, EKG, chest x-ray, BNP. On reevaluation patient states he is still breathing fine and he is comfortable going home. We ambulated him, he did well and did not become hypoxic. He does have a history of anxiety, I suspect this might have been an anxiety attack, family agrees this might have been, I do not think he needs work-up for pulmonary embolus, he is on very low-dose beta-sahara but he is bradycardic and his pulse ox is excellent and I do not think that is what this is since he is no longer dyspneic. Discharged stable condition, follow-up advised and we discussed reasons to return. Lab Data Attestation: I reviewed the patient's lab results. Labs: Laboratory Results - last 24 hr 02/13/22 02/13/22 02/13/22 19:35 19:35 19:35 WBC 6.1 RBC 4.53 L Hgb 14.7 Hct 42.2 MCV 93.2 MCH 32.5 H MCHC 34.8 RDW Std Deviation 44.4 H RDW Coeff of Trey 12.9 Plt Count 227 MPV 10.1 Immature Gran % (Auto) 0.300 Neut % (Auto) 60.9 Lymph % (Auto) 23.9 [place] % (Auto) 12.8 H Eos % (Auto) 1.8 Baso % (Auto) 0.3 Absolute Neuts (auto) 3.7 Absolute Lymphs (auto) 1.46 Nucleated RBC % 0 Sodium 141 Potassium 4.0 Chloride 104 Carbon Dioxide 33.0 H Anion Gap 4 L BUN 46 H Creatinine 1.20 Estim Creat Clear Calc 48.16 Est GFR (MDRD) Af Amer 74 Est GFR (MDRD) Non-Af 61 BUN/Creatinine Ratio 38.3 H Glucose 109 H Calcium 9.6 Troponin I High Sens 4 B-Natriuretic Peptide 81.6 Radiography Chest X-Ray - ED: 1 View, Read by ED Physician, No Acute Disease and Chronic Changes Diagnostic Testing: Clinical Impression(s) from Imaging Studies Chest X-Ray 02/13/22 20:00 IMPRESSION: No evidence of active intrathoracic disease. Electronically Signed: Lita Bedoya MD at 20:45 EDT , EKG Initial EKG: Attestation: I personally reviewed and interpreted this EKG as follows: Interpretation: No Acute Injury Pattern and Sinus Bradycardia (Otherwise normal EKG) Discharge Plan Triage Chief Complaint: Shortness of Breath ED Provider: Jerry Gagnon Dx/Rx/DC Orders Clinical Impression: Acute dyspnea, Anxiety Instructions: ED Dyspnea Prescriptions: No Action Align 4 mg capsule 4 mg PO DAILY RF: 0 amlodipine 2.5 mg tablet 2.5 mg PO DAILY RF: 0 carbidopa-levodopa [Sinemet] 25-100 mg tablet 1.5 tab PO TID RF: 0 losartan 25 mg tablet 25 mg PO DAILY RF: 0 lansoprazole [Prevacid] 30 mg capsule,delayed release(DR/EC) 30 mg PO DAILY RF: 0 sertraline [Zoloft] 25 MG tablet 50 mg PO DAILY RF: 0 finasteride 5 MG tablet 5 mg PO QHS RF: 0 simvastatin 20 mg tablet 20 mg PO QHS RF: 0 levothyroxine 50 mcg tablet 75 mcg PO DAILY RF: 0 aspirin 81 MG tablet 81 mg PO BID RF: 0 coenzyme Q10 10 MG capsule 20 mg PO DAILY RF: 0 cholecalciferol (vitamin D3) 2,000 UNIT capsule 2,000 unit PO DAILY RF: 0 mecobalamin (vitamin B12) 5,000 mcg Tablet,Disintegrating 5,000 mcg PO DAILY RF: 0 levetiracetam [Keppra] 500 mg Tablet 1,000 mg PO BID RF: 0 bisacodyl [Dulcolax (bisacodyl)] 5 mg Tablet,Delayed Release (Dr/Ec) 5 - 10 mg PO QHS PRN (Reason: Constipation) RF: 0 lidocaine [Lidoderm] 5 % adhesive patch,medicated 1 patch topical DAILY Qty: 15 RF: 0 metoprolol succinate 25 mg tablet extended release 24 hr 25 mg PO DAILY Qty: 30 RF: 12 Primary Care Provider: Cheo Gamble Referrals: Ceho Gamble MD [Primary Care Provider] - 3-5 Days if not improving Disposition Disposition: Home, Self Care
[2022-02-13 19:50] LABS: Absolute Lymphocyte Count 1.46 X10^3/uL (0.83-4.51); Absolute Neutrophil Count 3.7 X10^3/uL (2.0-7.7); Basophil# 0.02 X10^3/uL; Basophil% 0.3 % (0-1); Eosinophil# 0.11 X10^3/uL; Eosinophils% 1.8 % (0-5); Hematocrit 42.2 % (40-54); Hemoglobin 14.7 g/dL (13.0-16.5); Lymphocyte # 1.46 X10^3/ul (0.83-4.51); Lymphocyte % 23.9 % (19-41); Mean Corp Hgb Conc 34.8 g/dL (32-36); Mean Corpuscular Hgb 32.5 pg (27.0-32.0); Mean Corpuscular Volume 93.2 fL (80-94); Mean Platelet Vol. 10.1 fl (6.2-12.0); Monocyte# 0.78 X10^3/uL; Monocyte% 12.8 % (0-10); NRBC Flagged by Analyzer 0 % (0-5); Neutrophil # 3.71 X10^3/uL (2.7-7.7); Neutrophil % 60.9 % (47-70); Platelet Count 227 K/mm3 (150-450); RBC Distribution Width CV 12.9 % (11.6-14.6); RBC Distribution Width SD 44.4 fl (35.1-43.9); Red Blood Count 4.53 M/mm3 (4.6-6.2); White Blood Count 6.1 K/mm3 (4.4-11.0)
--- NOTE | 2022-02-13 20:00 | RAD_ITS ---
STUDY: X-RAY CHEST REASON FOR EXAM: Male, 81 years old. sob TECHNIQUE: AP and lateral. 3 images. COMPARISON: 04/15/2021.. FINDINGS: LUNGS: No consolidation. No pneumothorax. MEDIASTINUM: Aorta tortuous and atherosclerotic. CARDIAC SILHOUETTE: Not enlarged. Valve prosthesis, left atrial appendage clip, sternal wires. BONES AND SOFT TISSUES: No acute abnormalities. RAD/Chest PA and Lateral IMPRESSION: No evidence of active intrathoracic disease. Electronically Signed: Lita Bedoya MD at 20:45 EDT ,
[2022-02-13 20:04] LABS: Anion Gap 4 (5-15); BUN 46 mg/dL (7-18); BUN/Creat Ratio 38.3 RATIO (10-20); Calcium,Total 9.6 mg/dL (8.5-10.1); Chloride 104 mmol/L (98-107); EST Glomerular Filtration Rate 61 mL/min (>60); Est Glom Filt Rate - Afr Amer 74 mL/min (>60); Estimated Creatinine Clearance 48.16 ml/min; Glucose 109 mg/dL (74-106); Sodium Level 141 mmol/L (136-145); Troponin-I HS 4 pg/mL (3.0-78.0)
[2022-02-13 20:11] LABS: BNP,B-Type NATRIURETIC PEPTIDE 81.6 pg/mL (0-100)
[2022-02-13 21:21] VITALS: O2SAT 95
[2022-02-13 22:11] VITALS: BP 150/82; PULSE 58; RESP 16; O2SAT 97
== END 2022-02-13 22:14 | disposition home or self-care (01) ==
PROVIDERS: Emergency Provider Emergency Medicine; PCP Internal Medicine; Visit Provider Emergency Medicine
DX: R06.02 Shortness of breath (principal); G20 Parkinson's disease; F41.9 Anxiety disorder, unspecified; I25.10 Atherosclerotic heart disease of native coronary artery without angina pectoris; I10 Essential (primary) hypertension; E03.9 Hypothyroidism, unspecified; F32.A Depression, unspecified; Z79.82 Long term (current) use of aspirin; Z79.899 Other long term (current) drug therapy
CPT/HCPCS: 71046; 80048; 83880; 84484; 85025; 93005; 99284; A4216

== ENCOUNTER 2022-05-01 18:07 | Emergency (ER) | payer MEDICARE, OTHER, SELFPAY ==
[2022-05-01 18:08] VITALS: BP 164/105; PULSE 77; RESP 16; TEMP 36.6; O2SAT 99; BMI 22.9
--- NOTE | 2022-05-01 18:31 | CT_ITS ---
STUDY: CT ABDOMEN AND PELVIS WITH CONTRAST REASON FOR EXAM: Male, 81 years old. abd pain RADIATION DOSAGE (If Supplied By Facility): CTDIvol = ( 17.28 ) mGy, DLP = ( 834.57 ) mGycm TECHNIQUE: Transaxial images were obtained from the dome of the diaphragm to the symphysis pubis without oral contrast. IV 100mL Isovue-[id number] was administered. Sagittal and coronal images were reconstructed. Individualized dose optimization techniques were used for this CT. COMPARISON: 04/13/2020 and FINDINGS: The visualized lung bases are unremarkable. Sternal wires and operative changes of the mitral valve. Stable simple right hepatic cysts. No required imaging follow-up needed given high likelihood of benign nature. Normal gallbladder and extrahepatic biliary system. Normal spleen. Normal pancreas. Normal bilateral adrenal glands. No hydronephrosis. Left renal calculi stable. Normal visualized stomach. Normal small intestine. There are multiple colonic diverticula consistent with diverticulosis. There is non-visualization of the appendix. There is diffuse atherosclerotic calcification of the abdominal aorta, without a demonstrated aneurysm. Normal inferior vena cava. Normal retroperitoneum. Normal urinary bladder. There is a right-sided inguinal hernia containing adipose tissue. There are diffuse degenerative changes of the visualized lumbar spine. CT/Abdomen/Pelvis W IV Cont ONLY IMPRESSION: 1. No acute inflammatory process or bowel obstruction. 2. Stable left renal calculi. No hydronephrosis or ureteral calculi. Electronically Signed: Kevin Manrique MD ([place]) at 20:17 EDT ,
--- NOTE | 2022-05-01 18:32 | EKG12_ITS ---
Test Reason : Blood Pressure : / mmHG Vent. Rate : 065 BPM Atrial Rate : 065 BPM P-R Int : 176 ms QRS Dur : 116 ms QT Int : 424 ms P-R-T Axes : 060 -32 037 degrees QTc Int : 440 ms Normal sinus rhythm Left axis deviation Abnormal ECG Confirmed by HIRAL PRESTON, ISABELLA ([id number]), marketing editor TIMOTEO GARCIA ([id number]) on 05/04/2022 9:01:34 AM Referred By: Confirmed By:ISABELLA BLACKMAN MD
--- NOTE | 2022-05-01 18:34 | EDS_ITS ---
HPI History of Present Illness Chief Complaint: General Illness Detail of Chief Complaint: Subjective shortness of breath. Unable to get enough air. Abdominal pain. Informant: patient Onset/Context/Timing Onset: Today and Weeks Context: Gradual Onset Timing: Intermittent Current Severity: Mild Maximum Severity: Mild Narrative Narrative: 81-year-old male history of anxiety, BPH and Parkinson's disease. He has had a Vitro bowel replaced. He is on aspirin but no other blood thinners. States he does not feel like he is getting enough air. But his home pulse ox has been reading 9899%. He denies any fever or chills. He denies any cough. He denies any hemoptysis. He denies any chest pain. Also states that for weeks he has had intermittent periumbilical and epigastric abdominal discomfort. Denies any back pain. No history of DVT or PE. No prior abdominal surgeries. He denies any dysuria or melena. He is not on home oxygen. Prior similar symptoms: Yes Recent Illness/Hospitalization: No PFSH PFSH Medical History Anxiety Atherosclerotic heart disease of [place] coronary artery without angina pectoris BPH (benign prostatic hyperplasia) Bradycardia Depression Essential hypertension History of left heart catheterization (LHC) (~10/01/16) History of mitral valve disorder Hypothyroid Hypothyroidism Irregular heart beat Kidney stone Lung nodule Migraine Orthostatic hypotension Parkinsons disease Right sided weakness Seizure Slurred speech Spinal stenosis Syncope Wears hearing aid in both ears Home Medications finasteride 5 mg tablet 5 mg PO QHS prostate 09/07/16 [History Last Taken 04/06/21] sertraline 25 mg tablet (Zoloft) 50 mg PO DAILY DEPRESSION 09/07/16 [History Last Taken 03/24/21] aspirin 81 mg tablet,delayed release 81 mg PO BID HEART [facility] 10/05/16 [History Last Taken 04/06/21] cholecalciferol (vitamin D3) 50 mcg (2,000 unit) capsule 2,000 unit PO DAILY SUPPLEMENT 12/27/17 [History Last Taken 03/24/21] coenzyme Q10 10 mg capsule 200 mg PO DAILY SUPPLEMENT 12/27/17 [History Last Taken 03/24/21] carbidopa 25 mg-levodopa 100 mg tablet (Sinemet) 1.5 tab PO TID 06/20/19 [History Last Taken 04/06/21] simvastatin 20 mg tablet 20 mg PO QHS cholesterol lowering 06/20/19 [History Last Taken 03/23/21] amlodipine 2.5 mg tablet 5 mg PO DAILY 06/21/19 [History Last Taken 03/24/21] levothyroxine 50 mcg tablet 75 mcg PO DAILY thyroid 06/21/19 [History Last Taken 03/24/21] mecobalamin (vitamin B12) 5,000 mcg disintegrating tablet 1,000 mcg PO DAILY supplement 03/24/21 [History Last Taken 03/24/21] levetiracetam 500 mg tablet (Keppra) 1,000 mg PO BID heart/seizure med 03/25/21 [History Last Taken Unknown] bisacodyl 5 mg tablet,delayed release (Dulcolax (bisacodyl)) 5 - 10 mg PO QHS PRN Constipation 04/07/21 [History Last Taken Unknown] ciprofloxacin HCl 500 mg tablet (Cipro) 500 mg PO BID 10 days #20 tabs 05/01/22 [Rx Last Taken Unknown] lubiprostone 24 mcg capsule (Amitiza) 24 mcg PO BID 05/01/22 [History Last Taken Unknown] melatonin 3 mg tablet 3 mg PO QHS 05/01/22 [History Last Taken Unknown] metoprolol succinate 25 mg tablet,extended release 24 hr 25 mg PO DAILY 05/01/22 [History Last Taken Unknown] omeprazole 40 mg capsule,delayed release 40 mg PO DAILY 05/01/22 [History Last Taken Unknown] Allergy/AdvReac Type Severity Reaction Status Date / Time lisinopril AdvReac Nausea Verified 05/01/22 18:12 Family History Father CAD (coronary artery disease) Surgical History History of hernia repair History of mandibular surgery History of mitral valve repair (~11/18/16) Social History household members: none Smoking Status: Never smoker alcohol intake: never substance use type: does not use caffeine: No ROS ROS ED ROS Narrative Subjective shortness of breath. Abdominal pain. Review of Systems ROS Unobtainable: Denies due to encephalopathy Constitutional Constitutional ED: Denies chills ENT ENT ED: Denies ear pain Cardiovascular Cardiovascular: Denies chest pain Respiratory/Chest Respiratory/Chest: Reports dyspnea; Denies cough Gastrointestinal Gastrointestinal: Reports abdominal pain and constipation; Denies diarrhea, melena, nausea or vomiting Genitourinary Genitourinary ED: Denies dysuria Musculoskeletal Musculoskeletal: Denies arthralgias Integumentary Denies abscess Neurologic Neurologic: Denies headache(s) Psychiatric Psychiatric: Denies anxiety Endocrine Endocrinology: Denies cold intolerance Hematologic/Lymphatic Hematologic/Lymphatic: Reports none Allergic/Immunologic Allergic/Immunologic ED: Denies mouth swelling or tongue swelling EXAM Physical Exam Narrative Exam Narrative: 81-year-old male. Vital signs are stable afebrile. His pulse ox is 99% on room air no signs hypoxia. He is in no distress. Daughter is at bedside. H EENT exam unremarkable. Moist extremities. Neck nontender no JVD. No lymphadenopathy. Lungs clear to auscultation bilaterally. Heart regular rate and rhythm rate about 75 no murmur. Chest wall nontender. Abdomen soft nondistended normal bowel sounds no peritoneal signs. States he has discomfort in epigastrium periumbilical region. Is fine not reproducible. There is no pulsatile mass. There is no right upper or right lower quadrant tenderness. He is moving all 4 extremities. There is discoloration of the skin on his left lower extremity. Neurologically he is awake and alert with no focal motor deficits. He has Parkinson's tremors of his extremities. Const Vital Signs: 05/01/22 18:08 Temperature 97.8 F Temperature Source Temporal Pulse Rate 77 Respiratory Rate 16 Blood Pressure 164/105 H Blood Pressure Mean 124 Pulse Ox 99 Oxygen Delivery Method Room Air Positive well nourished and well developed; Negative for obese, cachectic, contractures or unkempt General Appearance ED: well developed; Negative for unkempt, cachectic or contractures Nutritional Appearance: Negative for cachectic or obese HEENT Reports moist mucous membranes; Denies dry mucous membranes Negative for trauma Mouth ED: No dry mucous membranes Mouth: No dry mucous membranes Eyes PERRL and EOMs intact bilaterally General Eye ED: Negative for pale conjunctiva or scleral icterus Neck no lymphadenopathy, supple and no JVD Chest Wall inspection of chest normal and palpation of chest normal Resp normal respiratory effort and clear to auscultation bilaterally Effort and Inspection: Negative for retractions Auscultation: Negative for rales, rhonchi, wheezes or diminished lung sounds Cardio regular rate, regular rhythm, S1 normal heart sound, S2 normal heart sound and no murmurs Rate: Negative for bradycardia Rhythm: Negative for abnormal rhythm GI normal to inspection, nondistended, normoactive bowel sounds, non-tender, non- distended and hepatosplenomegaly Inspection: Negative for abdominal distention Auscultation: normoactive bowel sounds; Negative for hyperactive bowel sounds Palpation: soft; Negative for tender, guarding, splenomegaly, mass or rebound tenderness present Back/Spine no CVA tenderness General Back: Negative for CVA tenderness Cervical Spine: Negative for cervical spine tenderness Thoracic Spine / Upper Back: Negative for thoracic spinal tenderness Extremity normal to inspection General Extremety ED: Negative for edema or tenderness General Extremity: Negative for edema Neuro Sensorium / Orientation: alert; Negative for lethargic or stuporous Motor Exam: strength 5/5 throughout Psych mental status grossly normal Appearance: Negative for unkempt Skin no rashes or lesions noted and no wounds Rashes: No rashes noted Trauma: Negative for abrasion Wounds: Negative for wounds noted MDM MDM MDM Narrative Medical decision making narrative: 81-year-old male Parkinson's disease complains of subjective shortness of breath his pulse ox is 99 on room air he is in no respiratory distress his lungs are clear. Undergo a cardiac work-up for that. Also complaining of abdominal pain that is really not significantly impressive or reproducible on abdominal exam. Repeat exam at 9 PM patient doing well. I went over all the test results of both he and his daughter at bedside. Urine culture be sent. To be started on Cipro. He can follow-up with his primary care physician Dr. Cheo Gamble. They are also going to seek a local neurologist for his Parkinson's disease. Lab Data Attestation: I reviewed the patient's lab results. Lab results narrative: CBC unremarkable. White count of 7. H&H of 15 and 44. Platelets 216. Chemistries show a gap of 4 BUN of 45 creatinine 1.1. Liver enzymes are unremarkable. Lipase is normal at 49. Urinalysis shows 10-25 white cells 2+ bacteria but no nitrites. Labs: Laboratory Results - last 24 hr 05/01/22 05/01/22 05/01/22 18:40 18:40 19:17 WBC 7.1 RBC 4.71 Hgb 15.1 Hct 44.4 MCV 94.3 H MCH 32.1 H MCHC 34.0 RDW Std Deviation 43.8 RDW Coeff of Trey 12.7 Plt Count 216 MPV 9.7 Immature Gran % (Auto) 0.400 Neut % (Auto) 73.2 H Lymph % (Auto) 16.7 L [place] % (Auto) 8.1 Eos % (Auto) 1.3 Baso % (Auto) 0.3 Absolute Neuts (auto) 5.2 Absolute Lymphs (auto) 1.19 Nucleated RBC % 0 Sodium 142 Potassium 3.9 Chloride 106 Carbon Dioxide 32.0 Anion Gap 4 L BUN 45 H Creatinine 1.11 Estim Creat Clear Calc 51.76 Est GFR (MDRD) Af Amer 81 Est GFR (MDRD) Non-Af 67 BUN/Creatinine Ratio 40.5 H Glucose 98 Calcium 9.9 Total Bilirubin 0.50 AST 21 ALT 9 L Alkaline Phosphatase 76 Troponin I High Sens 7 Total Protein 6.9 Albumin 4.1 Globulin 2.8 Albumin/Globulin Ratio 1.5 Lipase 49 L Urine Color Yellow Urine Clarity Clear Urine pH 7.0 Ur Specific [place] 1.015 Urine Protein Negative Urine Glucose (UA) Normal Urine Ketones Negative Urine Occult Blood 50 H Urine Nitrite Negative Urine Bilirubin Negative Urine Urobilinogen Normal Ur Leukocyte Esterase 500 H Urine RBC Not Reportable Urine WBC 10-25 SEEN Ur Squamous Epith Cells 0 SEEN Urine Bacteria 2+ Urine Mucus 0 SEEN Radiography Chest X-Ray - ED: 1 View, Read by ED Physician, Heart, Lungs, Mediastinum, Bony Structures, No Acute Disease and Chronic Changes Diagnostic Testing: Clinical Impression(s) from Imaging Studies Abdomen/Pelvis CT 05/01/22 18:31 IMPRESSION: 1. No acute inflammatory process or bowel obstruction. 2. Stable left renal calculi. No hydronephrosis or ureteral calculi. Electronically Signed: Kevin Manrique MD ([place]) at 20:17 EDT Reading Location ID and State: [facility] / [place] , Service support , Chest X-Ray 05/01/22 19:54 IMPRESSION: Nonacute portable x-ray examination of the chest. Electronically Signed: Kevin Manrique MD ([place]) at 20:12 EDT , Chest x-ray, portable, single view interpreted myself and radiology shows no acute abnormality. Normal cardiac silhouette. Normal mediastinum. Rhythm Strip Rhythm Strip: Sinus Rhythm Rate: 65 Ectopy: None EKG Initial EKG: Attestation: I personally reviewed and interpreted this EKG as follows: Interpretation: Sinus Rhythm and No Acute Injury Pattern Comments: Normal sinus rhythm rate of 65 no acute signs of ID or ischemia. Discharge Plan Triage Chief Complaint: General Illness ED Provider: Stephon Love Dx/Rx/DC Orders Clinical Impression: Acute dyspnea, Acute UTI, Abdominal pain Instructions: ED Dyspnea, ED Bladder Infection, Male (Adult) Prescriptions: New ciprofloxacin HCl [Cipro] 500 mg tablet 500 mg PO BID 10 Days Qty: 20 0RF No Action amlodipine 2.5 mg tablet 5 mg PO DAILY carbidopa-levodopa [Sinemet] 25-100 mg tablet 1.5 tab PO TID sertraline [Zoloft] 25 MG tablet 50 mg PO DAILY Label Comments: mood finasteride 5 MG tablet 5 mg PO QHS Label Comments: prostate, BPH simvastatin 20 mg tablet 20 mg PO QHS Label Comments: cholesterol levothyroxine 50 mcg tablet 75 mcg PO DAILY Label Comments: thyroid aspirin 81 MG tablet 81 mg PO BID Label Comments: heart health coenzyme Q10 10 MG capsule 200 mg PO DAILY cholecalciferol (vitamin D3) 2,000 UNIT capsule 2,000 unit PO DAILY mecobalamin (vitamin B12) 5,000 mcg Tablet,Disintegrating 1,000 mcg PO DAILY levetiracetam [Keppra] 500 mg Tablet 1,000 mg PO BID bisacodyl [Dulcolax (bisacodyl)] 5 mg Tablet,Delayed Release (Dr/Ec) 5 - 10 mg PO QHS PRN (Reason: Constipation) melatonin 3 mg Tablet 3 mg PO QHS omeprazole 40 mg Capsule,Delayed Release(Dr/Ec) 40 mg PO DAILY lubiprostone [Amitiza] 24 mcg Capsule 24 mcg PO BID metoprolol succinate 25 mg tablet extended release 24 hr 25 mg PO DAILY Primary Care Provider: Cheo Gamble Referrals: Cheo Gamble MD [Primary Care Provider] - Activity Restrictions/Additional Instructions: Urinary tract infection. Started on antibiotic Cipro 1 pill twice a day for 10 days. A urine culture was sent. Your doctor can get those results. Follow-up with your doctor for a locally neurologist through the [facility]. Your chest x-ray EKG and other labs are unremarkable. Disposition Disposition: Home, Self Care
[2022-05-01 18:49] LABS: Absolute Lymphocyte Count 1.19 X10^3/uL (0.83-4.51); Absolute Neutrophil Count 5.2 X10^3/uL (2.0-7.7); Basophil# 0.02 X10^3/uL; Basophil% 0.3 % (0-1); Eosinophil# 0.09 X10^3/uL; Eosinophils% 1.3 % (0-5); Hematocrit 44.4 % (40-54); Hemoglobin 15.1 g/dL (13.0-16.5); Lymphocyte # 1.19 X10^3/ul (0.83-4.51); Lymphocyte % 16.7 % (19-41); Mean Corpuscular Hgb 32.1 pg (27.0-32.0); Mean Corpuscular Volume 94.3 fL (80-94); Mean Platelet Vol. 9.7 fl (6.2-12.0); Monocyte# 0.58 X10^3/uL; Monocyte% 8.1 % (0-10); NRBC Flagged by Analyzer 0 % (0-5); Neutrophil # 5.23 X10^3/uL (2.7-7.7); Neutrophil % 73.2 % (47-70); Platelet Count 216 K/mm3 (150-450); RBC Distribution Width CV 12.7 % (11.6-14.6); RBC Distribution Width SD 43.8 fl (35.1-43.9); Red Blood Count 4.71 M/mm3 (4.6-6.2); White Blood Count 7.1 K/mm3 (4.4-11.0)
[2022-05-01 19:10] LABS: ALB/GLOB Ratio 1.5 RATIO (0.9-2.4); AST(SGOT) 21 U/L (15-37); Alanine Aminotransfer ALT/SGPT 9 U/L (16-61); Albumin, Serum 4.1 g/dL (3.2-5.0); Alkaline Phosphatase 76 U/L (45-117); Anion Gap 4 (5-15); BUN 45 mg/dL (7-18); BUN/Creat Ratio 40.5 RATIO (10-20); Calcium,Total 9.9 mg/dL (8.5-10.1); Chloride 106 mmol/L (98-107); Creatinine, Serum 1.11 mg/dL (0.70-1.30); EST Glomerular Filtration Rate 67 mL/min (>60); Est Glom Filt Rate - Afr Amer 81 mL/min (>60); Estimated Creatinine Clearance 51.76 ml/min; Globulin 2.8 g/dL (2.2-4.2); Glucose 98 mg/dL (74-106); Lipase 49 U/L (73-393); Potassium 3.9 mmol/L (3.5-5.1); Protein, Total 6.9 g/dL (6.4-8.2); Sodium Level 142 mmol/L (136-145); Troponin-I HS 7 pg/mL (3.0-78.0)
[2022-05-01 19:21] LABS: Mucous, Urine 0 SEEN /hpf (<or=2+); Squamous Epithelial Cells - UA 0 SEEN /hpf (0-5)
[2022-05-01 19:38] LABS: Color, Urine Yellow (Yellow); Glucose, Dipstick Normal (Normal); Ketone-Dipstick Negative (Negative); Leukocyte Esterase-Dipstick 500 /ul (Negative); Nitrite-Dipstick Negative (Negative); Occult Blood-Urine 50 /ul (Negative); Protein-Dipstick Negative (Negative); Specific Gravity, Urine 1.015 (1.002-1.030); Urine Bilirubin Dipstick Negative (Negative); Urine Clarity Clear (Clear); Urine Urobilinogen Normal (Normal)
[2022-05-01 19:43] LABS: Bacteria 2+ /hpf (None Seen); White Blood Cells 10-25 SEEN /hpf (0-5)
--- NOTE | 2022-05-01 19:54 | RAD_ITS ---
STUDY: X-RAY CHEST REASON FOR EXAM: Male, 81 years old. PT WITH SOB, STATES HE FEELS LIKE HE ISN''T GETTING ENOUGH AIR. PT STATES HE ALSO HAS ABD PAIN. ALL STARTING TODAY. TECHNIQUE: AP COMPARISON: None. FINDINGS: The lungs are clear and expanded. There is no demonstrated pleural abnormality. Normal size heart. Sternal wires and mediastinal surgical clips compatible with prior CABG. Atrial appendage clip. Operative changes of the mitral valve. Normal visualized pulmonary arteries. Normal visualized aortic arch and descending thoracic aorta. There is demineralization of the osseous structures. Normal visualized ribs, clavicles, and shoulders. There is no demonstrated abnormality of the visualized soft tissue structures of the upper abdomen. RAD/Chest 1 View (Portable) IMPRESSION: Nonacute portable x-ray examination of the chest. Electronically Signed: Kevin Manrique MD ([place]) at 20:12 EDT ,
[2022-05-01] MEDS: Ciprofloxacin 500 MG Tablet PO (21:20)
[2022-05-01 21:23] VITALS: BP 149/100; PULSE 61; RESP 15; O2SAT 97
== END 2022-05-01 21:30 | disposition home or self-care (01) ==
PROVIDERS: Emergency Provider Emergency Medicine; PCP Internal Medicine; Visit Provider Emergency Medicine
DX: N39.0 Urinary tract infection, site not specified (principal); G20 Parkinson's disease; G40.909 Epilepsy, unspecified, not intractable, without status epilepticus; F41.9 Anxiety disorder, unspecified; I25.10 Atherosclerotic heart disease of native coronary artery without angina pectoris; I10 Essential (primary) hypertension; N40.0 Benign prostatic hyperplasia without lower urinary tract symptoms; E03.9 Hypothyroidism, unspecified; R00.1 Bradycardia, unspecified; F32.A Depression, unspecified; R10.13 Epigastric pain; R10.33 Periumbilical pain; R06.00 Dyspnea, unspecified; Z79.899 Other long term (current) drug therapy; Z79.82 Long term (current) use of aspirin
CPT/HCPCS: 71045; 74177; 80053; 81001; 83690; 84484; 85025; 93005; 99285; Q9967

== ENCOUNTER 2022-08-31 08:46 | Emergency (ER) | payer MEDICARE, OTHER, SELFPAY ==
[2022-08-31 08:48] VITALS: BP 151/118; PULSE 91; RESP 14; TEMP 36.1; O2SAT 97; BMI 22.1
--- NOTE | 2022-08-31 09:24 | EKG12_ITS ---
Test Reason : SOB Blood Pressure : / mmHG Vent. Rate : 077 BPM Atrial Rate : 000 BPM P-R Int : 000 ms QRS Dur : 128 ms QT Int : 444 ms P-R-T Axes : 000 -51 074 degrees QTc Int : 502 ms Somatic/Motion Artifact Sinus rhythm with premature ventricular complexes Left axis deviation Non-specific intra-ventricular conduction block Cannot rule out Inferior infarct , age undetermined Abnormal ECG Confirmed by ZAHRA PRESTON, DESEAN ([id number]), online content editor TIMOTEO GARCIA ([id number]) on 09/01/2022 11:14:10 AM Referred By: Confirmed By:DESEAN SWEENEY MD
--- NOTE | 2022-08-31 09:25 | ED.VIS.DYS ---
HPI History of Present Illness Chief Complaint: Shortness of Breath Informant: patient Onset/Context/Timing Onset: Month(s) Context: gradual Timing: Intermittent Current Severity: Mild Maximum Severity: Mild Worsened by: Nothing Relieved by: Nothing Associated Symptoms cough; Negative for rhinorrhea, ear pain, fever or sore throat Chest Pain: Positive for None Narrative PE Risk Factors: Negative for Cancer, OCP + Smoking + > 35, Prior DVT or PE, Recent immobilization, Recent surgery or Recent travel Prior similar symptoms: Yes Recent Illness/Hospitalization: No PFSH [facility]LY [facility] Medical History Anxiety Atherosclerotic heart disease of [place] coronary artery without angina pectoris BPH (benign prostatic hyperplasia) Bradycardia Depression Essential hypertension History of left heart catheterization (LHC) (~10/01/16) History of mitral valve disorder Hypothyroid Hypothyroidism Irregular heart beat Kidney stone Lung nodule Migraine Orthostatic hypotension Parkinsons disease Right sided weakness Seizure Slurred speech Spinal stenosis Syncope Wears hearing aid in both ears Home Medications finasteride 5 mg tablet 5 mg PO QHS prostate 09/07/16 [History Last Taken 04/06/21] sertraline 25 mg tablet (Zoloft) 50 mg PO DAILY DEPRESSION 09/07/16 [History Last Taken 03/24/21] aspirin 81 mg tablet,delayed release 81 mg PO BID HEART HEALTH 10/05/16 [History Last Taken 04/06/21] cholecalciferol (vitamin D3) 50 mcg (2,000 unit) capsule 2,000 unit PO DAILY SUPPLEMENT 12/27/17 [History Last Taken 03/24/21] coenzyme Q10 10 mg capsule 200 mg PO DAILY SUPPLEMENT 12/27/17 [History Last Taken 03/24/21] carbidopa 25 mg-levodopa 100 mg tablet (Sinemet) 1.5 tab PO TID 06/20/19 [History Last Taken 04/06/21] simvastatin 20 mg tablet 20 mg PO QHS cholesterol lowering 06/20/19 [History Last Taken 03/23/21] amlodipine 2.5 mg tablet 5 mg PO DAILY 06/21/19 [History Last Taken 03/24/21] levothyroxine 50 mcg tablet 75 mcg PO DAILY thyroid 06/21/19 [History Last Taken 03/24/21] mecobalamin (vitamin B12) 5,000 mcg disintegrating tablet 1,000 mcg PO DAILY supplement 03/24/21 [History Last Taken 03/24/21] levetiracetam 500 mg tablet (Keppra) 1,000 mg PO BID heart/seizure med 03/25/21 [History Last Taken Unknown] bisacodyl 5 mg tablet,delayed release (Dulcolax (bisacodyl)) 5 - 10 mg PO QHS PRN Constipation 04/07/21 [History Last Taken Unknown] ciprofloxacin HCl 500 mg tablet (Cipro) 500 mg PO BID 10 days #20 tabs 05/01/22 [Rx Last Taken Unknown] lubiprostone 24 mcg capsule (Amitiza) 24 mcg PO BID 05/01/22 [History Last Taken Unknown] melatonin 3 mg tablet 3 mg PO QHS 05/01/22 [History Last Taken Unknown] metoprolol succinate 25 mg tablet,extended release 24 hr 25 mg PO DAILY 05/01/22 [History Last Taken Unknown] omeprazole 40 mg capsule,delayed release 40 mg PO DAILY 05/01/22 [History Last Taken Unknown] Allergy/AdvReac Type Severity Reaction Status Date / Time lisinopril AdvReac Nausea Verified 08/31/22 08:48 Family History Father CAD (coronary artery disease) Family History no significant family his no significant family history Surgical History History of hernia repair History of mandibular surgery History of mitral valve repair (~11/18/16) Social History household members: none Smoking Status: Never smoker alcohol intake: never substance use type: does not use caffeine: No ROS ROS ED ROS Narrative Short of breath Review of Systems ROS Unobtainable: Denies due to encephalopathy Constitutional Constitutional ED: Denies chills or fever(s) Eyes Eyes: Denies blurry vision ENT ENT ED: Denies ear pain Cardiovascular Cardiovascular: Denies chest pain Respiratory/Chest Respiratory/Chest: Reports cough; Denies dyspnea Gastrointestinal Gastrointestinal: Denies abdominal pain Genitourinary Genitourinary ED: Denies dysuria or hematuria Musculoskeletal Musculoskeletal: Denies arthralgias Integumentary Denies abscess Neurologic Neurologic: Denies headache(s) Psychiatric Psychiatric: Denies anxiety Endocrine Endocrinology: Denies cold intolerance Hematologic/Lymphatic Hematologic/Lymphatic: Denies easy bleeding Allergic/Immunologic Allergic/Immunologic ED: Denies mouth swelling or tongue swelling EXAM Physical Exam Narrative Exam Narrative: 81-year-old male vital signs stable afebrile. Pulse ox 97% on room air no signs of hypoxia. H EENT exam unremarkable. Moist mucous membranes. Neck nontender no JVD. No lymphadenopathy. Lungs clear to auscultation bilaterally. Heart regular rhythm no murmur. Abdomen soft nontender. Moving all 4 extremities. Calves are nontender without edema or cords. Neurologically patient is awake and alert with no focal motor deficits. Patient does have parkinsonian tremors. Benign unremarkable exam. Patient clinically looks well. Const Vital Signs: 08/31/22 08:48 08/31/22 09:36 08/31/22 09:36 Temperature 96.9 F L 96.9 F L Temperature Source Temporal Temporal Pulse Rate 91 91 Respiratory Rate 14 14 Blood Pressure 151/118 H 151/118 H Blood Pressure Mean 129 129 Pulse Ox 97 97 97 Oxygen Delivery Method Room Air Room Air Room Air Positive well nourished and well developed; Negative for obese, cachectic, contractures or unkempt General Appearance ED: well developed and NAD; Negative for unkempt, cachectic, contractures or pallor Nutritional Appearance: Negative for cachectic or obese HEENT Reports moist mucous membranes; Denies dry mucous membranes atraumatic; Negative for trauma or tenderness Mouth ED: No dry mucous membranes Mouth: No dry mucous membranes Eyes PERRL and EOMs intact bilaterally General Eye ED: Negative for pale conjunctiva or scleral icterus Neck no lymphadenopathy, supple and no meningeal signs General: Negative for tenderness Lymph Lymphatic: Negative for other Resp normal respiratory effort and clear to auscultation bilaterally Effort and Inspection: Negative for pain with movement Auscultation: Negative for rales, rhonchi or wheezes Cardio regular rate, regular rhythm, S1 normal heart sound, S2 normal heart sound and no murmurs Rate: Negative for bradycardia Rhythm: Negative for abnormal rhythm GI non-tender, non-distended and no masses Inspection: Negative for other Auscultation: normoactive bowel sounds Palpation: soft; Negative for tender Back/Spine no CVA tenderness and normal to inspection General Back: Negative for CVA tenderness or tenderness Extremity normal to inspection General Extremety ED: Negative for edema or tenderness General Extremity: Negative for edema Neuro oriented x3 Yesika Coma Scale: document GCS findings Sensorium / Orientation: alert, oriented to person, oriented to place and oriented to time; Negative for orientation impaired, confused, lethargic or stuporous Speech: speech normal Motor Exam: strength 5/5 throughout Psych mental status grossly normal Appearance: Negative for unkempt Attitude: No agitated Mood & Affect: Negative for depressed Thought Process: normal thought process Skin no wounds and skin turgor normal General Skin Exam: Negative for jaundice or pallor Lesions: no lesions Rashes: no rashes Trauma: Negative for abrasion or laceration MDM MDM MDM Narrative Medical decision making narrative: 81-year-old male history of Parkinson's disease. Chronic history of shortness of breath which she states is over a year. Complaint shortness of breath. Clinically looks well. His exam is unremarkable. He will undergo a cardiac work-up with a COVID test. He has no risk factors or history for PE. Repeat exam patient doing well at 12:30 PM and will be discharged home. I discussed test results with both he and family. Lab Data Attestation: I reviewed the patient's lab results. Lab results narrative: Rapid COVID test negative. Chest x-ray negative. CBC unremarkable white count of 7. H&H is 16 and 46. Electrolytes unremarkable Janyce 7. BUN 46 creatinine 2.18. Glucose 116. Troponin level normal at 78. Consistent with dehydration. Labs: Laboratory Results - last 24 hr 08/31/22 08/31/22 09:35 09:35 WBC 7.0 RBC 5.03 Hgb 16.3 Hct 46.6 MCV 92.6 MCH 32.4 H MCHC 35.0 RDW Std Deviation 43.2 RDW Coeff of Trey 12.7 Plt Count 213 MPV 9.5 Immature Gran % (Auto) 0.300 Neut % (Auto) 70.3 H Lymph % (Auto) 16.7 L Harmon % (Auto) 10.0 Eos % (Auto) 2.3 Baso % (Auto) 0.4 Absolute Neuts (auto) 4.9 Absolute Lymphs (auto) 1.17 Nucleated RBC % 0 Sodium 140 Potassium 4.3 Chloride 103 Carbon Dioxide 30.0 Anion Gap 7 BUN 46 H Creatinine 1.18 Estim Creat Clear Calc 46.90 Est GFR (MDRD) Af Amer 76 Est GFR (MDRD) Non-Af 63 BUN/Creatinine Ratio 39.0 H Glucose 116 H Calcium 10.3 H Troponin I High Sens 7 Radiography Chest X-Ray - ED: 1 View, Read by ED Physician, Read by Radiologist, Heart, Lungs, Mediastinum, Bony Structures, No Acute Disease, Chronic Changes and No Infiltrates Diagnostic Testing: Clinical Impression(s) from Imaging Studies Chest X-Ray 08/31/22 09:40 IMPRESSION: Stable examination. No acute abnormality is seen. Electronically Signed: Pepe Lopez MD at 10:15 EST , Chest x-ray, portable, single view interpreted by myself and the radiologist shows no infiltrate. Normal cardiac silhouette. No effusions. Rhythm Strip Rhythm Strip: Sinus Rhythm Rate: 77 Ectopy: None EKG Initial EKG: Attestation: I personally reviewed and interpreted this EKG as follows: Interpretation: Sinus Rhythm and No Acute Injury Pattern Comments: Normal sinus rhythm rate 77. Occasional PVCs. Interventricular conduction delay. Unchanged from prior EKG from April Prior EKG tracings: available for review Prior: Unchanged Discharge Plan Triage Chief Complaint: Shortness of Breath ED Provider: Stephon Love Dx/Rx/DC Orders Clinical Impression: Acute dyspnea, Hx of Parkinson's disease, Dehydration Instructions: ED Dehydration (Adult), ED Dyspnea Prescriptions: No Action amlodipine 2.5 mg tablet 5 mg PO DAILY carbidopa-levodopa [Sinemet] 25-100 mg tablet 1.5 tab PO TID sertraline [Zoloft] 25 MG tablet 50 mg PO DAILY Label Comments: mood finasteride 5 MG tablet 5 mg PO QHS Label Comments: prostate, BPH simvastatin 20 mg tablet 20 mg PO QHS Label Comments: cholesterol levothyroxine 50 mcg tablet 75 mcg PO DAILY Label Comments: thyroid aspirin 81 MG tablet 81 mg PO BID Label Comments: heart health coenzyme Q10 10 MG capsule 200 mg PO DAILY cholecalciferol (vitamin D3) 2,000 UNIT capsule 2,000 unit PO DAILY mecobalamin (vitamin B12) 5,000 mcg Tablet,Disintegrating 1,000 mcg PO DAILY levetiracetam [Keppra] 500 mg Tablet 1,000 mg PO BID bisacodyl [Dulcolax (bisacodyl)] 5 mg Tablet,Delayed Release (Dr/Ec) 5 - 10 mg PO QHS PRN (Reason: Constipation) melatonin 3 mg Tablet 3 mg PO QHS omeprazole 40 mg Capsule,Delayed Release(Dr/Ec) 40 mg PO DAILY lubiprostone [Amitiza] 24 mcg Capsule 24 mcg PO BID metoprolol succinate 25 mg tablet extended release 24 hr 25 mg PO DAILY ciprofloxacin HCl [Cipro] 500 mg tablet 500 mg PO BID 10 Days Qty: 20 0RF Primary Care Provider: Cheo Gamble Referrals: Cheo Gamble MD [Primary Care Provider] - 3-5 Days if not improving Activity Restrictions/Additional Instructions: Plenty of fluids and rest. Your labs, EKG and chest x-ray were unremarkable. Follow-up with your doctor. Disposition Disposition: Home, Self Care
[2022-08-31 09:36] VITALS: BP 151/118; PULSE 91; RESP 14; TEMP 36.1; O2SAT 97
--- NOTE | 2022-08-31 09:40 | RAD_ITS ---
STUDY: X-RAY CHEST REASON FOR EXAM: Male, 81 years old. Chest pain TECHNIQUE: Single AP portable view of the chest. COMPARISON: Comparison is made with prior study dated 05/01/2022. FINDINGS: EKG electrodes are seen. The lungs are clear and expanded. There is no demonstrated pleural abnormality. Sternal cerclage wires are present from a prior sternotomy. The patient is status post mitral valve replacement. A left atrial appendage clip is seen. Normal mediastinum and gavin. Normal visualized pulmonary arteries. There is atherosclerotic tortuosity of the aortic arch and descending thoracic aorta. There are degenerative changes of the visualized thoracic spine. Normal visualized ribs, clavicles, and shoulders. There is no demonstrated abnormality of the visualized soft tissue structures of the upper abdomen. RAD/Chest 1 View (Portable) IMPRESSION: Stable examination. No acute abnormality is seen. Electronically Signed: Pepe Lopez MD at 10:15 EST ,
[2022-08-31 09:45] LABS: Absolute Lymphocyte Count 1.17 X10^3/uL (0.83-4.51); Absolute Neutrophil Count 4.9 X10^3/uL (2.0-7.7); Basophil# 0.03 X10^3/uL; Basophil% 0.4 % (0-1); Eosinophil# 0.16 X10^3/uL; Eosinophils% 2.3 % (0-5); Hematocrit 46.6 % (40-54); Hemoglobin 16.3 g/dL (13.0-16.5); Lymphocyte # 1.17 X10^3/ul (0.83-4.51); Lymphocyte % 16.7 % (19-41); Mean Corpuscular Hgb 32.4 pg (27.0-32.0); Mean Corpuscular Volume 92.6 fL (80-94); Mean Platelet Vol. 9.5 fl (6.2-12.0); NRBC Flagged by Analyzer 0 % (0-5); Neutrophil # 4.92 X10^3/uL (2.7-7.7); Neutrophil % 70.3 % (47-70); Platelet Count 213 K/mm3 (150-450); RBC Distribution Width CV 12.7 % (11.6-14.6); RBC Distribution Width SD 43.2 fl (35.1-43.9); Red Blood Count 5.03 M/mm3 (4.6-6.2)
[2022-08-31 10:00] LABS: Anion Gap 7 (5-15); BUN 46 mg/dL (7-18); Calcium,Total 10.3 mg/dL (8.5-10.1); Chloride 103 mmol/L (98-107); Creatinine, Serum 1.18 mg/dL (0.70-1.30); EST Glomerular Filtration Rate 63 mL/min (>60); Est Glom Filt Rate - Afr Amer 76 mL/min (>60); Glucose 116 mg/dL (74-106); Potassium 4.3 mmol/L (3.5-5.1); Sodium Level 140 mmol/L (136-145); Troponin-I HS 7 pg/mL (3.0-78.0)
[2022-08-31 13:14] VITALS: BP 176/94; PULSE 64; RESP 16; O2SAT 100
[2022-08-31 13:15] VITALS: O2SAT 100
== END 2022-08-31 13:30 | disposition home or self-care (01) ==
PROVIDERS: Emergency Provider Emergency Medicine; PCP Internal Medicine; Visit Provider Emergency Medicine
DX: Z00.00 Encounter for general adult medical examination without abnormal findings (principal)
CPT/HCPCS: 99284; 96360; 71045; 80048; 84484; 85025; 87811; 93005; J7040; A4216

== ENCOUNTER 2022-09-03 16:18 | Inpatient (IN) | payer MEDICARE, OTHER, SELFPAY ==
[2022-09-03 16:21] VITALS: BP 154/108; PULSE 95; RESP 19; TEMP 36.5; O2SAT 99; BMI 28.3
--- NOTE | 2022-09-03 16:39 | EKG12_ITS ---
Test Reason : FALL Blood Pressure : / mmHG Vent. Rate : 091 BPM Atrial Rate : 091 BPM P-R Int : 086 ms QRS Dur : 104 ms QT Int : 390 ms P-R-T Axes : 088 -13 084 degrees QTc Int : 479 ms Sinus rhythm with short MD Otherwise normal ECG Confirmed by HIRAL PRESTON, ISABELLA ([id number]), graphics editor TIMOTEO GARCIA ([id number]) on 09/07/2022 11:30:05 AM Referred By: Confirmed By:ISABELLA BLACKMAN MD
--- NOTE | 2022-09-03 16:39 | RAD_ITS ---
STUDY: X-RAY - PELVIS AND LEFT HIP REASON FOR EXAM: Male, 81 years old. injury TECHNIQUE: 3 views of the pelvis and hip. COMPARISON: None. FINDINGS: There is a non-specific bowel gas pattern. Normal visualized soft tissue structures. Normal bilateral iliac wings, sacroiliac joints and visualized sacrum. Normal bilateral superior and inferior pubic rami. Normal pubic symphysis. Normal bilateral ischial tuberosities. There is an acute impacted comminuted intertrochanteric fracture with overlapping and varus angulation of fracture fragments. There is also avulsion of the lesser trochanter. RAD/HIP, UNI W/ Pelvis 2-3 Views IMPRESSION: Acute impacted comminuted angulated fracture of left hip Electronically Signed: Musa Rogers MD at 17:46 EST ,
--- NOTE | 2022-09-03 16:41 | EDS_ITS ---
HPI History of Present Illness Chief Complaint: Lower Extremity Injury Informant: patient and EMS Onset/Context/Timing Onset: Today Narrative Narrative: Brought in by EMS for fall outside. Patient reports cannot get a [employer] package 20 turn and stepped wrong falling directly onto his left hip. Denies head injuries. Denies anticoagulation medicines. Denies history of fractures. Does not ambulate with any assistance. He reported he felt like his hip snap. He was laying in the rain for half-hour neighbor called EMS. EMS unable to establish IV, no medications given. Allergy to lisinopril. [facility] Medical History Anxiety Atherosclerotic heart disease of [place] coronary artery without angina pectoris BPH (benign prostatic hyperplasia) Bradycardia Depression Essential hypertension History of left heart catheterization (LHC) (~10/01/16) History of mitral valve disorder Hypothyroid Hypothyroidism Irregular heart beat Kidney stone Lung nodule Migraine Orthostatic hypotension Parkinsons disease Right sided weakness Seizure Slurred speech Spinal stenosis Syncope Wears hearing aid in both ears Home Medications finasteride 5 mg tablet 5 mg PO QHS prostate 09/07/16 [History Last Taken 04/06/21] sertraline 25 mg tablet (Zoloft) 50 mg PO DAILY DEPRESSION 09/07/16 [History Last Taken 03/24/21] aspirin 81 mg tablet,delayed release 81 mg PO BID HEART HEALTH 10/05/16 [History Last Taken 04/06/21] cholecalciferol (vitamin D3) 50 mcg (2,000 unit) capsule 2,000 unit PO DAILY SUPPLEMENT 12/27/17 [History Last Taken 03/24/21] coenzyme Q10 10 mg capsule 200 mg PO DAILY SUPPLEMENT 12/27/17 [History Last Taken 03/24/21] carbidopa 25 mg-levodopa 100 mg tablet (Sinemet) 1.5 tab PO TID 06/20/19 [History Last Taken 04/06/21] simvastatin 20 mg tablet 20 mg PO QHS cholesterol lowering 06/20/19 [History Last Taken 03/23/21] amlodipine 2.5 mg tablet 5 mg PO DAILY 06/21/19 [History Last Taken 03/24/21] levothyroxine 50 mcg tablet 75 mcg PO DAILY thyroid 06/21/19 [History Last Taken 03/24/21] mecobalamin (vitamin B12) 5,000 mcg disintegrating tablet 1,000 mcg PO DAILY supplement 03/24/21 [History Last Taken 03/24/21] levetiracetam 500 mg tablet (Keppra) 1,000 mg PO BID heart/seizure med 03/25/21 [History Last Taken Unknown] bisacodyl 5 mg tablet,delayed release (Dulcolax (bisacodyl)) 5 - 10 mg PO QHS PRN Constipation 04/07/21 [History Last Taken Unknown] lubiprostone 24 mcg capsule (Amitiza) 24 mcg PO BID 05/01/22 [History Last Taken Unknown] metoprolol succinate 25 mg tablet,extended release 24 hr 25 mg PO DAILY 05/01/22 [History Last Taken Unknown] omeprazole 40 mg capsule,delayed release 40 mg PO DAILY 05/01/22 [History Last Taken Unknown] hydroxyzine HCl 50 mg tablet 50 mg PO BID PRN Anxiety 09/03/22 [History Last Taken Unknown] Allergy/AdvReac Type Severity Reaction Status Date / Time lisinopril AdvReac Nausea Verified 08/31/22 08:48 Family History Father CAD (coronary artery disease) Surgical History History of hernia repair History of mandibular surgery History of mitral valve repair (~11/18/16) Social History household members: none Smoking Status: Never smoker alcohol intake: never substance use type: does not use caffeine: No ROS ROS ED Constitutional Constitutional ED: Denies chills, fever(s) or sweats Eyes Eyes: Denies change in vision ENT ENT ED: Denies dysphagia or sore throat Cardiovascular Cardiovascular: Denies chest pain, leg edema, palpitations or racing heartbeat Respiratory/Chest Respiratory/Chest: Denies cough, dyspnea or dyspnea on exertion Gastrointestinal Gastrointestinal: Denies abdominal pain, diarrhea, nausea or vomiting Genitourinary Genitourinary ED: Denies dysuria, hematuria or urinary frequency Musculoskeletal Musculoskeletal: Reports extremity pain and other Details: Left hip pain ; Denies back pain or neck pain Integumentary Denies rash or wounds Neurologic Neurologic: Denies headache(s), paresthesias or weakness EXAM Physical Exam Const Vital Signs: 09/03/22 16:21 09/03/22 17:52 09/03/22 18:00 Temperature 97.7 F L Temperature Source Oral Pulse Rate 95 85 85 Respiratory Rate 19 H 15 17 Blood Pressure 154/108 H 107/73 116/74 Blood Pressure Mean 123 84 88 Pulse Ox 99 94 97 Oxygen Delivery Method Room Air Room Air Room Air 09/03/22 18:36 Temperature 97.7 F L Temperature Source Oral Pulse Rate 85 Respiratory Rate 17 Blood Pressure 116/74 Blood Pressure Mean 88 Pulse Ox 97 Oxygen Delivery Method Room Air Positive well nourished and well developed Constitutional Narrative: GCS 15. wet close. Answering questions appropriately. General Appearance ED: well developed HEENT Reports TM's clear and moist mucous membranes normocephalic and atraumatic Tympanic Membrane ED: Yes TM's clear Eyes PERRL, EOMs intact bilaterally and conjunctivae normal General Eye ED: Yes normal appearance of both eyes Neck no lymphadenopathy and supple General: Negative for tenderness Chest Wall inspection of chest normal and palpation of chest normal Chest Narrative: Midline chest scar. Chest: Negative for tenderness Resp normal respiratory effort and normal air movement Effort and Inspection: symmetric chest movement; Negative for respiratory distress Cardio regular rate, regular rhythm and no murmurs Peripheral Pulses: pulses 2+ throughout GI normal to inspection, nondistended, normoactive bowel sounds and non-tender Palpation: Negative for guarding or rebound tenderness present Back/Spine no CVA tenderness and no thoracic nor lumbar tenderness Extremity Extremity Narrative: Upper extremities: Full range of motion without pain. Left lower extremity: Deformities left upper hip region pain with movement internal rotation with shortening. Pulses intact distally. Right lower extremity: Negative logroll. No deformities. Neuro vas intact. General Extremety ED: Negative for edema or tenderness General Extremity: Negative for edema Neuro oriented x3, CN's II-XII intact bilaterally and no sensory deficits noted Sensorium / Orientation: awake and alert Skin no rashes or lesions noted and no wounds MDM MDM MDM Narrative Medical decision making narrative: Mechanical fall no head injuries GCS 15. Deformed left hip. Fentanyl given. Zofran. EKG sinus rhythm. Left hip with pelvis 3 views reviewed myself read by radiology displaced intertrochanteric fracture with lesser trochanter involvement. Skin is closed fracture. Labs are stable pain control with medications. Neuro vas intact distally. Chest x-ray 1 view reviewed by myself read by radiology negative for acute process. Family present. He is on baby aspirin with his valve repair. No other anticoagulants. I spoke with orthopedist Dr. Shah, will admit to medicine with n.p.o. after midnight. Spoke with Dr. Cid for admission. Lab Data Attestation: I reviewed the patient's lab results. Labs: Laboratory Results - last 24 hr 09/03/22 09/03/22 09/03/22 16:30 16:30 16:30 WBC 13.2 H RBC 4.76 Hgb 15.2 Hct 45.2 MCV 95.0 H MCH 31.9 MCHC 33.6 RDW Std Deviation 44.5 H RDW Coeff of Trey 12.9 Plt Count 235 MPV 9.8 Immature Gran % (Auto) 0.600 Neut % (Auto) 77.4 H Lymph % (Auto) 13.5 L Grand % (Auto) 6.9 Eos % (Auto) 1.4 Baso % (Auto) 0.2 Absolute Neuts (auto) 10.2 H Absolute Lymphs (auto) 1.77 Nucleated RBC % 0 PT 14.5 INR 1.2 APTT 30.6 Sodium 141 Potassium 4.0 Chloride 104 Carbon Dioxide 26.0 Anion Gap 11 BUN 55 H Creatinine 1.20 Estim Creat Clear Calc 46.64 Est GFR (MDRD) Af Amer 74 Est GFR (MDRD) Non-Af 61 BUN/Creatinine Ratio 45.8 H Glucose 113 H Calcium 9.4 Blood Type Antibody Screen 09/03/22 16:30 WBC RBC Hgb Hct MCV MCH MCHC RDW Std Deviation RDW Coeff of Trey Plt Count MPV Immature Gran % (Auto) Neut % (Auto) Lymph % (Auto) Grand % (Auto) Eos % (Auto) Baso % (Auto) Absolute Neuts (auto) Absolute Lymphs (auto) Nucleated RBC % PT INR APTT Sodium Potassium Chloride Carbon Dioxide Anion Gap BUN Creatinine Estim Creat Clear Calc Est GFR (MDRD) Af Amer Est GFR (MDRD) Non-Af BUN/Creatinine Ratio Glucose Calcium Blood Type O POSITIVE Antibody Screen NEGATIVE Radiography Diagnostic Testing: Clinical Impression(s) from Imaging Studies Hip/Pelvis X-Ray 09/03/22 16:39 IMPRESSION: Acute impacted comminuted angulated fracture of left hip Electronically Signed: Musa Rogers MD at 17:46 EST , Chest X-Ray 09/03/22 17:18 IMPRESSION: No acute cardiopulmonary pathology status post median sternotomy Electronically Signed: Musa Rogers MD at 17:38 EST , EKG Initial EKG: Attestation: I personally reviewed and interpreted this EKG as follows: Comments: Sinus rate of 91, no ST changes, T wave inversion in aVL, nonspecific. Interventricular delay nonspecific. Discharge Plan Dx/Rx/DC Orders Clinical Impression: Closed fracture of left hip, History of mitral valve repair, Hx of Parkinson's disease, Fall Disposition Disposition: Acute Care Hospital [facility] Discharge Date/Time: 09/03/22 20:14
[2022-09-03] MEDS: Ondansetron 4 MG/2 ML Vial IV (16:45)
[2022-09-03] MEDS: fentaNYL 100 MCG/2 ML Ampul 50 MCG IV ×2 (16:45→18:14)
[2022-09-03 16:48] LABS: Absolute Lymphocyte Count 1.77 X10^3/uL (0.83-4.51); Absolute Neutrophil Count 10.2 X10^3/uL (2.0-7.7); Basophil# 0.03 X10^3/uL; Basophil% 0.2 % (0-1); Eosinophil# 0.18 X10^3/uL; Eosinophils% 1.4 % (0-5); Hematocrit 45.2 % (40-54); Hemoglobin 15.2 g/dL (13.0-16.5); Lymphocyte # 1.77 X10^3/ul (0.83-4.51); Lymphocyte % 13.5 % (19-41); Mean Corp Hgb Conc 33.6 g/dL (32-36); Mean Corpuscular Hgb 31.9 pg (27.0-32.0); Mean Platelet Vol. 9.8 fl (6.2-12.0); Monocyte# 0.91 X10^3/uL; Monocyte% 6.9 % (0-10); NRBC Flagged by Analyzer 0 % (0-5); Neutrophil # 10.18 X10^3/uL (2.7-7.7); Neutrophil % 77.4 % (47-70); Platelet Count 235 K/mm3 (150-450); RBC Distribution Width CV 12.9 % (11.6-14.6); RBC Distribution Width SD 44.5 fl (35.1-43.9); Red Blood Count 4.76 M/mm3 (4.6-6.2); White Blood Count 13.2 K/mm3 (4.4-11.0)
[2022-09-03 16:58] LABS: International Normalized Ratio 1.2; Partial Thromboplast Time 30.6 Seconds (24.1-36.2); Prothrombin Time (Protime)PT. 14.5 SECONDS (11.7-14.9)
[2022-09-03 17:15] LABS: Anion Gap 11 (5-15); BUN 55 mg/dL (7-18); BUN/Creat Ratio 45.8 RATIO (10-20); Calcium,Total 9.4 mg/dL (8.5-10.1); Chloride 104 mmol/L (98-107); EST Glomerular Filtration Rate 61 mL/min (>60); Est Glom Filt Rate - Afr Amer 74 mL/min (>60); Estimated Creatinine Clearance 46.64 ml/min; Glucose 113 mg/dL (74-106); Sodium Level 141 mmol/L (136-145)
--- NOTE | 2022-09-03 17:18 | RAD_ITS ---
STUDY: X-RAY CHEST REASON FOR EXAM: Male, 81 years old. preop TECHNIQUE: AP portable COMPARISON: None. FINDINGS: The lungs are clear and expanded. There is no demonstrated pleural abnormality. Postop change status post median sternotomy. Left atrial clip is noted as well as prosthetic valve. Normal size heart. Normal mediastinum and gavin. Normal visualized pulmonary arteries. Mildly calcified aortic arch and descending thoracic aorta. Normal visualized thoracic spine. Normal visualized ribs, clavicles, and shoulders. There is no demonstrated abnormality of the visualized soft tissue structures of the upper abdomen. RAD/Chest 1 View (Portable) IMPRESSION: No acute cardiopulmonary pathology status post median sternotomy Electronically Signed: Musa Rogers MD at 17:38 EST ,
[2022-09-03 17:52] VITALS: BP 107/73; PULSE 85; RESP 15; O2SAT 94
[2022-09-03 18:00] VITALS: BP 116/74; PULSE 85; RESP 17; O2SAT 97
[2022-09-03 18:36] VITALS: BP 116/74; PULSE 85; RESP 17; TEMP 36.5; O2SAT 97
[2022-09-03] MEDS: 0.9% Normal Saline 1,000 ML 100 ML IV (18:49)
--- NOTE | 2022-09-03 19:14 | HP.PCM.HOS_ITS ---
HPI - General General Date of Admission: 09/03/22 Date of Service: 09/03/22 Chief Complaint: Fall. HPI Narrative Olivia RODRIGUEZ, is a 81 M who presents with a fall. Patient was going to collect this package from [employer] outside. Patient went to turn and then he fell landing on his left side. Patient was outside for about half hour in the rain when someone called EMS and they picked him up. Patient was brought to the emergency room and had an x-ray that showed an acute impacted comminuted and angulated fracture of the left hip. The emergency room physician reached out to Dr. Shah, who would see the patient in consultation. Patient states that when he fell, he did not hit his head but did hear a snap. Patient does have Parkinson's disease but he normally gets around his house okay without using any devices, such as a walker. He states that occasionally he will brace himself against the wall but does not furniture walk. [facility] Medical History Anxiety Atherosclerotic heart disease of [place] coronary artery without angina pectoris BPH (benign prostatic hyperplasia) Bradycardia Depression Essential hypertension History of left heart catheterization (LHC) (~10/01/16) History of mitral valve disorder Hypothyroid Hypothyroidism Irregular heart beat Kidney stone Lung nodule Migraine Orthostatic hypotension Parkinsons disease Right sided weakness Seizure Slurred speech Spinal stenosis Syncope Wears hearing aid in both ears Home Medications finasteride 5 mg tablet 5 mg PO QHS prostate 09/07/16 [History Last Taken 04/06/21] sertraline 25 mg tablet (Zoloft) 50 mg PO DAILY DEPRESSION 09/07/16 [History Last Taken 03/24/21] aspirin 81 mg tablet,delayed release 81 mg PO BID [facility] 10/05/16 [History Last Taken 04/06/21] cholecalciferol (vitamin D3) 50 mcg (2,000 unit) capsule 2,000 unit PO DAILY SUPPLEMENT 12/27/17 [History Last Taken 03/24/21] coenzyme Q10 10 mg capsule 200 mg PO DAILY SUPPLEMENT 12/27/17 [History Last Taken 03/24/21] carbidopa 25 mg-levodopa 100 mg tablet (Sinemet) 1.5 tab PO TID 06/20/19 [History Last Taken 04/06/21] simvastatin 20 mg tablet 20 mg PO QHS cholesterol lowering 06/20/19 [History Last Taken 03/23/21] amlodipine 2.5 mg tablet 5 mg PO DAILY 06/21/19 [History Last Taken 03/24/21] levothyroxine 50 mcg tablet 75 mcg PO DAILY thyroid 06/21/19 [History Last Taken 03/24/21] mecobalamin (vitamin B12) 5,000 mcg disintegrating tablet 1,000 mcg PO DAILY supplement 03/24/21 [History Last Taken 03/24/21] levetiracetam 500 mg tablet (Keppra) 1,000 mg PO BID heart/seizure med 03/25/21 [History Last Taken Unknown] bisacodyl 5 mg tablet,delayed release (Dulcolax (bisacodyl)) 5 - 10 mg PO QHS PRN Constipation 04/07/21 [History Last Taken Unknown] lubiprostone 24 mcg capsule (Amitiza) 24 mcg PO BID 05/01/22 [History Last Taken Unknown] metoprolol succinate 25 mg tablet,extended release 24 hr 25 mg PO DAILY 05/01/22 [History Last Taken Unknown] omeprazole 40 mg capsule,delayed release 40 mg PO DAILY 05/01/22 [History Last Taken Unknown] hydroxyzine HCl 50 mg tablet 50 mg PO BID PRN Anxiety 09/03/22 [History Last Taken Unknown] Allergy/AdvReac Type Severity Reaction Status Date / Time lisinopril AdvReac Nausea Verified 08/31/22 08:48 Family History Father CAD (coronary artery disease) Surgical History History of hernia repair History of mandibular surgery History of mitral valve repair (~11/18/16) Social History household members: none Smoking Status: Never smoker alcohol intake: never substance use type: does not use caffeine: No ROS ROS Narrative Chronic tremulousness due to his Parkinson's disease. Had been seeing a neurologist but had missed appointments so will be seeing Dr. Bean in about 1 month. All review of systems were negative except as mentioned above in the history of present illness and the other review of systems. Vital Signs Vital Signs Vital Signs: 09/03/22 16:21 09/03/22 17:52 09/03/22 18:00 Temperature 36.5 C L Temperature Source Oral Pulse Rate 95 85 85 Respiratory Rate 19 H 15 17 Blood Pressure 154/108 H 107/73 116/74 Blood Pressure Mean 123 84 88 Pulse Ox 99 94 97 Oxygen Delivery Method Room Air Room Air Room Air 09/03/22 18:36 Temperature 36.5 C L Temperature Source Oral Pulse Rate 85 Respiratory Rate 17 Blood Pressure 116/74 Blood Pressure Mean 88 Pulse Ox 97 Oxygen Delivery Method Room Air Weight Weight: 87.09 kg Body Mass Index (BMI) 28.3 Physical Exam Const alert, no apparent distress and average body habitus HEENT normocephalic and head/scalp atraumatic Resp normal respiratory effort, no retractions, no use of accessory muscles and clear to auscultation bilaterally Cardio regular rate, regular rhythm, S1 normal heart sound and S2 normal heart sound GI normal to inspection, nondistended, normoactive bowel sounds, soft to palpation and non-tender Extremity Extremity Narrative: Noted cyanosis of his toes. +1 dorsalis pedal pulses bilaterally. Shortened left lower extremity compared to the right. Neuro oriented x3 Sensorium / Orientation: awake and alert Results Lab / Micro Data Attestation: I reviewed the patient's lab results. Result Diagrams: 09/03/22 16:30 09/03/22 16:30 Labs: Laboratory Results - last 24 hr 09/03/22 16:30: WBC 13.2 H, RBC 4.76, Hgb 15.2, Hct 45.2, MCV 95.0 H, MCH 31.9, MCHC 33.6, RDW Std Deviation 44.5 H, RDW Coeff of Trey 12.9, Plt Count 235, MPV 9.8, Immature Gran % (Auto) 0.600, Neut % (Auto) 77.4 H, Lymph % (Auto) 13.5 L, [place] % (Auto) 6.9, Eos % (Auto) 1.4, Baso % (Auto) 0.2, Absolute Neuts (auto) 10.2 H, Absolute Lymphs (auto) 1.77, Nucleated RBC % 0 09/03/22 16:30: PT 14.5, INR 1.2, APTT 30.6 09/03/22 16:30: Sodium 141, Potassium 4.0, Chloride 104, Carbon Dioxide 26.0, Anion Gap 11, BUN 55 H, Creatinine 1.20, Estim Creat Clear Calc 46.64, Est GFR (MDRD) Af Amer 74, Est GFR (MDRD) Non-Af 61, BUN/Creatinine Ratio 45.8 H, Glucos e 113 H, Calcium 9.4 09/03/22 16:30: Blood Type O POSITIVE, Antibody Screen NEGATIVE EKG Initial EKG: Attestation: I personally reviewed and interpreted this EKG as follows: Prior EKG tracings: available for review EKG Rhythm Intrepretation: Sinus Rhythm (Intraventricular conduction delay. Short UT segment.) Radiology Impression Hip/Pelvis X-Ray 09/03/22 16:39 IMPRESSION: Acute impacted comminuted angulated fracture of left hip Electronically Signed: Musa Rogers MD at 17:46 EST , Chest X-Ray 09/03/22 17:18 IMPRESSION: No acute cardiopulmonary pathology status post median sternotomy Electronically Signed: Musa Rogers MD at 17:38 EST , Assessment & Plan Assessment/Plan (1) Closed fracture of left hip: PLAN: Status post mechanical fall NQSIP performed and shows the patient is high risk of serious complication, any complication, surgical site infection, discharged to nursing or rehab facility. Patient has a fair performance status at baseline. He is otherwise medically optimized to proceed with surgery and is medically cleared to proceed with surgery. Dr. Shah has been contacted through the emergency room and I was informed the plan is for surgery on the . Pain control Check 25-hydroxy vitamin D level PLAN: Plan Chronic conditions * Chronic dyspnea: Patient is not hypoxic. This may be more related with his anxiety. Patient had bought some oxygen canisters online that were being del[employer] gl[employer]. Patient once again does not take oxygen but this is the oxygen boost. Despite more placebo than actually any kind of therapeutic intervention. * Anxiety: Patient's sertraline was recently increased from 25-50. * History of mitral valve replacement * Parkinson's disease: Aj. Discussed with the patient and his daughter that his Parkinson's disease can have a sizable impact on his recovery and that he is not going to bounce back as quickly as someone who does not have Parkinson's disease. VTE prophylaxis: SCDs for now CODE STATUS: Addressed with the patient. Patient wished to be DNR Comfort Care arrest Disposition: I suspect patient will require a fdc facility. Patient was asked about going home. Informed him that that is his decision ultimately but he would likely require 24-hour assistance and that would be quite extensive. I encouraged him to think on it further as no definitive decision will be made until Tuesday when case management can assist. Charges/Coding Visit Charges Inpatient E&M: 86756 Init Hosp L3
[2022-09-03 20:33] VITALS: BMI 21.8
[2022-09-03] MEDS: levETIRAcetam 1,000 MG Tablet 1000 MG PO (21:33)
[2022-09-03] MEDS: Atorvastatin Calcium 10 MG Tablet PO (21:34)
[2022-09-03] MEDS: Finasteride 5 MG Tablet PO (21:35)
[2022-09-03] MEDS: Senna/Docusate Sodium 1 Tablet 2 TABLET PO (21:35)
[2022-09-03] MEDS: Carbidopa/Levodopa 25/100 Tablet PO (21:36)
[2022-09-03 21:42] VITALS: BP 118/71; PULSE 83; RESP 16; TEMP 37.1; O2SAT 97
[2022-09-03 22:51] LABS: ALB/GLOB Ratio 1.7 RATIO (0.9-2.4); AST(SGOT) 26 U/L (15-37); Alanine Aminotransfer ALT/SGPT 14 U/L (16-61); Albumin, Serum 3.9 g/dL (3.2-5.0); Alkaline Phosphatase 68 U/L (45-117); Anion Gap 5 (5-15); BUN 51 mg/dL (7-18); Calcium,Total 8.9 mg/dL (8.5-10.1); Chloride 105 mmol/L (98-107); EST Glomerular Filtration Rate 76 mL/min (>60); Est Glom Filt Rate - Afr Amer 92 mL/min (>60); Globulin 2.3 g/dL (2.2-4.2); Glucose 106 mg/dL (74-106); Potassium 3.9 mmol/L (3.5-5.1); Protein, Total 6.2 g/dL (6.4-8.2); Sodium Level 140 mmol/L (136-145)
[2022-09-03 22:52] LABS: Vitamin D,25 Hydroxy 69.3 ng/mL
[2022-09-03 23:15] LABS: Thyroid Stim Hormone (TSH) 1.48 uIU/mL (0.358-3.74)
[2022-09-04] VITALS (13 sets, daily range): BP systolic 83–138; BP diastolic 65–94; PULSE 67–93; RESP 16–20; TEMP 36.3–36.8; O2SAT 93–100; BMI 21.8
[2022-09-04] MEDS: Morphine 2 MG/ML Syringe IV ×3 (01:59→09:06)
[2022-09-04] MEDS: 0.9% Normal Saline 1,000 ML 100 ML IV ×3 (02:02→23:50)
[2022-09-04] MEDS: Carbidopa/Levodopa 25/100 Tablet PO ×2 (05:28→15:15)
[2022-09-04] MEDS: Levothyroxine 75 MCG Tablet PO (05:29)
[2022-09-04 06:43] LABS: Absolute Lymphocyte Count 1.16 X10^3/uL (0.83-4.51); Absolute Neutrophil Count 6.4 X10^3/uL (2.0-7.7); Basophil# 0.01 X10^3/uL; Basophil% 0.1 % (0-1); Eosinophil# 0.03 X10^3/uL; Eosinophils% 0.3 % (0-5); Hematocrit 36.9 % (40-54); Hemoglobin 12.5 g/dL (13.0-16.5); Lymphocyte # 1.16 X10^3/ul (0.83-4.51); Lymphocyte % 13.2 % (19-41); Mean Corp Hgb Conc 33.9 g/dL (32-36); Mean Corpuscular Hgb 31.6 pg (27.0-32.0); Mean Corpuscular Volume 93.2 fL (80-94); Mean Platelet Vol. 9.7 fl (6.2-12.0); Monocyte# 1.16 X10^3/uL; Monocyte% 13.2 % (0-10); NRBC Flagged by Analyzer 0 % (0-5); Neutrophil # 6.42 X10^3/uL (2.7-7.7); Neutrophil % 72.9 % (47-70); Platelet Count 176 K/mm3 (150-450); RBC Distribution Width CV 12.7 % (11.6-14.6); RBC Distribution Width SD 43.7 fl (35.1-43.9); Red Blood Count 3.96 M/mm3 (4.6-6.2); White Blood Count 8.8 K/mm3 (4.4-11.0)
[2022-09-04 07:18] LABS: Anion Gap 3 (5-15); BUN 46 mg/dL (7-18); BUN/Creat Ratio 45.5 RATIO (10-20); Calcium,Total 8.8 mg/dL (8.5-10.1); Chloride 106 mmol/L (98-107); Creatinine, Serum 1.01 mg/dL (0.70-1.30); EST Glomerular Filtration Rate 75 mL/min (>60); Est Glom Filt Rate - Afr Amer 91 mL/min (>60); Estimated Creatinine Clearance 54.16 ml/min; Glucose 104 mg/dL (74-106); Potassium 4.1 mmol/L (3.5-5.1); Sodium Level 140 mmol/L (136-145)
--- NOTE | 2022-09-04 08:53 | CASEMGMT ---
Social Work Pt indicated in initial nursing assessment that he has both LW/POA and can bring in the documents. Pt indicated Nanda Hernandez as being POA. ISIAH Vigil
--- NOTE | 2022-09-04 10:27 | PN.HOSP_ITS ---
Subjective Subjective Follow-up on acute hip fracture: Patient was seen and examined. He complains of severe pain in the left hip. Denies any chest pain, dizziness or palpitations. Objective Data Objective Data Vital Signs: Vital Signs Temp Pulse Resp BP Pulse Ox O2 Del Method 98.2 F 88 18 127/81 H 95 Room Air 09/04/22 09:18 09/04/22 09:18 09/04/22 09:18 09/04/22 09:18 09/04/22 09:18 09/04/22 09:18 Oxygen Delivery Method Room Air Weight: 69.1 kg Body Mass Index (BMI) 21.8 Intake & Output: Intake and Output for Last 24 Hours 09/02/22 09/03/22 09/04/22 23:59 23:59 23:59 Intake Total 921.67 / 921.67 Output Total 900 / 900 Balance 21.67 / 21.67 Lab / Micro Data Result Diagrams: 09/04/22 06:34 09/04/22 06:34 Labs: Laboratory Results - last 24 hr 09/03/22 16:30: WBC 13.2 H, RBC 4.76, Hgb 15.2, Hct 45.2, MCV 95.0 H, MCH 31.9, MCHC 33.6, RDW Std Deviation 44.5 H, RDW Coeff of Trey 12.9, Plt Count 235, MPV 9.8, Immature Gran % (Auto) 0.600, Neut % (Auto) 77.4 H, Lymph % (Auto) 13.5 L, [place] % (Auto) 6.9, Eos % (Auto) 1.4, Baso % (Auto) 0.2, Absolute Neuts (auto) 10.2 H, Absolute Lymphs (auto) 1.77, Nucleated RBC % 0 09/03/22 16:30: PT 14.5, INR 1.2, APTT 30.6 09/03/22 16:30: Sodium 141, Potassium 4.0, Chloride 104, Carbon Dioxide 26.0, Anion Gap 11, BUN 55 H, Creatinine 1.20, Estim Creat Clear Calc 46.64, Est GFR (MDRD) Af Amer 74, Est GFR (MDRD) Non-Af 61, BUN/Creatinine Ratio 45.8 H, Glucose 113 H, Calcium 9.4 09/03/22 16:30: Blood Type O POSITIVE, Antibody Screen NEGATIVE 09/03/22 21:49: Sodium 140, Potassium 3.9, Chloride 105, Carbon Dioxide 30.0, Anion Gap 5, BUN 51 H, Creatinine 1.00, Estim Creat Clear Calc 54.70, Est GFR (MDRD) Af Amer 92, Est GFR (MDRD) Non-Af 76, BUN/Creatinine Ratio 51.0 H, Glucose 106, Calcium 8.9, Total Bilirubin 0.50, AST 26, ALT 14 L, Alkaline Phosphatase 68, Total Protein 6.2 L, Albumin 3.9, Globulin 2.3, Albumin/Globulin Ratio 1.7 09/03/22 21:49: Vitamin D 25-Hydroxy 69.3 09/03/22 21:49: TSH 1.48 09/04/22 06:34: WBC 8.8, RBC 3.96 L, Hgb 12.5 L, Hct 36.9 L, MCV 93.2, MCH 31.6, MCHC 33.9, RDW Std Deviation 43.7, RDW Coeff of Trey 12.7, Plt Count 176, MPV 9.7, Immature Gran % (Auto) 0.300, Neut % (Auto) 72.9 H, Lymph % (Auto) 13.2 L, [place] % (Auto) 13.2 H, Eos % (Auto) 0.3, Baso % (Auto) 0.1, Absolute Neuts (auto) 6.4, Absolute Lymphs (auto) 1.16, Nucleated RBC % 0 09/04/22 06:34: Sodium 140, Potassium 4.1, Chloride 106, Carbon Dioxide 31.0, Anion Gap 3 L, BUN 46 H, Creatinine 1.01, Estim Creat Clear Calc 54.16, Est GFR (MDRD) Af Amer 91, Est GFR (MDRD) Non-Af 75, BUN/Creatinine Ratio 45.5 H, Glucose 104, Calcium 8.8 Radiography Diagnostic Testing: Radiology Impression Hip/Pelvis X-Ray 09/03/22 16:39 IMPRESSION: Acute impacted comminuted angulated fracture of left hip Electronically Signed: Musa Rogers MD at 17:46 EST , Chest X-Ray 09/03/22 17:18 IMPRESSION: No acute cardiopulmonary pathology status post median sternotomy Electronically Signed: uMsa Rogers MD at 17:38 EST Reading Location ID and State: [address] [place] [address] , Service support , Physical Exam Narrative Physical exam: General: Alert, Oriented x3, Cooperative HEENT: Atraumatic Oral: Moist Mucosa Neck: Supple Lungs: Clear to auscultation Cardiovascular: HS I+II, regular, no murmurs Abdomen: Bowel Sounds Present, Soft, Non Tender Extremities: No edema, tenderness over the right hip Skin: No rashes, No breakdown Neurological: Grossly intact Psych/Mental Status: Appropriate Assessment & Plan Assessment/Plan (1) General weakness: (2) Hip fracture: PLAN: Plan 1. Acute left hip fracture, status post mechanical fall Continue pain control Continue with orthopedics recommendation 2. Hypertension/H/o mitral valve repair, blood pressures controlled Continue on amlodipine, aspirin, metoprolol 3. Seizure disorder, continue Keppra 4. Anxiety disorder, continue on Zoloft, hydroxyzine 5. Parkinson's disease, continue on Sinemet 6. Hypothyroidism, continue Synthroid 7. BPH, continue on Proscar 8. DVT PPx- per orthopedics Charges/Coding Visit Charges Inpatient E&M: 50884 [facility] Hosp L3
--- NOTE | 2022-09-04 10:52 | PCM.CONS.GEN ---
Assessment & Plan Assessment/Plan (1) Hx of Parkinson's disease: PLAN: Management per primary service (2) Closed fracture of left hip: PLAN: Natural history of the disease process and treatment options were discussed the patient. Patient was given opportunity ask questions and all questions were answered to the greatest extent. At this time based on the reverse obliquity intertrochanteric hip fracture I recommended a cephalomedullary nail. Risk and benefits of the procedure were discussed the patient including but not limited to blood loss, DVTs, PEs, nervous damage infection And risk of anesthesia include loss of life. Based on patient's current overall health and activity level nonoperative management was not recommended. Additionally nonunions of malunions can occur. Patient demonstrates an understanding today and is able to sign informed consent. Patient has been cleared by surgery. We also discussed postoperative Expectations which likely will include additional care in the short-term in order to return home which could include fpc or inpatient rehabilitation. Antibiotics have been ordered on-call to the operating room. Patient is currently n.p.o. Anesthesia is assessing the patient to proceed with surgery today. (3) Fall: PLAN: Per primary service, will require postoperative physical therapy (4) General weakness: PLAN: Per primary service, will require postoperative physical therapy (5) Debility: PLAN: Per primary service, will require postoperative physical therapy (6) History of mitral valve disorder: PLAN: Per primary service (7) History of mitral valve repair: PLAN: Per primary service HPI Consult Data Date of Consult: 09/04/22 HPI Narrative Reason for Consultation: Left hip pain HPI Narrative: Olivia RODRIGUEZ, is a 81 M with a history of Parkinson's disease who presents after a fall last evening. Patient notes he was outside picking up a package when he turned around and fell. He notes hearing a snap when he hit the ground. Patient does confirm that the snap did not occur before he had the ground. He has no significant cancer history. His history does list previous lung nodule which she denies any previous treatment for. Patient lives alone at home but does have 2 aides that help him with activities of daily living. He denies using any assistive devices. He states I have a walker and cane but I did not use them. He does not report furniture walking but does occasionally use the wall for support. Currently his pain is 7 out of 10 worse with motion better with immobilization. He denies any new associated numbness and tingling in that extremity since the fracture fall. He was seen and evaluated by medicine and cleared for surgery today. [facility] Medical History Anxiety Atherosclerotic heart disease of [place] coronary artery without angina pectoris BPH (benign prostatic hyperplasia) Bradycardia Depression Essential hypertension History of left heart catheterization (LHC) (~10/01/16) History of mitral valve disorder Hypothyroid Hypothyroidism Irregular heart beat Kidney stone Lung nodule Migraine Orthostatic hypotension Parkinsons disease Right sided weakness Seizure Slurred speech Spinal stenosis Syncope Wears hearing aid in both ears Home Medications finasteride 5 mg tablet 5 mg PO QHS prostate 09/07/16 [History Last Taken 04/06/21] sertraline 25 mg tablet (Zoloft) 50 mg PO DAILY DEPRESSION 09/07/16 [History Last Taken 03/24/21] aspirin 81 mg tablet,delayed release 81 mg PO BID [facility] 10/05/16 [History Last Taken 04/06/21] cholecalciferol (vitamin D3) 50 mcg (2,000 unit) capsule 2,000 unit PO DAILY SUPPLEMENT 12/27/17 [History Last Taken 03/24/21] coenzyme Q10 10 mg capsule 200 mg PO DAILY SUPPLEMENT 12/27/17 [History Last Taken 03/24/21] carbidopa 25 mg-levodopa 100 mg tablet (Sinemet) 1.5 tab PO TID 06/20/19 [History Last Taken 04/06/21] simvastatin 20 mg tablet 20 mg PO QHS cholesterol lowering 06/20/19 [History Last Taken 03/23/21] amlodipine 2.5 mg tablet 5 mg PO DAILY 06/21/19 [History Last Taken 03/24/21] levothyroxine 50 mcg tablet 75 mcg PO DAILY thyroid 06/21/19 [History Last Taken 03/24/21] mecobalamin (vitamin B12) 5,000 mcg disintegrating tablet 1,000 mcg PO DAILY supplement 03/24/21 [History Last Taken 03/24/21] levetiracetam 500 mg tablet (Keppra) 1,000 mg PO BID heart/seizure med 03/25/21 [History Last Taken Unknown] bisacodyl 5 mg tablet,delayed release (Dulcolax (bisacodyl)) 5 - 10 mg PO QHS PRN Constipation 04/07/21 [History Last Taken Unknown] lubiprostone 24 mcg capsule (Amitiza) 24 mcg PO BID 05/01/22 [History Last Taken Unknown] metoprolol succinate 25 mg tablet,extended release 24 hr 25 mg PO DAILY 05/01/22 [History Last Taken Unknown] omeprazole 40 mg capsule,delayed release 40 mg PO DAILY 05/01/22 [History Last Taken Unknown] hydroxyzine HCl 50 mg tablet 50 mg PO BID PRN Anxiety 09/03/22 [History Last Taken Unknown] Allergy/AdvReac Type Severity Reaction Status Date / Time lisinopril AdvReac Nausea Verified 08/31/22 08:48 Family History Father CAD (coronary artery disease) no significant family history Surgical History History of hernia repair History of mandibular surgery History of mitral valve repair (~11/18/16) Social History household members: none Smoking Status: Never smoker alcohol intake: never substance use type: does not use caffeine: No ROS Constitutional Constitutional: Reports systems reviewed and no addt'l complaints, except as documented Eyes Eyes: Reports systems reviewed and no addt'l complaints, except as documented ENT HEENT: Reports systems reviewed and no addt'l complaints, except as documented Cardiovascular Cardiovascular: Reports systems reviewed and no addt'l complaints, except as documented Respiratory/Chest Respiratory/Chest: Reports systems reviewed and no addt'l complaints, except as documented Gastrointestinal Gastrointestinal: Reports systems reviewed and no addt'l complaints, except as documented Genitourinary Genitourinary: Reports systems reviewed and no addt'l complaints, except as documented Musculoskeletal Musculoskeletal: Reports systems reviewed and no addt'l complaints, except as documented Integumentary Integumentary: Reports systems reviewed and no addt'l complaints, except as documented Neurologic Neurologic: Reports systems reviewed and no addt'l complaints, except as documented Psychiatric Psychiatric: Reports systems reviewed and no addt'l complaints, except as documented Endocrine Endocrinology: Reports systems reviewed and no addt'l complaints, except as documented Hematologic/Lymphatic Hematologic/Lymphatic: Reports systems reviewed and no addt'l complaints, except as documented Allergic/Immunologic Allergic/Immunologic: Reports systems reviewed and no addt'l complaints, except as documented Physical Exam Const alert, oriented x3 and average body habitus General Appearance: cooperative Orientation / Consciousness: awake HEENT normocephalic Eyes PERRL Neck No nuchal rigidity Resp normal respiratory effort Cardio Cardio Narrative: Regular pulse rate GI non-distended Extremity Extremity Narrative: Left lower extremity: Skin clean, dry, and intact. Limb is shortened and externally rotated Motor is intact dorsiflexion, EHL and plantar flexion. Sensation is intact to light touch saphenous, júnior,l superficial peroneal, deep peroneal and tibial distributions. Calves are soft and supple. Skin no wounds Neuro oriented x3 Neuro Narrative: Patient does have tremor worse in right upper extremity. Psych mental status grossly normal Medical Records Data Attestation: I reviewed the patient's medical records Lab / Micro Data Attestation: I reviewed the patient's lab results. Result Diagrams: 09/04/22 06:34 09/04/22 06:34 Labs: Laboratory Results - last 24 hr 09/03/22 16:30: WBC 13.2 H, RBC 4.76, Hgb 15.2, Hct 45.2, MCV 95.0 H, MCH 31.9, MCHC 33.6, RDW Std Deviation 44.5 H, RDW Coeff of Trey 12.9, Plt Count 235, MPV 9.8, Immature Gran % (Auto) 0.600, Neut % (Auto) 77.4 H, Lymph % (Auto) 13.5 L, [place] % (Auto) 6.9, Eos % (Auto) 1.4, Baso % (Auto) 0.2, Absolute Neuts (auto) 10.2 H, Absolute Lymphs (auto) 1.77, Nucleated RBC % 0 09/03/22 16:30: PT 14.5, INR 1.2, APTT 30.6 09/03/22 16:30: Sodium 141, Potassium 4.0, Chloride 104, Carbon Dioxide 26.0, Anion Gap 11, BUN 55 H, Creatinine 1.20, Estim Creat Clear Calc 46.64, Est GFR (MDRD) Af Amer 74, Est GFR (MDRD) Non-Af 61, BUN/Creatinine Ratio 45.8 H, Glucose 113 H, Calcium 9.4 09/03/22 16:30: Blood Type O POSITIVE, Antibody Screen NEGATIVE 09/03/22 21:49: Sodium 140, Potassium 3.9, Chloride 105, Carbon Dioxide 30.0, Anion Gap 5, BUN 51 H, Creatinine 1.00, Estim Creat Clear Calc 54.70, Est GFR (MDRD) Af Amer 92, Est GFR (MDRD) Non-Af 76, BUN/Creatinine Ratio 51.0 H, Glucose 106, Calcium 8.9, Total Bilirubin 0.50, AST 26, ALT 14 L, Alkaline Phosphatase 68, Total Protein 6.2 L, Albumin 3.9, Globulin 2.3, Albumin/Globulin Ratio 1.7 09/03/22 21:49: Vitamin D 25-Hydroxy 69.3 09/03/22 21:49: TSH 1.48 09/04/22 06:34: WBC 8.8, RBC 3.96 L, Hgb 12.5 L, Hct 36.9 L, MCV 93.2, MCH 31.6, MCHC 33.9, RDW Std Deviation 43.7, RDW Coeff of Trey 12.7, Plt Count 176, MPV 9.7, Immature Gran % (Auto) 0.300, Neut % (Auto) 72.9 H, Lymph % (Auto) 13.2 L, [place] % (Auto) 13.2 H, Eos % (Auto) 0.3, Baso % (Auto) 0.1, Absolute Neuts (auto) 6.4, Absolute Lymphs (auto) 1.16, Nucleated RBC % 0 09/04/22 06:34: Sodium 140, Potassium 4.1, Chloride 106, Carbon Dioxide 31.0, Anion Gap 3 L, BUN 46 H, Creatinine 1.01, Estim Creat Clear Calc 54.16, Est GFR (MDRD) Af Amer 91, Est GFR (MDRD) Non-Af 75, BUN/Creatinine Ratio 45.5 H, Glucose 104, Calcium 8.8 Radiology Impression Hip/Pelvis X-Ray 09/03/22 16:39 IMPRESSION: Acute impacted comminuted angulated fracture of left hip Electronically Signed: Musa Rogers MD at 17:46 EST , Chest X-Ray 09/03/22 17:18 IMPRESSION: No acute cardiopulmonary pathology status post median sternotomy Electronically Signed: Musa Rogers MD at 17:38 EST ,
[2022-09-04] MEDS: Lactated Ringers 1,000 ML 15 ML IV (11:00)
--- NOTE | 2022-09-04 11:03 | NURSING ---
Left the floor via bed. In surgery.
--- NOTE | 2022-09-04 11:07 | PCM.OPRPT ---
Report of Operation Date of Procedure: 09/04/22 Pre-Operative Diagnosis: Left intertrochanteric hip fracture, reverse obliquity Post-Operative Diagnosis: Left intertrochanteric hip fracture, reverse obliquity Surgery/Procedure Performed:: Left hip cephalomedullary nail Description of Surgical Findings:: Stable reduction Surgeon: Jose Shah sr. logistics analyst: Stephon Mcneal Type of Anesthesia: General Anesthesiologist: Jaswant Rios Special Medications: Ancef Estimated Blood Loss (mL): 200 Fluids Replaced: 400 mL crystalloid Description of Procedure: Components used: 1. [employer] InterTAN nail 42 cm x 11.5 mm nail 125 degree neck angle 2. [employer] InterTAN lag screw 95 mm 3. [employer] 45 millimeter interlocking screw Brief history operative indications: 81-year-old male with Parkinson's disease sustained a fall yesterday with reverse obliquity intertrochanteric hip fracture. After extensive discussion including risk and benefits which include but are not limited to blood loss, PEs, DVTs, neurovascular damage, nonunions, malunions and screw cut out patient has elected to proceed with a left cephalo-medullary nail. Procedure: On the date of the procedure the patient's left hip was marked in the preoperative area and patient was taken back to the operating room. Anesthetic was administered and patient was transferred to the table were all bony prominence identified well-padded and the ipsilateral arm was placed across the chest. Patient was then translated down to the perineal post and the operative leg was placed in the boot while the nonoperative leg was lowered and secured. The operative leg was placed in traction and internal rotation and live fluoroscopy was used to verify adequate reduction. The operative leg was then prepped in a sterile fashion with chlorhexidine while the surgeon scrubbed. Upon reentering the room the operative extremity was draped in the standard orthopedic fashion. Skin incision was marked and a timeout was called. Everyone agreed upon the side, the site, the procedure be performed, patient's identity, and antibiotics given. Skin incision was made and the position of the entry guidepin was verified using live fluoroscopy. Once we were satisfied with our position the pin was advanced in the soft tissue protector was placed over the pin. The entry reamer was then advanced into the proximal portion of the femur. A [employer] short InterTAN 42 cm x 11.5 mm 125 degree hip nail was selected. The nail was then attached to the instructor bridge and inserted into the intramedullary canal. The appropriate depth was verified and the skin incision for the lag screw was made. The lag screw guidepin was then placed under live fluoroscopy and when a satisfactory position was obtained the length of the screw was measured and the standard technique to drill for the lag screws was performed. The anti-rotation bar was used. At this time a 95 mm lag screw was selected with its corresponding compression screw. The lag screw was then passed and traction was left off the leg. The compression screw was then passed and the fracture was compressed. The final position of the lag screw was verified under fluoroscopy. Attention was then turned to the distal portion of the nail and a perfect [place] technique was used to locate the distal interlocking screw and a 45 mm mm distal interlocking screw was placed using this technique. Live fluoroscopy was used to verify the position of the interlocking screw and the final position of the hip components. Once we were satisfied with our positioning the wounds were copiously irrigated out with normal saline skin was closed with 2-0 Vicryl and elen for final skin closure. A sterile dressing was placed with Xeroform. Patient was then awakened by anesthesia transferred from the fracture table back to their hospital bed and transferred to the PACU for recovery. Postoperative plan: Patient will be weight-bear as tolerated. Xarelto 10 mg daily for 2 weeks followed by aspirin 81 mg twice daily for 2 weeks for DVT prophylaxis with knee-high stockings. Follow up in the office in 2 weeks. Complications none Admit VTE Documentation VTE Present on Admission: No VTE Mechan Device Prophylaxis: SCD's and Thigh High ALEKSANDRA Hose VTE Pharm Prophylaxis ordered?: Yes
[2022-09-04] MEDS: Cefazolin 2 GM in 0.9% Normal Saline 100 ML IV (11:15)
--- NOTE | 2022-09-04 11:16 | RAD_ITS ---
EXAM: XR LEFT HIP WITH PELVIS WHEN PERFORMED, 2 OR 3 VIEWS CLINICAL INDICATION: FX TECHNIQUE: Two or three views of the left hip with pelvis when performed. This report was created using Tengaged report generation technology. COMPARISON: None. FINDINGS: 7 fluoroscopic spot views of the left femur obtained during placement of an intramedullary yomi for fixation of the intertrochanteric fracture. Surgical appliance in satisfactory position. Bony structures are well aligned. RAD/Hip 1 view with Pelvis IMPRESSION: As above. Electronically Signed: Solomon Gardner MD at 12:28 EST ,
--- NOTE | 2022-09-04 13:25 | NURSING ---
Pt is back in the room now after having surgery. family at bedside.
--- NOTE | 2022-09-04 14:24 | CASEMGMT ---
Social Work SW met w/pt, daughters Shanel and Nanda and granddaughter in room. Pt just came up from the OR and was falling in and out of sleep while we spoke. SW spoke to family about prior level of function and anticipated discharge plan. PCP: Dr. Gamble Specialists: Starting with a new neurologist in September, family cannot remember the name Pharmacy: [facility] in [place] Insurance: Medicare/[employer]ARP LNOK: Daughters Nanda and Shanel Prior living arrangements: Pt lives home alone in a one story home. Pt has aides who come in two times per day for two hours each time. They help pt with cooking, cleaning, ADLs, medication. Pt does not drive, family or aides assist. Pt is able to get up and get to the bathroom on his own. LW/POA: Nanda Hernandez is POA, forms not on file DME: Pt has a seat in the bathroom. Pt does not have a walker though his family indicates he should be using one. Daughter Shanel states he shuffles when he walks. SNF/HHC: Pt has been to [facility] in the past. Pt also has home health aides as outlined above. Plan: SNF vs Rehab SW discussed with family the options of SNF vs rehab, reviewed the two levels of care. Family is open to either one, and does think pt also would be open to either one. SW provided lists to family of correction facilities and acute rehab facilities via [employer] that can meet pt's medical needs, complete with quality and resource use data, that takes pt's insurance, and in pt's preferred geographic area. Family indicates they would like TCU or Rehab here at the hospital. SW explained that they may not have any beds, asked them to come up with some additional choices in the event that TCU or Rehab does not have availability. Daughters state understanding. SW did leave a message for Stephanie in TCU/Rehab regarding pt. SW to follow up w/Stephanie and with daughter Nanda on Tuesday. She asked for SW to call her as pt is forgetful. SW explained will let the SW know to call her. ISIAH Vigil
[2022-09-04] MEDS: Ensure Plus High Protein 120 ML LIQUID PO (15:16)
[2022-09-04] MEDS: levETIRAcetam 1,000 MG Tablet 1000 MG PO ×2 (15:17→20:53)
[2022-09-04] MEDS: Cefazolin 1 GM/50 ML BAG IV (18:12)
[2022-09-04] MEDS: Atorvastatin Calcium 10 MG Tablet PO (20:54)
[2022-09-04] MEDS: Finasteride 5 MG Tablet PO (20:55)
[2022-09-04] MEDS: Lubiprostone 24 MCG Capsule PO (21:01)
[2022-09-04] MEDS: Senna/Docusate Sodium 1 Tablet 2 TABLET PO (21:02)
[2022-09-05] VITALS (8 sets, daily range): BP systolic 111–136; BP diastolic 69–79; PULSE 72–103; RESP 16–18; TEMP 36.4–37.3; O2SAT 93–100
[2022-09-05] MEDS: oxyCODONE 5 MG Tablet PO (02:46)
[2022-09-05] MEDS: Cefazolin 1 GM/50 ML BAG IV (03:37)
[2022-09-05] MEDS: Carbidopa/Levodopa 25/100 Tablet PO ×3 (05:45→16:47)
[2022-09-05] MEDS: Levothyroxine 75 MCG Tablet PO (05:46)
[2022-09-05] MEDS: Rivaroxaban 10 MG Tablet PO (05:46)
[2022-09-05] MEDS: Morphine 2 MG/ML Syringe IV (06:13)
[2022-09-05] MEDS: Cholecalciferol (VIT D3) 25 MCG TABLET (1,000 UNITS) 50 MCG PO (07:54)
[2022-09-05] MEDS: Cyanocobalamin 500 MCG Tablet 1000 MCG PO (07:55)
[2022-09-05 08:21] LABS: Absolute Neutrophil Count 5.7 X10^3/uL (2.0-7.7); Basophil# 0.01 X10^3/uL; Basophil% 0.1 % (0-1); Eosinophil# 0.13 X10^3/uL; Eosinophils% 1.7 % (0-5); Hematocrit 28.9 % (40-54); Hemoglobin 9.7 g/dL (13.0-16.5); Lymphocyte % 10.4 % (19-41); Mean Corp Hgb Conc 33.6 g/dL (32-36); Mean Corpuscular Hgb 31.9 pg (27.0-32.0); Mean Corpuscular Volume 95.1 fL (80-94); Mean Platelet Vol. 9.9 fl (6.2-12.0); Monocyte# 1.09 X10^3/uL; Monocyte% 14.1 % (0-10); NRBC Flagged by Analyzer 0 % (0-5); Neutrophil # 5.67 X10^3/uL (2.7-7.7); Neutrophil % 73.4 % (47-70); Platelet Count 144 K/mm3 (150-450); RBC Distribution Width CV 13.1 % (11.6-14.6); RBC Distribution Width SD 45.3 fl (35.1-43.9); Red Blood Count 3.04 M/mm3 (4.6-6.2); White Blood Count 7.7 K/mm3 (4.4-11.0)
--- NOTE | 2022-09-05 08:32 | PCM.PN.ORT ---
Subjective Subjective Patient doing well overall. Mildly confused fixated on his food table this morning. After surgery yesterday his family did reveal that he is quite sluggish at home and spends most of his day in bed watching TV. I did stress the patient that in order for him to return to his home he will need to participate significantly in rehabilitation. Additionally there is increased risk for VTEs and pneumonia postoperatively. Objective Data Objective Data Vital Signs: Vital Signs Temp Pulse Resp BP Pulse Ox O2 Del Method O2 Flow Rate 98.3 F 90 16 118/69 99 Nasal Cannula 2 09/05/22 07:45 09/05/22 07:45 09/05/22 07:45 09/05/22 07:45 09/05/22 07:45 09/05/22 07:45 09/05/22 07:45 Oxygen Flow Rate (L/min) 2 Oxygen Delivery Method Nasal Cannula Weight: 152 lb 5.431 oz Body Mass Index (BMI) 21.8 Intake & Output: Intake and Output for Last 24 Hours 09/03/22 09/04/22 09/05/22 23:59 23:59 23:59 Intake Total 3318.67 / 3318.67 50 / 50 Output Total 1150 / 1150 250 / 250 Balance 2168.67 / 2168.67 -200 / -200 Lab / Micro Data Attestation: I reviewed the patient's lab results. Result Diagrams: 09/05/22 08:12 09/04/22 06:34 Labs: Laboratory Results - last 24 hr 09/05/22 08:12: WBC 7.7, RBC 3.04 L, Hgb 9.7 L, Hct 28.9 L, MCV 95.1 H, MCH 31.9, MCHC 33.6, RDW Std Deviation 45.3 H, RDW Coeff of Trey 13.1, Plt Count 144 L, MPV 9.9, Immature Gran % (Auto) 0.300, Neut % (Auto) 73.4 H, Lymph % (Auto) 10.4 L, [place] % (Auto) 14.1 H, Eos % (Auto) 1.7, Baso % (Auto) 0.1, Absolute Neuts (auto) 5.7, Absolute Lymphs (auto) 0.80 L, Nucleated RBC % 0 Radiography Diagnostic Testing: Radiology Impression Hip/Pelvis X-Ray 09/04/22 11:16 IMPRESSION: As above. Electronically Signed: Solomon Gardner MD at 12:28 EST , Physical Exam Const alert and no apparent distress Constitutional Narrative: Patient fixated on his food table. Somewhat contradictory to instructions. General Appearance: cooperative Extremity Extremity Narrative: Left lower extremity: Dressing is clean dry and intact Sensations intact to light touch saphenous, sural, superficial peroneal, deep peroneal, and tibial distributions Motors intact EHL, DF, PF calves are soft and supple Assessment & Plan Assessment/Plan (1) Hip fracture: PLAN: Postop day 1 cephalo-medullary nail left hip 1. Pain control: Patient is currently control, primary service manage pain 2. DVT prophylaxis: Patient is currently on Xarelto 10 mg daily for DVT prophylaxis. Recommend Xarelto for 2 weeks followed by baby aspirin 81 mg twice daily for 2 weeks upon discharge. 3. Physical therapy: Patient is weight-bear as tolerated 4. Anemia: Secondary to fracture and surgical procedure associated blood loss. Hemoglobin 9.7 this morning dropped from 12 preoperatively. Currently asymptomatic with stable vital signs 5. Parkinson's disease: Per primary service, will complicate postoperative course 6. Failure to thrive: Per primary service will need to be encouraged with physical therapy. Based on family's description of patient's activity at home, he uses 2 in-home aides to help with ADLs and medications. Based on preoperative function and injury and associated surgery patient will likely require inpatient rehabilitation versus group home facility upon discharge. 7. Disposition: Patient be ready for discharge when medically stable. No further orthopedic intervention needed
[2022-09-05 08:45] LABS: ALB/GLOB Ratio 1.4 RATIO (0.9-2.4); AST(SGOT) 29 U/L (15-37); Alanine Aminotransfer ALT/SGPT 8 U/L (16-61); Alkaline Phosphatase 50 U/L (45-117); Anion Gap 5 (5-15); BUN 37 mg/dL (7-18); BUN/Creat Ratio 37.9 RATIO (10-20); Calcium,Total 8.3 mg/dL (8.5-10.1); Chloride 107 mmol/L (98-107); Creatinine, Serum 0.98 mg/dL (0.70-1.30); EST Glomerular Filtration Rate 78 mL/min (>60); Est Glom Filt Rate - Afr Amer 94 mL/min (>60); Estimated Creatinine Clearance 55.82 ml/min; Globulin 2.2 g/dL (2.2-4.2); Glucose 106 mg/dL (74-106); Potassium 4.1 mmol/L (3.5-5.1); Protein, Total 5.2 g/dL (6.4-8.2); Sodium Level 142 mmol/L (136-145)
--- NOTE | 2022-09-05 09:43 | PN.HOSP_ITS ---
Subjective Subjective Follow-up on acute left hip fracture: Patient was seen and examined. He underwent left hip cephalomedullary nailing yesterday. He complains of his pain being 6 out of 10. He is currently on 2 L of oxygen. He denied any chest discomfort or breathing difficulty. Objective Data Objective Data Vital Signs: Vital Signs Temp Pulse Resp BP Pulse Ox O2 Del Method O2 Flow Rate 98.3 F 90 16 118/69 99 Nasal Cannula 2 09/05/22 07:45 09/05/22 07:45 09/05/22 07:45 09/05/22 07:45 09/05/22 07:45 09/05/22 07:45 09/05/22 07:45 Oxygen Flow Rate (L/min) 2 Oxygen Delivery Method Nasal Cannula Weight: 69.1 kg Body Mass Index (BMI) 21.8 Intake & Output: Intake and Output for Last 24 Hours 09/03/22 09/04/22 09/05/22 23:59 23:59 23:59 Intake Total 3318.67 / 3318.67 50 / 50 Output Total 1150 / 1150 250 / 250 Balance 2168.67 / 2168.67 -200 / -200 Lab / Micro Data Result Diagrams: 09/05/22 08:12 09/05/22 08:12 Labs: Laboratory Results - last 24 hr 09/05/22 08:12: WBC 7.7, RBC 3.04 L, Hgb 9.7 L, Hct 28.9 L, MCV 95.1 H, MCH 31.9, MCHC 33.6, RDW Std Deviation 45.3 H, RDW Coeff of Trey 13.1, Plt Count 144 L, MPV 9.9, Immature Gran % (Auto) 0.300, Neut % (Auto) 73.4 H, Lymph % (Auto) 10.4 L, [place] % (Auto) 14.1 H, Eos % (Auto) 1.7, Baso % (Auto) 0.1, Absolute Neuts (auto) 5.7, Absolute Lymphs (auto) 0.80 L, Nucleated RBC % 0 09/05/22 08:12: Sodium 142, Potassium 4.1, Chloride 107, Carbon Dioxide 30.0, Anion Gap 5, BUN 37 H, Creatinine 0.98, Estim Creat Clear Calc 55.82, Est GFR (MDRD) Af Amer 94, Est GFR (MDRD) Non-Af 78, BUN/Creatinine Ratio 37.9 H, Glucose 106, Calcium 8.3 L, Total Bilirubin 0.50, AST 29, ALT 8 L, Alkaline Phosphatase 50, Total Protein 5.2 L, Albumin 3.0 L, Globulin 2.2, Albumin/Globulin Ratio 1.4 Radiography Diagnostic Testing: Radiology Impression Hip/Pelvis X-Ray 09/04/22 11:16 IMPRESSION: As above. Electronically Signed: Solomon Gardner MD at 12:28 EST , Physical Exam Narrative Physical exam: General: Alert, Oriented x3, Cooperative, appears frail, on 2 L of oxygen HEENT: Atraumatic Oral: Moist Mucosa Neck: Supple Lungs: Diminished to auscultation Cardiovascular: HS I+II, regular, no murmurs Abdomen: Bowel Sounds Present, Soft, Non Tender Extremities: No edema Skin: No rashes, No breakdown Neurological: + Coarse tremors Psych/Mental Status: Appropriate Assessment & Plan Assessment/Plan (1) General weakness: (2) Hip fracture: PLAN: Plan 1. POD #1, status post left hip cephalomedullary nailing for acute left hip fracture, status post mechanical fall Continue scheduled Tylenol, as needed oxycodone and morphine Continue with orthopedics recommendation, PT/OT to evaluate and treat 2. Acute hypoxic respiratory insufficiency probably secondary to fluid overload,, patient is on 2 L of oxygen Will DC IV fluids, Lasix 40 mg IV x1 Encourage use of incentive spirometer 3. Hypertension/H/o mitral valve repair, blood pressures controlled Continue on amlodipine, aspirin, metoprolol 3. Seizure disorder, continue Keppra 4. Anxiety disorder, continue on Zoloft, hydroxyzine 5. Parkinson's disease, continue on Sinemet 6. Hypothyroidism, continue Synthroid 7. BPH, continue on Proscar 8. DVT PPx-on Xarelto Disposition: Patient will need to be discharged to senior care facility; he is a two-person assist Charges/Coding Visit Charges Inpatient E&M: 31009 Subs Hosp L2
[2022-09-05] MEDS: Lubiprostone 24 MCG Capsule PO ×2 (10:28→22:36)
[2022-09-05] MEDS: levETIRAcetam 1,000 MG Tablet 1000 MG PO ×2 (10:28→22:35)
[2022-09-05] MEDS: Metoprolol(XL)Succ 25 MG Tablet PO (10:29)
[2022-09-05] MEDS: Senna/Docusate Sodium 1 Tablet 2 TABLET PO ×2 (10:29→22:43)
[2022-09-05] MEDS: Pantoprazole Sodium 40 MG Tablet PO (10:29)
[2022-09-05] MEDS: Sertraline 50 MG Tablet PO (10:31)
[2022-09-05] MEDS: amLODIPine 5 MG Tablet PO (10:32)
[2022-09-05] MEDS: Furosemide 40 MG/4 ML Vial IV (10:35)
[2022-09-05] MEDS: Ensure Plus High Protein 120 ML LIQUID PO ×4 (10:40→22:29)
[2022-09-05] MEDS: Acetaminophen 500 MG Tablet 1000 MG PO ×2 (14:37→22:42)
[2022-09-05] MEDS: hydrOXYzine PAM 25 MG Capsule 50 MG PO (16:59)
[2022-09-05] MEDS: Finasteride 5 MG Tablet PO (22:34)
[2022-09-05] MEDS: Atorvastatin Calcium 10 MG Tablet PO (22:43)
[2022-09-06] VITALS (11 sets, daily range): BP systolic 104–131; BP diastolic 54–75; PULSE 68–80; RESP 16–18; TEMP 36.4–36.6; O2SAT 96–100
[2022-09-06] MEDS: 0.9% Saline Lock 10 ML Syringe IV (05:11)
[2022-09-06] MEDS: Acetaminophen 500 MG Tablet 1000 MG PO ×3 (05:12→21:48)
[2022-09-06] MEDS: Carbidopa/Levodopa 25/100 Tablet PO ×3 (05:12→15:46)
[2022-09-06] MEDS: Rivaroxaban 10 MG Tablet PO (05:13)
[2022-09-06] MEDS: Levothyroxine 75 MCG Tablet PO (05:13)
[2022-09-06 05:35] LABS: Absolute Lymphocyte Count 1.15 X10^3/uL (0.83-4.51); Absolute Neutrophil Count 4.8 X10^3/uL (2.0-7.7); Basophil# 0.02 X10^3/uL; Basophil% 0.3 % (0-1); Eosinophil# 0.27 X10^3/uL; Eosinophils% 3.7 % (0-5); Hematocrit 26.5 % (40-54); Hemoglobin 8.9 g/dL (13.0-16.5); Lymphocyte # 1.15 X10^3/ul (0.83-4.51); Mean Corp Hgb Conc 33.6 g/dL (32-36); Mean Corpuscular Hgb 32.1 pg (27.0-32.0); Mean Corpuscular Volume 95.7 fL (80-94); Mean Platelet Vol. 10.2 fl (6.2-12.0); Monocyte# 0.93 X10^3/uL; Monocyte% 12.9 % (0-10); NRBC Flagged by Analyzer 0 % (0-5); Neutrophil # 4.82 X10^3/uL (2.7-7.7); Neutrophil % 66.8 % (47-70); Platelet Count 149 K/mm3 (150-450); Red Blood Count 2.77 M/mm3 (4.6-6.2); White Blood Count 7.2 K/mm3 (4.4-11.0)
[2022-09-06 06:16] LABS: ALB/GLOB Ratio 1.2 RATIO (0.9-2.4); AST(SGOT) 22 U/L (15-37); Alanine Aminotransfer ALT/SGPT 10 U/L (16-61); Albumin, Serum 2.8 g/dL (3.2-5.0); Alkaline Phosphatase 49 U/L (45-117); Anion Gap 3 (5-15); BUN 37 mg/dL (7-18); Calcium,Total 8.8 mg/dL (8.5-10.1); Chloride 106 mmol/L (98-107); Creatinine, Serum 0.86 mg/dL (0.70-1.30); EST Glomerular Filtration Rate 90 mL/min (>60); Est Glom Filt Rate - Afr Amer 109 mL/min (>60); Estimated Creatinine Clearance 63.61 ml/min; Globulin 2.3 g/dL (2.2-4.2); Glucose 118 mg/dL (74-106); Potassium 3.9 mmol/L (3.5-5.1); Protein, Total 5.1 g/dL (6.4-8.2); Sodium Level 141 mmol/L (136-145)
--- NOTE | 2022-09-06 07:50 | PN.HOSP_ITS ---
Subjective Subjective Patient is an 81-year-old gentleman who presented following a fall was found to have a left hip fracture underwent left hip cephalomedullary nailing of the hip fracture and subsequently admitted to regular nursing floor for further management Patient was reported to have developed diarrhea this a.m. stool for C. difficile sent patient placed in isolation pending results of stool studies Objective Data Objective Data Vital Signs: Vital Signs Temp Pulse Resp BP Pulse Ox O2 Del Method O2 Flow Rate 97.7 F L 68 18 116/63 98 Room Air 2 09/06/22 05:10 09/06/22 05:10 09/06/22 05:10 09/06/22 05:10 09/06/22 05:10 09/06/22 05:10 09/05/22 22:23 Oxygen Flow Rate (L/min) 2 Oxygen Delivery Method Room Air Weight: 69.1 kg Body Mass Index (BMI) 21.8 Intake & Output: Intake and Output for Last 24 Hours 09/04/22 09/05/22 09/06/22 23:59 23:59 23:59 Intake Total 3318.67 / 3318.67 1350 / 1350 100 / 100 Output Total 1150 / 1150 1450 / 1450 200 / 200 Balance 2168.67 / 2168.67 -100 / -100 -100 / -100 Lab / Micro Data Result Diagrams: 09/06/22 05:08 09/06/22 05:08 Labs: Laboratory Results - last 24 hr 09/05/22 08:12: WBC 7.7, RBC 3.04 L, Hgb 9.7 L, Hct 28.9 L, MCV 95.1 H, MCH 31.9, MCHC 33.6, RDW Std Deviation 45.3 H, RDW Coeff of Trey 13.1, Plt Count 144 L, MPV 9.9, Immature Gran % (Auto) 0.300, Neut % (Auto) 73.4 H, Lymph % (Auto) 10.4 L, [place] % (Auto) 14.1 H, Eos % (Auto) 1.7, Baso % (Auto) 0.1, Absolute Neuts (auto) 5.7, Absolute Lymphs (auto) 0.80 L, Nucleated RBC % 0 09/05/22 08:12: Sodium 142, Potassium 4.1, Chloride 107, Carbon Dioxide 30.0, Anion Gap 5, BUN 37 H, Creatinine 0.98, Estim Creat Clear Calc 55.82, Est GFR (MDRD) Af Amer 94, Est GFR (MDRD) Non-Af 78, BUN/Creatinine Ratio 37.9 H, Glucose 106, Calcium 8.3 L, Total Bilirubin 0.50, AST 29, ALT 8 L, Alkaline Phosphatase 50, Total Protein 5.2 L, Albumin 3.0 L, Globulin 2.2, Albumin/Globulin Ratio 1.4 09/06/22 05:08: WBC 7.2, RBC 2.77 L, Hgb 8.9 L, Hct 26.5 L, MCV 95.7 H, MCH 32.1 H, MCHC 33.6, RDW Std Deviation 45.0 H, RDW Coeff of Trey 13.0, Plt Count 149 L, MPV 10.2, Immature Gran % (Auto) 0.300, Neut % (Auto) 66.8, Lymph % (Auto) 16.0 L, [place] % (Auto) 12.9 H, Eos % (Auto) 3.7, Baso % (Auto) 0.3, Absolute Neuts (auto) 4.8, Absolute Lymphs (auto) 1.15, Nucleated RBC % 0 09/06/22 05:08: Sodium 141, Potassium 3.9, Chloride 106, Carbon Dioxide 32.0, Anion Gap 3 L, BUN 37 H, Creatinine 0.86, Estim Creat Clear Calc 63.61, Est GFR (MDRD) Af Amer 109, Est GFR (MDRD) Non-Af 90, BUN/Creatinine Ratio 43.0 H, Glucose 118 H, Calcium 8.8, Total Bilirubin 0.60, AST 22, ALT 10 L, Alkaline Phosphatase 49, Total Protein 5.1 L, Albumin 2.8 L, Globulin 2.3, Albumin/Globulin Ratio 1.2 Physical Exam Narrative GENERAL: cooperative HEENT: Atraumatic; normocephalic EYES; Anicteric, Normal Conjunctiva NECK; supple, normal thyroid, RESPIRATORY: Diminished to auscultation CARDIOVASCULAR: Regular S1 S2, GI: soft, normoactive bowel sounds, : No Renal angle tenderness; EXTREMITIES: No edema, no clubbing, MUSCULOSKELETAL: no muscle wasting NEURO: Awake; no lateralizing signs. SKIN: No Rash PSYCH; Flat affect Assessment & Plan Assessment/Plan (1) General weakness: (2) Hip fracture: PLAN: Plan Patient is an 81-year-old gentleman who presented following a fall was found to have a left hip fracture underwent left hip cephalomedullary nailing of the hip fracture and subsequently admitted to regular nursing floor for further management 1. Acute left hip fracture ? Patient underwent left hip cephalomedullary nailing for acute left hip fracture on 09/04/2022. Patient has since been managed with pain meds, PT OT and DVT prophylaxis 2. Acute hypoxic respiratory sufficiency ? This was thought to be secondary to fluid overload patient was placed on supplemental oxygen and given Lasix 3. Physical deconditioning secondary to 1 - Requested for PT OT eval and social sciences professor to assist with discharge planning 4. Hypertension - Blood pressure controlled, home medications continued with dose adjustment as needed 5. Valvular heart disease ? With history of mitral valve repair currently stable 6. Seizure disorder ? Patient is on Keppra did continue 7. Parkinson's disease ? Patient is on Sinemet did continue 8. Hypothyroidism - Patient is on levothyroxine home dose continued 9. BPH ? Patient is on Proscar did continue 10. Depression with anxiety ? Patient is on Zoloft as well as hydroxyzine 11. DVT prophylaxis ? On Xarelto 11. Acute diarrhea ? Patient placed on isolation stool studies including C. difficile sent. If C. difficile comes are positive patient will be started on p.o. vancomycin if negative patient be treated symptomatically with Imodium Charges/Coding Visit Charges Inpatient E&M: 15645 Subs Hosp L2
[2022-09-06] MEDS: Cyanocobalamin 500 MCG Tablet 1000 MCG PO (08:58)
[2022-09-06] MEDS: Pantoprazole Sodium 40 MG Tablet PO (08:58)
[2022-09-06] MEDS: Lubiprostone 24 MCG Capsule PO ×2 (08:58→21:48)
[2022-09-06] MEDS: Cholecalciferol (VIT D3) 25 MCG TABLET (1,000 UNITS) 50 MCG PO (08:58)
[2022-09-06] MEDS: levETIRAcetam 1,000 MG Tablet 1000 MG PO ×2 (08:59→21:48)
[2022-09-06] MEDS: Sertraline 50 MG Tablet PO (09:00)
[2022-09-06] MEDS: Ondansetron 4 MG/2 ML Vial IV (09:04)
--- NOTE | 2022-09-06 09:55 | CASEMGMT ---
Social Work Per weekend Jennifer TOLEDO, discharge planning to be continued with pt's daughter Nanda. This SW called Nanda to discuss SNF choices as plan appears to be SNF placement. PARIS left requesting Nanda return call to discuss. Jere Ho, PROMISE
--- NOTE | 2022-09-06 11:45 | CASEMGMT ---
Social Work PARIS spoke to pt daughter, Nanda, via phone to collaborate on D/C plan. Nanda reported pt preferred rehab unit then TCU. Stephanie informed Rehab unit had availability. PARIS informed Nanda and pt and both agreeable to RU placement. Dr. Flores informed. stated pt not medically ready today, likely to discharge tomorrow. PLAN: Rehab unit, when medically ready. PROMISE Ash
[2022-09-06] MEDS: oxyCODONE 5 MG Tablet PO ×2 (11:56→18:18)
[2022-09-06] MEDS: Ensure Plus High Protein 120 ML LIQUID PO ×3 (11:57→21:48)
[2022-09-06] MEDS: Menthol/Lanolin/Calamine/Znox 113 GM Tube 1 APPLIC TOPICAL (15:52)
[2022-09-06] MEDS: Loperamide 2 MG Capsule 4 MG PO (18:19)
[2022-09-06] MEDS: Atorvastatin Calcium 10 MG Tablet PO (21:48)
[2022-09-06] MEDS: Finasteride 5 MG Tablet PO (21:48)
[2022-09-07 04:00] VITALS: BP 119/75; PULSE 75; RESP 16; TEMP 36.6; O2SAT 98
[2022-09-07 04:13] VITALS: BP 119/75; PULSE 75; RESP 16; TEMP 36.6; O2SAT 98
[2022-09-07] MEDS: Levothyroxine 75 MCG Tablet PO (06:05)
[2022-09-07] MEDS: Acetaminophen 500 MG Tablet 1000 MG PO ×2 (06:05→13:39)
[2022-09-07] MEDS: Rivaroxaban 10 MG Tablet PO (06:05)
[2022-09-07] MEDS: Carbidopa/Levodopa 25/100 Tablet PO ×2 (06:12→11:03)
--- NOTE | 2022-09-07 08:51 | PCM.PN.HOSP ---
Subjective Subjective Patient seen stool for C. difficile came back negative. Diarrhea was treated with Imodium has since resolved. Patient will be assessed for possible discharge to the inpatient rehab unit Objective Data Objective Data Vital Signs: Vital Signs Temp Pulse Resp BP Pulse Ox O2 Del Method O2 Flow Rate 97.9 F 75 16 119/75 98 Room Air 1 09/07/22 04:13 09/07/22 04:13 09/07/22 04:13 09/07/22 04:13 09/07/22 04:13 09/07/22 04:13 09/06/22 15:59 Oxygen Flow Rate (L/min) 1 Oxygen Delivery Method Room Air Weight: 69.1 kg Body Mass Index (BMI) 21.8 Intake & Output: Intake and Output for Last 24 Hours 09/05/22 09/06/22 09/07/22 23:59 23:59 23:59 Intake Total 1350 / 1350 580 / 580 500 / 500 Output Total 1450 / 1450 700 / 700 700 / 700 Balance -100 / -100 -120 / -120 -200 / -200 Lab / Micro Data Result Diagrams: 09/06/22 05:08 09/06/22 05:08 Micro: Microbiology 09/06/22 09:45 Stool C. difficile DNA Amplification - Final Physical Exam Narrative GENERAL: cooperative HEENT: Atraumatic; normocephalic EYES; Anicteric, Normal Conjunctiva NECK; supple, normal thyroid, RESPIRATORY: Diminished to auscultation CARDIOVASCULAR: Regular S1 S2, GI: soft, normoactive bowel sounds, : No Renal angle tenderness; EXTREMITIES: No edema, no clubbing, MUSCULOSKELETAL: no muscle wasting NEURO: Awake; no lateralizing signs. SKIN: No Rash PSYCH; Flat affect Assessment & Plan Assessment/Plan (1) General weakness: (2) Hip fracture: PLAN: Plan Patient is an 81-year-old gentleman who presented following a fall was found to have a left hip fracture underwent left hip cephalomedullary nailing of the hip fracture and subsequently admitted to regular nursing floor for further management 1. Acute left hip fracture ? Patient underwent left hip cephalomedullary nailing for acute left hip fracture on 09/04/2022. Patient has since been managed with pain meds, PT OT and DVT prophylaxis 2. Acute hypoxic respiratory sufficiency ? This was thought to be secondary to fluid overload patient was placed on supplemental oxygen and given Lasix 3. Physical deconditioning secondary to 1 - Requested for PT OT eval and criminal justice social worker to assist with discharge planning 4. Hypertension - Blood pressure controlled, home medications continued with dose adjustment as needed 5. Valvular heart disease ? With history of mitral valve repair currently stable 6. Seizure disorder ? Patient is on Keppra did continue 7. Parkinson's disease ? Patient is on Sinemet did continue 8. Hypothyroidism - Patient is on levothyroxine home dose continued 9. BPH ? Patient is on Proscar did continue 10. Depression with anxiety ? Patient is on Zoloft as well as hydroxyzine 11. DVT prophylaxis ? On Xarelto 11. Acute diarrhea ? Patient placed on isolation stool studies including C. difficile sent. If C. difficile comes are positive patient will be started on p.o. vancomycin if negative patient be treated symptomatically with Imodium ? 09/07/2022 stool for C. difficile came back negative. Treated symptomatically with Imodium Charges/Coding Visit Charges Inpatient E&M: 71845 Subs Hosp L2
--- NOTE | 2022-09-07 08:52 | DS.PCM_ITS ---
Providers Date of Admission: 09/03/22 Date of Discharge: 09/07/22 Primary Care Physician: Dr. Cheo Gamble MD Reason For Visit: LEFT HIP FXR Diagnosis Discharge Diagnosis (1) General weakness: Status: Acute Code(s): R53.1 - Weakness (2) Hip fracture: Status: Acute Code(s): S72.009A - Fracture of unspecified part of neck of unspecified femur, initial encounter for closed fracture Plan Patient is an 81-year-old gentleman who presented following a fall was found to have a left hip fracture underwent left hip cephalomedullary nailing of the hip fracture and subsequently admitted to regular nursing floor for further management 1. Acute left hip fracture ? Patient underwent left hip cephalomedullary nailing for acute left hip fracture on 09/04/2022. Patient has since been managed with pain meds, PT OT a nd DVT prophylaxis 2. Acute hypoxic respiratory sufficiency ? This was thought to be secondary to fluid overload patient was placed on supplemental oxygen and given Lasix 3. Physical deconditioning secondary to 1 - Requested for PT OT eval and social and political studies professor to assist with discharge planning 4. Hypertension - Blood pressure controlled, home medications continued with dose adjustment as needed 5. Valvular heart disease ? With history of mitral valve repair currently stable 6. Seizure disorder ? Patient is on Keppra did continue 7. Parkinson's disease ? Patient is on Sinemet did continue 8. Hypothyroidism - Patient is on levothyroxine home dose continued 9. BPH ? Patient is on Proscar did continue 10. Depression with anxiety ? Patient is on Zoloft as well as hydroxyzine 11. DVT prophylaxis ? On Xarelto 11. Acute diarrhea ? Patient placed on isolation stool studies including C. difficile sent. If C. difficile comes are positive patient will be started on p.o. vancomycin if negative patient be treated symptomatically with Imodium ? 09/07/2022 stool for C. difficile came back negative. Treated symptomatically with Imodium Medications at Discharge Home Medications finasteride 5 mg tablet 5 mg PO QHS prostate 09/07/16 sertraline 25 mg tablet (Zoloft) 50 mg PO DAILY DEPRESSION 09/07/16 aspirin 81 mg tablet,delayed release 81 mg PO BID [facility] 10/05/16 cholecalciferol (vitamin D3) 50 mcg (2,000 unit) capsule 2,000 unit PO DAILY SUPPLEMENT 12/27/17 coenzyme Q10 10 mg capsule 200 mg PO DAILY SUPPLEMENT 12/27/17 carbidopa 25 mg-levodopa 100 mg tablet (Sinemet) 1.5 tab PO TID 06/20/19 simvastatin 20 mg tablet 20 mg PO QHS cholesterol lowering 06/20/19 amlodipine 2.5 mg tablet 5 mg PO DAILY 06/21/19 levothyroxine 50 mcg tablet 75 mcg PO DAILY thyroid 06/21/19 mecobalamin (vitamin B12) 5,000 mcg disintegrating tablet 1,000 mcg PO DAILY supplement 03/24/21 levetiracetam 500 mg tablet (Keppra) 1,000 mg PO BID heart/seizure med 03/25/21 bisacodyl 5 mg tablet,delayed release (Dulcolax (bisacodyl)) 5 - 10 mg PO QHS PRN Constipation 04/07/21 lubiprostone 24 mcg capsule (Amitiza) 24 mcg PO BID 05/01/22 metoprolol succinate 25 mg tablet,extended release 24 hr 25 mg PO DAILY 05/01/22 omeprazole 40 mg capsule,delayed release 40 mg PO DAILY 05/01/22 hydroxyzine HCl 50 mg tablet 50 mg PO BID PRN Anxiety 09/03/22 acetaminophen 500 mg tablet 1,000 mg PO TID #0 tabs 09/07/22 food supplemt, lactose-reduced 0.08 gram-1.5 kcal/mL oral liquid (Ensure Plus High Protein) 120 ml PO 4X/DAY #0 mL 09/07/22 menthol 0.44 %-zinc oxide 20.6 % topical ointment (Calmoseptine) 1 applic to pical BID #0 grams 09/07/22 oxycodone 5 mg tablet 5 mg PO Q4H PRN PRN Pain Score 4-10 #0 tabs 09/07/22 rivaroxaban 10 mg tablet (Xarelto) 10 mg PO DAILY@0600 30 days #0 tabs 09/07/22 Hospital Course Summary of Care Provided Minutes Spent on Discharge: 35 Physical Exam Narrative GENERAL: cooperative HEENT: Atraumatic; normocephalic EYES; Anicteric, Normal Conjunctiva NECK; supple, normal thyroid, RESPIRATORY: Diminished to auscultation CARDIOVASCULAR: Regular S1 S2, GI: soft, normoactive bowel sounds, : No Renal angle tenderness; EXTREMITIES: No edema, no clubbing, MUSCULOSKELETAL: no muscle wasting NEURO: Awake; no lateralizing signs. SKIN: No Rash PSYCH; Flat affect Weight / BMI Weight Weight: 69.1 kg Body Mass Index (BMI) 21.8 ABG / Lab / Microbiology Data Result Diagrams: 09/06/22 05:08 09/06/22 05:08 Microbiology: Microbiology 09/06/22 09:45 Stool C. difficile DNA Amplification - Final D/C Instructions Discharge Diet: No restrictions Discharge Activity: Return to Normal Activity Call your doctor if you observe: Fever of 101 or Higher, Shortness of breath, Fainting spells and Chest pain Meaningful Use Info Meaningful Use Diagnoses (Choose all that apply): None applicable Discharge Plan Admission Admit Date/Time: 09/03/22 19:01 Attending Provider: Vinny Flores Primary Care Provider: Cheo Gamble Consulting Providers: Clinton Cid ; Jill Ferrera Discharge Orders/Prescriptions Prescriptions: New acetaminophen 500 mg Tablet 1,000 mg PO TID Qty: 0 0RF oxycodone 5 mg Tablet 5 mg PO Q4H PRN PRN (Reason: Pain Score 4-10) Qty: 0 0RF menthol-zinc oxide [Calmoseptine] 0.44-20.6 % Ointment 1 applic topical BID Qty: 0 0RF Protocol: *Topical Application Instructions APPLICATION INSTRUCTIONS: apply to penis (pull back foreskin) Xarelto 10 mg Tablet 10 mg PO DAILY@0600 30 Days Qty: 0 0RF Ensure Plus High Protein 0.08 gram-1.5 kcal/mL Liquid 120 ml PO 4X/DAY Qty: 0 0RF Continued amlodipine 2.5 mg tablet 5 mg PO DAILY carbidopa-levodopa [Sinemet] 25-100 mg tablet 1.5 tab PO TID sertraline [Zoloft] 25 MG tablet 50 mg PO DAILY Label Comments: mood finasteride 5 MG tablet 5 mg PO QHS Label Comments: prostate, BPH simvastatin 20 mg tablet 20 mg PO QHS Label Comments: cholesterol levothyroxine 50 mcg tablet 75 mcg PO DAILY Label Comments: thyroid aspirin 81 MG tablet 81 mg PO BID Label Comments: heart health coenzyme Q10 10 MG capsule 200 mg PO DAILY cholecalciferol (vitamin D3) 2,000 UNIT capsule 2,000 unit PO DAILY mecobalamin (vitamin B12) 5,000 mcg Tablet,Disintegrating 1,000 mcg PO DAILY levetiracetam [Keppra] 500 mg Tablet 1,000 mg PO BID bisacodyl [Dulcolax (bisacodyl)] 5 mg Tablet,Delayed Release (Dr/Ec) 5 - 10 mg PO QHS PRN (Reason: Constipation) omeprazole 40 mg Capsule,Delayed Release(Dr/Ec) 40 mg PO DAILY lubiprostone [Amitiza] 24 mcg Capsule 24 mcg PO BID metoprolol succinate 25 mg tablet extended release 24 hr 25 mg PO DAILY hydroxyzine HCl 50 mg Tablet 50 mg PO BID PRN (Reason: Anxiety) Referrals / Follow Up: Jose Shah MD [Med Staff - Active Staff] - Within 2 Weeks Cheo Gamble MD [Primary Care Provider] - Within 2 Weeks Disposition Disposition (needs filled in before D/C Order can be placed): Inpatient Rehab Unit/Facility Charges/Coding Visit Charges Inpatient E&M: 74227 Disch Hosp
[2022-09-07] MEDS: Cholecalciferol (VIT D3) 25 MCG TABLET (1,000 UNITS) 50 MCG PO (09:07)
[2022-09-07] MEDS: Cyanocobalamin 500 MCG Tablet 1000 MCG PO (09:07)
[2022-09-07 09:08] VITALS: PULSE 81
[2022-09-07] MEDS: Sertraline 50 MG Tablet PO (09:08)
[2022-09-07] MEDS: amLODIPine 5 MG Tablet PO (09:08)
[2022-09-07] MEDS: Lubiprostone 24 MCG Capsule PO (09:08)
[2022-09-07] MEDS: Ensure Plus High Protein 120 ML LIQUID PO ×2 (09:08→13:37)
[2022-09-07] MEDS: Metoprolol(XL)Succ 25 MG Tablet PO (09:08)
[2022-09-07] MEDS: levETIRAcetam 1,000 MG Tablet 1000 MG PO (09:08)
[2022-09-07] MEDS: Pantoprazole Sodium 40 MG Tablet PO (09:08)
[2022-09-07] MEDS: Menthol/Lanolin/Calamine/Znox 113 GM Tube 1 APPLIC TOPICAL (09:09)
[2022-09-07 10:00] VITALS: BP 134/73; PULSE 81; RESP 18; TEMP 36.6; O2SAT 98
--- NOTE | 2022-09-07 10:04 | PHA.DC.MR ---
Pharmacy Service has performed discharge medication reconciliation for this patient. The patient's discharge medication list was reviewed for discrepancies and discrepancies were resolved. Home Medications finasteride 5 mg tablet 5 mg PO QHS prostate 09/07/16 sertraline 25 mg tablet (Zoloft) 50 mg PO DAILY DEPRESSION 09/07/16 aspirin 81 mg tablet,delayed release 81 mg PO BID [facility] 10/05/16 cholecalciferol (vitamin D3) 50 mcg (2,000 unit) capsule 2,000 unit PO DAILY SUPPLEMENT 12/27/17 coenzyme Q10 10 mg capsule 200 mg PO DAILY SUPPLEMENT 12/27/17 carbidopa 25 mg-levodopa 100 mg tablet (Sinemet) 1.5 tab PO TID 06/20/19 simvastatin 20 mg tablet 20 mg PO QHS cholesterol lowering 06/20/19 amlodipine 2.5 mg tablet 5 mg PO DAILY 06/21/19 levothyroxine 50 mcg tablet 75 mcg PO DAILY thyroid 06/21/19 mecobalamin (vitamin B12) 5,000 mcg disintegrating tablet 1,000 mcg PO DAILY supplement 03/24/21 levetiracetam 500 mg tablet (Keppra) 1,000 mg PO BID heart/seizure med 03/25/21 bisacodyl 5 mg tablet,delayed release (Dulcolax (bisacodyl)) 5 - 10 mg PO QHS PRN Constipation 04/07/21 lubiprostone 24 mcg capsule (Amitiza) 24 mcg PO BID 05/01/22 metoprolol succinate 25 mg tablet,extended release 24 hr 25 mg PO DAILY 05/01/22 omeprazole 40 mg capsule,delayed release 40 mg PO DAILY 05/01/22 hydroxyzine HCl 50 mg tablet 50 mg PO BID PRN Anxiety 09/03/22 acetaminophen 500 mg tablet 1,000 mg PO TID #0 tabs 09/07/22 food supplemt, lactose-reduced 0.08 gram-1.5 kcal/mL oral liquid (Ensure Plus High Protein) 120 ml PO 4X/DAY #0 mL 09/07/22 menthol 0.44 %-zinc oxide 20.6 % topical ointment (Calmoseptine) 1 applic topical BID #0 grams 09/07/22 oxycodone 5 mg tablet 5 mg PO Q4H PRN PRN Pain Score 4-10 #0 tabs 09/07/22 rivaroxaban 10 mg tablet (Xarelto) 10 mg PO DAILY@0600 30 days #0 tabs 09/07/22
[2022-09-07 10:33] VITALS: O2SAT 93
[2022-09-07] MEDS: oxyCODONE 5 MG Tablet PO (11:03)
--- NOTE | 2022-09-07 11:43 | CASEMGMT ---
Social Work PARIS spoke to pt, informed of discharge to this afternoon. SW also spoke to pt's POA, Daughter Nanda. Nanda stated pt was insisting on having his private duty nurses come in to learn therapy techniques so that pt can return home. SW spoke to pt and discussed concerns of family that private duty nurses are not professional therapists and that they would allow pt to lay around and not complete the exercises needed to gain back strength. Pt willing to transfer to at this time but continues to want home nurses to come learn what is needed so nurses can help at home. PARIS offered education on the importance of rehab after a hip fracture surgery. Pt voiced understanding. Daughter, Nanda, reports will be in later this afternoon to speak with pt about remaining in . PARIS faxed discharge orders to Rehab unit. Placed copies of orders on chart and sent originals in envelope to go with pt upon discharge. Dispo: 4th Floor Rehab Unit [facility]
== END 2022-09-07 14:43 | DRG 482 ==
LOC: ED 18:34 → MS3 19:48
PROVIDERS: Anesthesiology; Internal Medicine; Specialist; Emergency Provider Emergency Medicine; PCP Internal Medicine; Visit Provider Internal Medicine
PROC: 0QS736Z Reposition Left Upper Femur with Intramedullary Internal Fixation Device, Percutaneous Approach (ICD-10-PCS; CPT 27245; principal; 2022-09-04 11:00)
DX: S72.142A Displaced intertrochanteric fracture of left femur, initial encounter for closed fracture (principal); R62.7 Adult failure to thrive; G20 Parkinson's disease; G40.909 Epilepsy, unspecified, not intractable, without status epilepticus; I25.10 Atherosclerotic heart disease of native coronary artery without angina pectoris; I10 Essential (primary) hypertension; E03.9 Hypothyroidism, unspecified; E87.70 Fluid overload, unspecified; F41.9 Anxiety disorder, unspecified; W18.30XA Fall on same level, unspecified, initial encounter; R19.7 Diarrhea, unspecified; R06.89 Other abnormalities of breathing; Z68.21 Body mass index [BMI] 21.0-21.9, adult; N40.0 Benign prostatic hyperplasia without lower urinary tract symptoms; F32.A Depression, unspecified; Z20.822 Contact with and (suspected) exposure to COVID-19; Z79.82 Long term (current) use of aspirin; Z79.890 Hormone replacement therapy; Z79.899 Other long term (current) drug therapy; Z95.2 Presence of prosthetic heart valve
CPT/HCPCS: 36415; 71045; 73501; 73502; 76000; 80048; 80053; 82306; 84443; 84484; 85025; 85610; 85730; 86850; 86900; 86901; 87426; 87493; 87811; 93005; 96360; 97110; 97116; 97162; 97166; 97530; 97535; 97802; 99251; 99284; 99285; C1713; J7030; J7040; J7120; A4216; G0463; J1940; J2405

== ENCOUNTER 2022-09-07 15:00 | Inpatient (IN) | payer MEDICARE, OTHER, SELFPAY ==
[2022-09-07 15:09] VITALS: BP 133/75; PULSE 94; RESP 17; TEMP 37.2; O2SAT 99; BMI 23.4
--- NOTE | 2022-09-07 17:18 | PCM.HP.STD ---
[facility] - General General Date of Admission: 09/07/22 Date of Service: 09/07/22 Chief Complaint: Physical debility due to fall with L hip fracture. HPI Narrative Olivia PRESCOTT, is a 81-year-old M with a past medical history of anxiety, coronary artery disease, BPH, depression, hypertension, hypothyroidism, nephrolithiasis, orthostatic hypotension, Parkinson's disease, seizure disorder, spinal canal stenosis, presbycusis, chronic renal failure stage III, history of mitral valve repair, GERD and a recent fall onto his left side on 09/03/2022 resulting in a Left hip fracture. He was taken to the OR on 09/04/[address] Ronnell Shah for left hip cephalomedullary nail placement. Postoperative complications included acute hypoxic respiratory insufficiency most likely secondary to fluid overload. He was given IV Lasix with good improvement. He was seen by PT/OT post-op and a recommendation was made for acute rehab following DC from the hospital. Mr. Prescott lives alone in a one-story home with 2 steps to enter his house and no handrails. He has home health services for 4 hours a day. His daughters assist him and grocery shopping and transporting him to appointments. He was walking without a device prior to the fall. He was admitted to [facility] acute rehab on 09/07/2022 for 3 hours of therapy daily to restore function/independence at or near his level prior to the fall. All lab from the acute hospital stay was reviewed. Hemoglobin at admission to the hospital was 15.2 and on 09/06/2022 was 8.9. Platelets are mildly decreased postoperatively and on 09/06/2022 platelets were 149,000. Creatinine on 09/06/2022 was 0.86 which is within his baseline. The BUN was 37 and electrolytes were unremarkable. The BUN/creatinine ratio is very high at 43. Calcium corrected for hypoalbuminemia is within normal limits. His last echocardiogram at [facility] was in 2018 and showed mild concentric left ventricular hypertrophy with a normal ejection fraction. Septal motion was consistent with intraventricular conduction delay and there were no regional wall motion abnormalities. The left atrium is moderately enlarged and the right atrium is normal. There was mild diffuse mitral valve thickening with an annuloplasty ring noted in the mitral position. The right ventricular systolic pressure estimate was within normal limits. His dtr Shanel tells me that he has been gradually getting weaker and is not able to do things he used to do. He rarely ever leaves the house. He does not use an AD in the house but is a furniture/wall walker. Has not been out of the house in the past year and he denies falls until the fall prior to this admission. [facility] Medical History (Updated 09/09/22 @ 10:[address] Ariela Gonzales, ) Anxiety Atherosclerotic heart disease of [place] coronary artery without angina pectoris BPH (benign prostatic hyperplasia) Bradycardia Constipation Depression Essential hypertension History of left heart catheterization (LHC) (~10/01/16) History of mitral valve disorder Hypothyroid Hypothyroidism Irregular heart beat Kidney stone Lung nodule Migraine Orthostatic hypotension Parkinsons disease Right sided weakness Seizure Slurred speech Spinal stenosis Syncope Wears hearing aid in both ears Home Medications finasteride 5 mg tablet 5 mg PO QHS prostate 09/07/16 [History Last Taken 04/06/21] sertraline 25 mg tablet (Zoloft) 50 mg PO DAILY DEPRESSION 09/07/16 [History Last Taken 03/24/21] aspirin 81 mg tablet,delayed release 81 mg PO BID [facility] HEALTH 10/05/16 [History Last Taken 04/06/21] cholecalciferol (vitamin D3) 50 mcg (2,000 unit) capsule 2,000 unit PO DAILY SUPPLEMENT 12/27/17 [History Last Taken 03/24/21] coenzyme Q10 10 mg capsule 200 mg PO DAILY SUPPLEMENT 12/27/17 [History Last Taken 03/24/21] carbidopa 25 mg-levodopa 100 mg tablet (Sinemet) 1.5 tab PO TID Parkinson's 06/20/19 [History Last Taken 04/06/21] simvastatin 20 mg tablet 20 mg PO QHS cholesterol lowering 06/20/19 [History Last Taken 03/23/21] amlodipine 2.5 mg tablet 5 mg PO DAILY blood pressure 06/21/19 [History Last Taken 03/24/21] levothyroxine 50 mcg tablet 75 mcg PO DAILY thyroid 06/21/19 [History Last Taken 03/24/21] mecobalamin (vitamin B12) 5,000 mcg disintegrating tablet 1,000 mcg PO DAILY supplement 03/24/21 [History Last Taken 03/24/21] levetiracetam 500 mg tablet (Keppra) 1,000 mg PO BID heart/seizure med 03/25/21 [History Last Taken Unknown] bisacodyl 5 mg tablet,delayed release (Dulcolax (bisacodyl)) 5 - 10 mg PO QHS PRN Constipation 04/07/21 [History Last Taken Unknown] lubiprostone 24 mcg capsule (Amitiza) 24 mcg PO BID Check with primary doctor 05/01/22 [History Last Taken Unknown] metoprolol succinate 25 mg tablet,extended release 24 hr 25 mg PO DAILY blood pressure 05/01/22 [History Last Taken Unknown] omeprazole 40 mg capsule,delayed release 40 mg PO DAILY Check with primary doctor 05/01/22 [History Last Taken Unknown] acetaminophen 500 mg tablet 1,000 mg PO TID pain 09/07/22 [History Last Taken Unknown] food supplemt, lactose-reduced 0.08 gram-1.5 kcal/mL oral liquid (Ensure Plus High Protein) 120 ml PO 4X/DAY supplement 09/07/22 [History Last Taken Unknown] menthol 0.44 %-zinc oxide 20.6 % topical ointment (Calmoseptine) 1 applic topical BID redness 09/07/22 [History Last Taken Unknown] oxycodone 5 mg tablet 5 mg PO Q4H PRN PRN Pain Score 1-10 09/07/22 [History Last Taken 09/07/22 11:00] rivaroxaban 10 mg tablet (Xarelto) 10 mg PO DAILY@0600 anticoagulant 09/07/22 [History Last Taken 09/07/22 06:00] Allergy/AdvReac Type Severity Reaction Status Date / Time lisinopril AdvReac Nausea Verified 08/31/22 08:48 Family History Father CAD (coronary artery disease) Surgical History (Updated 09/09/22 @ 10:[address] Ariela Gonzales DO) History of hernia repair History of mandibular surgery History of mitral valve repair (~11/18/16) Social History household members: none Smoking Status: Never smoker alcohol intake: never substance use type: does not use caffeine: No ROS Constitutional Constitutional: Reports poor appetite; Denies anorexia, change in weight, chills, difficulty sleeping, fatigue, fever(s), frequent falls, headache(s), night sweats or weakness Eyes Eyes: Denies blurry vision, change in vision, eye pain or loss of vision ENT HEENT: Reports abnormal hearing, hearing loss and other Details: Has hearing aid ; Denies dysphagia, headache(s), nasal congestion or sore throat Cardiovascular Cardiovascular: Reports lightheadedness; Denies chest pain, dyspnea on exertion, edema, orthopnea, palpitations, paroxysmal nocturnal dyspnea or syncope Respiratory/Chest Respiratory/Chest: Reports dyspnea and other Details: dyspnea is sometimes related to pain and anxiety and not necessarily to exertion ; Denies cough, shortness of breath at rest, shortness of breath with exertion or wheezing Gastrointestinal Gastrointestinal: Reports nausea and other Details: He feels nauseated when the pain is bad and he does not want anyone moving his Left leg and jostling him around ; Denies abdominal pain, constipation, diarrhea, dyspepsia, hematemesis, hematochezia or vomiting Genitourinary Genitourinary: Reports other Details: He feels as though he completely empties his bladder when he urinates. Apparently he had a condom cath on when on the acute side of the hospital. He has never used a urinal and his hands shake so he may not be able to ; Denies dysuria, hematuria, nocturia, urinary frequency, urinary hesitancy, urinary incontinence or urinary urgency Musculoskeletal Musculoskeletal: Reports joint pain; Denies back pain, joint swelling or neck pain Integumentary Integumentary: Reports wounds Neurologic Neurologic: Reports other; Denies confusion, disequilibrium, dizziness, focal weakness, headache(s), paresthesias, seizures or tremor(s) Psychiatric Psychiatric: Reports anxiety, depression and other Details: question whether or not he has panic attacks and the CP and SOB are more due to anxiety than a problem with the lungs or the heart. ; Denies homicidal ideation or suicidal ideation Endocrine Endocrinology: Denies change in body appearance, polydipsia or polyuria Hematologic/Lymphatic Hematologic/Lymphatic: Reports easy bruising; Denies easy bleeding or lymphadenopathy Allergic/Immunologic Allergic/Immunologic: Denies rhinitis, eczemia or asthma Vital Signs Vital Signs Vital Signs: 09/07/22 15:09 Temperature 98.9 F Temperature Source Temporal Pulse Rate 94 Respiratory Rate 17 Blood Pressure 133/75 H Blood Pressure Mean 94 Blood Pressure Source Monitor Blood Pressure Position Semi-Fowlers Blood Pressure Location Left Arm Pulse Ox 99 Oxygen Delivery Method Nasal Cannula Oxygen Flow Rate (L/min) 2 Weight Weight: 163 lb 5.8 oz Body Mass Index (BMI) 23.4 Physical Exam Const alert and oriented x3 Constitutional Narrative: Lying in bed and states he needs pain medication General Appearance: cooperative and frail HEENT normocephalic; Negative for head/scalp atraumatic HEENT Narrative: He is QUINAULT Mouth: other Other Details: He has a hoarse voice and his mucous membranes are dry. Eyes PERRL, EOMs intact bilaterally, conjunctivae normal and no scleral icterus Neck supple, no JVD, No nodes and no carotid bruits General: trachea midline Chest Chest: symmetrical chest wall rise Resp normal respiratory effort, no retractions, no use of accessory muscles and clear to auscultation bilaterally Resp Narrative: Diminished in the bases Effort and Inspection: able to speak in complete sentences Cardio regular rate, regular rhythm, S1 normal heart sound, S2 normal heart sound, no murmurs, no rub and no gallops Cardio Narrative: Having some ectopy with occasional premature beats. Holtor monitor in the past few years showed frequent PVC's, couplets and the longest run was 4 beats. GI normal to inspection, nondistended, normoactive bowel sounds, soft to palpation and non-tender Extremity no calf tenderness and no pedal edema Extremity Narrative: The toes are ruborous and his dtr tells me that when his legs are dependent his feet and ankles are purple. The DP pulse are very weak but, he has good PT pulses and the popliteal pulses are very good. Skin Skin Narrative: He has an abrasion on the index finger of the R hand from the fall. there is no sign of infection. He also has some bruising on the left arm and a small abrasion on the L elbow. Rashes: no rashes Neuro oriented x3, CN's II-XII intact bilaterally and moves all extremities Neuro Narrative: he has generalized weakness resting tremors of the hands, R>L Psych thought process normal Psych Narrative: He has visual hallucinations....he sees deer and crawdads and other things but, most of the time he is aware they are just hallucinations related to the PD. Appearance: grossly normal Attitude: other He seems a little agitated and is very worried about anyone moving his left leg. Activity / Motor Behavior: other most of the time he does not look at me when I am talking to him Speech: normal speech Mood & Affect: irritable Attention / Concentration: attention grossly intact Assessment & Plan Assessment/Plan (1) Debility: (2) Fall: (3) Closed left hip fracture: (4) Contusion, flank: (5) Acute blood loss anemia: (6) General weakness: (7) Hypothyroidism: (8) Essential hypertension: (9) Orthostatic hypotension: (10) Seizure: (11) Atherosclerotic heart disease of [place] coronary artery without angina pectoris: QUALIFIERS: [place] vs. transplanted heart: [place] heart Qualified Code(s): I25.10 - Atherosclerotic heart disease of [place] coronary artery without angina pectoris (12) Parkinsons disease: (13) Thrombocytopenia: (14) Visual hallucinations: PLAN: More likely than not due to PD and not a mental illness. PLAN: Plan PLAN PT for gait stability OT for ADL's ST for evaluation Analgesics as needed Bowel protocol Fall precautions Assess for Anxiety/Depression GI prophylaxis with pantoprazole 40 mg p.o. daily DVT prophylaxis with Xarelto 10 mg daily.....per orthopedics will transition to ASA BID on 09/23/22. Follow up with Dr. Shah and Dr. Gamble following DC from IP Rehab AM lab including CMP, CBC, Mag and Phos. TSH was recently WNL Post void residuals X 3. Unit Exclusion This patient is an acute care inpatient being housed in the excluded unit because of capacity issues related to the disaster or emergency.: Yes Charges/Coding Visit Charges Inpatient E&M: 59711 Init Hosp L2
--- NOTE | 2022-09-07 17:37 | PCM.RU.PYE ---
Admission Information Primary Diagnosis:: Physical debility secondary to a recent fall with closed left hip fracture and a left cephalomedullary nailing. He also has generalized weakness related to Parkinson's disease and has been declining slowly over months. Status Changes from Prescreening?: No changes Identified Actual Problem List:: Falls, Skin Intergrity, Pain, ALteration in Cmfrt, Cognitve Impr/Memory Loss (Mild short-term memory dysfunction.), Depression, Mobility Impaired, Self Care Deficit, Alteration/ Air Exchange, Fluid Overload r/t CHF and Alteration-Leisure Activ. Potential Problem List:: DVT, Bleeding, Infection, UTI, Aspiration, Falls, Skin Integrity and Depression Risk of Complications DVT: ALEKSANDRA Hose and - (Xarelto 10 mg daily) Bleeding: Monitor Lab Values, Nursing to Teach Precautions for anti-coagulation therapy., Wound, if applicable, to be assessed every shift. and Stroke patients assessed for lethargy or change in status. Infection: Clinical Staff to Monitor for S/S of infection: and S/S of infection include fever, redness, warmth, etc. Urinary Tract Infection: Monitor for frequency, burning, discomfort, or incontinence. and Nursing will obtain urine sample for urinalysis and C&S when ordered. Aspiration: Clinical staff will monitor for coughing, drooling, congestion., Speech will evaluate swallowing and dsyphasia. and Nursing will monitor patient swallowing during meals. Falls: Patient will be evaluated for Fall Precautions and Patient will be placed on Fall Precautions as indicated per protocol. Skin Breakdown: Nursing will assess skin daily using assessment tool. and Nursing will place on Skin Breakdown Precautions as indicated. Pain: Clinical staff will assess patient's pain level per protocol., Medications will be given, if needed, and the pain level reassessed. and Other methods: Massage, distraction, decrease stimulus, etc. used PRN. Plan of Care Patient requires physician specializing in physical medicine and rehab oversight to provide close medical supervision of rehab issues including: Pain Management, Sleep Problems, Bowel and Bladder, Medical and co-morbidity Management, DVT prophylaxis, Rehabilitation Leadership and Coordination of treatment team Patient needs Physical Therapy: For a minimum of 1 hour and At least 5 out of 7 days Patient needs Physical Therapy to improve:: Mobility, Strengthening, Transfers, Stretching, ROM, Endurance, Stairs, Gait and Balance Patient needs Occupational Therapy: For a minimum of 1 hour and At least 5 out of 7 days Patient needs Occupational Therapy to improve ADL's incl.: Eating, Grooming, Bathing, Dressing, Toileting, Toilet transfers, Community Reintegration, Higher functioning activities, Household tasks, Adaptive Equipment, Splinting and Other activities as determined Patient requires speech therapy: - (ST to see for evaluation of swllowing and for decreased voice quality and projection. ) Patient requires 24/ Rehabilitation Nursing for: Pain Issues, Identifying and preventing risk factors, Monitoring and reporting current medical conditions, Assisting with ambulation, transfer, and all ADL's, Teaching patients about disease process and medications, Family teaching, Providing safe environment, Bowel and Bladder Issues, Skin integrity and Medication Management Patient needs Utility Spray Operator/ Case Management for: Discharge Planning, Arranging Home Equipment or Services and Family Interventions Patient needs Dietary and Nutrition Services for: Adequate Nutrition, Nutritional Supplements and Nutritional Education Goals Patient will remain: free from falls and or injury at time of discharge. Patient will perform bed mobility at: MOD I level of assist. Patient will complete transfers from bed to chair at: MOD I level of assist. Patient will ambulate: - (10 feet with min assist and wheeled walker) Patient will complete upper body dressing at: - (Supervision/set up) Patient will complete lower body dressing at: - (Min to mod assist using appropriate assistive devices) Patient will complete toileting at: - (He will ambulate into the bathroom with the least restrictive device and complete toileting at a contact-guard assist level.) Patient will perform bathing at: - (Supervision/set up) Patient will complete grooming at: - (Set up/supervision) Patient will achieve: - (1 curb step with a wheeled walker and min - mod assist x1) Patient will have pain level of: of 3 or less Patient's skin will: remain intact Patient will receive: adequate nutrition. Discharge Planning Pt Prognosis for Sig. Practical Improv. w/in Reasonable Time: Good Estimated Length of stay (days): 28 Anticipated D/C Destination: Home with Home Health
[2022-09-07] MEDS: Ensure Plus High Protein 120 ML LIQUID PO ×2 (17:43→20:55)
[2022-09-07] MEDS: Lubiprostone 24 MCG Capsule PO (17:43)
[2022-09-07] MEDS: Carbidopa/Levodopa 25/100 Tablet PO (17:43)
[2022-09-07] MEDS: Acetaminophen 500 MG Tablet 1000 MG PO (20:05)
[2022-09-07] MEDS: oxyCODONE 5 MG Tablet PO (20:06)
[2022-09-07 20:43] VITALS: BP 112/74; PULSE 92; RESP 19; TEMP 37.2; O2SAT 97
[2022-09-07 20:50] VITALS: O2SAT 99
[2022-09-07] MEDS: Menthol/Lanolin/Calamine/Znox 113 GM Tube 1 APPLIC TOPICAL (20:55)
[2022-09-07] MEDS: levETIRAcetam 1,000 MG Tablet 1000 MG PO (20:56)
[2022-09-07] MEDS: Atorvastatin Calcium 10 MG Tablet PO (20:56)
[2022-09-07] MEDS: Finasteride 5 MG Tablet PO (20:57)
[2022-09-07] MEDS: Senna/Docusate Sodium 1 Tablet 2 TABLET PO (20:57)
[2022-09-08] MEDS: Rivaroxaban 10 MG Tablet PO (05:05)
[2022-09-08] MEDS: Levothyroxine 75 MCG Tablet PO (05:05)
[2022-09-08] MEDS: Carbidopa/Levodopa 25/100 Tablet PO ×3 (05:05→17:24)
[2022-09-08] MEDS: oxyCODONE 5 MG Tablet PO ×3 (05:05→15:18)
[2022-09-08] MEDS: Acetaminophen 500 MG Tablet 1000 MG PO ×3 (05:05→21:52)
[2022-09-08] MEDS: Menthol/Lanolin/Calamine/Znox 113 GM Tube 1 APPLIC TOPICAL ×2 (05:06→21:54)
[2022-09-08 07:37] VITALS: BP 141/75; PULSE 80; RESP 16; TEMP 36.3; O2SAT 98
[2022-09-08 08:06] VITALS: PULSE 80
[2022-09-08] MEDS: Senna/Docusate Sodium 1 Tablet 2 TABLET PO ×2 (08:06→21:53)
[2022-09-08] MEDS: Metoprolol(XL)Succ 25 MG Tablet PO (08:06)
[2022-09-08] MEDS: Sertraline 50 MG Tablet PO (08:06)
[2022-09-08] MEDS: levETIRAcetam 1,000 MG Tablet 1000 MG PO ×2 (08:07→21:53)
[2022-09-08] MEDS: Pantoprazole Sodium 40 MG Tablet PO (08:07)
[2022-09-08] MEDS: Cholecalciferol (VIT D3) 25 MCG TABLET (1,000 UNITS) 50 MCG PO (08:07)
[2022-09-08] MEDS: amLODIPine 5 MG Tablet PO (08:07)
[2022-09-08] MEDS: Lubiprostone 24 MCG Capsule PO ×2 (08:07→17:26)
[2022-09-08] MEDS: Cyanocobalamin 500 MCG Tablet 1000 MCG PO (08:07)
[2022-09-08] MEDS: Ensure Plus High Protein 120 ML LIQUID PO ×4 (08:08→21:52)
[2022-09-08 10:29] VITALS: O2SAT 100
[2022-09-08 16:06] VITALS: O2SAT 99
--- NOTE | 2022-09-08 17:29 | CASEMGMT ---
Social Work See attached assessment for complete details. This social security assessor met with patient and patient daughter, Shanel in room. Introduced self and social security assessor role. Patient agreeable to speak with this social security assessor and provided verbal permission for this social security assessor to speak openly with patient daughter present. Patient reports plan to return to home I hope. This social security assessor acknowledging with patient and Shanel that patient is currently x2 assist. This social security assessor educating patient on Medicare benefits for skilled services if needed past Acute Rehab stay. This social security assessor educating patient on medicare days and that medicare will approve an amount of days for patient during Rehab stay. This social security assessor reported to patient that patient will be updated on number of Medicare days approved when obtained. Patient and Shanel report no questions. Social Work to continue to follow. Mickey ABEL, ISIAH
[2022-09-08] MEDS: Atorvastatin Calcium 10 MG Tablet PO (21:54)
[2022-09-08] MEDS: Finasteride 5 MG Tablet PO (21:54)
[2022-09-08 22:00] VITALS: BP 123/69; PULSE 86; RESP 18; TEMP 36.5; O2SAT 99
[2022-09-09] VITALS (7 sets, daily range): BP systolic 107–140; BP diastolic 62–112; PULSE 67–103; RESP 16–18; TEMP 36.7; O2SAT 95–100
--- NOTE | 2022-09-09 03:22 | NURSING ---
REVIEWED AND AGREE WITH FENCE ERECTOR SUPERVISOR'S FUNCTIONAL ASSESSMENT AND HANDOFF CHARTING.
[2022-09-09] MEDS: oxyCODONE 5 MG Tablet PO ×4 (03:48→22:09)
[2022-09-09] MEDS: Acetaminophen 500 MG Tablet 1000 MG PO ×3 (04:47→20:36)
[2022-09-09] MEDS: Rivaroxaban 10 MG Tablet PO (04:48)
[2022-09-09] MEDS: Menthol/Lanolin/Calamine/Znox 113 GM Tube 1 APPLIC TOPICAL ×2 (04:48→20:35)
[2022-09-09] MEDS: Levothyroxine 75 MCG Tablet PO (04:48)
[2022-09-09] MEDS: Cholecalciferol (VIT D3) 25 MCG TABLET (1,000 UNITS) 50 MCG PO (07:40)
[2022-09-09] MEDS: Carbidopa/Levodopa 25/100 Tablet PO ×3 (07:40→17:41)
[2022-09-09] MEDS: amLODIPine 5 MG Tablet PO (07:40)
[2022-09-09] MEDS: Metoprolol(XL)Succ 25 MG Tablet PO (07:41)
[2022-09-09] MEDS: Senna/Docusate Sodium 1 Tablet 2 TABLET PO ×2 (07:41→20:36)
[2022-09-09] MEDS: levETIRAcetam 1,000 MG Tablet 1000 MG PO ×2 (07:41→20:35)
[2022-09-09] MEDS: Sertraline 50 MG Tablet PO (07:41)
[2022-09-09] MEDS: Cyanocobalamin 500 MCG Tablet 1000 MCG PO (07:41)
[2022-09-09] MEDS: Pantoprazole Sodium 40 MG Tablet PO (07:41)
[2022-09-09] MEDS: Lubiprostone 24 MCG Capsule PO ×2 (07:42→17:44)
[2022-09-09] MEDS: Ensure Plus High Protein 120 ML LIQUID PO ×4 (07:45→20:41)
--- NOTE | 2022-09-09 10:48 | PN_ITS ---
Subjective Subjective Guy was seen on team rounds today. His daughter Shanel participated by phone. Guy had his eyes closed and appeared to be sleeping but I was watching him and her periodically opened one eye, looked around and then close it immediately when he saw me watching him. Shanel tells us that Guy manipulates his med ication at home. He does not take the Sinemet TID all the time.....he takes it according to how he feels. He recently suddenly stopped being able to feed himself and Shanel or her sister had to feed him. He is angry and belligerent. He is also anxious and made Shanel take him to the ED for SOB. He has been wearing the Oxygen continuously since arriving on rehab, amita though his pulse ox is in the high 90's on RA. Afebrile VSS-blood pressure is well controlled and the heart rate is within normal limits. Maintaining appropriate oxygen saturation on RA Has been wearing oxygen but, he does not wear oxygen at home. He feels better with it on.......actually I think he feels less anxious when he has the oxygen on. I suspect the c/o SOB are due to anxiety and not to hypoxia. His pulse ox on room air was 97% at admission and he is 100% on 2 L today. Oral intake is good. He has eaten 75 to 100% of his last 3 meals. Discussed with nursing - no problems that need addressed Reviewed the PT/OT/ST notes - He does not want to see the ST for swallowing and does not feel it is necessary. His voice is soft and does not project well. Medication list reviewed. He was taking hydroxyzine for anxiety at home. This medication is contraindicated in the elderly. It is a first generation antihistamine with anticholinergic side effects. since he does not take his medications properly who knows how much of this drug he is taking. hSanel also tells me that he gets a Boost inhaler (OTC canned oxygen) and uses this constantly throughout the day for SOB. He also thinks the Keppra is for keeping his BP up and he takes it when he has decreased energy and thinks his BP is low. Per Shanel Guy has only ever had 1 seizure in his lifetime. He has seen Dr. Meadows in the past. He has needed increased assistance in the recent past and sometimes he requires 2 people to assist him safely. I spoke with one of his caretakers today in the evening and she tells me that the tremors (which are minimal now) are about what he has at home and they do get worse as his anxiety gets worse. She has then when Guy gets hydroxyzine he becomes drowsy, confused and disoriented. They apparently now have a automatic pill box. He has been taking the Sinemet as ordered while in the hospital and the tremors have definitely improved. He has not been seen by his neurologist in > 6 months and his dtr has made an appt with Dr. Bean but, it is not until September. Guy can not really tell me about what makes him anxious. He mentioned only that he is anxious about losing his ability to function. He tells me he is not afraid to and he has no plans to kill himself. Guy is c/o pain in the anterior thigh just proximal to the knee tonight. He is due for pain medication. He describes the pain as pulsing. He denies CP. He is appeased having the NC on and denies SOB even when there is no oxygen flowing. the NC was off when the nurse was shaving him and he was fine because he was distracted. He is perseverating about the oxygen and and about the hydroxyzine and gets very angry when we discussed changing the Hydroxyzine because in up to date on the product circular it says this medication is contraindicated for any diagnosis in the early due to the anticholinergic properties of hydroxyzine. Objective Data Objective Data Vital Signs: Vital Signs Temp Pulse Resp BP Pulse Ox O2 Del Method O2 Flow Rate 98.1 F 67 16 120/70 100 Room Air 2 09/09/22 07:32 09/09/22 07:41 09/09/22 07:32 09/09/22 07:32 09/09/22 07:32 09/09/22 07:32 09/09/22 07:32 Oxygen Flow Rate (L/min) 2 Oxygen Delivery Method Room Air Weight: 164 lb 7.437 oz Body Mass Index (BMI) 23.4 Intake & Output: Intake and Output for Last 24 Hours 09/07/22 09/08/22 09/09/22 23:59 23:59 23:59 Intake Total 600 / 600 300 / 300 Output Total 600 / 600 250 / 250 Balance 0 / 0 50 / 50 Physical Exam Const alert and no apparent distress Constitutional Narrative: Has been cooperative with therapy but he is requiring total assistance with eating, lower body dressing, total assistance with management of depends, placing, holding urinal and emptying urinal. He required max assist of 2 to stand up between the parallel bars but when he had bilateral upper extremity support he required max assist of 1 and min assist of a second person. He is m ax assist of 2 to go from supine to sitting, from sitting to standing and to stand pivot. Seems to be more cooperative and to do better at 9 AM than 11 AM when he is more anxious and more agitated. General Appearance: cooperative HEENT Mouth: dry mucous membranes Resp clear to auscultation bilaterally Effort and Inspection: Negative for tachypneic, respiratory distress or labored Cardio regular rate and regular rhythm Cardio Narrative: occasional early beat. GI normal to inspection, nondistended, normoactive bowel sounds, soft to palpation and non-tender GI Narrative: No guarding with palpation Extremity no calf tenderness General Extremity: Negative for edema Skin Rashes: no rashes Assessment & Plan Assessment/Plan (1) Debility: (2) Fall: (3) Closed left hip fracture: (4) Status post open reduction and internal fixation (ORIF) of fracture: (5) Acute blood loss anemia: (6) Parkinsons disease: (7) Noncompliance with medication regimen: (8) General weakness: (9) Seizure: PLAN: Plan 1. Continue therapy 2. Check orthostatic vital signs today 3. Tremors are much better now that he is taking the Sinemet TID 4. Add Lorazepam to his drug regimen for better control of anxiety. 0.5 mg q 12H .......if he gets too sleepy will decrease the AM dose to 0.25 mg. 5. Palliative care referral if OK with family 6. 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 Will order an EEG. Will also get a Keppra level since he is non-compliant with medication per Shanel. Charges/Coding Visit Charges Inpatient E&M: 13785 Subs Hosp L2
--- NOTE | 2022-09-09 12:11 | NURSING ---
Mayela for Dr. Shah's office requesting clarification for dressing change and when elen could be removed.
--- NOTE | 2022-09-09 13:18 | CASEMGMT ---
Social Work IDT met patient and dtr via conference call for Team meeting. Discussed patient's progress in PT/OT/SN. Educated to Medicare benefit. Pts goal is to return home with CORE LOADER assistance. However, dtr explained pt is uncooperative with aides at home and concerned about having enough care for pt at home. Dtr does report pt does not take medications as prescribed at home, either less or more. Discussed topic of SNF stay and offered list of SNFs. Dtr expressed interest in TCU. SW explained as pt progresses, a referral will be made to determine if pt is appropriate for that unit. Educated to TCU being a short term skilled facility, average length of stay, and goal is home. Encouraged pts to have less changes in environment and if intermediate care may be needed, TCU may not be appropriate, as pt was having difficulty with not having enough care at home prior. Dtr expressed understanding. SW to continue to follow for discharge planning. Will ReTeam next week. Destinee Segura, MORTGAGE LOAN CLOSER SCREEN PRINTING MACHINE OPERATOR
--- NOTE | 2022-09-09 14:13 | NURSING ---
Received return call from Dr. Shah's office. Dawson to be removed 2 weeks from surgery date and daily dressing change of adaptic and 4x4's. Xrays to be completed at 2 weeks post surgery.
[2022-09-09] MEDS: Magnesium Hydroxide 30 ML UDC PO (17:53)
[2022-09-09] MEDS: Atorvastatin Calcium 10 MG Tablet PO (20:37)
[2022-09-09] MEDS: Finasteride 5 MG Tablet PO (20:38)
[2022-09-10] MEDS: Bisacodyl 10 MG Suppository RC (02:54)
[2022-09-10 05:43] LABS: Hematocrit 26.5 % (40-54); Hemoglobin 8.6 g/dL (13.0-16.5)
[2022-09-10] MEDS: Rivaroxaban 10 MG Tablet PO (05:53)
[2022-09-10] MEDS: Carbidopa/Levodopa 25/100 Tablet PO ×3 (05:53→17:08)
[2022-09-10] MEDS: Levothyroxine 75 MCG Tablet PO (05:54)
[2022-09-10] MEDS: Menthol/Lanolin/Calamine/Znox 113 GM Tube 1 APPLIC TOPICAL ×2 (05:54→22:01)
[2022-09-10] MEDS: Acetaminophen 500 MG Tablet 1000 MG PO ×3 (05:54→21:57)
[2022-09-10] MEDS: LORazepam 0.5 MG Tablet PO ×2 (06:00→18:48)
[2022-09-10 06:19] LABS: Anion Gap 3 (5-15); BUN 35 mg/dL (7-18); BUN/Creat Ratio 45.9 RATIO (10-20); Calcium,Total 9.5 mg/dL (8.5-10.1); Chloride 101 mmol/L (98-107); Creatinine, Serum 0.76 mg/dL (0.70-1.30); EST Glomerular Filtration Rate 103 mL/min (>60); Est Glom Filt Rate - Afr Amer 125 mL/min (>60); Estimated Creatinine Clearance 57.79 ml/min; Glucose 136 mg/dL (74-106); Potassium 4.2 mmol/L (3.5-5.1); Sodium Level 140 mmol/L (136-145)
[2022-09-10 07:33] VITALS: BP 138/65; PULSE 73; RESP 20; TEMP 37.3; O2SAT 95
--- NOTE | 2022-09-10 09:08 | CASEMGMT ---
Social Work requesting palliative referral. Order entered and referral emailed to [facility]. Destinee Segura MSW EMBROIDERY MACHINE OPERATOR
[2022-09-10] MEDS: Cyanocobalamin 500 MCG Tablet 1000 MCG PO (10:28)
[2022-09-10] MEDS: levETIRAcetam 1,000 MG Tablet 1000 MG PO ×2 (10:28→21:58)
[2022-09-10] MEDS: Pantoprazole Sodium 40 MG Tablet PO (10:28)
[2022-09-10] MEDS: Senna/Docusate Sodium 1 Tablet 2 TABLET PO ×2 (10:28→21:57)
[2022-09-10] MEDS: Cholecalciferol (VIT D3) 25 MCG TABLET (1,000 UNITS) 50 MCG PO (10:28)
[2022-09-10] MEDS: amLODIPine 5 MG Tablet PO (10:28)
[2022-09-10 10:29] VITALS: PULSE 76
[2022-09-10] MEDS: Lubiprostone 24 MCG Capsule PO ×2 (10:29→17:08)
[2022-09-10] MEDS: Sertraline 50 MG Tablet PO (10:29)
[2022-09-10] MEDS: Metoprolol(XL)Succ 25 MG Tablet PO (10:29)
[2022-09-10] MEDS: Neuropathy Pain Cream Compound 60 CLICK TUBE TOPICAL ×2 (10:30→21:59)
[2022-09-10] MEDS: Ensure Plus High Protein 120 ML LIQUID PO ×4 (10:42→22:00)
--- NOTE | 2022-09-10 12:01 | PCM.PROGNOTE ---
Subjective Subjective Afebrile VSS Maintaining appropriate oxygen saturation on RA-95 to 98%. He is wearing a NC with no oxygen flow until the anxiety is better controlled because he feels better when he is on oxygen. He uses canned oxygen, called boost at home. Pulse ox has never been low....he was seen in the ER recently for c/o SOB and the oxygen saturation at that visit was normal. I suspect the air hunger is due to uncontrolled anxiety. Oral intake - he refused breakfast this AM. He ate 75 to 100% of his supper last night. Oral fluid intake is poor. Has been incontinent of urine. Discussed with nursing - no problems that need addressed. He was restless last night but, he eventually fell asleep. Ativan was not started until this AM. He got a suppository for constipation last night at 0300. Nursing reports there is irritation of the glans and foreskin Reviewed the PT/OT/ST notes - he has not wanted to work with ST. Medication list reviewed. Lab drawn this AM was personally reviewed. Hemoglobin is 8.6, down from 9.7 on 09/05/2022. Serum bicarb is elevated at 36 and the BUN is 35 with a creatinine of 0.76. The BUN/creatinine ratio is up to 45.9. Guy denies pain at rest when I examined him. He was calm. He denies SOB and he did not have the oxygen or the NC on. He is not tachypneic or agitated. He is pleasant. Objective Data Objective Data Vital Signs: Vital Signs Temp Pulse Resp BP Pulse Ox O2 Del Method O2 Flow Rate 99.2 F H 76 20 H 138/65 H 95 Room Air 1 09/10/22 07:33 09/10/22 10:29 09/10/22 07:33 09/10/22 07:33 09/10/22 07:33 09/10/22 07:33 09/10/22 07:33 Oxygen Flow Rate (L/min) 1 Oxygen Delivery Method Room Air Weight: 164 lb 7.437 oz Body Mass Index (BMI) 23.4 Intake & Output: Intake and Output for Last 24 Hours 09/08/22 09/09/22 09/10/22 23:59 23:59 23:59 Intake Total 600 / 600 360 / 360 180 / 180 Output Total 600 / 600 500 / 500 Balance 0 / 0 -140 / -140 180 / 180 Lab / Micro Data Result Diagrams: 09/14/22 05:14 09/14/22 05:14 Labs: Laboratory Results - last 24 hr 09/10/22 05:35: Hgb 8.6 L, Hct 26.5 L 09/10/22 05:35: Sodium 140, Potassium 4.2, Chloride 101, Carbon Dioxide 36.0 H, Anion Gap 3 L, BUN 35 H, Creatinine 0.76, Estim Creat Clear Calc 57.79, Est GFR (MDRD) Af Amer 125, Est GFR (MDRD) Non-Af 103, BUN/Creatinine Ratio 45.9 H, Glucose 136 H, Calcium 9.5 Physical Exam Narrative He is uncircumcised. The foreskin retracts easily over the glans. There is a whitish DC under the foreskin with erythema and there is also patchy erythema on the glans. He denies pain. Const alert and no apparent distress Constitutional Narrative: Sometimes cooperative and sometimes not. Can get belligerent at times. HEENT HEENT Narrative: He is hard of hearing and I frequently have to repeat myself Mouth: dry mucous membranes Resp normal respiratory effort and clear to auscultation bilaterally Resp Narrative: No conversational dyspnea Effort and Inspection: Negative for tachypneic Cardio regular rate, regular rhythm, no murmurs and no gallops GI normal to inspection, nondistended, normoactive bowel sounds, soft to palpation and non-tender GI Narrative: No guarding with palpation Extremity Extremity Narrative: No ankle edema. The left thigh incisions are healing and intact and there is no dehiscence and no erythema in the madeline-incisional area and no purulent DC. General Extremity: edema Skin General Skin Exam: no breakdown Rashes: no rashes Psych Psych Narrative: Less anxiety. still very disagreeable at times. Assessment & Plan Assessment/Plan (1) Debility: (2) Fall: (3) Closed left hip fracture: (4) Status post open reduction and internal fixation (ORIF) of fracture: (5) Acute blood loss anemia: (6) Orthostatic hypotension: (7) Parkinsons disease: (8) General weakness: (9) Noncompliance with medication regimen: PLAN: Plan 1. Continue therapy 2. Suspect he will need to go to longterm at discharge as he was very deconditioned at admission and his caretakers at home were enabling him not to participate at all in his care. 3. Keppra level is pending 4. Continue Ushgzg-mxt-nomy for anxiety control. Also continue Zoloft 50 mg daily and trazodone 50 mg nightly. Post void residuals are all less than 200. 5. Continue current pain regimen. - Pt is paranoid and complains that the nurses are not giving him his pain medications and he perseverates on this. 6. Continue Xarelto for DVT prophylaxis. Charges/Coding Visit Charges Inpatient E&M: 28354 Subs Hosp L2
[2022-09-10] MEDS: Lactated Ringers 1,000 ML 100 ML IV (14:12)
--- NOTE | 2022-09-10 14:12 | TELEMED_ITS ---
SOC Telemed has confirmed receipt of a request for visit. This document confirms receipt of the order initiating the consult. To find the results of the consultation, please view the patient's reports for the scanned Telemed Consult.
[2022-09-10 15:53] VITALS: O2SAT 94
[2022-09-10 16:25] LABS: Blood Gas Specimen Type VEN; VBG BASE EXCESS 7 mmol/L (-1.0-3.5); VBG Bicarbonate 32 mmol/L (22-26); VBG PO2 38 mmHg (25-40); VBG SO2 72 % (50-70); VBG TCO2 34 mmol/L (23-33); VBG pCO2 50.4 mmHg (41-51); VBG pH 7.41 (7.32-7.42)
[2022-09-10] MEDS: oxyCODONE 5 MG Tablet PO (17:08)
[2022-09-10] MEDS: Finasteride 5 MG Tablet PO (21:57)
[2022-09-10] MEDS: Atorvastatin Calcium 10 MG Tablet PO (21:59)
[2022-09-10 22:00] VITALS: BP 118/52; PULSE 73; RESP 16; TEMP 36.8; O2SAT 94
[2022-09-11] MEDS: Lactated Ringers 1,000 ML 100 ML IV ×3 (00:04→20:30)
[2022-09-11] MEDS: oxyCODONE 5 MG Tablet PO ×2 (00:08→17:25)
--- NOTE | 2022-09-11 01:56 | NURSING ---
pt awake most of the shift, wanting dressing off from his outer lt knee. pt has had the polar care on and is still rating pain 7/10 on pain scale. oxyir given with increased hallucinations and confusion noted pt reports that the red dot on the tv is from aliens watching him and he had seen shadows of mice earlier. pt given much tlc and repositioned for comfort. time spent with pt was 45 minutes
--- NOTE | 2022-09-11 03:55 | NURSING ---
0300 rounding on pt and was found to have blankets on the floor along with with his brief off holding on his call light ; pt also had pulled is iv out. pt stated that he had hallucinated that there were bugs crawling him and was trying to get them off. pt placed on the bedside commode and adls were completed at this time. pt continues to smear stool. rn to restart his iv in his rt forearm. pt placed in a position of comfort. call light in reach
--- NOTE | 2022-09-11 05:32 | NURSING ---
pt yelling out wanting to get out of the bed, pt attempted to get oob earlier to go to the br. pt continues to be confused and is oriented x's one. pt given reassurance that staff would help get oob in few minutes. pt stated whatever and closed his eyes
[2022-09-11] MEDS: Acetaminophen 500 MG Tablet 1000 MG PO ×3 (06:09→21:27)
[2022-09-11] MEDS: Levothyroxine 75 MCG Tablet PO (06:09)
[2022-09-11] MEDS: Rivaroxaban 10 MG Tablet PO (06:09)
[2022-09-11] MEDS: Carbidopa/Levodopa 25/100 Tablet PO ×3 (06:09→17:18)
[2022-09-11] MEDS: Menthol/Lanolin/Calamine/Znox 113 GM Tube 1 APPLIC TOPICAL ×2 (06:10→21:31)
[2022-09-11] MEDS: LORazepam 0.5 MG Tablet PO ×2 (06:10→17:22)
[2022-09-11 07:40] VITALS: BP 131/73; PULSE 94; RESP 18; TEMP 37.8; O2SAT 95
[2022-09-11] MEDS: Ensure Plus High Protein 120 ML LIQUID PO ×4 (07:53→21:27)
[2022-09-11] MEDS: Cholecalciferol (VIT D3) 25 MCG TABLET (1,000 UNITS) 50 MCG PO (07:53)
[2022-09-11 07:54] VITALS: PULSE 94
[2022-09-11] MEDS: levETIRAcetam 1,000 MG Tablet 1000 MG PO ×2 (07:54→21:27)
[2022-09-11] MEDS: Senna/Docusate Sodium 1 Tablet 2 TABLET PO (07:54)
[2022-09-11] MEDS: Metoprolol(XL)Succ 25 MG Tablet PO (07:54)
[2022-09-11] MEDS: Pantoprazole Sodium 40 MG Tablet PO (07:54)
[2022-09-11] MEDS: Cyanocobalamin 500 MCG Tablet 1000 MCG PO (07:54)
[2022-09-11] MEDS: amLODIPine 5 MG Tablet PO (07:54)
[2022-09-11] MEDS: Sertraline 50 MG Tablet PO (07:55)
[2022-09-11] MEDS: Lubiprostone 24 MCG Capsule PO ×2 (07:55→17:18)
[2022-09-11] MEDS: Neuropathy Pain Cream Compound 60 CLICK TUBE TOPICAL ×2 (07:58→21:26)
--- NOTE | 2022-09-11 10:31 | NURSING ---
Notfied Dr. Gonzales of pt having confusion and hallucinations and not sleeping at night per operations supervisor 2nd shift report. Received order for Trazadone 50 mg at HS. will add order.
[2022-09-11] MEDS: Magnesium Hydroxide 30 ML UDC PO (10:52)
[2022-09-11 19:50] VITALS: BP 113/63; PULSE 101; PULSE 84; RESP 18; TEMP 36.3; O2SAT 100
[2022-09-11] MEDS: Atorvastatin Calcium 10 MG Tablet PO (21:27)
[2022-09-11] MEDS: Finasteride 5 MG Tablet PO (21:27)
[2022-09-11] MEDS: traZODone 50 MG Tablet PO (21:27)
[2022-09-12] MEDS: Carbidopa/Levodopa 25/100 Tablet PO ×3 (06:28→16:12)
[2022-09-12] MEDS: Acetaminophen 500 MG Tablet 1000 MG PO ×3 (06:29→21:14)
[2022-09-12] MEDS: Rivaroxaban 10 MG Tablet PO (06:29)
[2022-09-12] MEDS: Levothyroxine 75 MCG Tablet PO (06:29)
[2022-09-12] MEDS: Menthol/Lanolin/Calamine/Znox 113 GM Tube 1 APPLIC TOPICAL ×2 (06:30→21:21)
[2022-09-12] MEDS: LORazepam 0.5 MG Tablet PO ×2 (06:34→18:34)
[2022-09-12] MEDS: Lactated Ringers 1,000 ML 100 ML IV ×2 (06:44→16:47)
[2022-09-12 07:48] VITALS: BP 117/63; PULSE 58; RESP 16; TEMP 36.7; O2SAT 98
[2022-09-12] MEDS: Cholecalciferol (VIT D3) 25 MCG TABLET (1,000 UNITS) 50 MCG PO (09:33)
[2022-09-12] MEDS: levETIRAcetam 1,000 MG Tablet 1000 MG PO ×2 (09:33→21:16)
[2022-09-12] MEDS: Neuropathy Pain Cream Compound 60 CLICK TUBE TOPICAL ×2 (09:33→21:11)
[2022-09-12] MEDS: Cyanocobalamin 500 MCG Tablet 1000 MCG PO (09:33)
[2022-09-12] MEDS: Ensure Plus High Protein 120 ML LIQUID PO ×3 (09:33→18:34)
[2022-09-12 09:34] VITALS: PULSE 64
[2022-09-12] MEDS: amLODIPine 5 MG Tablet PO (09:34)
[2022-09-12] MEDS: Sertraline 50 MG Tablet PO (09:34)
[2022-09-12] MEDS: Pantoprazole Sodium 40 MG Tablet PO (09:34)
[2022-09-12] MEDS: Metoprolol(XL)Succ 25 MG Tablet PO (09:34)
[2022-09-12] MEDS: Lubiprostone 24 MCG Capsule PO ×2 (09:36→16:49)
[2022-09-12] MEDS: Senna/Docusate Sodium 1 Tablet 2 TABLET PO ×2 (09:38→21:14)
[2022-09-12] MEDS: oxyCODONE 5 MG Tablet PO ×3 (12:07→21:11)
--- NOTE | 2022-09-12 19:18 | NURSING ---
1829 Went into Pt's room to give meds. Pt upset and trying to use his phone to call the police. Pt asking for help making the phone call- Staff asked what he needs the police for and Pt became more upset/agitated stating I'm not wasting my time telling you if you don't already know. I'm not getting the care and attention that I need. This nurse reminded Pt that I personally have been in at least twice an hour for the past 4 hours for IV, meds and assisting with urinal and that every time Pt has used the call light staff has promptly responded. While talking with Pt- Pt got his dtr Lorie on the phone. Pt held phone while this nurse was talking with Lorie explaining the situation as Pt would not let me hold the phone. Pt stating that we're holding him hostage and not letting him come or go or make any phone calls. Lorie states that's not true- he's called my sister at least three times today, upsetting her with his calls and false claims. This nurse gave Pt his scheduled Ativan and continued with Pt care, removing ALEKSANDRA hose and repositioning Pt. This nurse asked if there was anything else I could do for him and Pt states no. This nurse reminded Pt to use call light if there's anything else that he needs. RN aware.
[2022-09-12 20:12] VITALS: BP 126/67; PULSE 77; RESP 16; TEMP 37.1; O2SAT 94
[2022-09-12] MEDS: traZODone 50 MG Tablet PO (21:11)
[2022-09-12] MEDS: Finasteride 5 MG Tablet PO (21:15)
[2022-09-12 21:20] VITALS: O2SAT 96
--- NOTE | 2022-09-12 21:20 | NURSING ---
Pt cooperative this evening, alert and oriented x3, at first when in to room, pt stated that he is frustrated and feels like he can't get any answers. Asked what I could do to help and pt asked if I could help him call his friend, David on his cell phone. Tried several times to call him, only went to voicemail. Pt states he feels alone here and feels like no one wants to come visit him. Pt asked if I could call his friend Khurram and ask him to come see him, I reminded him that it is 9:30 in the evening and visiting hours are over, pt states I know, I meant for him to come tomorrow. Made phone call for pt and left Khurram a voicemail asking him to visit or call pt on Tuesday. Pt very appreciative and thanked staff for helping. Pt refused hygiene care at this time, stated he wants to sleep in his shirt, refused offer of face wash, let staff do madeline care and apply channing. Repositioned in bed for comfort, call light in hand, will continue to monitor.
[2022-09-12] MEDS: Atorvastatin Calcium 10 MG Tablet PO (21:27)
[2022-09-13] MEDS: Lactated Ringers 1,000 ML 100 ML IV (02:47)
[2022-09-13] MEDS: LORazepam 0.5 MG Tablet PO ×2 (05:32→18:13)
[2022-09-13] MEDS: Menthol/Lanolin/Calamine/Znox 113 GM Tube 1 APPLIC TOPICAL ×2 (05:42→20:33)
[2022-09-13] MEDS: Carbidopa/Levodopa 25/100 Tablet PO ×3 (05:46→16:48)
[2022-09-13] MEDS: Acetaminophen 500 MG Tablet 1000 MG PO ×3 (05:46→20:33)
[2022-09-13] MEDS: Levothyroxine 75 MCG Tablet PO (05:46)
[2022-09-13] MEDS: Rivaroxaban 10 MG Tablet PO (05:46)
[2022-09-13 07:42] VITALS: BP 111/58; PULSE 65; RESP 18; TEMP 36.1; O2SAT 95
[2022-09-13] MEDS: Neuropathy Pain Cream Compound 60 CLICK TUBE TOPICAL ×2 (08:43→20:17)
[2022-09-13 08:44] VITALS: PULSE 65
[2022-09-13] MEDS: Metoprolol(XL)Succ 25 MG Tablet PO (08:44)
[2022-09-13] MEDS: Senna/Docusate Sodium 1 Tablet 2 TABLET PO ×2 (08:44→20:33)
[2022-09-13] MEDS: Sertraline 50 MG Tablet PO (08:44)
[2022-09-13] MEDS: Pantoprazole Sodium 40 MG Tablet PO (08:44)
[2022-09-13] MEDS: amLODIPine 5 MG Tablet PO (08:44)
[2022-09-13] MEDS: levETIRAcetam 1,000 MG Tablet 1000 MG PO ×2 (08:45→20:33)
[2022-09-13] MEDS: Cyanocobalamin 500 MCG Tablet 1000 MCG PO (08:45)
[2022-09-13] MEDS: Lubiprostone 24 MCG Capsule PO ×2 (08:45→16:47)
[2022-09-13] MEDS: Cholecalciferol (VIT D3) 25 MCG TABLET (1,000 UNITS) 50 MCG PO (08:45)
[2022-09-13] MEDS: oxyCODONE 5 MG Tablet PO ×3 (11:26→20:32)
--- NOTE | 2022-09-13 16:29 | CASEMGMT ---
Social Work Contacted dtr, Shanel, to inquire about DC plans. Educated to IDT recommending SNF. Dtr stated she was expecting this but requested for SW to contact sister to discuss further. SW contacted dtr, Nanda, to update on IDT recommending SNF. Dtr agreed. Educated to referral being made to TCU, per request last week, and IDT agreed pt is not appropriate d/t to needing longer term care. Dtr expressed understanding. SW sent both dtr's a list of SNFs with quality and resource data via [employer] to review. Educated to [facility] approval of 16 days with [facility] 09/23. However, if pt is not participating with therapy, pt can DC sooner. SW educated to change in Team day d/t holiday. Dtr appreciative of information. SW to continue to follow. Destinee Segura, COLTEN CARTYW
[2022-09-13] MEDS: Ensure Plus High Protein 120 ML LIQUID PO ×2 (16:46→20:17)
--- NOTE | 2022-09-13 19:04 | PCM.PROGNOTE ---
Subjective Subjective Afebrile VSS-blood pressure is well controlled Maintaining appropriate oxygen saturation on RA Oral intake is good. He is eating 75 to 100% of his meals. Has been on IV fluids since Tuesday. No SOB and no cough. Good urine OP. Discussed with nursing - no problems that need addressed. Refused to get out of bed and nursing had to use the sera lift over the weekend. He has been less anxious and now is comfortable off the oxygen and without a NC. Reviewed the PT/OT/ST notes Medication list reviewed. Alkalosis on 09/10/22 was due to contraction alkalosis. Tells me that he is sleeping well. He is not feeling anxious today. The increased tone is somewhat better with the consistent dosing of the Sinemet. But still with some rigidity in the UE's constantine. He was able to final application reviewer the parallel bars and maintain an erect posture and he ambulated 7 ft X 2 today. He denies chest pain, shortness of breath, cough, burning with urination, nausea/vomiting and lightheadedness. Objective Data Objective Data Vital Signs: Vital Signs Temp Pulse Resp BP Pulse Ox O2 Del Method O2 Flow Rate 97.0 F L 65 18 111/58 L 95 Room Air 1 09/13/22 07:42 09/13/22 08:44 09/13/22 07:42 09/13/22 07:42 09/13/22 07:42 09/13/22 07:42 09/10/22 07:33 Oxygen Flow Rate (L/min) 1 Oxygen Delivery Method Room Air Weight: 164 lb 7.437 oz Body Mass Index (BMI) 23.4 Intake & Output: Intake and Output for Last 24 Hours 09/11/22 09/12/22 09/13/22 23:59 23:59 23:59 Intake Total 3085.00 / 3085.00 2160 / 2160 3080 / 3080 Output Total 325 / 325 1300 / 1300 1400 / 1400 Balance 2760.00 / 2760.00 860 / 860 1680 / 1680 Lab / Micro Data Result Diagrams: 09/14/22 05:14 09/14/22 05:14 Micro: Microbiology 09/11/22 11:45 Stool Stool Occult Blood (SULAIMAN) - Final Occult Blood Positive Physical Exam Const alert, oriented x3 and no apparent distress Neck no JVD Chest Chest: symmetrical chest wall rise Resp normal respiratory effort, no use of accessory muscles and clear to auscultation bilaterally Resp Narrative: No conversational dyspnea Effort and Inspection: Negative for tachypneic Cardio regular rate, regular rhythm, no murmurs and no gallops GI normal to inspection, nondistended, normoactive bowel sounds, soft to palpation and non-tender GI Narrative: No guarding with palpation Extremity no calf tenderness and no pedal edema General Extremity: edema Skin General Skin Exam: no breakdown Rashes: no rashes Neuro Neuro Narrative: he has generalized weakness resting tremors of the hands, R>L Assessment & Plan Assessment/Plan (1) Debility: (2) Fall: (3) Closed left hip fracture: (4) Status post open reduction and internal fixation (ORIF) of fracture: (5) Acute blood loss anemia: (6) Orthostatic hypotension: (7) Parkinsons disease: (8) General weakness: (9) Noncompliance with medication regimen: PLAN: Plan 1. Continue therapy 2. BMP and H&H in the a.m. 3. Continue current medications 4. If he goes home at discharge he must not manage his own medications and he should not be allowed to have the medication bottles within his reach. 5. He is very debilitated and I do not see him going home from rehab without 24/7 care. Charges/Coding Visit Charges Inpatient E&M: 11637 Subs Hosp L2
[2022-09-13 19:16] LABS: KEPPRA (LEVETIRACETAM) 41.3 ug/mL (10.0-40.0)
[2022-09-13 20:11] VITALS: BP 138/76; PULSE 69; RESP 18; TEMP 36.7; O2SAT 95
[2022-09-13] MEDS: Atorvastatin Calcium 10 MG Tablet PO (20:33)
[2022-09-13] MEDS: Finasteride 5 MG Tablet PO (20:33)
[2022-09-13] MEDS: traZODone 50 MG Tablet PO (20:33)
[2022-09-13 21:40] VITALS: O2SAT 95
[2022-09-14] MEDS: oxyCODONE 5 MG Tablet PO ×4 (01:00→21:04)
[2022-09-14 05:24] LABS: Hematocrit 26.6 % (40-54); Hemoglobin 8.5 g/dL (13.0-16.5); Mean Corpuscular Hgb 32.3 pg (27.0-32.0); Mean Corpuscular Volume 101.1 fL (80-94); Mean Platelet Vol. 8.7 fl (6.2-12.0); Platelet Count 329 K/mm3 (150-450); RBC Distribution Width CV 15.5 % (11.6-14.6); RBC Distribution Width SD 51.7 fl (35.1-43.9); Red Blood Count 2.63 M/mm3 (4.6-6.2); White Blood Count 6.6 K/mm3 (4.4-11.0)
[2022-09-14] MEDS: LORazepam 0.5 MG Tablet PO ×2 (05:38→17:01)
[2022-09-14] MEDS: Acetaminophen 500 MG Tablet 1000 MG PO ×3 (05:38→20:50)
[2022-09-14] MEDS: Carbidopa/Levodopa 25/100 Tablet PO ×3 (05:38→16:57)
[2022-09-14] MEDS: Levothyroxine 75 MCG Tablet PO (05:38)
[2022-09-14] MEDS: Rivaroxaban 10 MG Tablet PO (05:38)
[2022-09-14] MEDS: Menthol/Lanolin/Calamine/Znox 113 GM Tube 1 APPLIC TOPICAL ×2 (05:39→20:52)
[2022-09-14 05:46] LABS: Anion Gap 2 (5-15); BUN 21 mg/dL (7-18); BUN/Creat Ratio 25.2 RATIO (10-20); Chloride 104 mmol/L (98-107); Creatinine, Serum 0.83 mg/dL (0.70-1.30); EST Glomerular Filtration Rate 93 mL/min (>60); Est Glom Filt Rate - Afr Amer 113 mL/min (>60); Estimated Creatinine Clearance 69.63 ml/min; Glucose 110 mg/dL (74-106); Sodium Level 138 mmol/L (136-145)
[2022-09-14 08:36] VITALS: BP 113/70; PULSE 65; RESP 18; TEMP 36.6; O2SAT 94
[2022-09-14 08:54] VITALS: BP 101/54; PULSE 64
[2022-09-14] MEDS: Cholecalciferol (VIT D3) 25 MCG TABLET (1,000 UNITS) 50 MCG PO (08:54)
[2022-09-14] MEDS: Metoprolol(XL)Succ 25 MG Tablet PO (08:54)
[2022-09-14] MEDS: Cyanocobalamin 500 MCG Tablet 1000 MCG PO (08:54)
[2022-09-14] MEDS: amLODIPine 5 MG Tablet PO (08:54)
[2022-09-14] MEDS: Senna/Docusate Sodium 1 Tablet 2 TABLET PO ×2 (08:55→20:52)
[2022-09-14] MEDS: Pantoprazole Sodium 40 MG Tablet PO (08:55)
[2022-09-14] MEDS: Lubiprostone 24 MCG Capsule PO ×2 (08:56→16:58)
[2022-09-14] MEDS: Sertraline 50 MG Tablet PO (08:56)
[2022-09-14] MEDS: levETIRAcetam 1,000 MG Tablet 1000 MG PO ×2 (08:56→20:52)
[2022-09-14] MEDS: Neuropathy Pain Cream Compound 60 CLICK TUBE TOPICAL ×2 (08:56→20:52)
[2022-09-14] MEDS: Ensure Plus High Protein 120 ML LIQUID PO ×3 (14:13→20:51)
[2022-09-14 20:45] VITALS: BP 125/70; PULSE 77; RESP 18; TEMP 36.8; O2SAT 95
[2022-09-14] MEDS: Atorvastatin Calcium 10 MG Tablet PO (20:50)
[2022-09-14] MEDS: Magnesium Hydroxide 30 ML UDC PO (20:51)
[2022-09-14] MEDS: traZODone 50 MG Tablet PO (20:51)
[2022-09-14] MEDS: Finasteride 5 MG Tablet PO (20:52)
[2022-09-15] MEDS: oxyCODONE 5 MG Tablet PO ×6 (01:35→22:35)
--- NOTE | 2022-09-15 04:05 | NURSING ---
Reviewed and agree with Mahnaz Jeter LPN documentation and assessment charting.
--- NOTE | 2022-09-15 05:46 | NURSING ---
pt has slept off and on all of hs, when awake pt reports pain or muscle spasms to his lt thigh and hip a 9-8/10 on the pain scale. oxyir given as per order this hs with fair effect on pt pain control, pt has used the polar care all shift. pt has repositioned several times though out the shift as well . pt wants family to bring a healing light that he uses for his hands and a vibrating chair pad. pt has been pleasant and cooperative and is attempting to do more after family spoke with him yesterday.
[2022-09-15] MEDS: LORazepam 0.5 MG Tablet PO ×2 (06:01→17:20)
[2022-09-15] MEDS: Carbidopa/Levodopa 25/100 Tablet PO ×3 (06:01→17:20)
[2022-09-15] MEDS: Levothyroxine 75 MCG Tablet PO (06:02)
[2022-09-15] MEDS: 0.9% Saline Lock 10 ML Syringe IV ×3 (06:07→22:51)
[2022-09-15] MEDS: Acetaminophen 500 MG Tablet 1000 MG PO ×3 (06:08→22:37)
[2022-09-15] MEDS: Menthol/Lanolin/Calamine/Znox 113 GM Tube 1 APPLIC TOPICAL ×2 (06:09→22:36)
[2022-09-15] MEDS: Rivaroxaban 10 MG Tablet PO (06:10)
[2022-09-15] MEDS: Ensure Plus High Protein 120 ML LIQUID PO ×4 (08:23→22:38)
[2022-09-15 08:24] VITALS: BP 122/70; PULSE 69
[2022-09-15] MEDS: Senna/Docusate Sodium 1 Tablet 2 TABLET PO ×2 (08:24→22:35)
[2022-09-15] MEDS: Cholecalciferol (VIT D3) 25 MCG TABLET (1,000 UNITS) 50 MCG PO (08:24)
[2022-09-15] MEDS: amLODIPine 5 MG Tablet PO (08:24)
[2022-09-15] MEDS: Metoprolol(XL)Succ 25 MG Tablet PO (08:24)
[2022-09-15] MEDS: levETIRAcetam 1,000 MG Tablet 1000 MG PO ×2 (08:24→22:36)
[2022-09-15] MEDS: Cyanocobalamin 500 MCG Tablet 1000 MCG PO (08:25)
[2022-09-15] MEDS: Neuropathy Pain Cream Compound 60 CLICK TUBE TOPICAL ×2 (08:25→22:36)
[2022-09-15] MEDS: Pantoprazole Sodium 40 MG Tablet PO (08:25)
[2022-09-15] MEDS: Sertraline 50 MG Tablet PO (08:25)
[2022-09-15 08:36] VITALS: BP 122/70; PULSE 69; RESP 16; TEMP 37; O2SAT 97
[2022-09-15] MEDS: Lubiprostone 24 MCG Capsule PO ×2 (09:55→17:21)
[2022-09-15] MEDS: Bisacodyl 10 MG Suppository RC (14:19)
--- NOTE | 2022-09-15 16:42 | NURSING ---
Caregiver came to nurses station stating pt told her he did not want to live anymore. This nurse spoke with pt and asked him how he was feeling and if he had any thoughts of wanting to hurt himself or end his life. He stated I don't want to hurt myself and I'm not going to kill myself. He then stated this is the worse hospital I've ever been in. How do I know what medications you're really giving to me. This nurse explained that he is told every medication he is getting, they are scanned into the computer and opened in front of him. pt reminded that staff does everything we can to make him comfortable and reminded pt when his next pain medication is due. Caregiver remains in room. Will continue to monitor.
--- NOTE | 2022-09-15 18:15 | NURSING ---
Took oxy in to pt per his request. pt stated ya what are you really giving me. This nurse stated the medication was oxy and had his caregiver also read the label to him to convince the pt that he was receiving oxy.
[2022-09-15 20:14] VITALS: BP 114/58; PULSE 60; RESP 16; TEMP 36.8; O2SAT 98
[2022-09-15] MEDS: traZODone 50 MG Tablet PO (22:36)
[2022-09-15] MEDS: Atorvastatin Calcium 10 MG Tablet PO (22:36)
[2022-09-15] MEDS: Finasteride 5 MG Tablet PO (22:36)
[2022-09-16 03:16] VITALS: BP 114/58; PULSE 60; RESP 16; TEMP 36.8
[2022-09-16] MEDS: Acetaminophen 500 MG Tablet 1000 MG PO ×3 (05:08→21:35)
[2022-09-16] MEDS: Rivaroxaban 10 MG Tablet PO (05:08)
[2022-09-16] MEDS: Menthol/Lanolin/Calamine/Znox 113 GM Tube 1 APPLIC TOPICAL ×2 (05:09→21:35)
[2022-09-16] MEDS: Carbidopa/Levodopa 25/100 Tablet PO ×3 (06:16→16:20)
[2022-09-16] MEDS: LORazepam 0.5 MG Tablet PO ×2 (06:17→17:15)
[2022-09-16] MEDS: Levothyroxine 75 MCG Tablet PO (06:17)
[2022-09-16] MEDS: Cyanocobalamin 500 MCG Tablet 1000 MCG PO (08:16)
[2022-09-16] MEDS: Cholecalciferol (VIT D3) 25 MCG TABLET (1,000 UNITS) 50 MCG PO (08:16)
[2022-09-16] MEDS: Pantoprazole Sodium 40 MG Tablet PO (08:16)
[2022-09-16] MEDS: Senna/Docusate Sodium 1 Tablet 2 TABLET PO ×2 (08:16→21:35)
[2022-09-16] MEDS: amLODIPine 5 MG Tablet PO (08:16)
[2022-09-16] MEDS: Neuropathy Pain Cream Compound 60 CLICK TUBE TOPICAL ×2 (08:17→21:00)
[2022-09-16] MEDS: Lubiprostone 24 MCG Capsule PO ×2 (08:17→16:20)
[2022-09-16] MEDS: levETIRAcetam 1,000 MG Tablet 1000 MG PO ×2 (08:17→21:35)
[2022-09-16] MEDS: Ensure Plus High Protein 120 ML LIQUID PO ×4 (08:18→21:36)
[2022-09-16 08:20] VITALS: PULSE 70
[2022-09-16] MEDS: Metoprolol(XL)Succ 25 MG Tablet PO (08:20)
[2022-09-16] MEDS: Sertraline 50 MG Tablet PO (08:20)
[2022-09-16 08:43] VITALS: BP 130/64; PULSE 64; RESP 16; TEMP 37; O2SAT 94
[2022-09-16] MEDS: oxyCODONE 5 MG Tablet PO ×3 (12:40→21:34)
--- NOTE | 2022-09-16 15:50 | PN_ITS ---
Subjective Subjective Afebrile VSS Maintaining appropriate oxygen saturation on RA Discussed with nursing - no problems that need addressed. He is not being cooperative today. Reviewed the PT/OT/ST notes - he continues to refuse ST. Medication list reviewed. Keppra level came back and is too high at 41.3. This may explain the be lligerence, nervousness, somnolence, change in personality. He has no complaints today and the ROS is negative other than persistent pain in the Left thigh. Continues to think the nurses are not giving him his pain medications but, are keeping for themselves. Objective Data Objective Data Vital Signs: Vital Signs Temp Pulse Resp BP Pulse Ox O2 Del Method O2 Flow Rate 98.6 F 64 16 130/64 H 94 Room Air 1 09/16/22 08:43 09/16/22 08:43 09/16/22 08:43 09/16/22 08:43 09/16/22 08:43 09/16/22 08:43 09/10/22 07:33 Oxygen Flow Rate (L/min) 1 Oxygen Delivery Method Room Air Weight: 168 lb 3.403 oz Body Mass Index (BMI) 23.4 Intake & Output: Intake and Output for Last 24 Hours 09/14/22 09/15/22 09/16/22 23:59 23:59 23:59 Intake Total 1660 / 1660 1300 / 1300 240 / 240 Output Total 1425 / 1625 1650 / 1650 800 / 800 Balance 235 / 35 -350 / -350 -560 / -560 Lab / Micro Data Result Diagrams: 09/14/22 05:14 09/14/22 05:14 Micro: Microbiology 09/11/22 11:45 Stool Stool Occult Blood (SULAIMAN) - Final Occult Blood Positive Physical Exam Const alert Resp clear to auscultation bilaterally Cardio regular rate, regular rhythm and no gallops GI normal to inspection, nondistended, normoactive bowel sounds, soft to palpation and non-tender Extremity General Extremity: Negative for edema Skin General Skin Exam: no breakdown Rashes: no rashes Assessment & Plan Assessment/Plan (1) Drug toxicity: PLAN: Hold the Keppra for now and when restarted RX 750 mg BID. Some one other than Guy must manage the medications of he goes home. (2) Debility: PLAN: Continue therapy (3) Status post open reduction and internal fixation (ORIF) of fracture: (4) Acute blood loss anemia: PLAN: stable (5) Parkinsons disease: (6) Anxiety with depression: PLAN: continue Sertraline and Ativan. Charges/Coding Visit Charges Inpatient E&M: 34620 Subs Hosp L2
[2022-09-16 20:31] VITALS: BP 123/61; PULSE 80; RESP 17; TEMP 36.7; O2SAT 95
[2022-09-16] MEDS: Finasteride 5 MG Tablet PO (21:34)
[2022-09-16] MEDS: traZODone 50 MG Tablet PO (21:35)
[2022-09-16] MEDS: Atorvastatin Calcium 10 MG Tablet PO (21:35)
[2022-09-16 22:00] VITALS: O2SAT 95
--- NOTE | 2022-09-16 22:30 | NURSING ---
During assessment, noted that upper inner thigh had an area of warmth, increased edema and firm to the touch, pt had been c/o of increased pain . Note left for to address in am. Will continue to monitor.
[2022-09-17] MEDS: oxyCODONE 5 MG Tablet PO ×5 (02:20→21:30)
[2022-09-17] MEDS: Rivaroxaban 10 MG Tablet PO (05:04)
[2022-09-17] MEDS: Levothyroxine 75 MCG Tablet PO (05:04)
[2022-09-17] MEDS: LORazepam 0.5 MG Tablet PO ×2 (05:04→17:28)
[2022-09-17] MEDS: Acetaminophen 500 MG Tablet 1000 MG PO ×3 (05:04→21:30)
[2022-09-17] MEDS: Ensure Plus High Protein 120 ML LIQUID PO ×4 (05:13→21:30)
[2022-09-17] MEDS: Menthol/Lanolin/Calamine/Znox 113 GM Tube 1 APPLIC TOPICAL ×2 (05:22→21:17)
[2022-09-17] MEDS: Carbidopa/Levodopa 25/100 Tablet PO ×3 (06:51→16:49)
[2022-09-17 07:21] VITALS: BP 110/62; PULSE 62; RESP 14; TEMP 36.6; O2SAT 92
[2022-09-17] MEDS: Neuropathy Pain Cream Compound 60 CLICK TUBE TOPICAL ×2 (07:53→21:31)
[2022-09-17] MEDS: Cholecalciferol (VIT D3) 25 MCG TABLET (1,000 UNITS) 50 MCG PO (07:53)
[2022-09-17 07:54] VITALS: PULSE 62
[2022-09-17] MEDS: Senna/Docusate Sodium 1 Tablet 2 TABLET PO ×2 (07:54→21:31)
[2022-09-17] MEDS: amLODIPine 5 MG Tablet PO (07:54)
[2022-09-17] MEDS: Metoprolol(XL)Succ 25 MG Tablet PO (07:54)
[2022-09-17] MEDS: Sertraline 50 MG Tablet PO (07:54)
[2022-09-17] MEDS: levETIRAcetam 1,000 MG Tablet 1000 MG PO (07:54)
[2022-09-17] MEDS: Pantoprazole Sodium 40 MG Tablet PO (07:54)
[2022-09-17] MEDS: Lubiprostone 24 MCG Capsule PO ×2 (07:55→17:24)
[2022-09-17] MEDS: Cyanocobalamin 500 MCG Tablet 1000 MCG PO (07:56)
--- NOTE | 2022-09-17 13:27 | CASEMGMT ---
Social Work IDT met with patient and dtr, Nanda, via conference call for Team meeting. Discussed patient's progress in PT/OT/SN. Educated to Medicare approval of 16 days with DC 09/23. IDT continues to recommend SNF placement. SW inquired about SNF preferences to begin referrals. Dtr requesting referrals to [facility] and [facility]. SW made referrals via [facility]. Will continue to follow. COLTEN SantosW
--- NOTE | 2022-09-17 16:07 | PN_ITS ---
Subjective Subjective Guy was seen on team rounds today. His daughter Nanda participated by phone. Afebrile VSS Maintaining appropriate oxygen saturation on RA Oral intake is good for food, not adequate fluids. Discussed with nursing - He is yelling loudly and is very upset that no one has been to visit him. He has been calling his daughters and his niece throughout the day and night. HE seems quite agitated. Reviewed the PT/OT notes - he refuses ST. Medication list reviewed. Amanda remains on hold. HE has had no seizure activity. He continues to c/o pain in the LLE. He took the Oxycodone 3 times yesterday. Denies cough, SOB, lightheadedness, CP, palpitations, dysuria. Denies pain in the penis. He wanted to talk with his dtr on the phone and we passed the phone to him at the conclusion of the TEAM meeting. Objective Data Objective Data Vital Signs: Vital Signs Temp Pulse Resp BP Pulse Ox O2 Del Method O2 Flow Rate 97.9 F 62 14 110/62 92 Room Air 1 09/17/22 07:21 09/17/22 07:54 09/17/22 07:21 09/17/22 07:21 09/17/22 07:21 09/17/22 07:21 09/10/22 07:33 Oxygen Flow Rate (L/min) 1 Oxygen Delivery Method Room Air Weight: 168 lb 3.403 oz Body Mass Index (BMI) 23.4 Intake & Output: Intake and Output for Last 24 Hours 09/15/22 09/16/22 09/17/22 23:59 23:59 23:59 Intake Total 1300 / 1300 840 / 840 540 / 540 Output Total 1650 / 1650 1450 / 1450 500 / 500 Balance -350 / -350 -610 / -610 40 / 40 Lab / Micro Data Result Diagrams: 09/14/22 05:14 09/14/22 05:14 Micro: Microbiology 09/11/22 11:45 Stool Stool Occult Blood (SULAIMAN) - Final Occult Blood Positive Physical Exam Const alert Constitutional Narrative: agitated. Talking over the TEAM while we are speaking and yelling for his dtr to talk to him on the phone. Not cooperative today, or yesterday. HEENT normocephalic HEENT Narrative: [place] and not listening when we are talking, he is yelling over the speakers. Mouth: dry mucous membranes Resp normal respiratory effort and clear to auscultation bilaterally Cardio regular rate, regular rhythm, no murmurs and no gallops GI normal to inspection, nondistended, normoactive bowel sounds and soft to palpation GI Narrative: No guarding Extremity no calf tenderness Extremity Narrative: Intact sensation to the distal L LE. He has venous insufficiency and the distal LE's are purple when his legs are dependent......they are not cool to the touch. General Extremity: Negative for cyanosis or edema Skin General Skin Exam: no breakdown Rashes: no rashes Wound Narrative: The incisions are intact with no dehiscence, no erythema, no purulent discharge. There is less ecchymosis and less swelling. Assessment & Plan Assessment/Plan (1) Debility: (2) Closed left hip fracture: (3) Status post open reduction and internal fixation (ORIF) of fracture: (4) Noncompliance with medication regimen: (5) Drug toxicity: (6) Acute blood loss anemia: PLAN: Plan 1. Restart the Keppra tomorrow night at 750 mg BID 2. Xanax 0.125 Q12H PRN severe agitation 3. Continue therapy 4. Will need SNF at NC. Charges/Coding Visit Charges Inpatient E&M: 85879 Subs Hosp L2
[2022-09-17 20:00] VITALS: BP 110/68; PULSE 87; RESP 17; TEMP 36.8; O2SAT 95
[2022-09-17 21:30] VITALS: O2SAT 95
[2022-09-17] MEDS: Finasteride 5 MG Tablet PO (21:31)
[2022-09-17] MEDS: traZODone 50 MG Tablet PO (21:31)
[2022-09-17] MEDS: Atorvastatin Calcium 10 MG Tablet PO (21:31)
[2022-09-18] MEDS: oxyCODONE 5 MG Tablet PO ×5 (03:21→22:47)
--- NOTE | 2022-09-18 04:00 | NURSING ---
14 elen removed from left hip thigh by DOLORES Ball. Well approximated, dressing applied to proximal hip site. Pt tolerated well, will continue to monitor.
[2022-09-18] MEDS: Menthol/Lanolin/Calamine/Znox 113 GM Tube 1 APPLIC TOPICAL ×2 (04:45→22:16)
[2022-09-18] MEDS: Ensure Plus High Protein 120 ML LIQUID PO ×3 (04:47→22:50)
[2022-09-18] MEDS: Rivaroxaban 10 MG Tablet PO (04:50)
[2022-09-18] MEDS: Acetaminophen 500 MG Tablet 1000 MG PO ×3 (04:50→22:14)
[2022-09-18] MEDS: LORazepam 0.5 MG Tablet PO ×2 (04:50→17:38)
[2022-09-18] MEDS: Levothyroxine 75 MCG Tablet PO (04:50)
[2022-09-18] MEDS: Carbidopa/Levodopa 25/100 Tablet PO ×3 (07:55→16:35)
[2022-09-18] MEDS: Cyanocobalamin 500 MCG Tablet 1000 MCG PO (07:55)
[2022-09-18] MEDS: amLODIPine 5 MG Tablet PO (07:56)
[2022-09-18] MEDS: Sertraline 50 MG Tablet PO (07:56)
[2022-09-18] MEDS: Cholecalciferol (VIT D3) 25 MCG TABLET (1,000 UNITS) 50 MCG PO (07:58)
[2022-09-18] MEDS: Senna/Docusate Sodium 1 Tablet 2 TABLET PO ×2 (07:59→22:15)
[2022-09-18] MEDS: Lubiprostone 24 MCG Capsule PO ×2 (08:00→16:35)
[2022-09-18 08:01] VITALS: PULSE 70
[2022-09-18] MEDS: Metoprolol(XL)Succ 25 MG Tablet PO (08:01)
[2022-09-18] MEDS: Pantoprazole Sodium 40 MG Tablet PO (08:01)
[2022-09-18 09:21] VITALS: BP 132/66; PULSE 71; RESP 18; TEMP 36.3; O2SAT 95
--- NOTE | 2022-09-18 10:39 | RAD_ITS ---
EXAM: XR LEFT HIP WITH PELVIS WHEN PERFORMED, 2 OR 3 VIEWS CLINICAL INDICATION: Post op TECHNIQUE: Two or three views of the left hip with pelvis when performed. This report was created using [employer] report [employer] technology. COMPARISON: Pelvis and left hip September 03, 2022 FINDINGS: BONES/JOINTS: Intramedullary yomi extends along the length of the left femur with 2 cross screws through the femoral neck fixating the comminuted intertrochanteric fracture of the proximal left femur. Fixation and satisfactory position. Satisfactory realignment of the remaining bone fragments. The avulsed lesser trochanter fracture fragment remains displaced medially. Hip joint space is intact. SOFT TISSUES: Normal. No soft tissue swelling or gas. RAD/Hip Min 2 Views (Portable) IMPRESSION: Satisfactory postop changes. Electronically Signed: Solomon Gardner MD at 11:50 EST ,
[2022-09-18] MEDS: Neuropathy Pain Cream Compound 60 CLICK TUBE TOPICAL ×2 (11:09→22:15)
[2022-09-18 19:32] VITALS: BP 120/68; PULSE 84; RESP 16; TEMP 36.6; O2SAT 97
[2022-09-18] MEDS: Atorvastatin Calcium 10 MG Tablet PO (22:15)
[2022-09-18] MEDS: Finasteride 5 MG Tablet PO (22:15)
[2022-09-18] MEDS: levETIRAcetam 750 MG Tablet PO (22:15)
[2022-09-18] MEDS: traZODone 50 MG Tablet PO (22:16)
[2022-09-18] MEDS: 0.9% Saline Lock 10 ML Syringe IV (22:30)
[2022-09-18] MEDS: Magnesium Hydroxide 30 ML UDC PO (22:41)
[2022-09-19] MEDS: oxyCODONE 5 MG Tablet PO ×4 (02:52→18:41)
[2022-09-19] MEDS: Carbidopa/Levodopa 25/100 Tablet PO ×3 (06:36→17:02)
[2022-09-19] MEDS: Rivaroxaban 10 MG Tablet PO (06:36)
[2022-09-19] MEDS: Menthol/Lanolin/Calamine/Znox 113 GM Tube 1 APPLIC TOPICAL ×2 (06:37→21:26)
[2022-09-19] MEDS: Acetaminophen 500 MG Tablet 1000 MG PO ×3 (06:37→21:24)
[2022-09-19] MEDS: Levothyroxine 75 MCG Tablet PO (06:37)
[2022-09-19] MEDS: LORazepam 0.5 MG Tablet PO ×2 (06:37→17:02)
[2022-09-19 08:06] VITALS: BP 124/66; PULSE 64; RESP 16; TEMP 36.7; O2SAT 93
[2022-09-19 08:36] VITALS: PULSE 64
[2022-09-19] MEDS: Metoprolol(XL)Succ 25 MG Tablet PO (08:36)
[2022-09-19] MEDS: Sertraline 50 MG Tablet PO (08:36)
[2022-09-19] MEDS: Cyanocobalamin 500 MCG Tablet 1000 MCG PO (08:36)
[2022-09-19] MEDS: Senna/Docusate Sodium 1 Tablet 2 TABLET PO ×2 (08:36→21:25)
[2022-09-19] MEDS: Cholecalciferol (VIT D3) 25 MCG TABLET (1,000 UNITS) 50 MCG PO (08:36)
[2022-09-19] MEDS: Pantoprazole Sodium 40 MG Tablet PO (08:37)
[2022-09-19] MEDS: amLODIPine 5 MG Tablet PO (08:37)
[2022-09-19] MEDS: Neuropathy Pain Cream Compound 60 CLICK TUBE TOPICAL ×2 (08:43→21:25)
[2022-09-19] MEDS: Lubiprostone 24 MCG Capsule PO ×2 (08:55→17:03)
[2022-09-19] MEDS: levETIRAcetam 750 MG Tablet PO ×2 (08:55→21:25)
[2022-09-19] MEDS: Ensure Plus High Protein 120 ML LIQUID PO ×4 (08:55→21:26)
[2022-09-19] MEDS: Bisacodyl 10 MG Suppository RC (14:07)
[2022-09-19 19:04] VITALS: BP 124/72; PULSE 77; RESP 17; TEMP 36.5; O2SAT 96
--- NOTE | 2022-09-19 19:24 | NURSING ---
patient very pleasant with staff and had a great day with minimal anxiety. Cooperative with getting a R/S due to constipation. Patient had good results from that.
[2022-09-19] MEDS: Finasteride 5 MG Tablet PO (21:25)
[2022-09-19] MEDS: Atorvastatin Calcium 10 MG Tablet PO (21:25)
[2022-09-19] MEDS: traZODone 50 MG Tablet PO (21:26)
[2022-09-19] MEDS: 0.9% Saline Lock 10 ML Syringe IV (21:27)
[2022-09-20] MEDS: Carbidopa/Levodopa 25/100 Tablet PO ×3 (05:31→17:20)
[2022-09-20] MEDS: Acetaminophen 500 MG Tablet 1000 MG PO ×3 (05:32→21:01)
[2022-09-20] MEDS: Rivaroxaban 10 MG Tablet PO (05:32)
[2022-09-20] MEDS: Menthol/Lanolin/Calamine/Znox 113 GM Tube 1 APPLIC TOPICAL ×2 (05:33→21:02)
[2022-09-20] MEDS: LORazepam 0.5 MG Tablet PO ×2 (05:33→17:21)
[2022-09-20] MEDS: Levothyroxine 75 MCG Tablet PO (05:33)
[2022-09-20] MEDS: oxyCODONE 5 MG Tablet PO ×4 (05:40→21:07)
[2022-09-20] MEDS: Cyanocobalamin 500 MCG Tablet 1000 MCG PO (07:27)
[2022-09-20] MEDS: Pantoprazole Sodium 40 MG Tablet PO (07:27)
[2022-09-20] MEDS: Lubiprostone 24 MCG Capsule PO ×2 (07:27→17:20)
[2022-09-20 07:28] VITALS: BP 116/65; PULSE 65
[2022-09-20] MEDS: amLODIPine 5 MG Tablet PO (07:28)
[2022-09-20] MEDS: levETIRAcetam 750 MG Tablet PO ×2 (07:28→21:01)
[2022-09-20] MEDS: Metoprolol(XL)Succ 25 MG Tablet PO (07:28)
[2022-09-20] MEDS: Cholecalciferol (VIT D3) 25 MCG TABLET (1,000 UNITS) 50 MCG PO (07:28)
[2022-09-20] MEDS: Senna/Docusate Sodium 1 Tablet 2 TABLET PO ×2 (07:28→21:01)
[2022-09-20] MEDS: Sertraline 50 MG Tablet PO (07:29)
[2022-09-20] MEDS: Neuropathy Pain Cream Compound 60 CLICK TUBE TOPICAL ×2 (07:30→21:01)
[2022-09-20] MEDS: Ensure Plus High Protein 120 ML LIQUID PO ×4 (07:31→21:01)
[2022-09-20 07:43] VITALS: BP 116/65; PULSE 65; RESP 16; TEMP 36.7; O2SAT 95
[2022-09-20] MEDS: 0.9% Saline Lock 10 ML Syringe IV (10:44)
--- NOTE | 2022-09-20 15:51 | CASEMGMT ---
Social Work Telephone call from patient daughter, Nanda. Nanda voicing concerns of patient willingness to discharge to an extended care facility. Nanda states that patient wishes to return to home with 24/7 care from aides. Nanda reports to not be able to find private duty aides to provide needed help for patient in the home. Nanda states that facility of choice is [facility]. This manager social reviewed with Nanda that per [facility] response that [facility] is interested in review and requires follow-up, this manager social will follow up with [facility]. This manager social communicating with Nanda that [facility] has declined patient. Nanda states that patient is unable to return to home and cannot care for self. This manager social confirming that team is recommending for patient to discharge to an extended care facility. Social Work to follow up with patient on discharge plan with attempt to help patient understand reason for retirement referral and need for placement. This manager social provided requested clinical information to [facility], via [facility]. Continued to be pending acceptance. Social Work to continue to follow. Mickey ABEL, ISIAH
--- NOTE | 2022-09-20 17:42 | PN_ITS ---
Subjective Subjective Afebrile VSS-blood pressure is well controlled. Heart rate is within normal limits. Maintaining appropriate oxygen saturation on RA Oral intake is good for food, not so good for fluids. He is taking less than 1000 cc daily of fluids. Discussed with nursing - More cooperative with staff yesterday and today. Nurs ing reports that there is still an erythematous spot on the glans penis Reviewed the PT/OT/ST notes Medication list reviewed. Took 4 doses yesterday of oxycodone 5 mg for pain. Has had 3 doses so far today. He is also on scheduled Tylenol 1 g p.o. 3 times daily. Tolerating sertraline and Ativan with no adverse side effects. He is alert for most of the day and not taking frequent naps. Sleeping well at night with the Trazodone. He denies shortness of breath, chest pain, palpitations, nausea, vomiting, abdominal pain, dysuria. He remains incontinent of urine. Denies any pain of the penis. He did not complain of pain in his left leg to me today. Objective Data Objective Data Vital Signs: Vital Signs Temp Pulse Resp BP Pulse Ox O2 Del Method O2 Flow Rate 98.0 F 65 16 116/65 95 Room Air 1 09/20/22 07:43 09/20/22 07:43 09/20/22 07:43 09/20/22 07:43 09/20/22 07:43 09/20/22 07:43 09/10/22 07:33 Oxygen Flow Rate (L/min) 1 Oxygen Delivery Method Room Air Weight: 168 lb 3.403 oz Body Mass Index (BMI) 23.4 Intake & Output: Intake and Output for Last 24 Hours 09/18/22 09/19/22 09/20/22 23:59 23:59 23:59 Intake Total 980 / 980 870 / 870 1080 / 1080 Output Total 1050 / 1050 1650 / 1650 350 / 350 Balance -70 / -70 -780 / -780 730 / 730 Lab / Micro Data Result Diagrams: 09/14/22 05:14 09/14/22 05:14 Micro: Microbiology 09/11/22 11:45 Stool Stool Occult Blood (SULAIMAN) - Final Occult Blood Positive Physical Exam Const alert Constitutional Narrative: More cooperative today. HEENT Mouth: dry mucous membranes Eyes PERRL and EOMs intact bilaterally Resp normal respiratory effort and clear to auscultation bilaterally Resp Narrative: No cough and no conversational dyspnea. Cardio regular rate, regular rhythm and no gallops Cardio Narrative: No ectopy GI normal to inspection, nondistended, normoactive bowel sounds, soft to palpation and non-tender GI Narrative: No guarding with palpation. There is an erythematous area on the glans penis which is well circumscribed and he has failed treatment with antifungal. This may be a carcinoma. IT is non- tender. Extremity Extremity Narrative: TEDS are in place. No calf tenderness. Incision intact. General Extremity: Negative for edema Skin General Skin Exam: no breakdown Rashes: no rashes Assessment & Plan Assessment/Plan (1) Debility: PLAN: Continue therapy (2) Acute blood loss anemia: PLAN: Recheck a CBC in the a.m. (3) Closed left hip fracture: (4) Status post open reduction and internal fixation (ORIF) of fracture: (5) Noncompliance with medication regimen: PLAN: Will need to have someone else administer his medications going forward to avoid having drug toxicity going forward. (6) Drug toxicity: PLAN: Keppra - this may account for a lot of the belligerence, drowsiness, confusion, nervousness and personality change. He may also have some underlying personality issues. (7) General weakness: PLAN: Improving but, will need a lot more therapy if he is ever to return home again and be functional. (8) Essential hypertension: PLAN: Well-controlled. (9) Urinary incontinence: PLAN: Will check another 3 PVR's. PLAN: Plan Plan DC to ECF. He is not able to care for himself and will need 24/7 care. Daughters are not able to find sufficient help to provide this at his home. Will discuss this with Guy tomorrow when I review his lab with him. Charges/Coding Visit Charges Inpatient E&M: 18573 Subs Hosp L2
[2022-09-20 19:41] VITALS: BP 127/72; PULSE 73; RESP 16; TEMP 37; O2SAT 98
[2022-09-20] MEDS: traZODone 50 MG Tablet PO (21:01)
[2022-09-20] MEDS: Atorvastatin Calcium 10 MG Tablet PO (21:01)
[2022-09-20] MEDS: Finasteride 5 MG Tablet PO (21:01)
[2022-09-20 21:15] VITALS: O2SAT 98
[2022-09-21] MEDS: Acetaminophen 500 MG Tablet 1000 MG PO ×3 (05:51→22:11)
[2022-09-21] MEDS: Levothyroxine 75 MCG Tablet PO (05:51)
[2022-09-21] MEDS: oxyCODONE 5 MG Tablet PO ×4 (05:51→22:09)
[2022-09-21] MEDS: Rivaroxaban 10 MG Tablet PO ×2 (05:51→17:18)
[2022-09-21] MEDS: Menthol/Lanolin/Calamine/Znox 113 GM Tube 1 APPLIC TOPICAL ×2 (05:52→22:20)
[2022-09-21] MEDS: LORazepam 0.5 MG Tablet PO ×2 (05:52→17:19)
[2022-09-21] MEDS: Carbidopa/Levodopa 25/100 Tablet PO ×3 (05:53→17:18)
[2022-09-21 06:03] LABS: Absolute Lymphocyte Count 1.17 X10^3/uL (0.83-4.51); Absolute Neutrophil Count 5.8 X10^3/uL (2.0-7.7); Basophil# 0.03 X10^3/uL; Basophil% 0.4 % (0-1); Eosinophil# 0.32 X10^3/uL; Eosinophils% 3.9 % (0-5); Hematocrit 32.1 % (40-54); Hemoglobin 10.3 g/dL (13.0-16.5); Lymphocyte # 1.17 X10^3/ul (0.83-4.51); Lymphocyte % 14.2 % (19-41); Mean Corp Hgb Conc 32.1 g/dL (32-36); Mean Corpuscular Hgb 32.9 pg (27.0-32.0); Mean Corpuscular Volume 102.6 fL (80-94); Mean Platelet Vol. 9.1 fl (6.2-12.0); Monocyte# 0.91 X10^3/uL; NRBC Flagged by Analyzer 0 % (0-5); Neutrophil # 5.77 X10^3/uL (2.7-7.7); Platelet Count 431 K/mm3 (150-450); RBC Distribution Width CV 15.9 % (11.6-14.6); RBC Distribution Width SD 59.9 fl (35.1-43.9); Red Blood Count 3.13 M/mm3 (4.6-6.2); White Blood Count 8.2 K/mm3 (4.4-11.0)
[2022-09-21 06:35] LABS: Anion Gap 4 (5-15); BUN 33 mg/dL (7-18); BUN/Creat Ratio 37.2 RATIO (10-20); Calcium,Total 9.1 mg/dL (8.5-10.1); Chloride 103 mmol/L (98-107); Creatinine, Serum 0.89 mg/dL (0.70-1.30); EST Glomerular Filtration Rate 87 mL/min (>60); Est Glom Filt Rate - Afr Amer 105 mL/min (>60); Estimated Creatinine Clearance 64.93 ml/min; Glucose 99 mg/dL (74-106); Magnesium 2.2 mg/dL (1.6-2.6); Phosphorus 3.1 mg/dL (2.5-4.9); Potassium 4.3 mmol/L (3.5-5.1); Sodium Level 138 mmol/L (136-145)
[2022-09-21 07:26] VITALS: BP 122/67; PULSE 65; RESP 16; TEMP 37.3; O2SAT 96
[2022-09-21] MEDS: Sertraline 50 MG Tablet PO (08:01)
[2022-09-21] MEDS: Senna/Docusate Sodium 1 Tablet 2 TABLET PO ×2 (08:01→22:14)
[2022-09-21] MEDS: Cyanocobalamin 500 MCG Tablet 1000 MCG PO (08:01)
[2022-09-21] MEDS: Pantoprazole Sodium 40 MG Tablet PO (08:01)
[2022-09-21] MEDS: Cholecalciferol (VIT D3) 25 MCG TABLET (1,000 UNITS) 50 MCG PO (08:01)
[2022-09-21 08:02] VITALS: PULSE 65
[2022-09-21] MEDS: Lubiprostone 24 MCG Capsule PO ×2 (08:02→17:18)
[2022-09-21] MEDS: Neuropathy Pain Cream Compound 60 CLICK TUBE TOPICAL ×2 (08:02→22:10)
[2022-09-21] MEDS: amLODIPine 5 MG Tablet PO (08:02)
[2022-09-21] MEDS: Metoprolol(XL)Succ 25 MG Tablet PO (08:02)
[2022-09-21] MEDS: levETIRAcetam 750 MG Tablet PO ×2 (08:02→22:14)
[2022-09-21] MEDS: Ensure Plus High Protein 120 ML LIQUID PO ×4 (10:06→22:14)
--- NOTE | 2022-09-21 12:26 | PN_ITS ---
Subjective Subjective Afebrile VSS Maintaining appropriate oxygen saturation on RA - He is feeling SOB today and is wearing the oxygen tubing with no oxygen flow and his pulse ox is 96% at rest. Oral intake is Erratic with respect to fluids. He is eating well. Discussed with nursing - no problems that need addressed. Has been much more cooperative the past 3 days. No seizures. Reviewed the PT/OT notes Medication list reviewed. He is taking the 5 mg of Oxycodone usually 4 X's a day. Tremors increase when he is feeling anxious.....he also feels like he is SOB but, there is no tachypnea and the pulse ox on RA is in the high 90's...more like a panic attack that generalized anxiety. Alprazolam worked well the last time this happened. Guy is c/o Left inner thigh pain today. He denies incisional pain. The inner thigh on the left is edematous and ropey. Guy denies chest pain, cough, lightheadedness, palpitations, Dysuria, nausea/vomiting/abdominal pain. He tells me he is sleeping very well at night. Lab today was personally viewed. Hemoglobin is improved and is 10.3, up from 8.5 on 09/14/2022. Platelets are WNL. WBC is WNL and the diff is unremarkable. Sodium is 138 and the potassium is 4.3. The Bun is elevated at 33 but, the creat remains within his baseline. Mag and phos are both normal. Objective Data Objective Data Vital Signs: Vital Signs Temp Pulse Resp BP Pulse Ox O2 Del Method O2 Flow Rate 99.1 F 65 16 122/67 H 96 Room Air 1 09/21/22 07:26 09/21/22 08:02 09/21/22 07:26 09/21/22 07:26 09/21/22 07:26 09/21/22 07:26 09/10/22 07:33 Oxygen Flow Rate (L/min) 1 Oxygen Delivery Method Room Air Weight: 168 lb 3.403 oz Body Mass Index (BMI) 23.4 Intake & Output: Intake and Output for Last 24 Hours 09/19/22 09/20/22 09/21/22 23:59 23:59 23:59 Intake Total 870 / 870 1680 / 1680 300 / 300 Output Total 1650 / 1650 500 / 500 475 / 475 Balance -780 / -780 1180 / 1180 -175 / -175 Lab / Micro Data Result Diagrams: 09/21/22 05:49 09/21/22 05:49 Labs: Laboratory Results - last 24 hr 09/21/22 05:49: WBC 8.2, RBC 3.13 L, Hgb 10.3 L, Hct 32.1 L, MCV 102.6 H, MCH 32.9 H, MCHC 32.1, RDW Std Deviation 59.9 H, RDW Coeff of Trey 15.9 H, Plt Count 431, MPV 9.1, Immature Gran % (Auto) 0.500, Neut % (Auto) 70.0, Lymph % (Auto) 14.2 L, [place] % (Auto) 11.0 H, Eos % (Auto) 3.9, Baso % (Auto) 0.4, Absolute Neuts (auto) 5.8, Absolute Lymphs (auto) 1.17, Nucleated RBC % 0 09/21/22 05:49: Sodium 138, Potassium 4.3, Chloride 103, Carbon Dioxide 31.0, Anion Gap 4 L, BUN 33 H, Creatinine 0.89, Estim Creat Clear Calc 64.93, Est GFR (MDRD) Af Amer 105, Est GFR (MDRD) Non-Af 87, BUN/Creatinine Ratio 37.2 H, Glucose 99, Calcium 9.1, Phosphorus 3.1, Magnesium 2.2 Micro: Microbiology 09/11/22 11:45 Stool Stool Occult Blood (SULAIMAN) - Final Occult Blood Positive Physical Exam Const alert Constitutional Narrative: Appears anxious and there is increased tremoring of the RUE. The increase in tremors and the SOB are things that occur when he is having a panic attack. HR also increases with these sx. He called his dtr Shanel today and complained that he is short of breath and no one is doing anything and he also complained that the nurses will not feed him. We are trying to get him to do as much for himself as he can. He is resisting this and I explained it will not be possible for him to go home in the future either IF he does not start doing things for himself. That being said he has been cooperating with PT and OT and he is making progress. He tires out easily and was very deconditioned at admission - he was not doing anything at home......he had the aides feeding him and bathing and he mostly sat in a chair and watched TV. General Appearance: cooperative HEENT Mouth: dry mucous membranes Eyes PERRL and EOMs intact bilaterally Resp clear to auscultation bilaterally Resp Narrative: Diminished BS's due to a poor respiratory effort which may be due to weakness of the muscles of respiration. Cardio regular rate, regular rhythm and no gallops GI normal to inspection, nondistended, normoactive bowel sounds, soft to palpation and non-tender Extremity Extremity Narrative: The left thigh has increasing edema, constantine of the medial thigh. He has pain with palpation of the L inner thigh and there is a ropiness with palpation. Skin General Skin Exam: no breakdown Rashes: no rashes Neuro CN's II-XII intact bilaterally Neuro Narrative: Tremoring primarily of the Upper extremities....worsens with increased anxiety. He is very angry when his dtr's talk about an ECF and does not hear them when they tell him that if he improves there is potential for returning home if he can be safety with only 1 person assisting. Psych Psych Narrative: Anxious Attitude: agitated Assessment & Plan Assessment/Plan (1) Closed left hip fracture: PLAN: Continue therapy. He will be going to an extended care facility at discharge. There is a potential to return home but, he has to be able to be safe with only 1 person to assist. (2) Status post open reduction and internal fixation (ORIF) of fracture: PLAN: The incision is healing and there is no erythema or DC. He is not c/o pain on the lateral side of the left leg....the pain is all medial and he has pain with palpation. (3) Left thigh pain: PLAN: Pain associated with increased swelling of the thigh but not the distal LE. He has been on Xarelto 10 mg for DVT prophylaxis but, can not exclude DVT. Will order a venous US of the left leg today. (4) Urinary incontinence: PLAN: PVR's today were 0 and 26. Incontinence is not due to urine retention. Will check a UA. (5) Anxiety with depression: PLAN: He is tolerating the Zoloft with no adverse SE's and his anxiety is he ightened recently because he was told he is going to an ECF. Will increase to 75 mg daily. (6) Drug toxicity: PLAN: Keppra level increased due to him taking the medication BID + PRN when he feels his BP is too high. (7) Thrombocytopenia: PLAN: resolved (8) Acute blood loss anemia: PLAN: HH is improving and macrocytosis is likely to to increased reticulocytes. (9) General weakness: PLAN: Slowly getting stronger......he should have continued PT/OT at a lower level facility. (10) Parkinsons disease: (11) Skin lesion: PLAN: He has an erythematous lesion on the glans penis that is painless and may be CA.......will defer to Guy and his dtr's whether he wants to follow up with urology post discharge from rehab. PLAN: Plan 1. Increase the Ativan to 0.5 mg Q8H and add Xanax 0.125 mg Q 8H PRN panic attack. 2. Plan is to discharge to ECF Tuesday. [facility] if they will accept him. [facility] declined to admit [facility] to their facility. 3. Continue therapy. 4. Encouraged to increase fluid intake. 5. Increase the Sertraline to 75 mg daily Charges/Coding Visit Charges Inpatient E&M: 79131 Subs Hosp L2
--- NOTE | 2022-09-21 12:36 | VDLE_ITS ---
Reason For Study: Swelling Procedure LEFT This is a venous duplex using B-mode, color CFV is compressible, spontaneous, phasic, flow and spectral Doppler. competent, and demonstrates normal Exam performed portable in patient room. augmentation. A preliminary report was called and/or faxed FV is compressible, spontaneous, phasic, to Rehab. competent and demonstrates normal augmentation. POP V is compressible, spontaneous, phasic, competent and demonstrates normal augmentation. T/P Trunk is compressible. PTV is compressible. LT PerV is compressible. GSV at prox thigh is partially compressible, with mixed echogenicity. VL/Venous Duplex US, Unilateral Interpretation Summary There is no evidence of left lower extremity deep vein thrombosis. Superficial thrombophlebitis left great saphenous vein proximal thigh. Ordering Physician: Ariela Gonzales Referring Physician: Cheo Gamble M.D. Performed By: Solange Burgos RVT
[2022-09-21] MEDS: ALPRAZolam 0.25 MG Tablet 0.125 MG PO ×2 (12:58→22:17)
--- NOTE | 2022-09-21 14:25 | CASEMGMT ---
Addendum entered by Destinee Segura 09/23/22 11:43: 7000 completed and sent with tx summary via [facility]port to [facility] Addendum entered by Destinee Segura 09/22/22 12:56: [facility] is able to accept the pt. [facility] is still reviewing. Dtr toured [facility] and that is FOC. SW finalized DC for pt to transfer to [facility]. Scheduled cot transport through [facility] for 1400. 7000 started. IDT and pt aware. Plan: DC 09/23. [facility], skilled Original Note: [facility] denied pt. [facility] contacted dtr Lorie to request more facilities. Lorie requesting referrals to [facility] and [facility]. Referrals made via [facility]Port Destinee Segura ,[facility]
[2022-09-21] MEDS: 0.9% Saline Lock 10 ML Syringe IV (14:45)
[2022-09-21 14:54] LABS: Mucous, Urine 0 SEEN /hpf (<or=2+); Squamous Epithelial Cells - UA 0 SEEN /hpf (0-5); White Blood Cells 0 SEEN /hpf (0-5)
[2022-09-21 14:58] LABS: Color, Urine Yellow (Yellow); Glucose, Dipstick Normal (Normal); Ketone-Dipstick 5 mg/dl (Negative); Leukocyte Esterase-Dipstick 100 /ul (Negative); Nitrite-Dipstick Negative (Negative); Occult Blood-Urine 250 /ul (Negative); Protein-Dipstick 30 mg/dl (Negative); Urine Bilirubin Dipstick Negative (Negative); Urine Clarity Clear (Clear); Urine Urobilinogen Normal (Normal); Urine pH 6.5 (5.0 - 8.0)
[2022-09-21 15:22] LABS: Bacteria RARE /hpf (None Seen); Red Blood Cells-Urine 5-10 SEEN /hpf (0-5)
[2022-09-21 15:23] LABS: Calcium Oxalate Crystals Ur RARE /hpf (<or=2+)
[2022-09-21 22:00] VITALS: PULSE 66; PULSE 86; RESP 16; RESP 18; TEMP 36.8; O2SAT 92; O2SAT 95
[2022-09-21] MEDS: Atorvastatin Calcium 10 MG Tablet PO (22:11)
[2022-09-21] MEDS: Finasteride 5 MG Tablet PO (22:14)
[2022-09-21] MEDS: traZODone 50 MG Tablet PO (22:20)
[2022-09-22] MEDS: oxyCODONE 5 MG Tablet PO ×3 (04:44→20:17)
[2022-09-22] MEDS: Menthol/Lanolin/Calamine/Znox 113 GM Tube 1 APPLIC TOPICAL ×2 (04:45→20:18)
[2022-09-22] MEDS: Acetaminophen 500 MG Tablet 1000 MG PO ×3 (05:30→20:19)
[2022-09-22] MEDS: LORazepam 0.5 MG Tablet PO ×3 (05:31→17:15)
[2022-09-22] MEDS: Levothyroxine 75 MCG Tablet PO (05:31)
[2022-09-22] MEDS: Magnesium Hydroxide 30 ML UDC PO (06:09)
[2022-09-22 07:47] VITALS: BP 139/72; PULSE 65; RESP 18; TEMP 36.5; O2SAT 99
[2022-09-22] MEDS: Sertraline 50 MG Tablet 75 MG PO (08:46)
[2022-09-22] MEDS: Neuropathy Pain Cream Compound 60 CLICK TUBE TOPICAL ×2 (08:46→20:17)
[2022-09-22 08:47] VITALS: BP 139/72; PULSE 65
[2022-09-22] MEDS: Lubiprostone 24 MCG Capsule PO ×2 (08:47→17:12)
[2022-09-22] MEDS: Carbidopa/Levodopa 25/100 Tablet PO ×3 (08:47→17:12)
[2022-09-22] MEDS: Metoprolol(XL)Succ 25 MG Tablet PO (08:47)
[2022-09-22] MEDS: Senna/Docusate Sodium 1 Tablet 2 TABLET PO ×2 (08:47→20:19)
[2022-09-22] MEDS: Pantoprazole Sodium 40 MG Tablet PO (08:47)
[2022-09-22] MEDS: levETIRAcetam 750 MG Tablet PO ×2 (08:47→20:18)
[2022-09-22] MEDS: Cholecalciferol (VIT D3) 25 MCG TABLET (1,000 UNITS) 50 MCG PO (08:47)
[2022-09-22] MEDS: amLODIPine 5 MG Tablet PO (08:47)
[2022-09-22] MEDS: Cyanocobalamin 500 MCG Tablet 1000 MCG PO (08:48)
[2022-09-22] MEDS: Ensure Plus High Protein 120 ML LIQUID PO ×3 (08:48→17:12)
[2022-09-22] MEDS: ALPRAZolam 0.25 MG Tablet 0.125 MG PO (15:02)
[2022-09-22] MEDS: Rivaroxaban 20 MG Tablet PO (17:12)
[2022-09-22 20:00] VITALS: BP 122/72; PULSE 80; RESP 16; TEMP 36.5; O2SAT 96
[2022-09-22] MEDS: traZODone 50 MG Tablet PO (20:18)
[2022-09-22] MEDS: Finasteride 5 MG Tablet PO (20:19)
[2022-09-22] MEDS: Atorvastatin Calcium 10 MG Tablet PO (20:20)
[2022-09-23] MEDS: Carbidopa/Levodopa 25/100 Tablet PO ×2 (06:43→10:53)
[2022-09-23] MEDS: Levothyroxine 75 MCG Tablet PO (06:44)
[2022-09-23] MEDS: LORazepam 0.5 MG Tablet PO ×2 (06:44→12:07)
[2022-09-23] MEDS: Acetaminophen 500 MG Tablet 1000 MG PO ×2 (06:44→13:20)
[2022-09-23] MEDS: oxyCODONE 5 MG Tablet PO (06:44)
--- NOTE | 2022-09-23 06:58 | NURSING ---
c\o chest pain . in the center of chest to the right side. c/o feels like squeeze. Resp called for ekg. vitals done
[2022-09-23] MEDS: Menthol/Lanolin/Calamine/Znox 113 GM Tube 1 APPLIC TOPICAL (07:14)
[2022-09-23 07:41] VITALS: BP 159/75; PULSE 66; RESP 16; TEMP 36.1; O2SAT 96
[2022-09-23] MEDS: Neuropathy Pain Cream Compound 60 CLICK TUBE TOPICAL (08:25)
[2022-09-23 08:26] VITALS: BP 159/75; PULSE 66
[2022-09-23] MEDS: Cholecalciferol (VIT D3) 25 MCG TABLET (1,000 UNITS) 50 MCG PO (08:26)
[2022-09-23] MEDS: Senna/Docusate Sodium 1 Tablet 2 TABLET PO (08:26)
[2022-09-23] MEDS: Sertraline 50 MG Tablet 75 MG PO (08:26)
[2022-09-23] MEDS: Cyanocobalamin 500 MCG Tablet 1000 MCG PO (08:26)
[2022-09-23] MEDS: Metoprolol(XL)Succ 25 MG Tablet PO (08:26)
[2022-09-23] MEDS: levETIRAcetam 750 MG Tablet PO (08:27)
[2022-09-23] MEDS: amLODIPine 5 MG Tablet PO (08:27)
[2022-09-23] MEDS: Pantoprazole Sodium 40 MG Tablet PO (08:27)
[2022-09-23] MEDS: Ensure Plus High Protein 120 ML LIQUID PO ×2 (08:27→10:55)
[2022-09-23] MEDS: Lubiprostone 24 MCG Capsule PO (08:28)
--- NOTE | 2022-09-23 09:23 | TREXTCAR_ITS ---
Diet Diet Order/Speech Therapy: 09/07/22 15:36 Diet: Regular - General Diet Comments: sippy cup Routine Orders/Code Status Enema Type: Fleetz Enema Frequency: Daily PRN Suppository Type: Dulcolax 10mg Suppository Frequency: Daily PRN O2 Liters per Minute: 1 O2 Frequency: PRN Keep PO Greater than or Equal to (%): 90 Routine Lab Work: CBC (1 week) and BMP (1 week) Code Status: DNRCC-A (with intubation) Wound(s) left hip: Wound Type: Surgical Incision (L hip) left distal thigh: Wound Type: Surgical Incision rt index finger: Wound Type: Abrasion (just some dried eschar now) left elbow: Wound Type: Abrasion left lower thigh above knee: Wound Type: old drain site Suggestions for Active Care Change Position every (hours): 2 Positions to Avoid: Lying in bed for hours during the day time waking hours. Hours to sit in a chair: 6 Times a day to sit in chair: 3 ( He is to be in chair to eat his meals. ) Therapies Weight Bearing: Weight bearing as tolerated Extremity Affected:: Left Lower Physical Therapy: Eval and Treat Occupational Therapy: Eval and Treat Speech Therapy: Eval and Treat (He refused speech therapy while in rehab.) Problem/Diagnosis (1) Debility: Status: Acute Code(s): R53.81 - Other malaise Comment: Debility is due not only to hip fracture but, due to severe weakness related to Parkinson's disease and deconditioning. (2) Fall: Status: Acute Code(s): W19.XXXA - Unspecified fall, initial encounter (3) Closed left hip fracture: Status: Acute Code(s): S72.002A - Fracture of unspecified part of neck of left femur, initial encounter for closed fracture (4) Status post open reduction and internal fixation (ORIF) of fracture: Status: Acute Code(s): Z98.890 - Other specified postprocedural states; Z87.81 - Personal history of (healed) traumatic fracture Comment: Cephalomedullary nailing 09/04/[address] Jose Shah (5) Left thigh pain: Status: Acute Code(s): M79.652 - Pain in left thigh Comment: Venous US + for superficial thrombophlebitis of the Greater Saphenous vein in the L proximal thigh. (6) Urinary incontinence: Status: Acute Code(s): R32 - Unspecified urinary incontinence Plan: PVR's were 0 and 26. Incontinence is not due to urine retention. (7) Anxiety with depression: Status: Acute Code(s): F41.8 - Other specified anxiety disorders Comment: Started on Zoloft and is tolerating well at the time of DC. He was also started on scheduled Ativan to control extreme anxiety. He is tolerating Ativan without any adverse side effects and specifically no daytime somnolence. (8) Drug toxicity: Status: Acute Code(s): R89.2 - Abnormal level of other drugs, medicaments and biological substances in specimens from other organs, systems and tissues Plan: Keppra level in toxic range due to him taking the medication BID + PRN when he feels his BP is too high. The dose was decreased to 750 mg BID after holding 3 doses and he has had no seizures. (9) Thrombocytopenia: Status: Resolved Code(s): D69.6 - Thrombocytopenia, unspecified Plan: resolved (10) Acute blood loss anemia: Status: Acute Code(s): D62 - Acute posthemorrhagic anemia Plan: HH is improving and macrocytosis is likely to to increased reticulocytes. HGB was 8.5 on 09/14/22 and prior to DC it is up to 10.3. Stool was heme positive and he was placed on Protonix 40 mg daily. (11) General weakness: Status: Acute Code(s): R53.1 - Weakness Plan: Slowly getting stronger......he should have continued PT/OT at a lower level facility. He was very deconditioned at admission to rehab....he had his caretakers doing everything, including feeding him for the past sevral months and has severe generalized weakness. Still requiring 2 person assist for many ADL's to keep him safe. (12) Parkinsons disease: Status: Acute Code(s): G20 - Parkinson's disease (13) Skin lesion: Status: Acute Code(s): L98.9 - Disorder of the skin and subcutaneous tissue, unspecified Plan: He has an erythematous lesion on the glans penis that is painless and may be CA.......will defer to Guy and his dtr's whether he wants to follow up with urology post discharge from rehab. Comment: Erythematous painless lesion of the glans penis. Possible CA. (14) Noncompliance with medication regimen: Status: Acute Code(s): Z91.14 - Patient's other noncompliance with medication regimen Comment: Takes extra Keppra when he think his BP is high per his dtr. Daughters are not even sure he has a seizure disorder. Has seen Dr. Meadows in the past. (15) Visual hallucinations: Status: Acute Code(s): R44.1 - Visual hallucinations Plan: Presumed to be secondary to COVID. 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 Has had no CP while in rehab. (17) Hypothyroidism: Status: Chronic Code(s): E03.9 - Hypothyroidism, unspecified Comment: TSH was normal at 1.48 on 09/03/22. (18) Essential hypertension: Status: Chronic Code(s): I10 - Essential (primary) hypertension Comment: Well controlled. (19) Orthostatic hypotension: Status: Chronic Code(s): I95.1 - Orthostatic hypotension Comment: Resolves with hydration. He is chronically dehydrated due to poor fluid intake. When he received IV fluids the hypotension resolved. (20) Seizure disorder: Status: Acute Code(s): G40.909 - Epilepsy, unspecified, not intractable, without status epilepticus (21) Superficial thrombophlebitis of left leg: Status: Acute Code(s): I80.02 - Phlebitis and thrombophlebitis of superficial vessels of left lower extremity Comment: He developed the thrombophlebitis while on Xarelto 10 mg daily. The dose was increased to a therapeutic dose of 20 mg daily on 09/22/22. The inner left thigh is very edematous and painful to the touch from the knee to the groin. Hot compresses ordered for TID. Plan Allergies/Procedures Done in Hospital Allergies lisinopril Adverse Reaction (Verified 08/31/22 08:48) Nausea Procedures: None Type of Care/Length of Stay Estimated LOS: Convalescent Care Less Than 30 days Type of Care Needed: Skilled Rehab Potential: Poor Prognosis: Poor Additional Orders/Day of Discharge Additional Orders: 1. He is able to feed himself. He refuses to do things himself but, he wants to get home and he will need to be able to manage with only 1 person assist before this can happen. He should be doing as much as he can by himself to get stronger. 2. Ordered warm compresses to the Left inner thigh TID on the day of DC. H&P will serve as current which was dated: 09/07/22 Day of Discharge: 09/24/22 Dietary and Speech Recommendations Dietitian Recommendations/Changes: Continue Regular diet to optimize oral intakes. RD will order 120mL Ensure Plus High Protein TID with medpass to provide supplemental energy. Follow Up Care Please follow up with your Primary Care Physician in: Dr. Cheo Gamble on 09/24/22 at 2 PM Please Follow Up With: Jose Shah MD When: 10/11/22 at 08:30 Please Follow Up With: neurology When: within the next 1-2 months Discharge Plan Admission Admit Date/Time: 09/07/22 15:00 Primary Reason for Your Visit: Debility due to closed L hip FX and PD. Attending Provider: Ariela Gonzales Primary Care Provider: Cheo Gamble Consulting Providers: Kathia Mayorga ; Vinny Alcantara ; Karina Montgomery ; Carolyn Bach ; Lenora Sher [employer] EM[employer]OYEE Discharge Orders/Prescriptions Prescriptions: New amlodipine 5 mg Tablet 5 mg PO DAILY Qty: 0 0RF bisacodyl 5 mg Tablet,Delayed Release (Dr/Ec) 10 mg PO QHS PRN (Reason: Constipation) Qty: 0 0RF carbidopa-levodopa 25-100 mg Tablet 1.5 tab PO TIDAC Qty: 0 0RF cholecalciferol (vitamin D3) 25 mcg (1,000 unit) Tablet 50 mcg PO DAILYCM Qty: 1 0RF pantoprazole 40 mg Tablet,Delayed Release (Dr/Ec) 40 mg PO DAILY Qty: 0 0RF levetiracetam 750 mg Tablet 750 mg PO BID Qty: 0 0RF oxycodone 5 mg Tablet 5 mg PO Q4H PRN PRN (Reason: Pain Score 1-10) 7 Days Qty: 28 0RF alprazolam 0.25 mg Tablet 0.125 mg PO Q8H PRN PRN (Reason: panic attack) 7 Days Qty: 14 0RF sertraline 50 mg Tablet 75 mg PO DAILY Qty: 0 0RF diclofenac sodium 1 % Gel 2 g topical 4X/DAY PRN (Reason: pain (scale score 1-3)) Qty: 100 0RF Rx Instructions: apply to the hands and the left medial thigh lorazepam 0.5 mg Tablet 0.5 mg PO 0600,1200,1800 7 Days Qty: 21 0RF Ensure Plus High Protein 0.08 gram-1.5 kcal/mL Liquid 120 ml PO TIDCM Qty: 0 0RF trazodone 50 mg Tablet 50 mg PO QHS Qty: 0 0RF sennosides-docusate sodium [Stool Softener-Stimulant Laxat] 8.6-50 mg Tablet 2 tab PO BID Qty: 0 0RF magnesium hydroxide 400 mg/5 mL Suspension 30 ml PO .PRN X 1 PRN (Reason: Constipation) Qty: 0 0RF Xarelto 20 mg Tablet 20 mg PO DINNER Qty: 0 0RF Continued finasteride 5 MG tablet 5 mg PO QHS Label Comments: prostate, BPH simvastatin 20 mg tablet 20 mg PO QHS Label Comments: cholesterol levothyroxine 50 mcg tablet 75 mcg PO DAILY Label Comments: thyroid aspirin 81 MG tablet 81 mg PO BID Label Comments: heart health coenzyme Q10 10 MG capsule 200 mg PO DAILY mecobalamin (vitamin B12) 5,000 mcg Tablet,Disintegrating 1,000 mcg PO DAILY lubiprostone [Amitiza] 24 mcg Capsule 24 mcg PO BID metoprolol succinate 25 mg tablet extended release 24 hr 25 mg PO DAILY acetaminophen 500 mg tablet 1,000 mg PO TID menthol-zinc oxide [Calmoseptine] 0.44-20.6 % ointment 1 applic topical BID Protocol: *Topical Application Instructions APPLICATION INSTRUCTIONS: apply to penis (pull back foreskin) Changed Ensure Plus High Protein 0.08 gram-1.5 kcal/mL liquid 120 ml PO TIDCM Qty: 237 0RF Discontinued amlodipine 2.5 mg tablet 5 mg PO DAILY carbidopa-levodopa [Sinemet] 25-100 mg tablet 1.5 tab PO TID sertraline [Zoloft] 25 MG tablet 50 mg PO DAILY Label Comments: mood cholecalciferol (vitamin D3) 2,000 UNIT capsule 2,000 unit PO DAILY levetiracetam [Keppra] 500 mg Tablet 1,000 mg PO BID bisacodyl [Dulcolax (bisacodyl)] 5 mg Tablet,Delayed Release (Dr/Ec) 5 - 10 mg PO QHS PRN (Reason: Constipation) omeprazole 40 mg Capsule,Delayed Release(Dr/Ec) 40 mg PO DAILY oxycodone 5 mg tablet 5 mg PO Q4H PRN PRN (Reason: Pain Score 1-10) Xarelto 10 mg tablet 10 mg PO DAILY@0600 Referrals / Follow Up: Jose Shah MD [Med Staff - Active Staff] - 10/11/22 8:30 am Cheo Gamble MD [Primary Care Provider] - 09/24/22 2:00 pm Disposition Disposition (needs filled in before D/C Order can be placed): Group Home Facility (1) Atherosclerotic heart disease of [place] coronary artery without angina pectoris Qualifiers: [place] vs. transplanted heart: [place] heart Qualified Code(s): I25.10 - Atherosclerotic heart disease of [place] coronary artery without angina pectoris
--- NOTE | 2022-09-23 11:38 | DS.PCM_ITS ---
Providers Date of Admission: 09/07/22 Date of Discharge: 09/23/22 Primary Care Physician: Dr. Cheo Gamble MD Consultations 09/10/22 09:05 Consult: Hospice / Palliative Care Routine Consulting Provider: [facility] Reason for Consult: PALLIATIVE - Parkinson's, decline in ADLs EMERGENT Consult: No MD Notified: Yes Date Notified: 09/10/22 Time Notified: 09:05 Method of Notification: Verbal Reason For Visit: L HIP FX Diagnosis Discharge Diagnosis (1) Debility: Status: Acute Code(s): R53.81 - Other malaise (2) Fall: Status: Acute Code(s): W19.XXXA - Unspecified fall, initial encounter (3) Closed left hip fracture: Status: Acute Code(s): S72.002A - Fracture of unspecified part of neck of left femur, initial encounter for closed fracture (4) Status post open reduction and internal fixation (ORIF) of fracture: Status: Acute Code(s): Z98.890 - Other specified postprocedural states; Z87.81 - Personal history of (healed) traumatic fracture (5) Left thigh pain: Status: Acute Code(s): M79.652 - Pain in left thigh (6) Urinary incontinence: Status: Acute Code(s): R32 - Unspecified urinary incontinence Plan: PVR's were 0 and 26. Incontinence is not due to urine retention. (7) Anxiety with depression: Status: Acute Code(s): F41.8 - Other specified anxiety disorders (8) Drug toxicity: Status: Acute Code(s): R89.2 - Abnormal level of other drugs, medicaments and biological substances in specimens from other organs, systems and tissues Plan: Keppra level in toxic range due to him taking the medication BID + PRN when he feels his BP is too high. The dose was decreased to 750 mg BID after holding 3 doses and he has had no seizures. (9) Thrombocytopenia: Status: Resolved Code(s): D69.6 - Thrombocytopenia, unspecified Plan: resolved (10) Acute blood loss anemia: Status: Acute Code(s): D62 - Acute posthemorrhagic anemia Plan: HH is improving and macrocytosis is likely to to increased reticulocytes. HGB was 8.5 on 09/14/22 and prior to DC it is up to 10.3. Stool was heme positive and he was placed on Protonix 40 mg daily. (11) General weakness: Status: Acute Code(s): R53.1 - Weakness Plan: Slowly getting stronger......he should have continued PT/OT at a lower level facility. He was very deconditioned at admission to rehab....he had his caretakers doing everything, including feeding him for the past sevral months and has severe generalized weakness. Still requiring 2 person assist for many ADL's to keep him safe. (12) Parkinsons disease: Status: Acute Code(s): G20 - Parkinson's disease (13) Skin lesion: Status: Acute Code(s): L98.9 - Disorder of the skin and subcutaneous tissue, unspecified Plan: He has an erythematous lesion on the glans penis that is painless and may be CA.......will defer to Guy and his dtr's whether he wants to follow up with urology post discharge from rehab. (14) Noncompliance with medication regimen: Status: Acute Code(s): Z91.14 - Patient's other noncompliance with medication regimen (15) Visual hallucinations: Status: Acute Code(s): R44.1 - Visual hallucinations Plan: Presumed to be secondary to COVID. (16) Atherosclerotic heart disease of redding coronary artery without angina pectoris: Status: Chronic Code(s): I25.10 - Atherosclerotic heart disease of redding coronary artery without angina pectoris Qualifiers: [place] vs. transplanted heart: redding heart Qualified Code(s): I25.10 - Atherosclerotic heart disease of redding coronary artery without angina pectoris (17) Hypothyroidism: Status: Chronic Code(s): E03.9 - Hypothyroidism, unspecified (18) Essential hypertension: Status: Chronic Code(s): I10 - Essential (primary) hypertension (19) Orthostatic hypotension: Status: Chronic Code(s): I95.1 - Orthostatic hypotension (20) Seizure disorder: Status: Acute Code(s): G40.909 - Epilepsy, unspecified, not intractable, without status epilepticus (21) Superficial thrombophlebitis of left leg: Status: Acute Code(s): I80.02 - Phlebitis and thrombophlebitis of superficial vessels of left lower extremity Plan 1. Discharge to the [place] for detention. 2. Follow up with Dr. Shah on 10/11/22 at 08:30 3. Follow up with Dr. Gamble on 09/24/22 at 2PM 4. Will need follow up with urology for the erythematous lesion on the glans penis for possible bx. Did not improve with tx for candidiasis.......the erythema of the underside of the foreskin and other small areas on the glans did resolve with antifungal cream. Medications at Discharge Home Medications finasteride 5 mg tablet 5 mg PO QHS prostate 09/07/16 aspirin 81 mg tablet,delayed release 81 mg PO BID HEART HEALTH 10/05/16 coenzyme Q10 10 mg capsule 200 mg PO DAILY SUPPLEMENT 12/27/17 simvastatin 20 mg tablet 20 mg PO QHS cholesterol lowering 06/20/19 levothyroxine 50 mcg tablet 75 mcg PO DAILY thyroid 06/21/19 mecobalamin (vitamin B12) 5,000 mcg disintegrating tablet 1,000 mcg PO DAILY supplement 03/24/21 lubiprostone 24 mcg capsule (Amitiza) 24 mcg PO BID Check with primary doctor 05/01/22 metoprolol succinate 25 mg tablet,extended release 24 hr 25 mg PO DAILY blood pressure 05/01/22 acetaminophen 500 mg tablet 1,000 mg PO TID pain 09/07/22 menthol 0.44 %-zinc oxide 20.6 % topical ointment (Calmoseptine) 1 applic topical BID redness 09/07/22 alprazolam 0.25 mg tablet 0.125 mg PO Q8H PRN PRN panic attack 7 days #14 tabs 09/23/22 amlodipine 5 mg tablet 5 mg PO DAILY #0 tabs 09/23/22 bisacodyl 5 mg tablet,delayed release 10 mg PO QHS PRN Constipation #0 tabs 09/23/22 carbidopa 25 mg-levodopa 100 mg tablet 1.5 tab PO TIDAC #0 tabs 09/23/22 cholecalciferol (vitamin D3) 25 mcg (1,000 unit) tablet 50 mcg PO DAILYCM #1 TAB 09/23/22 diclofenac sodium 1 % topical gel 2 g topical 4X/DAY PRN pain (scale score 1-3) #100 grams 09/23/22 food supplemt, lactose-reduced 0.08 gram-1.5 kcal/mL oral liquid (Ensure Plus High Protein) 120 ml PO TIDCM #0 mL 09/23/22 food supplemt, lactose-reduced 0.08 gram-1.5 kcal/mL oral liquid (Ensure Plus High Protein) 120 ml PO TIDCM supplement #237 mL 09/23/22 levetiracetam 750 mg tablet 750 mg PO BID #0 tabs 09/23/22 lorazepam 0.5 mg tablet 0.5 mg PO 0600,1200,1800 7 days #21 tabs 09/23/22 magnesium hydroxide 400 mg/5 mL oral suspension 30 ml PO .PRN X 1 PRN Constipation #0 mL 09/23/22 oxycodone 5 mg tablet 5 mg PO Q4H PRN PRN Pain Score 1-10 7 days #28 tabs 09/23/22 pantoprazole 40 mg tablet,delayed release 40 mg PO DAILY #0 tabs 09/23/22 rivaroxaban 20 mg tablet (Xarelto) 20 mg PO DINNER #0 tabs 09/23/22 sennosides 8.6 mg-docusate sodium 50 mg tablet (Stool Softener-Stimulant Laxative) 2 tab PO BID #0 tabs 09/23/22 sertraline 50 mg tablet 75 mg PO DAILY #0 tabs 09/23/22 trazodone 50 mg tablet 50 mg PO QHS #0 tabs 09/23/22 Hospital Course Operations - (cephalomedullary naile placement on 09/04/[address] Osvaldo Shah. ) Procedures None Summary of Care Provided Minutes Spent on Discharge: 45 Hospital Course: Olivia PRESCOTT, is a 81-year-old M with a past medical history of anxiety, coronary artery disease, BPH, depression, hypertension, hypothyroidism, nephrolithiasis, orthostatic hypotension, Parkinson's disease, seizure disorder, spinal canal stenosis, presbycusis, chronic renal failure stage III, history of mitral valve repair, GERD and a recent fall onto his left side on 09/03/2022 resulting in a closed Left hip fracture.? He was taken to the OR on 09/04/[address] Ronnell Shah for left hip cephalomedullary nail placement.? Postoperative complications included acute hypoxic respiratory insufficiency most likely secondary to fluid overload.? He was given IV Lasix with good impro vement.? He was seen by PT/OT post-op and a recommendation was made for acute rehab following DC from the hospital.? Mr. Prescott lives alone in a one-story home with 2 steps to enter his house and no handrails.? He has home health services for 4 hours a day.? His daughters assist him with grocery shopping and transporting him to appointments.? For the 6 months prior to the fall Guy had been progressively losing strength and function. He was having the aids feed him and could not get out of a chair without assistance and so he was urinating in the chair. He became more belligerent/agitated as time progressed and had been yelling at his daughters and the home aids. He had been taking the Keppra twice a day as scheduled but, he was taking it PRN also when he thinks his BP is high per his dtr Shanel. He has visual hallucinations. ?He was admitted to [facility] acute rehab on 09/07/2022 for 3 hours of therapy daily to restore function/independence at or near his level prior to the fall. HE really was not functional at home. Guy was dehydrated at admission to rehab and had severe orthostatic hypotension with c/o lightheadedness. The BUN was 37 with a creatinine of 0.86. Hemoglobin was 8.9, down from 15.2 on 09/03/2022. IV NS was ordered and following hydration the orthostatic changes resolved. 1 day prior to DC his BUN is again up to 33 with a creat of 0.89. Despite repeated encouragement to increase his fluid intake his fluid intake remains poor. He calls the nurses to get him water when the water pitcher is easily within his reach. HE gets very agitated and angry at times......this has improved with Ativan and Sertraline. He has panic attacks and when this happens the tremors INCREASE and he c/o SOB even though the pulse ox on RA is in the 90's. I suspect it is these sx that lead him to take extra Keppra at home. The NC is a security blanket for him and just putting the NC on with no flow soothes him. For these attacks his HR and BP go up. We have been giving Xanax 0.125 mg BID as needed for panic attacks and it is very effective. He has only needed 5 doses since he has been in rehab. He has recieved 3 of those doses in the last 2 days because he has been very angry and nervous about going to another facility. There has been much yelling and complaints of SOB. HGB following hydration at admission was 8.6. His stool was heme + when we checked it. He is on Protonix 40 mg daily. HGB at DC is 10.3 but, he is dehydrated again and this may be falsely increased due to dehydration. Because he has been taking extra Keppra at home we obtain a Keppra level and it was elevated at 41.3. The therapeutic range is considered to be 10-40. Side effects include change in personality, nervousness, tremors, agitation. There was a noticeable change in his behavior when we held 3 doses and restarted the medication at 750 mg BID rather than 1,000 mg BID. He was much more cooperative with the therapists. In talking with his dtr I learned Guy by nature has been disagreeable and perhaps some of the yelling/belligerence and refusal to do things he does not want to do himself may be due to underlying personality issues. When his care takers visit he wants them to feed him rather than he feed himself. He also wants nursing to hold the urinal for him when he is able to do this by himself and when they will not help him he just urinates in the bed. Prior to Dc Guy is supervision/set up for eating and min assist with grooming. He is still total assistance with upper and lower body dressing, bathing, toilet sitting and tub/shower transfer. He is mod assist of 2 just to get him to stand/pivot.He ambulated in the parallel bars 10' on 1 or 2 occasions with a WC follow. On his last therapy day he ambulated 2 ' with a FWW at mod assist X1. He is not able to do even a 2 step but, he can toe tap a 2 step with both legs. HE very frequently asks for more nerve medicine and pain meds. I think sometimes he asks for pain medications just to calm himself down. He started to complain of severe left medial thigh pain the week of his DC. A venous US was obtained and despite the fact that he had been taking Xarelto 10 mg daily for DVT prophylaxis there was a superficial thrombophlebitis present in the greater saphenous vein in the proximal Left thigh. Xarelto was increased to 20 mg daily to prevent propagation of the clot. The medial thigh is swollen and ropey and very painful, even with light palpation. He is getting warm compresses 3 times a day. HGB is stable. Guy needs 24/7 observation and he needs 2 people to stand pivot. This was discussed with his dtr's and palliative care was consulted and he was discharged to an SNF. In my opinion, Guy is not motivated to do anything to help himself and wants someone to do everything for him. He has only been on an antidepressant for 2 weeks so maybe with a little more time he will become motivated. Ativan has been critical in controlling behavior and the Trqazodone at allows him to sleep, something he was not doing prior to the Ativan. Palliative will continue to follow Guy at the [facility] post DC. Physical Exam Narrative He is uncircumcised. The foreskin retracts easily over the glans. There is a whitish DC under the foreskin with erythema and there is also patchy erythema on the glans. He denies pain. Const alert and no apparent distress Constitutional Narrative: Sometimes cooperative and at others refusing to do more than exercises in the bed. Yelling at his visitors, his daughters and the staff on rehab frequently. At other times he is pleasant. General Appearance: frail HEENT normocephalic; Negative for head/scalp atraumatic Mouth: dry mucous membranes Eyes PERRL, EOMs intact bilaterally, conjunctivae normal and no scleral icterus Neck supple, no JVD, No nodes and no carotid bruits General: trachea midline Chest Chest: symmetrical chest wall rise Resp no use of accessory muscles and clear to auscultation bilaterally Resp Narrative: Diminished BS's due to a poor respiratory effort which may be due to weakness of the muscles of respiration. Effort and Inspection: able to speak in complete sentences; Negative for tachypneic, respiratory distress or labored Cardio regular rate, regular rhythm, S1 normal heart sound, S2 normal heart sound, no murmurs, no rub and no gallops Cardio Narrative: No ectopy GI normal to inspection, nondistended, normoactive bowel sounds, soft to palpation and non-tender GI Narrative: No guarding with palpation. There is an erythematous area on the glans penis which is well circumscribed and he has failed treatment with antifungal. This may be a carcinoma. It is non- tender. this can be followed up as an OP if desired. Extremity no calf tenderness Extremity Narrative: The left thigh has increasing edema, constantine of the medial thigh. He has pain with palpation of the L inner thigh and there is a ropiness with palpation. There is no erythema. There is no ankle edema and he has no pain in the left calf. General Extremity: Negative for cyanosis Skin Skin Narrative: He has an abrasion on the index finger of the R hand from the fall. There is no sign of infection and there is now just a few dry eschars with no erythema and no DC. He also has some bruising on the left arm and a small abrasion on the L elbow. General Skin Exam: no breakdown Rashes: no rashes Wound Narrative: The incisions are intact with no dehiscence, no erythema, no purulent discharge. There is less ecchymosis and less swelling of the Left lateral thigh and groin area. Neuro oriented x3, CN's II-XII intact bilaterally and moves all extremities Neuro Narrative: Tremoring primarily of the Upper extremities....worsens with increased anxiety. He is very angry when his dtr's talk about an ECF and does not hear them when they tell him that if he improves there is potential for returning home if he can be safety with only 1 person assisting. Psych Psych Narrative: Anxious Appearance: grossly normal Attitude: agitated Speech: normal speech Mood & Affect: irritable Thought Content: No suicidality, No homicidality and hallucination(s) Positive for visual and other (He also is paranoid and accuses the nurses of not giving him the Oxycodone and accuses others of conspiring against him to put him in a [facility] when he wants to go home. ) Attention / Concentration: attention grossly intact Weight / BMI Weight Weight: 168 lb 3.403 oz Body Mass Index (BMI) 23.4 ABG / Lab / Microbiology Data Result Diagrams: 09/21/22 05:49 09/21/22 05:49 Microbiology: Microbiology 09/23/22 06:51 Nasal Secretion SARS-CoV-2 Antigen (Rapid) - Final 09/11/22 11:45 Stool Stool Occult Blood (SULAIMAN) - Final Occult Blood Positive D/C Instructions Please Follow Up With: Jose Shah MD Meaningful Use Info Meaningful Use Diagnoses (Choose all that apply): None applicable Discharge Plan Admission Admit Date/Time: 09/07/22 15:00 Primary Reason for Your Visit: Debility due to closed L hip FX and PD. Attending Provider: Ariela Gonzales Primary Care Provider: Cheo Gamble Consulting Providers: Kathia Mayorga ; Vinny Alcantara ; Karina Montgomery ; Carolyn Bach ; Lenora Sher SNOW RANGER Discharge Orders/Prescriptions Prescriptions: New amlodipine 5 mg Tablet 5 mg PO DAILY Qty: 0 0RF bisacodyl 5 mg Tablet,Delayed Release (Dr/Ec) 10 mg PO QHS PRN (Reason: Constipation) Qty: 0 0RF carbidopa-levodopa 25-100 mg Tablet 1.5 tab PO TIDAC Qty: 0 0RF cholecalciferol (vitamin D3) 25 mcg (1,000 unit) Tablet 50 mcg PO DAILYCM Qty: 1 0RF pantoprazole 40 mg Tablet,Delayed Release (Dr/Ec) 40 mg PO DAILY Qty: 0 0RF levetiracetam 750 mg Tablet 750 mg PO BID Qty: 0 0RF oxycodone 5 mg Tablet 5 mg PO Q4H PRN PRN (Reason: Pain Score 1-10) 7 Days Qty: 28 0RF alprazolam 0.25 mg Tablet 0.125 mg PO Q8H PRN PRN (Reason: panic attack) 7 Days Qty: 14 0RF sertraline 50 mg Tablet 75 mg PO DAILY Qty: 0 0RF diclofenac sodium 1 % Gel 2 g topical 4X/DAY PRN (Reason: pain (scale score 1-3)) Qty: 100 0RF Rx Instructions: apply to the hands and the left medial thigh lorazepam 0.5 mg Tablet 0.5 mg PO 0600,1200,1800 7 Days Qty: 21 0RF Ensure Plus High Protein 0.08 gram-1.5 kcal/mL Liquid 120 ml PO TIDCM Qty: 0 0RF trazodone 50 mg Tablet 50 mg PO QHS Qty: 0 0RF sennosides-docusate sodium [Stool Softener-Stimulant Laxat] 8.6-50 mg Tablet 2 tab PO BID Qty: 0 0RF magnesium hydroxide 400 mg/5 mL Suspension 30 ml PO .PRN X 1 PRN (Reason: Constipation) Qty: 0 0RF Xarelto 20 mg Tablet 20 mg PO DINNER Qty: 0 0RF Continued finasteride 5 MG tablet 5 mg PO QHS Label Comments: prostate, BPH simvastatin 20 mg tablet 20 mg PO QHS Label Comments: cholesterol levothyroxine 50 mcg tablet 75 mcg PO DAILY Label Comments: thyroid aspirin 81 MG tablet 81 mg PO BID Label Comments: heart health coenzyme Q10 10 MG capsule 200 mg PO DAILY mecobalamin (vitamin B12) 5,000 mcg Tablet,Disintegrating 1,000 mcg PO DAILY lubiprostone [Amitiza] 24 mcg Capsule 24 mcg PO BID metoprolol succinate 25 mg tablet extended release 24 hr 25 mg PO DAILY acetaminophen 500 mg tablet 1,000 mg PO TID menthol-zinc oxide [Calmoseptine] 0.44-20.6 % ointment 1 applic topical BID Protocol: *Topical Application Instructions APPLICATION INSTRUCTIONS: apply to penis (pull back foreskin) Changed Ensure Plus High Protein 0.08 gram-1.5 kcal/mL liquid 120 ml PO TIDCM Qty: 237 0RF Discontinued amlodipine 2.5 mg tablet 5 mg PO DAILY carbidopa-levodopa [Sinemet] 25-100 mg tablet 1.5 tab PO TID sertraline [Zoloft] 25 MG tablet 50 mg PO DAILY Label Comments: mood cholecalciferol (vitamin D3) 2,000 UNIT capsule 2,000 unit PO DAILY levetiracetam [Keppra] 500 mg Tablet 1,000 mg PO BID bisacodyl [Dulcolax (bisacodyl)] 5 mg Tablet,Delayed Release (Dr/Ec) 5 - 10 mg PO QHS PRN (Reason: Constipation) omeprazole 40 mg Capsule,Delayed Release(Dr/Ec) 40 mg PO DAILY oxycodone 5 mg tablet 5 mg PO Q4H PRN PRN (Reason: Pain Score 1-10) Xarelto 10 mg tablet 10 mg PO DAILY@0600 Referrals / Follow Up: Jose Shah MD [Med Staff - Active Staff] - 10/11/22 8:30 am Cheo Gamble MD [Primary Care Provider] - 09/24/22 2:00 pm Disposition Disposition (needs filled in before D/C Order can be placed): [facility] Facility Charges/Coding Visit Charges Inpatient E&M: 02533 Disch Hosp
[2022-09-23] MEDS: ALPRAZolam 0.25 MG Tablet 0.125 MG PO (13:27)
--- NOTE | 2022-09-23 15:05 | NURSING ---
[facility] Report called to Stephanie
[2022-09-23 15:06] VITALS: BP 159/75; PULSE 66; RESP 16; TEMP 36.1; O2SAT 98
== END 2022-09-23 15:07 | disposition skilled nursing facility (03) | DRG 560 ==
PROVIDERS: Admitting Provider Internal Medicine; PCP Internal Medicine; Visit Provider Internal Medicine
DX: S72.002D Fracture of unspecified part of neck of left femur, subsequent encounter for closed fracture with routine healing (principal); D62 Acute posthemorrhagic anemia; G40.109 Localization-related (focal) (partial) symptomatic epilepsy and epileptic syndromes with simple partial seizures, not intractable, without status epilepticus; G20 Parkinson's disease; N18.30 Chronic kidney disease, stage 3 unspecified; E86.0 Dehydration; I12.9 Hypertensive chronic kidney disease with stage 1 through stage 4 chronic kidney disease, or unspecified chronic kidney disease; E03.9 Hypothyroidism, unspecified; I25.10 Atherosclerotic heart disease of native coronary artery without angina pectoris; F41.8 Other specified anxiety disorders; I95.1 Orthostatic hypotension; W19.XXXD Unspecified fall, subsequent encounter; R32 Unspecified urinary incontinence; Z91.14 Patient's other noncompliance with medication regimen; Z79.01 Long term (current) use of anticoagulants; N48.9 Disorder of penis, unspecified; F41.0 Panic disorder [episodic paroxysmal anxiety]; Z79.899 Other long term (current) drug therapy; Z79.82 Long term (current) use of aspirin; Z79.890 Hormone replacement therapy; N40.1 Benign prostatic hyperplasia with lower urinary tract symptoms
CPT/HCPCS: 36415; 73502; 80048; 80177; 81001; 82274; 82803; 83735; 84100; 85014; 85018; 85025; 85027; 87426; 92523; 93005; 93971; 95819; 97110; 97116; 97140; 97163; 97166; 97530; 97535; 97802; 97803; 99251; J7120; A4216; G0463

== ENCOUNTER 2022-10-05 13:14 | Emergency (ER) | payer MEDICARE, OTHER, SELFPAY ==
[2022-10-05 13:18] VITALS: BP 126/77; PULSE 85; RESP 16; TEMP 35.9; O2SAT 100; BMI 23.1
--- NOTE | 2022-10-05 13:19 | EKG12_ITS ---
Test Reason : UNRESP Blood Pressure : / mmHG Vent. Rate : 084 BPM Atrial Rate : 000 BPM P-R Int : 000 ms QRS Dur : 102 ms QT Int : 398 ms P-R-T Axes : 000 -34 084 degrees QTc Int : 470 ms Normal sinus rhythm Left axis deviation Low voltage QRS Nonspecific T wave abnormality Abnormal ECG Confirmed by HIRAL PRESTON, ISABELLA ([id number]), associate editor TIMOTEO GARCIA ([id number]) on 10/06/2022 11:59:51 AM Referred By: LUDY Confirmed By:ISABELLA BLACKMAN MD
--- NOTE | 2022-10-05 13:31 | ED.RN ---
PT FROM THE [facility]. THIS RN CALLED TO GET REPORT FROM [facility]. THIS RN TALKED TO ALEJANDRINA NURSE AT THE [facility]. PT WITH A HYPOTENSIVE SYNCOPAL EPISODE. REPORTS PT WAS IN WHEELCHAIR AND UNRESPONSIVE, PT MOVED FROM WHEELCHAIR TO BED AND WAS HYPOTENSIVE 50/20'S. PT TOOK ABOUT 5 MINUTES FOR PT TO BECOME AROUSABLE.
--- NOTE | 2022-10-05 13:33 | RAD_ITS ---
STUDY: X-RAY CHEST REASON FOR EXAM: Male, 81 years old. Weakness TECHNIQUE: Single AP portable view of the chest. COMPARISON: Comparison is made with prior study dated 09/03/2022. FINDINGS: EKG electrodes are seen. The lungs are clear and expanded. There is no demonstrated pleural abnormality. Sternal cerclage wires are present from a prior sternotomy. Prior mitral valve replacement. Left atrial clip is once again seen. Normal mediastinum and gavin. Normal visualized pulmonary arteries. There is atherosclerotic tortuosity of the aortic arch and descending thoracic aorta. There are diffuse degenerative changes of the visualized thoracic spine. Normal visualized ribs, clavicles, and shoulders. There is no demonstrated abnormality of the visualized soft tissue structures of the upper abdomen. RAD/Chest 1 View (Portable) IMPRESSION: Stable examination. Electronically Signed: Pepe Lopez MD at 14:12 EST ,
--- NOTE | 2022-10-05 13:35 | ED.RN ---
PT WITH REDDENED AREA TO SPINE NOTED ON ARRIVAL, PT PLACED INTO HOSPITAL GOWN.
--- NOTE | 2022-10-05 13:37 | CT_ITS ---
STUDY: CT BRAIN WITHOUT CONTRAST REASON FOR EXAM: Male, 81 years old. Episode of unresponsiveness. Generalized weakness. RADIATION DOSAGE (If Supplied By Facility): CTDIvol = ( 44.99 ) mGy, DLP = ( 846.73 ) mGycm TECHNIQUE: Transaxial CT imaging of the brain was performed without administration of intravenous contrast material. Individualized dose optimization techniques were used for this CT. COMPARISON: Comparison is made with prior examination dated 01/04/2018. FINDINGS: Normal soft tissue structures. Normal calvarium. There is mild cerebral atrophy with widening of the extra-axial spaces and ventricular dilatation. There are areas of decreased attenuation within the white matter tracts of the supratentorial brain, consistent with microvascular disease changes. Normal basal ganglia and thalami. Normal brainstem. Normal cerebellum. There is no intracranial hemorrhage. There are no findings of an acute ischemic infarction. Atherosclerotic calcific plaques of the vertebral arteries and cavernous portions of the internal carotid arteries bilaterally. Normal visualized paranasal sinuses. Nasal septal deviation towards the left side of the midline. CT/Brain/Head without Contrast IMPRESSION: Chronic involutional changes of the brain. Electronically Signed: Pepe Lopez MD at 14:15 EST ,
--- NOTE | 2022-10-05 13:38 | EX.ED.DYSGE1 ---
HPI <AMANDA Joe - Last Filed: 10/05/22 20:16> History of Present Illness Chief Complaint: Weakness Narrative Narrative: Patient presents today from the skilled rehab facility that he is living at due to an episode of unresponsiveness and weakness. retirement was contacted and one of the employees stated he was sitting in a wheelchair when he became unresponsive for several seconds but did not have any seizure-like activity. The employee then took his blood pressure and stated it was in the 50s systolic over 20s diastolic. Patient has a past medical history of hypertension, mitral valve repair in 2016, hypothyroidism, chronic renal insufficiency, hyperlipidemia, anxiety, macular degeneration, depression, anxiety, Parkinson's disease and suspected seizures. Patient was living by himself until he brought his hip August 2022. Patient is unable to tell me where he is at today but thinks he is in the hospital, he is unsure what day the week it is or what month it is, he is oriented to person. Patient states the only symptom he is having right now is hip pain. PFS <AMANDA Joe - Last Filed: 10/05/22 20:16> FOR[facility]LY [facility] Medical History Anxiety Arthritis Atherosclerotic heart disease of [place] coronary artery without angina pectoris Bone fracture BPH (benign prostatic hyperplasia) Bradycardia Carpal tunnel syndrome Constipation Depression Essential hypertension Fall Femur fracture, left History of left heart catheterization (LHC) (~10/01/16) History of mitral valve disorder Hypothyroid Hypothyroidism Irregular heart beat Kidney stone Lung nodule Migraine Noncompliance with medication regimen Orthostatic hypotension Parkinsons disease Right sided weakness Seizure disorder Slurred speech Spinal stenosis Syncope Vision problems Wears hearing aid in both ears Home Medications finasteride 5 mg tablet 5 mg PO QHS prostate 09/07/16 [History Last Taken 10/04/22] aspirin 81 mg tablet,delayed release 81 mg PO BID HEART HEALTH 10/05/16 [History Last Taken 10/05/22] metoprolol succinate 25 mg tablet,extended release 24 hr 25 mg PO DAILY blood pressure 05/01/22 [History Last Taken 10/05/22] acetaminophen 500 mg tablet 1,000 mg PO TID pain 09/07/22 [History Last Taken 10/05/22] diclofenac sodium 1 % topical gel 2 g topical 4X/DAY PRN pain (scale score 1-3) #100 grams 09/23/22 [Rx Last Taken 09/28/22] food supplemt, lactose-reduced 0.08 gram-1.5 kcal/mL oral liquid (Ensure Plus High Protein) 120 ml PO TIDCM supplement #237 mL 09/23/22 [Rx Last Taken 10/05/22] levetiracetam 750 mg tablet 750 mg PO BID epilepsy 10/04/22 [History Last Taken 10/05/22] amlodipine 5 mg tablet 5 mg PO DAILY blood pressure 10/05/22 [History Last Taken 10/05/22] atorvastatin 10 mg tablet 10 mg PO QHS cholesterol 10/05/22 [History Last Taken 10/04/22] carbidopa 25 mg-levodopa 100 mg tablet 1.5 tab PO TIDAC parkinsons 10/05/22 [History Last Taken 10/05/22] cholecalciferol (vitamin D3) 25 mcg (1,000 unit) tablet 50 mcg PO TIDCM supplement 10/05/22 [History Last Taken 10/05/22] cyanocobalamin (vitamin B-12) 1,000 mcg tablet (Vitamin B-12) 1,000 mcg PO DAILY supplement 10/05/22 [History Last Taken 10/05/22] food supplemt, lactose-reduced 0.08 gram-1.5 kcal/mL oral liquid (Ensure Plus High Protein) 120 ml PO TIDCM supplement 10/05/22 [History Last Taken 10/05/22] levothyroxine 75 mcg tablet 75 mcg PO DAILY thyroid 10/05/22 [History Last Taken 10/05/22] lorazepam 0.5 mg tablet 0.5 mg PO TID anxiety 10/05/22 [History Last Taken 10/05/22] lubiprostone 24 mcg capsule 24 mcg PO BID stool 10/05/22 [History Last Taken 10/05/22] oxycodone 5 mg tablet 5 mg PO Q4H PRN Pain 10/05/22 [History Last Taken 10/05/22] pantoprazole 40 mg tablet,delayed release 40 mg PO DAILY gerd 10/05/22 [History Last Taken 10/05/22] rivaroxaban 20 mg tablet (Xarelto) 20 mg PO DAILY blood thinner 10/05/22 [History Last Taken 10/04/22] sennosides 8.6 mg-docusate sodium 50 mg tablet (Stool Softener-Stimulant Laxative) 2 tab PO BID stool 10/05/22 [History Last Taken 10/05/22] sertraline 50 mg tablet 75 mg PO DAILY depression 10/05/22 [History Last Taken 10/05/22] trazodone 50 mg tablet 50 mg PO QHS insomnia 10/05/22 [History Last Taken 10/04/22] Allergy/AdvReac Type Severity Reaction Status Date / Time lisinopril AdvReac Mild Nausea Verified 10/05/22 13:17 Family History Father CAD (coronary artery disease) Diabetes Heart disease Surgical History History of hernia repair History of hip surgery History of mandibular surgery History of mitral valve repair (~11/18/16) Status post open reduction and internal fixation (ORIF) of fracture Social History household members: none Smoking Status: Never smoker second hand exposure: No alcohol intake: never substance use type: does not use caffeine: No estiven/adventism: None seatbelt use: never ROS <AMANDA Joe - Last Filed: 10/05/22 20:16> ROS ED Constitutional Constitutional ED: Denies chills, fever(s) or sweats Eyes Eyes: Denies blurry vision or change in vision ENT ENT ED: Denies rhinorrhea or sore throat Cardiovascular Cardiovascular: Denies chest pain or palpitations Respiratory/Chest Respiratory/Chest: Denies cough, dyspnea or dyspnea on exertion Gastrointestinal Gastrointestinal: Denies abdominal pain, nausea or vomiting Genitourinary Genitourinary ED: Denies dysuria, hematuria or urinary frequency Musculoskeletal Musculoskeletal: Reports arthralgias; Denies back pain or neck pain Integumentary Denies abscess, Abrasions or rash Neurologic Neurologic: Reports weakness; Denies headache(s) Psychiatric Psychiatric: Denies anxiety or depression EXAM <AMANDA Joe - Last Filed: 10/05/22 20:16> Physical Exam Const Vital Signs: 10/05/22 13:18 10/05/22 13:26 10/05/22 15:35 Temperature 96.7 F L Temperature Source Temporal Pulse Rate 85 74 Respiratory Rate 16 14 Respiratory Effort Normal Non-Labored Respiratory Pattern Normal Blood Pressure 126/77 H 119/82 H Blood Pressure Mean 93 94 Pulse Ox 100 100 Oxygen Delivery Method Nasal Cannula Nasal Cannula Oxygen Flow Rate (L/min) 3 3 10/05/22 16:30 10/05/22 20:06 Temperature Temperature Source Pulse Rate 90 78 Respiratory Rate 18 18 Respiratory Effort Respiratory Pattern Blood Pressure 139/92 H 129/79 H Blood Pressure Mean 95 Pulse Ox 100 99 Oxygen Delivery Method Nasal Cannula Oxygen Flow Rate (L/min) 3 Positive well nourished General Appearance ED: NAD HEENT Reports moist mucous membranes Negative for trauma or tenderness Eyes PERRL and EOMs intact bilaterally Neck no lymphadenopathy and supple General: Negative for tenderness Chest Wall inspection of chest normal and palpation of chest normal Resp normal respiratory effort and clear to auscultation bilaterally Cardio regular rate, regular rhythm and no murmurs GI non-tender, non-distended and no masses Palpation: soft Back/Spine Cervical Spine: Negative for cervical spine tenderness Thoracic Spine / Upper Back: Negative for thoracic spinal tenderness Lumbar Spine / Lower Back: Negative for lumbar spinal tenderness Extremity normal to inspection Neuro CN's II-XII intact bilaterally and no sensory deficits noted Sensorium / Orientation: alert Motor Exam: strength 5/5 throughout Psych mental status grossly normal Skin no rashes or lesions noted, no wounds and skin turgor normal <Dr. Bia Hill MD - Last Filed: 10/05/22 16:27> Physical Exam Const Vital Signs: 10/05/22 13:18 10/05/22 13:26 10/05/22 15:35 Temperature 96.7 F L Temperature Source Temporal Pulse Rate 85 74 Respiratory Rate 16 14 Respiratory Effort Normal Non-Labored Respiratory Pattern Normal Blood Pressure 126/77 H 119/82 H Blood Pressure Mean 93 94 Pulse Ox 100 100 Oxygen Delivery Method Nasal Cannula Nasal Cannula Oxygen Flow Rate (L/min) 3 3 10/05/22 16:30 10/05/22 20:06 Temperature Temperature Source Pulse Rate 90 78 Respiratory Rate 18 18 Respiratory Effort Respiratory Pattern Blood Pressure 139/92 H 129/79 H Blood Pressure Mean 95 Pulse Ox 100 99 Oxygen Delivery Method Nasal Cannula Oxygen Flow Rate (L/min) 3 MDM <AMANDA Joe - Last Filed: 10/05/22 20:16> MDM MDM Narrative Medical decision making narrative: Covid and influenza swabs are negative today. Patient's blood pressure remains stable and he has not been hypotensive. Patient is afebrile with O2 sat at 100% with nasal cannula. Patient Sinemet dose was increased yesterday which can cause hypotension. Recommend he goes back to his baseline Sinemet and talk to neurologist before increasing again. Sister is in the room and states today was the first time he was able to walk during PT since breaking his hip in August. She thinks that is the main reason he is feeling weak today. She also states he has not been sleeping well at the senior care because he wants to go home and thinks that could be why they feel he is weak. Lab Data Attestation: I reviewed the patient's lab results. Lab results narrative: Blood cell count 4.0. Hemoglobin of 12.6 hematocrit 38.8. BUN 30. Troponin 7. No acute cystitis. Labs: Laboratory Results - last 24 hr 10/05/22 10/05/22 10/05/22 13:02 13:02 15:05 WBC 4.0 L RBC 3.77 L Hgb 12.6 L Hct 38.8 L MCV 102.9 H MCH 33.4 H MCHC 32.5 RDW Std Deviation 55.2 H RDW Coeff of Trey 14.5 Plt Count 224 MPV 10.1 Immature Gran % (Auto) 0.500 Neut % (Auto) 71.3 H Lymph % (Auto) 9.6 L [place] % (Auto) 17.5 H Eos % (Auto) 0.8 Baso % (Auto) 0.3 Absolute Neuts (auto) 2.8 Absolute Lymphs (auto) 0.38 L Nucleated RBC % 0 [address] Review May foll Sodium 139 Potassium 3.6 Chloride 101 Carbon Dioxide 32.0 Anion Gap 6 BUN 30 H Creatinine 0.96 Estim Creat Clear Calc 60.20 Est GFR (MDRD) Af Amer 95 Est GFR (MDRD) Non-Af 79 BUN/Creatinine Ratio 31.1 H Glucose 130 H Calcium 9.3 Troponin I High Sens 7 Urine Color Yellow Urine Clarity Clear Urine pH 5.0 Ur Specific [place] 1.025 Urine Protein 30 H Urine Glucose (UA) Normal Urine Ketones 5 H Urine Occult Blood 50 H Urine Nitrite Negative Urine Bilirubin Negative Urine Urobilinogen Normal Ur Leukocyte Esterase 25 H Urine RBC 0 SEEN Urine WBC 0 SEEN Ur Squamous Epith Cells 0-5 SEEN Calcium Oxalate Crystal 2+ Urine Bacteria 0 SEEN Hyaline Casts 0-5 SEEN Urine Mucus 0 SEEN Radiography Diagnostic Testing: Clinical Impression(s) from Imaging Studies Chest X-Ray 10/05/22 13:33 IMPRESSION: Stable examination. Electronically Signed: Pepe Lopez MD at 14:12 EST , Brain CT 10/05/22 13:37 IMPRESSION: Chronic involutional changes of the brain. Electronically Signed: Pepe Lopez MD at 14:15 EST , EKG Initial EKG: Attestation: I personally reviewed and interpreted this EKG as follows: Comments: 84 bpm. Left axis deviation. no ST elevation. This EKG has also been reviewed by attending ED physician. Artifact secondary to Parkinson's. <Dr. Bia Hill MD - Last Filed: 10/05/22 16:27> [facility] Lab Data Labs: Laboratory Results - last 24 hr 10/05/22 10/05/22 10/05/22 13:02 13:02 15:05 WBC 4.0 L RBC 3.77 L Hgb 12.6 L Hct 38.8 L MCV 102.9 H MCH 33.4 H MCHC 32.5 RDW Std Deviation 55.2 H RDW Coeff of [place]rey 14.5 Plt Count 224 MPV 10.1 Immature Gran % (Auto) 0.500 Neut % (Auto) 71.3 H Lymph % (Auto) 9.6 L [place] % (Auto) 17.5 H Eos % (Auto) 0.8 Baso % (Auto) 0.3 Absolute Neuts (auto) 2.8 Absolute Lymphs (auto) 0.38 L Nucleated RBC % 0 [address] Review May foll Sodium 139 Potassium 3.6 Chloride 101 Carbon Dioxide 32.0 Anion Gap 6 BUN 30 H Creatinine 0.96 Estim Creat Clear Calc 60.20 Est GFR (MDRD) Af Amer 95 Est GFR (MDRD) Non-Af 79 BUN/Creatinine Ratio 31.1 H Glucose 130 H Calcium 9.3 Troponin I High Sens 7 Urine Color Yellow Urine Clarity Clear Urine pH 5.0 Ur Specific [place] 1.025 Urine Protein 30 H Urine Glucose (UA) Normal Urine Ketones 5 H Urine Occult Blood 50 H Urine Nitrite Negative Urine Bilirubin Negative Urine Urobilinogen Normal Ur Leukocyte Esterase 25 H Urine RBC 0 SEEN Urine WBC 0 SEEN Ur Squamous Epith Cells 0-5 SEEN Calcium Oxalate Crystal 2+ Urine Bacteria 0 SEEN Hyaline Casts 0-5 SEEN Urine Mucus 0 SEEN Radiography Diagnostic Testing: Clinical Impression(s) from Imaging Studies Chest X-Ray 10/05/22 13:33 IMPRESSION: Stable examination. Electronically Signed: Pepe Lopez MD at 14:12 EST , Brain CT 10/05/22 13:37 IMPRESSION: Chronic involutional changes of the brain. Electronically Signed: Pepe Lopez MD at 14:15 EST , Treatment and Re-Evaluation Narrative: Patient seen and evaluated with PK. I personally interviewed and examined the patient. I was involved in all aspects of patient's orders, interpretation of results, and treatment. Patient presents via EMS after unresponsive episode at the [facility]. Patient reported was found sitting upright in his wheelchair and unresponsive. Nursing staff placed him back in bed and checked his blood pressure was noted to be quite low. At this time patient has no significant complaints. He does have a history of dementia. It is noted that the patient had an appointment with his neurologist yesterday and there were some medication changes made. Patient lying in bed no acute distress. Head and neck examination reveals no obvious sign of trauma. Heart is regular rate and rhythm. Lung sounds are clear. Abdomen is soft and nontender. Neuro exam reveals tremor consistent with his Parkinson's disease. No focal neurologic deficits are noted. EKG, head CT, chest x-ray obtained. Lab work and urinalysis ordered. Patient's head CT reveals chronic involutional changes. Chest x-ray per my interpretation reveals no focal infiltrate, chronic changes are noted. CBC and chemistry studies largely unremarkable. He is slightly leukopenic with a white count of 4.0 and hemoglobin of 12.6. Swabs for COVID and influenza are obtained and negative. Troponin is normal at 7. Urinalysis reveals some calcium oxalate crystals but no sign of acute infection. EKG reveals artifact secondary to his Parkinson's tremor, but no ischemia is appreciated. Patient did have his Sinemet dose increased yesterday. This can cause orthostatic hypotension. To be safe we did recommend going back to his baseline Sinemet level and then talking with neurology prior to any increase in dose as he did have this episode today. He will be discharged back to [facility] for further monitoring. Discharge Plan Triage Chief Complaint: Weakness ED Midlevel Provider: Roxy Patel ED Provider: Bia Hill Dx/Rx/DC Orders Clinical Impression: General weakness, Parkinsons disease, Dementia Instructions: ED Weakness (Uncertain Cause) Prescriptions: No Action levetiracetam 750 mg tablet 750 mg PO BID finasteride 5 MG tablet 5 mg PO QHS Label Comments: prostate, BPH aspirin 81 MG tablet 81 mg PO BID Label Comments: heart health metoprolol succinate 25 mg tablet extended release 24 hr 25 mg PO DAILY acetaminophen 500 mg tablet 1,000 mg PO TID diclofenac sodium 1 % Gel 2 g topical 4X/DAY PRN (Reason: pain (scale score 1-3)) Qty: 100 0RF Rx Instructions: apply to the hands and the left medial thigh Ensure Plus High Protein 0.08 gram-1.5 kcal/mL liquid 120 ml PO TIDCM Qty: 237 0RF trazodone 50 mg Tablet 50 mg PO QHS atorvastatin 10 mg Tablet 10 mg PO QHS cyanocobalamin (vitamin B-12) [Vitamin B-12] 1,000 mcg Tablet 1,000 mcg PO DAILY levothyroxine 75 mcg Tablet 75 mcg PO DAILY lorazepam 0.5 mg Tablet 0.5 mg PO TID pantoprazole 40 mg Tablet,Delayed Release (Dr/Ec) 40 mg PO DAILY oxycodone 5 mg Tablet 5 mg PO Q4H PRN (Reason: Pain) jazminiprostone 24 mcg Capsule 24 mcg PO BID Xarelto 20 mg Tablet 20 mg PO DAILY sennosides-docusate sodium [Stool Softener-Stimulant Laxat] 8.6-50 mg tablet 2 tab PO BID amlodipine 5 mg tablet 5 mg PO DAILY carbidopa-levodopa 25-100 mg tablet 1.5 tab PO TIDAC sertraline 50 mg tablet 75 mg PO DAILY cholecalciferol (vitamin D3) 25 mcg (1,000 unit) tablet 50 mcg PO TIDCM Ensure Plus High Protein 0.08 gram-1.5 kcal/mL liquid 120 ml PO TIDCM Primary Care Provider: Cheo Gamble Referrals: Cheo Gamble MD [Primary Care Provider] - 3-5 Days Activity Restrictions/Additional Instructions: Return to previous siminet dosage and consult with neurologist before advancing again. This increase may have caused his hypotension today. Disposition Disposition: Home, Self Care Discharge Date/Time: 10/05/22 20:06
[2022-10-05 13:52] LABS: Absolute Lymphocyte Count 0.38 X10^3/uL (0.83-4.51); Absolute Neutrophil Count 2.8 X10^3/uL (2.0-7.7); Basophil# 0.01 X10^3/uL; Basophil% 0.3 % (0-1); Eosinophil# 0.03 X10^3/uL; Eosinophils% 0.8 % (0-5); Hematocrit 38.8 % (40-54); Hemoglobin 12.6 g/dL (13.0-16.5); Lymphocyte # 0.38 X10^3/ul (0.83-4.51); Lymphocyte % 9.6 % (19-41); Mean Corp Hgb Conc 32.5 g/dL (32-36); Mean Corpuscular Hgb 33.4 pg (27.0-32.0); Mean Corpuscular Volume 102.9 fL (80-94); Mean Platelet Vol. 10.1 fl (6.2-12.0); Monocyte# 0.69 X10^3/uL; Monocyte% 17.5 % (0-10); NRBC Flagged by Analyzer 0 % (0-5); Neutrophil # 2.82 X10^3/uL (2.7-7.7); Neutrophil % 71.3 % (47-70); POSITIVE DIFFERENTIAL YES; Platelet Count 224 K/mm3 (150-450); RBC Distribution Width CV 14.5 % (11.6-14.6); RBC Distribution Width SD 55.2 fl (35.1-43.9); Red Blood Count 3.77 M/mm3 (4.6-6.2)
[2022-10-05 14:06] LABS: Anion Gap 6 (5-15); BUN 30 mg/dL (7-18); BUN/Creat Ratio 31.1 RATIO (10-20); Calcium,Total 9.3 mg/dL (8.5-10.1); Chloride 101 mmol/L (98-107); Creatinine, Serum 0.96 mg/dL (0.70-1.30); EST Glomerular Filtration Rate 79 mL/min (>60); Est Glom Filt Rate - Afr Amer 95 mL/min (>60); Glucose 130 mg/dL (74-106); Potassium 3.6 mmol/L (3.5-5.1); Sodium Level 139 mmol/L (136-145); Troponin-I HS 7 pg/mL (3.0-78.0)
[2022-10-05 14:13] LABS: Differential Indicated SCAN CRITERIA MET
[2022-10-05 15:10] LABS: Bacteria 0 SEEN /hpf (None Seen); Mucous, Urine 0 SEEN /hpf (<or=2+); Red Blood Cells-Urine 0 SEEN /hpf (0-5); White Blood Cells 0 SEEN /hpf (0-5)
[2022-10-05 15:13] LABS: Color, Urine Yellow (Yellow); Glucose, Dipstick Normal (Normal); Ketone-Dipstick 5 mg/dl (Negative); Leukocyte Esterase-Dipstick 25 /ul (Negative); Nitrite-Dipstick Negative (Negative); Occult Blood-Urine 50 /ul (Negative); Protein-Dipstick 30 mg/dl (Negative); Specific Gravity, Urine 1.025 (1.002-1.030); Urine Bilirubin Dipstick Negative (Negative); Urine Clarity Clear (Clear); Urine Urobilinogen Normal (Normal)
[2022-10-05 15:20] LABS: Calcium Oxalate Crystals Ur 2+ /hpf (<or=2+); Hyaline Cast 0-5 SEEN /lpf (0-5); Squamous Epithelial Cells - UA 0-5 SEEN /hpf (0-5)
[2022-10-05 15:35] VITALS: BP 119/82; PULSE 74; RESP 14; O2SAT 100
[2022-10-05 16:30] VITALS: BP 139/92; PULSE 90; RESP 18; O2SAT 100
--- NOTE | 2022-10-05 16:33 | NURSING ---
CALLED [facility], ETA IS 2 HRS
--- NOTE | 2022-10-05 19:11 | NURSING ---
CALLED TO GET AN UPDATED ETA AND WAS TOLD THEY WHERE ON A DELAY AND IT WILL BE ANOTHER 2-3 HOURS BY PHYSICIANS
[2022-10-05 20:06] VITALS: BP 129/79; PULSE 78; RESP 18; O2SAT 99
[2022-10-06 15:38] LABS: Pathologist Review Reviewed
== END 2022-10-05 20:06 | disposition home or self-care (01) ==
PROVIDERS: Physician Assistant; Emergency Provider Emergency Medicine; PCP Internal Medicine; Visit Provider Emergency Medicine
DX: R53.1 Weakness (principal); G20 Parkinson's disease; F03.90 Unspecified dementia, unspecified severity, without behavioral disturbance, psychotic disturbance, mood disturbance, and anxiety; E03.9 Hypothyroidism, unspecified; F32.A Depression, unspecified; I25.10 Atherosclerotic heart disease of native coronary artery without angina pectoris; E78.5 Hyperlipidemia, unspecified; I12.9 Hypertensive chronic kidney disease with stage 1 through stage 4 chronic kidney disease, or unspecified chronic kidney disease; N18.9 Chronic kidney disease, unspecified; F41.9 Anxiety disorder, unspecified; Z79.899 Other long term (current) drug therapy; Z20.822 Contact with and (suspected) exposure to COVID-19
CPT/HCPCS: 70450; 71045; 80048; 81001; 84484; 85025; 87428; 93005; 99285